=== PATIENT | female | born 1970 | race Caucasian/White ===

== ENCOUNTER 2016-11-11 11:08 | Emergency (ER) | payer SELFPAY ==
[~2016-11-11] VITALS: Ht 162.6 cm; Wt 70.0 kg
[2016-11-11] VITALS (7 sets, daily range): BP systolic 115–170; BP diastolic 73–100; PULSE 70–146; RESP 18–24; TEMP 97.8–99; O2SAT 95–100
--- NOTE | 2016-11-11 11:14 | PD ---
Physical Exam Date Seen by Provider: Nov 11, 2016 Time Seen by Provider: 11:11 Data Data Last Documented VS Vital Signs Date Time Temp Pulse Resp B/P Pulse Ox O2 Delivery O2 Flow Rate FiO2 11/11/16 11:10 98.4 146 24 170/100 95 Room Air [facility] Supervised Visit with KENNETH: No Narrative Course 46 YO F with complaint of "drinking too much," endorses SI. No active plan. Request psychiatric evaluation. Accompanied by her son. Vitals reviewed. Patient seen in triage, awaiting bed placement. Melinda Lind Nov 11, 2016 11:13
[2016-11-11] MEDS ORDERED: FLUMAZENIL 0.5 MG/5 ML VIAL IV PUSH PRN (12:00)
[2016-11-11] MEDS ORDERED: ONDANSETRON ODT 4 MG TAB PO PRN (12:00)
[2016-11-11] MEDS ORDERED: LORazepam 2 MG/ML VIAL IV PUSH PRN ×4 (12:00)
[2016-11-11 12:13] LABS: AUTOMATED NEUTROPHIL # 4.4 TH/MM3 (1.8-7.7); BASOPHIL % 0.4 % (0.0-2.0); EOSINOPHIL # 0.5 TH/MM3 (0-0.4); EOSINOPHIL % 6.4 % (0.0-4.0); HEMATOCRIT 44.3 % (35.0-46.0); HEMO FLAGS DIFF FINAL; LYMPHOCYTE # 2.1 TH/MM3 (1.0-4.8); MEAN CELL VOLUME 94.7 FL (80.0-100.0); MEAN CORPUSCULAR HEMOGLOBIN 31.8 PG (27.0-34.0); MEAN CORPUSCULAR HGB CONC 33.6 % (32.0-36.0); NEUT % 60.2 % (16.0-70.0); PLATELET COUNT 209 TH/MM3 (150-450); RED BLOOD COUNT 4.68 MIL/MM3 (4.00-5.30); RED CELL DISTRIBUTION WIDTH 13.4 % (11.6-17.2); WHITE BLOOD COUNT 7.4 TH/MM3 (4.0-11.0)
[2016-11-11 12:29] LABS: ALT (GPT) 153 U/L (10-53); ANION GAP 12 MEQ/L (5-15); AST (GOT) 178 U/L (15-37); BICARBONATE 25.6 MEQ/L (21.0-32.0); BLOOD UREA NITROGEN 7 MG/DL (7-18); CHLORIDE 108 MEQ/L (98-107); GLOMERULAR FILTRATION RATE 141 ML/MIN (>89); POTASSIUM 3.1 MEQ/L (3.5-5.1); SODIUM (NA) 146 MEQ/L (136-145)
[2016-11-11 12:33] LABS: ALKALINE PHOSPHATASE 138 U/L (45-117); TOTAL BILIRUBIN ADULT 0.2 MG/DL (0.2-1.0)
[2016-11-11 12:44] LABS: AMPHETAMINE, URINE NEG (NEG); BARBITURATES, URINE NEG (NEG); COCAINE, URINE NEG (NEG)
[2016-11-11 12:48] LABS: BACTERIA, URINE OCC /hpf; BLOOD, URINE NEG (NEG); COMMENT (UR) CULT NOT INDICATED; CULTURE IF INDICATED CULT NOT INDICATED; GLUCOSE,URINE NEG (NEG); KETONE, URINE NEG (NEG); MUCUS URINE FEW /lpf (OCC); NITRITE,URINE NEG (NEG); SQUAMOUS EPITHELIAL CELL URINE 8 /hpf (0-5); URINE COLOR YELLOW (YELLW/STRAW)
[2016-11-11] MEDS ORDERED: POTASSIUM CHLORIDE 20 MEQ CONTROLLED RELEASE TAB PO ONE (13:00)
--- NOTE | 2016-11-11 13:06 | PD ---
HPI Chief Complaint: Psychiatric Symptoms Time Seen by Provider: 13:01 Travel History International Travel<30 days: No Contact w/Intl Traveler<30days: No Traveled to known affect area: No History of Present Illness HPI 46-year-old female that presents to the ED for evaluation of voluntary psych evaluation. Patient comes here voluntarily for suicidal ideation. Patient has a history of substance abuse including alcohol and per patient she used cocaine about 2-3 days ago. Per patient she has no medical issues. She last drank today. Apparently per nurse report patient was kicked out of her son's house because of her substance abuse and also because she continued to be belligerent in front of children. She states that she feels suicidal because she feels hopeless. She has no other medical issues. She denies any chest pain. No shortness of breath. Denies any homicidal ideation. No history of psychiatric disease other than alcohol abuse. She has no allergies to medication. PFSH Past Medical History Arthritis: No Asthma: No Atrial Fibrillation: No Autoimmune Disease: No Blood Disorders: No Bipolar Disorder: No Anxiety: Yes Depression: Yes Heart Rhythm Problems: No Cancer: No Cardiomyopathy: No Cardiovascular Problems: No Cerebral Palsy: No High Cholesterol: No Chemotherapy: No Chest Pain: No Congestive Heart Failure: No Cirrhosis: Yes COPD: No Cerebrovascular Accident: No Coronary Artery Disease: No Cystic Fibrosis: No Dementia: No Developmental Delay: No Diabetes: No Patient Takes Glucophage: No Dialysis: No Diminished Hearing: No Diverticulitis: No Deep Vein Thrombosis: No Endocrine: No Fibromyalgia: No Gastrointestinal Disorders: No Genetic Disorder: No GERD: No Glaucoma: No Gout: No Genitourinary: No Headaches: Yes Hepatitis: No Hiatal Hernia: No Heparin Induced Thrombocytopen: No Herniated Disk: No Hypertension: No Immune Disorder: No Inguinal Hernia: No Implanted Vascular Access Dvce: No Insomnia: No Kidney Stones: No Medical other: No Musculoskeletal: No Neurologic: No Parkinson's Disease: No Psychiatric: Yes Reproductive: No Respiratory: No Integumentary: No Immunizations Current: No Migraines: No Myocardial Infarction: No Pancreatitis: No Pneumonia: No Radiation Therapy: No Renal Failure: No Schizophrenia: No Seizures: No Shingles: No Sickle Cell Disease: No Sleep Apnea: No Thyroid Disease: No Triglycerides - High: No Tetanus Vaccination: < 5 Years Influenza Vaccination: No ?: Not Past Surgical History Insulin Pump: No Pacemaker: No Family History Family Breast Cancer: No Family Myocardial Infarction: No Family Hypercholesterolemia: No Social History Alcohol Use: Yes Tobacco Use: No Substance Use: Yes Allergies-Medications (Allergen,Severity, Reaction): Coded Allergies: No Known Allergies (Unverified , 11/11/16) Review of Systems ROS Limitations: Intoxication Except as stated in HPI: all other systems reviewed are Neg Physical Exam Exam Limitations: Intoxication Narrative GENERAL: SKIN: Warm and dry. HEAD: Atraumatic. Normocephalic. EYES: Pupils equal and round. No scleral icterus. No injection or drainage. ENT: No nasal bleeding or discharge. Mucous membranes pink and moist. NECK: Trachea midline. No JVD. CARDIOVASCULAR: Regular rate and rhythm. RESPIRATORY: No accessory muscle use. Clear to auscultation. Breath sounds equal bilaterally. GASTROINTESTINAL: Abdomen soft, non-tender, nondistended. Hepatic and splenic margins not palpable. MUSCULOSKELETAL: Extremities without clubbing, cyanosis, or edema. No obvious deformities. Full range of motion of the upper and lower extremities bilaterally. No tremors noted. NEUROLOGICAL: Awake and alert. No obvious cranial nerve deficits. Motor grossly within normal limits. Five out of 5 muscle strength in the arms and legs. Normal speech. PSYCHIATRIC: intoxicated mood and affect; insight and judgment normal. Data Data Last Documented VS Vital Signs Date Time Temp Pulse Resp B/P Pulse Ox O2 Delivery O2 Flow Rate FiO2 11/11/16 12:33 97.8 98 18 131/90 100 Room Air Orders Complete Blood Count With Diff (11/11/16 11:30) Comprehensive Metabolic Panel (11/11/16 11:30) Urinalysis - C+S If Indicated (11/11/16 11:30) Ed Urine Pregnancytest Poc (11/11/16 11:30) Psych Screen (11/11/16 11:30) Drug Screen, Random Urine (11/11/16 11:30) Alcohol (Ethanol) (11/11/16 11:30) Diet Regular Basic (11/11/16 Lunch) Alcohol Withdrawal Asmt-Ciwa ONCE (11/11/16 11:55) Ondansetron Odt (Zofran Odt) (11/11/16 12:00) Flumazenil Inj (Romazicon Inj) (11/11/16 12:00) Lorazepam (Ativan) (11/11/16 12:00) Lorazepam Inj (Ativan Inj) (11/11/16 12:00) Lorazepam (Ativan) (11/11/16 12:00) Lorazepam Inj (Ativan Inj) (11/11/16 12:00) Lorazepam Inj (Ativan Inj) (11/11/16 12:00) Lorazepam Inj (Ativan Inj) (11/11/16 12:00) Chlordiazepoxide (Librium) (11/11/16 13:00) Potassium Chloride (Kcl) (11/11/16 13:00) Labs Laboratory Tests Test 11/11/16 11/11/16 11:58 12:17 White Blood Count 7.4 TH/MM3 Red Blood Count 4.68 MIL/MM3 Hemoglobin 14.9 GM/DL Hematocrit 44.3 % Mean Corpuscular Volume 94.7 FL Mean Corpuscular Hemoglobin 31.8 PG Mean Corpuscular Hemoglobin 33.6 % Concent Red Cell Distribution Width 13.4 % Platelet Count 209 TH/MM3 Mean Platelet Volume 9.4 FL Neutrophils (%) (Auto) 60.2 % Lymphocytes (%) (Auto) 28.0 % Monocytes (%) (Auto) 5.0 % Eosinophils (%) (Auto) 6.4 % Basophils (%) (Auto) 0.4 % Neutrophils # (Auto) 4.4 TH/MM3 Lymphocytes # (Auto) 2.1 TH/MM3 Monocytes # (Auto) 0.4 TH/MM3 Eosinophils # (Auto) 0.5 TH/MM3 Basophils # (Auto) 0.0 TH/MM3 CBC Comment DIFF FINAL Differential Comment Sodium Level 146 MEQ/L Potassium Level 3.1 MEQ/L Chloride Level 108 MEQ/L Carbon Dioxide Level 25.6 MEQ/L Anion Gap 12 MEQ/L Blood Urea Nitrogen 7 MG/DL Creatinine 0.47 MG/DL Estimat Glomerular Filtration 141 ML/MIN Rate Random Glucose 114 MG/DL Calcium Level 9.5 MG/DL Total Bilirubin 0.2 MG/DL Aspartate Amino Transf 178 U/L (AST/SGOT) Alanine Aminotransferase 153 U/L (ALT/SGPT) Alkaline Phosphatase 138 U/L Total Protein 7.4 GM/DL Albumin 3.6 GM/DL Ethyl Alcohol Level 371 MG/DL Urine Color YELLOW Urine Turbidity HAZY Urine pH 6.0 Urine Specific [place] 1.007 Urine Protein NEG mg/dL Urine Glucose (UA) NEG mg/dL Urine Ketones NEG mg/dL Urine Occult Blood NEG Urine Nitrite NEG Urine Bilirubin NEG Urine Urobilinogen LESS THAN 2.0 MG/DL Urine Leukocyte Esterase NEG Urine RBC 1 /hpf Urine WBC 3 /hpf Urine Squamous Epithelial 8 /hpf Cells Urine Bacteria OCC /hpf Urine Mucus FEW /lpf Microscopic Urinalysis Comment CULT NOT INDICATED Urine Opiates Screen NEG Urine Barbiturates Screen NEG Urine Amphetamines Screen NEG Urine Benzodiazepines Screen NEG Urine Cocaine Screen NEG Urine Cannabinoids Screen NEG MDM Medical Decision Making Medical Screen Exam Complete: Yes Emergency Medical Condition: Yes Medical Record Reviewed: Yes Interpretation(s) CBC & BMP Diagram 11/11/16 11:58 Alcohol-related 300s LFTs slightly elevated Differential Diagnosis Depression versus suicidal ideation versus anxiety versus adjustment disorder versus mood disorder versus bipolar disorder versus schizophrenia versus paranoid disorder versus psychosis versus substance abuse versus alcohol abuse versus alcohol induced psychosis versus homicidality addition versus cutting versus personality disorder Narrative Course 38-year-old female that presents to the ED for evaluation of psych. Patient was properly examined and was found to have signs and symptoms consistent psychiatric illness. No sign of acute medical distress. Patient does appear to be intoxicated likely under alcohol. At this time recommend oral hydration, by mouth potassium and Librium. Patient had CIWA protocols ordered. Okay to be seen by psych. Patient will be medically clear. Mental health screening was discussed with the patient. Diagnosis Primary Impression: Suicidal ideation Additional Impressions: Alcohol intoxication Qualified Code: F10.920 - Alcohol intoxication, uncomplicated Elevated LFTs Marcelo Munoz Nov 11, 2016 13:06
[2016-11-11] MEDS ORDERED: NICOTINE 14 MG/24 HR PATCH T-DERMAL ONE (14:30)
[2016-11-11] MEDS: LORazepam 1 MG TAB PO PRN (15:41)
[2016-11-11] MEDS: LORazepam 2 MG TAB PO PRN ×2 (18:30→22:04)
[2016-11-12] MEDS: LORazepam 1 MG TAB PO PRN ×2 (00:56→05:17)
[2016-11-12 01:52] VITALS: BP 103/59; PULSE 107; RESP 18
[2016-11-12 05:21] VITALS: BP 133/78; PULSE 110; RESP 18
[2016-11-12 06:06] VITALS: PULSE 88; RESP 18; O2SAT 97
--- NOTE | 2016-11-12 08:40 | PD.CONS ---
Provisional Diagnosis Admission Date [place] I. Alcohol induced mood disorder, alcohol and cannabis use disorder, history of depression and anxiety [place] II. Deferred [place] III. No significant medical history [place] IV. Sustained alcohol use [place] V. 55 History of Present Illness Service Psychiatry Consult Requested By Primary Care Physician No Primary Care Physician HPI The patient is a 46-year-old woman, domiciled with her boyfriend in [place], unemployed, supported by boyfriend, with psychiatric history of depression, anxiety, alcohol, cocaine and cannabis use disorder, 2 previous psychiatric hospitalizations, suicide attempts,no active outpatient care, significant medical history, who presents to the ED for evaluation of voluntary psych evaluation. Patient comes here voluntarily for suicidal ideation in the context of acute alcohol intoxication, initial BAL was 371. Patient has a history of substance abuse including alcohol and per patient she used cocaine about 2-3 days ago. Apparently per nurse report patient was kicked out of her son's house because of her substance abuse and also because she continued to be belligerent in front of children. Today a psychiatric evaluation patient presents clinically sober. No withdrawal symptoms are present or reported. Patient says that yesterday she was disorganized and drunk. She now says that she never reported SI. At the moment the patient reports good mood, denies hopelessness, denies helplessness, denies anhedonia, denies suicidal or homicidal ideation. She denies visual and auditory hallucinations. Patient is oriented 3. No attention deficit, no gross cognitive impairment present. Patient reports almost daily use of alcohol, she denies withdrawal symptoms in the past. She reports occasional use of cocaine and cannabis. Review of Systems Constitutional: DENIES: Diaphoretic episodes, Fatigue, Fever, Weight gain, Weight loss, Chills, Dizziness, Change in appetite, Night Sweats Endocrine: DENIES: Abnorml menstrual pattern, Heat/cold intolerance, Polydipsia , Polyuria, Polyphagia Eyes: DENIES: Blurred vision, Diplopia, Eye inflammation, Eye pain, Vision loss , Photosensitivity, Double Vision Respiratory: DENIES: Apneas, Cough, Snoring, Wheezing, Hemoptysis, Sputum production, Shortness of breath Cardiovascular: DENIES: Chest pain, Palpitations, Syncope, Dyspnea on Exertion , PND, Lower Extremity Edema, Orthopnea, Claudication Gastrointestinal: DENIES: Abdominal pain, Black stools, Bloody stools, Constipation, Diarrhea, Nausea, Vomiting, Difficulty Swallowing, Anorexia Musculoskeletal: DENIES: Joint pain, Muscle aches, Stiffness, Joint Swelling, Back pain, Neck pain Immunologic/allergic: DENIES: Eczema, Urticaria Neurologic: DENIES: Abnormal gait, Headache, Localized weakness, Paresthesias, Seizures, Speech Problems, Tremor, Poor Balance Psychiatric: DENIES: Anxiety, Confusion, Mood changes, Depression, Hallucinations, Agitation, Suicidal Ideation, Homicidal Ideation, Delusions Past Family Social History Coded Allergies: No Known Allergies (Unverified , 11/11/16) Current Medications Medications (Trade) Dose Ordered Sig/Sona Route Start Time Stop Time Status Last Admin (Zofran Odt) 4 mg Q8H PRN PO 11/11/16 12:00 11/11/16 15:41 (Romazicon Inj) 0.2 mg Q1M PRN IV PUSH 11/11/16 12:00 (Ativan) 1 mg Q4H PRN PO 11/11/16 12:00 11/12/16 05:17 (Ativan Inj) 1 mg Q4H PRN IV PUSH 11/11/16 12:00 (Ativan) 2 mg Q2H PRN PO 11/11/16 12:00 11/11/16 22:04 (Ativan Inj) 2 mg Q2H PRN IV PUSH 11/11/16 12:00 (Ativan Inj) 2 mg Q1H PRN IV PUSH 11/11/16 12:00 (Ativan Inj) 2 mg Q15M PRN IV PUSH 11/11/16 12:00 Family History Patient denies family history Social History Patient was born and raised in [place], she lives in [place] with her boyfriend, she is unemployed, supported by boyfriend, her highest level of education is some college. Patient's Strengths (min. 2) Verbal communication Physical Exam On physical exam patient does not present any withdrawal symptoms, no tremors, no EPS, no stiffness, no skin abnormalities, no gait disturbance Vital Signs Vital Signs Date Time Temp Pulse Resp B/P Pulse Ox O2 Delivery O2 Flow Rate FiO2 11/12/16 06:06 88 18 97 11/12/16 05:21 133/78 11/11/16 22:00 Room Air 11/11/16 18:00 98.5 Lab Results Laboratory Tests Test 11/11/16 11/11/16 11:58 12:17 White Blood Count 7.4 TH/MM3 Red Blood Count 4.68 MIL/MM3 Hemoglobin 14.9 GM/DL Hematocrit 44.3 % Mean Corpuscular Volume 94.7 FL Mean Corpuscular Hemoglobin 31.8 PG Mean Corpuscular Hemoglobin 33.6 % Concent Red Cell Distribution Width 13.4 % Platelet Count 209 TH/MM3 Mean Platelet Volume 9.4 FL Neutrophils (%) (Auto) 60.2 % Lymphocytes (%) (Auto) 28.0 % Monocytes (%) (Auto) 5.0 % Eosinophils (%) (Auto) 6.4 % Basophils (%) (Auto) 0.4 % Neutrophils # (Auto) 4.4 TH/MM3 Lymphocytes # (Auto) 2.1 TH/MM3 Monocytes # (Auto) 0.4 TH/MM3 Eosinophils # (Auto) 0.5 TH/MM3 Basophils # (Auto) 0.0 TH/MM3 CBC Comment DIFF FINAL Differential Comment Sodium Level 146 MEQ/L Potassium Level 3.1 MEQ/L Chloride Level 108 MEQ/L Carbon Dioxide Level 25.6 MEQ/L Anion Gap 12 MEQ/L Blood Urea Nitrogen 7 MG/DL Creatinine 0.47 MG/DL Estimat Glomerular Filtration 141 ML/MIN Rate Random Glucose 114 MG/DL Calcium Level 9.5 MG/DL Total Bilirubin 0.2 MG/DL Aspartate Amino Transf 178 U/L (AST/SGOT) Alanine Aminotransferase 153 U/L (ALT/SGPT) Alkaline Phosphatase 138 U/L Total Protein 7.4 GM/DL Albumin 3.6 GM/DL Ethyl Alcohol Level 371 MG/DL Urine Color YELLOW Urine Turbidity HAZY Urine pH 6.0 Urine Specific [place] 1.007 Urine Protein NEG mg/dL Urine Glucose (UA) NEG mg/dL Urine Ketones NEG mg/dL Urine Occult Blood NEG Urine Nitrite NEG Urine Bilirubin NEG Urine Urobilinogen LESS THAN 2.0 MG/DL Urine Leukocyte Esterase NEG Urine RBC 1 /hpf Urine WBC 3 /hpf Urine Squamous Epithelial 8 /hpf Cells Urine Bacteria OCC /hpf Urine Mucus FEW /lpf Microscopic Urinalysis Comment CULT NOT INDICATED Urine Opiates Screen NEG Urine Barbiturates Screen NEG Urine Amphetamines Screen NEG Urine Benzodiazepines Screen NEG Urine Cocaine Screen NEG Urine Cannabinoids Screen NEG Mental Status Examination Appearance woman, in [facility], age appearing, calm and cooperative Speech: Unremarkable Orientation: x3 Memory: Unremarkable Thought Process: Logical Thought Content: Unremarkable Language Fluids and is sometimes Fund of Knowledge Adequate for level of education Hallucination Type: None Attention and Concentration: Good Suicidal Ideation: No Previous Suicide Attempts: Yes Homicidal Ideation: No Previous Homicide Attempts: No Judgment: WNL Affect: Good Mood: Appropriate Motor Activity: Normal gait Assessment & Plan Problem List: (1) Alcohol abuse with alcohol-induced mood disorder Assessment & Plan: At the moment of this evaluation the patient does not present any evidence of significant objective or subjective symptomatology of depression, anxiety, olga or psychosis. Patient denies suicidal or homicidal ideation, she denies visual and auditory hallucinations. Patient is logical, coherent and relevant in conversation. Patient is oriented 3, no attention deficit, no gross cognitive impairment present. Patient is clinically sober, no withdrawal present. Suicidal statement yesterday made by patient was most probably the result of poor judgment related with acute alcohol intoxication, rather than a primary major psychiatric history decompensation. Patient does not meet criteria for psychiatric admission at this moment. Detox/ rehabilitation referral provided. Support, motivation psycho education provided. Alvarez act will be lifted. ICD Code: F10.14 Assessment & Plan Estimated LOS: Buddy Scott MD Nov 12, 2016 08:40
[2016-11-12 08:41] VITALS: BP 138/78; TEMP 98.1
== END 2016-11-12 09:34 | disposition home or self-care (01) ==
LOC: NEPJ 11:08
DX: F10.14 Alcohol abuse with alcohol-induced mood disorder (principal); F32.9 Major depressive disorder, single episode, unspecified; F41.9 Anxiety disorder, unspecified; Z79.899 Other long term (current) drug therapy
CPT/HCPCS: 80053; 80307; 81001; 84703; 85025; 99285

== ENCOUNTER 2017-02-28 00:33 | Inpatient (IN) | payer SELFPAY ==
[~2017-02-28] VITALS: Ht 160 cm; Wt 69.2 kg
[2017-02-28] VITALS (22 sets, daily range): BP systolic 75–118; BP diastolic 42–60; PULSE 96–197; RESP 31–44; TEMP 99.1–102.9; O2SAT 94–100
[2017-02-28] MEDS ORDERED: SODIUM CHLOR 0.9% 1000 ML INJ 400 ML IV ONE (00:44)
[2017-02-28] MEDS ORDERED: SODIUM CHLOR 0.9% 1000 ML INJ 1,000 ML IV ONE ×4 (00:44→02:25)
[2017-02-28] MEDS ORDERED: ACETAMINOPHEN 325 MG TAB PO ONE ×2 (00:45→12:45)
--- NOTE | 2017-02-28 00:55 | PD ---
HPI . Syncope Chief Complaint: Fever Time Seen by Provider: 00:44 Travel History International Travel<30 days: No Contact w/Intl Traveler<30days: No Traveled to known affect area: No History of Present Illness HPI This patient presents to us via [facility] following a syncopal or near syncopal event at home. The patient reports that she's been ill for a couple days with vomiting and diarrhea. She has been febrile. She reportedly had an alteration in her level of consciousness at home tonight prompting her boyfriend called the rescue squad. EMS states that her heart rate was 180 on their arrival. She was normotensive. She also had a fever of 103. They treated her in route with IV fluids and Zofran. Patient reports some cough and some shortness of breath. She denies any other upper respiratory symptoms. She denies any urinary tract symptoms. No modifiers. Her symptoms have been so severe tonight that it caused her to be syncopal. PFSH Past Medical History Arthritis: No Asthma: No Atrial Fibrillation: No Autoimmune Disease: No Blood Disorders: No Bipolar Disorder: No Anxiety: Yes Depression: Yes Heart Rhythm Problems: No Cancer: No Cardiomyopathy: No Cardiovascular Problems: No Cerebral Palsy: No High Cholesterol: No Chemotherapy: No Chest Pain: No Congestive Heart Failure: No Cirrhosis: Yes COPD: No Cerebrovascular Accident: No Coronary Artery Disease: No Cystic Fibrosis: No Dementia: No Developmental Delay: No Diabetes: No Dialysis: No Diminished Hearing: No Diverticulitis: No Deep Vein Thrombosis: No Endocrine: No Fibromyalgia: No Gastrointestinal Disorders: No Genetic Disorder: No GERD: No Glaucoma: No Gout: No Genitourinary: No Headaches: Yes Hepatitis: No Hiatal Hernia: No Heparin Induced Thrombocytopen: No Herniated Disk: No Hypertension: No Immune Disorder: No Inguinal Hernia: No Implanted Vascular Access Dvce: No Insomnia: No Kidney Stones: No Musculoskeletal: No Neurologic: No Parkinson's Disease: No Psychiatric: Yes Reproductive: No Respiratory: No Integumentary: No Immunizations Current: No Migraines: No Myocardial Infarction: No Pancreatitis: No Pneumonia: No Radiation Therapy: No Renal Failure: No Schizophrenia: No Seizures: No Shingles: No Sickle Cell Disease: No Sleep Apnea: No Thyroid Disease: No Triglycerides - High: No ?: Not Past Surgical History Insulin Pump: No Pacemaker: No Family History Family Hypercholesterolemia: No Social History Alcohol Use: Yes Tobacco Use: No Substance Use: Yes Allergies-Medications (Allergen,Severity, Reaction): Coded Allergies: No Known Allergies (Unverified , 02/28/17) Review of Systems Except as stated in HPI: all other systems reviewed are Neg General / Constitutional: Positive: Fever, Chills Eyes: No: Drainage, Redness HENT: No: Sore Throat, Rhinorrhea, Congestion Cardiovascular: No: Chest Pain or Discomfort Respiratory: Positive: Cough, Shortness of Breath Gastrointestinal: Positive: Nausea, Vomiting, Diarrhea Genitourinary: No: Urgency, Frequency, Dysuria Neurologic: Positive: Syncope Physical Exam Narrative GENERAL: Patient is currently lucid. SKIN: warm/dry. She has some erythema of the upper chest compatible with sun exposure. I don't see any other rash. HEAD: Normocephalic. Atraumatic. EYES: Pupils equal and round. No scleral icterus. No injection or drainage. ENT: No nasal bleeding or discharge. Mucous membranes pink and moist. NECK: Trachea midline. Full range of motion without pain.. CARDIOVASCULAR: Sinus tachycardia. No murmur. RESPIRATORY: No accessory muscle use. Clear to auscultation. Breath sounds equal bilaterally. GASTROINTESTINAL: Abdomen soft. Nontender. Bowel sounds present. Nondistended. MUSCULOSKELETAL: No obvious deformities. NEUROLOGICAL: Awake and alert. No obvious cranial nerve deficits. Motor grossly within normal limits. Normal speech. PSYCHIATRIC: Appropriate mood and affect; insight and judgment normal. Data Data Last Documented VS Vital Signs Date Time Temp Pulse Resp B/P (MAP) Pulse Ox O2 Delivery O2 Flow Rate FiO2 02/28/17 01:56 99.6 127 41 75/42 (53) 97 Room Air Orders Orders Complete Blood Count With Diff (02/28/17 00:44) Comprehensive Metabolic Panel (02/28/17 00:44) Lactic Acid Sepsis Protocol (02/28/17 00:44) Urinalysis - C+S If Indicated (02/28/17 00:44) Influenzae A/B Antigen (02/28/17 00:44) Blood Culture (02/28/17 00:44) Chest, Single Ap (02/28/17 00:44) Ecg Monitoring (02/28/17 00:44) Iv Access Insert/Monitor (02/28/17 00:44) Oximetry (02/28/17 00:44) Acetaminophen (Tylenol) (02/28/17 00:45) Sodium Chlor 0.9% 1000 Ml Inj (Ns 1000 M (02/28/17 00:44) Sodium Chlor 0.9% 1000 Ml Inj (Ns 1000 M (02/28/17 00:44) Sodium Chlor 0.9% 1000 Ml Inj (Ns 1000 M (02/28/17 00:44) Ceftriaxone Inj (Rocephin Inj) (02/28/17 01:45) Azithromycin Inj (Zithromax Inj) (02/28/17 01:45) Admit Order (Ed Use Only) (02/28/17 01:55) Labs Laboratory Tests Test 02/28/17 00:40 White Blood Count 1.8 TH/MM3 Red Blood Count 4.25 MIL/MM3 Hemoglobin 14.4 GM/DL Hematocrit 41.2 % Mean Corpuscular Volume 97.0 FL Mean Corpuscular Hemoglobin 33.9 PG Mean Corpuscular Hemoglobin Concent 35.0 % Red Cell Distribution Width 17.0 % Platelet Count 62 TH/MM3 Mean Platelet Volume 8.9 FL Neutrophils (%) (Auto) 86.4 % Lymphocytes (%) (Auto) 12.9 % Monocytes (%) (Auto) 0.6 % Eosinophils (%) (Auto) 0.1 % Basophils (%) (Auto) 0.0 % Neutrophils # (Auto) 1.5 TH/MM3 Lymphocytes # (Auto) 0.2 TH/MM3 Monocytes # (Auto) 0.0 TH/MM3 Eosinophils # (Auto) 0.0 TH/MM3 Basophils # (Auto) 0.0 TH/MM3 CBC Comment AUTO DIFF Differential Total Cells Counted 100 Neutrophils % (Manual) 30 % Band Neutrophils % 35 % Lymphocytes % 11 % Eosinophils % 1 % Neutrophils # (Manual) 1.6 TH/MM3 Metamyelocytes 21 % Myelocytes 2 % Nucleated Red Blood Cells 6 /100 WBC Differential Comment FINAL DIFF MANUAL Toxic Vacuolation PRESENT Dohle Bodies PRESENT Platelet Estimate LOW Platelet Morphology Comment NORMAL Red Cell Morphology Comment NORMAL Blood Urea Nitrogen 25 MG/DL Creatinine 2.03 MG/DL Random Glucose 203 MG/DL Total Protein 7.0 GM/DL Albumin 3.0 GM/DL Calcium Level 7.7 MG/DL Alkaline Phosphatase 146 U/L Aspartate Amino Transf (AST/SGOT) 191 U/L Alanine Aminotransferase (ALT/SGPT) 97 U/L Total Bilirubin 1.0 MG/DL Sodium Level 131 MEQ/L Potassium Level 2.8 MEQ/L Chloride Level 97 MEQ/L Carbon Dioxide Level 19.5 MEQ/L Anion Gap 15 MEQ/L Estimat Glomerular Filtration Rate 26 ML/MIN Lactic Acid Level 4.9 mmol/L MDM Medical Decision Making Medical Screen Exam Complete: Yes Emergency Medical Condition: Yes Interpretation(s) EKG shows sinus tachycardia at 127. No acute ischemic changes. Differential Diagnosis Differential diagnosis of fever includes but is not limited to viral illness, strep throat, otitis media, pneumonia, sepsis, UTI Narrative Course This patient presents to us via [facility] following a syncopal event at home. She was found to be febrile at 103 with a heart rate of 180. Septic workup is in progress. CBC & BMP Diagram 02/28/17 00:40 Total Protein 7.0, Albumin 3.0 L, Calcium Level 7.7 L, Alkaline Phosphatase 146 H, Aspartate Amino Transf (AST/SGOT) 191 H, Alanine Aminotransferase (ALT/SGPT) 97 H, Total Bilirubin 1.0 Lactic acid level is 4.9. Chest x-ray shows a right lower lobe infiltrate. 2 AM The patient's blood pressure has dropped to a systolic of about 75. She has already had 3 L of fluid. I discussed central line with the patient which she agreed to. Levophed has subsequently been ordered. Critical Care Narrative Aggregate critical care time was 45 minutes. Time to perform other separately billable procedures was not included in the critical care time. My time did not include minutes spent treating any other patients simultaneously or on activities that did not directly contribute to the patient's treatment. The services I provided to this patient were to treat and/or prevent clinically significant deterioration due to septic shock I provided critical care services requiring my management, as noted below: Chart data review, documentation time, medication orders and management, vital sign assessments/reviewing monitor data, ordering and reviewing lab tests, ordering and interpreting/reviewing x-rays and diagnostic studies, care of the patient and discussion of the patient with the admitting physicians Procedures Procedure Narrative CENTRAL VENOUS LINE: The site was prepped with ChloraPrep and sterilely draped. It was infiltrated with 1% lidocaine plain. The deep vein was cannulated using normal Seldinger technique. A single lumen central line was placed in the right subclavian vein site and secured with simple interrupted suture. The site was sterilely dressed. The patient tolerated the procedure well. Sepsis Criteria SIRS Criteria (2 or more): Temp > 100.9 or < 96.8, Heart rate over 90, RR > 20 or PaCO2 < 32, WBC > 36852, < 4000 or > 10% bands Sepsis Criteria (SIRS+source): Infect source susp/known Severe Sepsis (+one): Lactate >2, Acute Oliguria/Renal Failure Septic Shock Criteria: Lactic acid >=4 Criteria Outcome: Meets SIRS criteria, Meets sepsis criteria, Meets severe sepsis criteria, Meets septic shock criteria Diagnosis Primary Impression: Septic shock Additional Impressions: Pneumonia Qualified Codes: J18.1 - Lobar pneumonia, unspecified organism Hypokalemia Acute kidney injury Admitting Information Admitting Physician Requests: Admit Condition: Stable Araceli Diaz MD Feb 28, 2017 00:55
[2017-02-28 01:00] LABS: AUTOMATED NEUTROPHIL # 1.5 TH/MM3 (1.8-7.7); EOSINOPHIL % 0.1 % (0.0-4.0); HEMATOCRIT 41.2 % (35.0-46.0); HEMOGLOBIN 14.4 GM/DL (11.6-15.3); LYMPH % 12.9 % (9.0-44.0); LYMPHOCYTE # 0.2 TH/MM3 (1.0-4.8); MEAN CORPUSCULAR HEMOGLOBIN 33.9 PG (27.0-34.0); MEAN PLATELET VOLUME 8.9 FL (7.0-11.0); MONO % 0.6 % (0.0-8.0); NEUT % 86.4 % (16.0-70.0); PLATELET COUNT 62 TH/MM3 (150-450); RED BLOOD COUNT 4.25 MIL/MM3 (4.00-5.30); WHITE BLOOD COUNT 1.8 TH/MM3 (4.0-11.0)
--- NOTE | 2017-02-28 01:27 | RADRPT ---
EXAM DATE/TIME: 02/28/2017 01:03 [facility] COMPARISON: No previous studies available for comparison. INDICATIONS : Fever, dizziness, weakness starting tonight MEDICAL HISTORY : None. SURGICAL HISTORY : None. ENCOUNTER: Initial ACUITY: 1 day PAIN SCORE: 0/10 LOCATION: Bilateral chest FINDINGS: Mild infiltrates seen laterally in the right lung base. Left lung is clear. No pleural effusion or pn eumothorax. Normal heart size. CONCLUSION: Early/mild right base pneumonia. Jake Arredondo MD on February 28, 2017 at 1:25 Board Certified Radiologist. This report was verified electronically.
[2017-02-28 01:43] LABS: ALKALINE PHOSPHATASE 146 U/L (45-117); ALT (GPT) 97 U/L (10-53); AST (GOT) 191 U/L (15-37); BICARBONATE 19.5 MEQ/L (21.0-32.0); BLOOD UREA NITROGEN 25 MG/DL (7-18); CALCIUM 7.7 MG/DL (8.5-10.1); CHLORIDE 97 MEQ/L (98-107); CREATININE 2.03 MG/DL (0.50-1.00); GLOMERULAR FILTRATION RATE 26 ML/MIN (>89); GLUCOSE,RANDOM 203 MG/DL (74-106); SODIUM (NA) 131 MEQ/L (136-145)
[2017-02-28] MEDS ORDERED: cefTRIAXone INJ 2,000 MG in SODIUM CHLORIDE 0.9% INJ 100 ML IV ONE (01:45)
[2017-02-28] MEDS ORDERED: AZITHROMYCIN INJ 500 MG in SODIUM CHLOR 0.9% 250 ML INJ 250 ML IV ONE (01:45)
[2017-02-28 01:46] LABS: LACTIC ACID SEPSIS PROTOCOL 4.9 mmol/L (0.4-2.0)
[2017-02-28 01:56] LABS: BANDS 35 % (0-6); CORRECTED NUCLEATED RBC 6 /100 WBC (0-0); LYMPHOCYTES 11 % (9-44); METAMYELOCYTES 21 % (0-1); MYELOCYTES 2 % (0-0); NEUTROPHIL # MANUAL DIFF 1.6 TH/MM3 (1.8-7.7); NUCLEATED RED BLOOD CELL 6 (0-0); POLYS (SEG NEUTROPHILS) 30 % (16-70)
[2017-02-28 01:57] LABS: DOHLE BODIES PRESENT (NONE SEEN); TOXIC VACUOLATION PRESENT (NONE SEEN)
[2017-02-28] MEDS: SODIUM CHLOR 0.9% 1000 ML INJ 1,000 ML IV SCH ×4 (02:25→23:44)
[2017-02-28] MEDS ORDERED: SODIUM CHLOR 0.9% 1000 ML INJ 700 ML IV ONE (02:25)
[2017-02-28] MEDS ORDERED: SODIUM CHLORIDE 0.9% FLUSH 10 ML FLUSH IV FLUSH PRN (02:30)
[2017-02-28] MEDS ORDERED: NOREPINEPHRINE INJ 4 MG in SODIUM CHLOR 0.9% 250 ML INJ 246 ML IV PRN (02:30)
[2017-02-28] MEDS ORDERED: Vancomycin Consult Pharmacy 1 EA OTHER SCH (02:30)
[2017-02-28] MEDS ORDERED: MISCELLANEOUS NURSING INFORMATION XX SCH (02:30)
[2017-02-28] MEDS ORDERED: MORPHINE SULFATE 4 MG/ML INJ IV PUSH ONE (02:30)
[2017-02-28] MEDS ORDERED: NOREPINEPHRINE-DEXTROSE DRIP 250 ML IV PRN ×2 (02:30→16:45)
[2017-02-28] MEDS ORDERED: CHLORHEXIDINE GLUCONATE 2 % 1 PACK (2 CLOTHS) TOP PRN (02:30)
[2017-02-28] MEDS ORDERED: TERBUTALINE INJ 1 MG/ML AMP SQ PRN ×2 (02:30)
[2017-02-28] MEDS ORDERED: VANCOMYCIN INJ 1,000 MG in SODIUM CHLOR 0.9% 250 ML INJ 250 ML IV ONE (02:30)
[2017-02-28] MEDS ORDERED: ALBUMIN HUMAN 5% 25 GM/500 ML BOTTLE IV ONE (02:45)
--- NOTE | 2017-02-28 03:14 | RADRPT ---
EXAM DATE/TIME: 02/28/2017 03:01 [facility] COMPARISON: CHEST SINGLE AP, February 28, 2017, 1:03. INDICATIONS : Central line placement MEDICAL HISTORY : None. SURGICAL HISTORY : None. ENCOUNTER: Initial ACUITY: 1 day PAIN SCORE: 0/10 LOCATION: Bilateral chest FINDINGS: Focal infiltrate laterally the right lung base remains ill defined but is a little more conspicuous t olivia earlier. Left lung remains reasonably clear. No pleural effusion. No pneumothorax. Right subclavian central venous catheter has been placed with tip in the right atrium. CONCLUSION: New right subclavian central venous catheter with tip in the right atrium. No pneumothorax or other a cute cardiopulmonary disease. Right base consolidation again noted. Jake Arredondo MD on February 28, 2017 at 3:10 Board Certified Radiologist. This report was verified electronically.
[2017-02-28 03:26] LABS: LACTIC ACID SEPSIS PROTOCOL 2.9 mmol/L (0.4-2.0)
[2017-02-28 03:28] LABS: AMORPHOUS SEDIMENT, URINE RARE; BACTERIA, URINE OCC /hpf; BILIRUBIN, URINE NEG (NEG); BLOOD, URINE LARGE (NEG); GLUCOSE,URINE NEG (NEG); HYALINE CAST, URINE 3 /lpf (RARE); KETONE, URINE NEG (NEG); MUCUS URINE FEW /lpf (OCC); NITRITE,URINE NEG (NEG); URINE COLOR YELLOW (YELLW/STRAW); URINE LEUKOCYTE ESTERASE MOD (NEG)
[2017-02-28] MEDS: HYDROCORTISONE SOD SUCCINATE 100 MG VIAL IV PUSH SCH ×4 (03:43→21:00)
[2017-02-28] MEDS: CHLORHEXIDINE GLUCONATE 2 % 1 PACK (2 CLOTHS) TOP SCH (04:00)
[2017-02-28] MEDS: PIPERACIL-TAZO 4.5 GM PREMIX 100 ML IV SCH ×2 (05:08→08:30)
--- NOTE | 2017-02-28 05:42 | HHI.HP ---
HPI Service Critical Care Medicine Primary Care Physician No Primary Care Physician Admission Diagnosis septic shock, pneumonia, ADILSON, hypokalemia Diagnosis: Travel History International Travel<30 Days: No Contact w/Intl Traveler <30 Da: No Traveled to Known Affected Are: No History of Present Illness 44-year-old female with history of alcohol use disorder liver cirrhosis, presents following a syncopal or near syncopal event at home. The patient reports that she's been ill for a couple days with vomiting and diarrhea. She has been febrile. She reportedly had an alteration in her level of consciousness at home tonight prompting her boyfriend called the rescue squad. EMS states that her heart rate was 180 on their arrival. She was normotensive. She also had a fever of 103. They treated her in route with IV fluids and Zofran. Patient reports some cough and some shortness of breath. She denies any other upper respiratory symptoms. She denies any urinary tract symptoms. Despite IV fluid resuscitation patient became hypotensive in the center line was placed by ED attending for Levophed administration. Review of Systems Constitutional: COMPLAINS OF: Diaphoretic episodes, Fatigue, Fever, Chills, Dizziness, Night Sweats, DENIES: Weight gain, Weight loss, Change in appetite Endocrine: DENIES: Abnorml menstrual pattern, Heat/cold intolerance, Polydipsia , Polyuria, Polyphagia Eyes: DENIES: Blurred vision, Diplopia, Eye inflammation, Eye pain, Vision loss , Photosensitivity, Double Vision Ears, nose, mouth, throat: DENIES: Tinnitus, Hearing loss, Vertigo, Nasal discharge, Oral lesions, Throat pain, Hoarseness, Ear Pain, Running Nose, Epistaxis, Sinus Pain, Toothache, Odynophagia Respiratory: COMPLAINS OF: Cough, Sputum production, Shortness of breath, DENIES: Apneas, Snoring, Wheezing, Hemoptysis Cardiovascular: DENIES: Chest pain, Palpitations, Syncope, Dyspnea on Exertion , PND, Lower Extremity Edema, Orthopnea, Claudication Gastrointestinal: DENIES: Abdominal pain, Black stools, Bloody stools, Constipation, Diarrhea, Nausea, Vomiting, Difficulty Swallowing, Anorexia Genitourinary: DENIES: Abnormal vaginal bleeding, Dysmenorrhea, Dyspareunia, Sexual dysfunction, Urinary frequency, Urinary incontinence, Urgency, Hematuria , Dysuria, Nocturia, Vaginal discharge Musculoskeletal: DENIES: Joint pain, Muscle aches, Stiffness, Joint Swelling, Back pain, Neck pain Integumentary: DENIES: Abnormal pigmentation, Pruritus, Rash, Nail changes, Breast masses, Breast skin changes, Nipple discharge Immunologic/allergic: DENIES: Eczema, Urticaria Neurologic: DENIES: Abnormal gait, Headache, Localized weakness, Paresthesias, Seizures, Speech Problems, Tremor, Poor Balance Psychiatric: DENIES: Anxiety, Confusion, Mood changes, Depression, Hallucinations, Agitation, Suicidal Ideation, Homicidal Ideation, Delusions Past Family Social History Allergies: Coded Allergies: No Known Allergies (Unverified , 02/28/17) Past Medical History Depressions Anxiety Liver cirrhosis Alcoholism Past Surgical History None Reported Medications None Active Ordered Medications Current Medications Medications (Trade) Dose Ordered Sig/Sona Route PRN Reason Start Time Stop Time Status Last Admin Dose Admin Norepinephrine Bitartrate 4 mg/ Sodium Chloride 250 ml @ 7.5 mls/hr TITRATE PRN IV Blood pressure management 02/28/17 02:30 Terbutaline Sulfate (Brethine Inj) 1 mg UNSCH PRN SQ For Extravasation 02/28/17 02:30 Sodium Chloride 1,000 ml @ 125 mls/hr Q8H IV 02/28/17 02:25 02/28/17 02:25 Sodium Chloride (NS Flush) 2 ml UNSCH PRN IV FLUSH FLUSH AFTER USING IV ACCESS 02/28/17 02:30 Sodium Chloride (NS Flush) 2 ml BID IV FLUSH 02/28/17 09:00 Hydrocortisone Sodium Succinate (SoluCORTEF INJ) 50 mg Q6H IV PUSH 02/28/17 03:00 02/28/17 03:43 Famotidine (Pepcid) 20 mg Q12HR PO 02/28/17 09:00 Albuterol/ Ipratropium (Duoneb Neb) 1 ampule Q6HR NEB INH 02/28/17 04:00 Albuterol/ Ipratropium (Duoneb Neb) 1 ampule Q2HR NEB PRN NEB WHEEZING 02/28/17 03:00 Heparin Sodium (Porcine) (Heparin Inj) 5,000 units Q8HR SQ 02/28/17 06:00 Piperacillin Sod/ Tazobactam Sod 100 ml @ 200 mls/hr Q6H IV 02/28/17 03:00 02/28/17 05:08 Azithromycin 500 mg/Sodium Chloride 250 ml @ 250 mls/hr Q24H IV 03/01/17 02:00 Pharmacy Profile Note 0 ml @ 0 mls/hr UNSCH OTHER 02/28/17 02:30 Miscellaneous Information 1 [id number] XX 02/28/17 02:30 Chlorhexidine Gluconate (Chlorhexidine 2% Cloth) 3 pack Taper DAILY@04 TOP 02/28/17 04:00 02/24/18 03:59 Chlorhexidine Gluconate (Chlorhexidine 2% Cloth) 3 pack UNSCH PRN TOP HYGIENIC CARE 02/28/17 02:30 Norepinephrine Bitartrate 250 ml @ 7.5 mls/hr TITRATE PRN IV Blood pressure management 02/28/17 02:30 Terbutaline Sulfate (Brethine Inj) 1 mg UNSCH PRN SQ For Extravasation 02/28/17 02:30 Family History No family history significant for coronary artery disease or malignancy Social History Patient reports almost daily use of alcohol, she denies withdrawal symptoms in the past. She reports occasional use of cocaine and cannabis. Patient was born and raised in [place], she lives in [place] with her boyfriend, she is unemployed, supported by boyfriend, her highest level of education is some college. Physical Exam Vital Signs Vital Signs Date Time Temp Pulse Resp B/P (MAP) Pulse Ox O2 Delivery O2 Flow Rate FiO2 02/28/17 04:10 123 33 80/53 (62) 99 Nasal Cannula 2.00 02/28/17 03:00 128 32 76/49 (58) 100 Nasal Cannula 2.00 02/28/17 02:30 126 33 78/50 (59) 100 Nasal Cannula 2.00 02/28/17 01:56 99.6 127 41 75/42 (53) 97 Room Air 02/28/17 01:45 116 41 83/50 (61) 100 Room Air 02/28/17 01:30 116 40 98/60 (73) 100 Room Air 02/28/17 01:00 132 39 106/56 (73) 96 Room Air 02/28/17 00:47 38 99 Room Air 02/28/17 00:40 102.9 131 44 118/60 (79) 98 Physical Exam GENERAL: Well-nourished, well-developed patient. SKIN: Warm and dry. HEAD: Normocephalic. EYES: No scleral icterus. No injection or drainage. NECK: Supple, trachea midline. No JVD or lymphadenopathy. CARDIOVASCULAR: Regular rate and rhythm without murmurs, gallops, or rubs. RESPIRATORY: Breath sounds equal bilaterally. No accessory muscle use. GASTROINTESTINAL: Abdomen soft, non-tender, nondistended. MUSCULOSKELETAL: No cyanosis, or edema. BACK: Nontender without obvious deformity. NEURO EXAM: GCS: M 6 V 5 E 4 Mental Status: The patient is alert and oriented to person, place, and time with normal speech. Cranial Nerves: Visual acuity intact bilaterally. Visual rosario normal in all quadrants. Pupils are round, reactive to light. Extraocular movements are intact without ptosis. Hearing is normal bilaterally. Voice is normal. Tongue protrudes midline and moves symmetrically. Reflexes: Biceps, patellar, and Achilles are 2/4 bilaterally. No clonus. Laboratory Laboratory Tests Test 02/28/17 00:40 02/28/17 02:49 02/28/17 02:56 02/28/17 04:00 White Blood Count 1.8 Red Blood Count 4.25 Hemoglobin 14.4 Hematocrit 41.2 Mean Corpuscular Volume 97.0 Mean Corpuscular Hemoglobin 33.9 Mean Corpuscular Hemoglobin Concent 35.0 Red Cell Distribution Width 17.0 Platelet Count 62 Mean Platelet Volume 8.9 Neutrophils (%) (Auto) 86.4 Lymphocytes (%) (Auto) 12.9 Monocytes (%) (Auto) 0.6 Eosinophils (%) (Auto) 0.1 Basophils (%) (Auto) 0.0 Neutrophils # (Auto) 1.5 Lymphocytes # (Auto) 0.2 Monocytes # (Auto) 0.0 Eosinophils # (Auto) 0.0 Basophils # (Auto) 0.0 CBC Comment AUTO DIFF Differential Total Cells Counted 100 Neutrophils % (Manual) 30 Band Neutrophils % 35 Lymphocytes % 11 Eosinophils % 1 Neutrophils # (Manual) 1.6 Metamyelocytes 21 Myelocytes 2 Nucleated Red Blood Cells 6 Differential Comment FINAL DIFF MANUAL Toxic Vacuolation PRESENT Dohle Bodies PRESENT Platelet Estimate LOW Platelet Morphology Comment NORMAL Red Cell Morphology Comment NORMAL Blood Urea Nitrogen 25 Creatinine 2.03 Random Glucose 203 Total Protein 7.0 Albumin 3.0 Calcium Level 7.7 Alkaline Phosphatase 146 Aspartate Amino Transf (AST/SGOT) 191 Alanine Aminotransferase (ALT/SGPT) 97 Total Bilirubin 1.0 Sodium Level 131 Potassium Level 2.8 Chloride Level 97 Carbon Dioxide Level 19.5 Anion Gap 15 Estimat Glomerular Filtration Rate 26 Lactic Acid Level 4.9 2.9 Urine Color YELLOW Urine Turbidity HAZY Urine pH 6.0 Urine Specific [place] 1.012 Urine Protein 100 Urine Glucose (UA) NEG Urine Ketones NEG Urine Occult Blood LARGE Urine Nitrite NEG Urine Bilirubin NEG Urine Urobilinogen LESS THAN 2.0 Urine Leukocyte Esterase MOD Urine RBC 17 Urine WBC 35 Urine Amorphous Sediment RARE Urine Bacteria OCC Urine Hyaline Casts 3 Urine Granular Casts 7 Urine Mucus FEW Microscopic Urinalysis Comment CATH-CULTURE IND Test 02/28/17 04:41 Lactic Acid Level 1.6 Date/Time Source Procedure Growth Status 02/28/17 04:40 Blood Peripheral Aerobic Blood Culture Pending Received 02/28/17 04:40 Blood Peripheral Anaerobic Blood Culture Pending Received 02/28/17 01:06 Nasal Washing Influenza Types A,B Antigen (CARLA) - Final NEGATIVE FOR FLU A AND B ANTIGEN.... Complete 02/28/17 02:56 Urine Catheterized Urine Urine Culture Pending Received Result Diagram: 02/28/170 02/28/17 0040 Caprini VTE Risk Assessment Caprini VTE Risk Assessment: Mod/High Risk (score >= 2) Caprini Risk Assessment Model Point Value = 1 Point Value = 2 Point Value = 3 Point Value = 5 Age 41-60 Minor surgery BMI > 25 kg/m2 Swollen legs Varicose veins or History of unexplained or recurrent spontaneous Oral contraceptives or hormone replacement Sepsis (< 1 month) Serious lung disease, including pneumonia (< 1 month) Abnormal pulmonary function Acute myocardial infarction Congestive heart failure (< 1 month) History of inflammatory bowel disease Medical patient at bed rest Age 61-74 Arthroscopic surgery Major open surgery (> 45 min) Laparoscopic surgery (> 45 min) Malignancy Confined to bed (> 72 hours) Immobilizing plaster cast Central venous access Age >= 75 History of VTE Family history of VTE Factor V Leiden Prothrombin [id number] Lupus anticoagulant Anticardiolipin antibodies Elevated serum homocysteine Heparin-induced thrombocytopenia Other congenital or acquired thrombophilia Stroke (< 1 month) Elective arthroplasty Hip, pelvis, or leg fracture Acute spinal cord injury (< 1 month) Prophylaxis Regimen Total Risk Factor Score Risk Level Prophylaxis Regimen 0-1 Low Early ambulation 2 Moderate Order ONE of the following: *Sequential Compression Device (SCD) *Heparin 5000 units SQ BID 3-4 Higher Order ONE of the following medications: *Heparin 5000 units SQ TID *Enoxaparin/Lovenox 40 mg SQ daily (WT < 150 kg, CrCl > 30 mL/min) *Enoxaparin/Lovenox 30 mg SQ daily (WT < 150 kg, CrCl > 10-29 mL/min) *Enoxaparin/Lovenox 30 mg SQ BID (WT < 150 kg, CrCl > 30 mL/min) AND/OR *Sequential Compression Device (SCD) 5 or more Highest Order ONE of the following medications: *Heparin 5000 units SQ TID (Preferred with Epidurals) *Enoxaparin/Lovenox 40 mg SQ daily (WT < 150 kg, CrCl > 30 mL/min) *Enoxaparin/Lovenox 30 mg SQ daily (WT < 150 kg, CrCl > 10-29 mL/min) *Enoxaparin/Lovenox 30 mg SQ BID (WT < 150 kg, CrCl > 30 mL/min) AND *Sequential Compression Device (SCD) Assessment and Plan Assessment and Plan Severe sepsis - Bilateral pulmonary infiltrate - Spectrum antibiotics - Culture and sensitivity - Infectious disease consult Pneumonia - CXR with infiltrates - Broad-spectrum antibiotics - DuoNeb's when necessary and scheduled - Urine antigens to follow Alcoholism - Thiamine folate and multivitamins IV - Monitor for withdrawal Anxiety and depression - Ativan when necessary DVT GI prophylaxis - Teds SCDs - Subcutaneous heparin - Pepcid Critical Care: The total critical care time was 35 minutes. Time to perform other separately billable procedures was not included in the critical care time. Waqar Sneed MD Feb 28, 2017 05:42
[2017-02-28] MEDS ORDERED: MAGNESIUM OXIDE 400 MG TAB PO PRN (05:45)
[2017-02-28] MEDS ORDERED: POTASSIUM CHLOR 40 MEQ PREMIX 100 ML IV PRN (05:45)
[2017-02-28] MEDS ORDERED: MAGNESIUM SULFATE INJ 2 GM in SODIUM CHLORIDE 0.9% INJ 96 ML IV PRN (05:45)
[2017-02-28] MEDS ORDERED: POTASSIUM CHLOR 20 MEQ PREMIX 100 ML IV PRN ×2 (05:45)
[2017-02-28] MEDS ORDERED: MAGNESIUM SULFATE INJ 4 GM in SODIUM CHLORIDE 0.9% INJ 92 ML IV PRN (05:45)
[2017-02-28] MEDS ORDERED: SODIUM PHOSPHATE INJ 30 MMOL in SODIUM CHLOR 0.9% 250 ML INJ 240 ML IV PRN (05:45)
[2017-02-28] MEDS ORDERED: POTASSIUM PHOSPHATE MONOBASIC 500 MG TAB PO PRN (05:45)
[2017-02-28] MEDS ORDERED: POTASSIUM PHOSPHATE INJ 30 MMOL in SODIUM CHLOR 0.9% 250 ML INJ 250 ML IV PRN (05:45)
[2017-02-28] MEDS ORDERED: POTASSIUM CHLORIDE 25 MEQ EFFERVESCENT TAB PO PRN (05:45)
[2017-02-28] MEDS ORDERED: POTASSIUM PHOSPHATE MONOBASIC 500 MG TAB PO/TUBE PRN (05:45)
[2017-02-28] MEDS: POTASSIUM CHLOR 40 MEQ PREMIX 100 ML IV PRN ×2 (06:09→08:30)
[2017-02-28] MEDS: HEPARIN SODIUM - SQ 10,000 UNITS/ML VIAL SQ SCH ×3 (06:09→21:00)
[2017-02-28] MEDS ORDERED: MULTIVITAMIN INJ 10 ML, THIAMINE INJ 100 MG, FOLIC ACID INJ 1 MG in SODIUM CHLORID 0.9%... IV ONE (07:45)
[2017-02-28] MEDS: SODIUM CHLORIDE 0.9% FLUSH 10 ML FLUSH IV FLUSH SCH ×2 (08:30→21:00)
[2017-02-28] MEDS: FAMOTIDINE 20 MG TAB PO SCH ×2 (08:31→20:59)
[2017-02-28] MEDS: RESP: ALBUTEROL 2.5 MG/IPRATROPIUM 0.5 MG NEB (SCH) INH ×3 (09:37→19:56)
[2017-02-28] MEDS ORDERED: LORazepam 2 MG/ML VIAL ONE (10:47)
[2017-02-28] MEDS ORDERED: LORazepam 2 MG/ML VIAL IV ONE (12:00)
[2017-02-28] MEDS ORDERED: LORazepam 2 MG/ML VIAL IV PRN (12:00)
[2017-02-28] MEDS: RESP: ALBUTEROL 2.5 MG/IPRATROPIUM 0.5 MG NEB (PRN) NEB (12:36)
[2017-02-28] MEDS: chlordiazePOXIDE 25 MG CAP PO SCH ×2 (12:47→21:00)
[2017-02-28] MEDS ORDERED: MIDAZOLAM HCL 5 MG/ML VIAL (1 ML) IM ONE (13:30)
[2017-02-28] MEDS ORDERED: ROCURONIUM INJ 100 MG/10 ML VIAL IV ONE (13:30)
--- NOTE | 2017-02-28 13:39 | RADRPT ---
EXAM DATE/TIME: 02/28/2017 13:05 [facility] COMPARISON: CHEST SINGLE AP, February 28, 2017, 3:01. INDICATIONS : Short of breath and difficulty breathing. Hypoxemia. MEDICAL HISTORY : None. SURGICAL HISTORY : None. ENCOUNTER: Subsequent ACUITY: 2 days PAIN SCORE: 0/10 LOCATION: Bilateral chest FINDINGS: A single view of the chest demonstrates bilateral patchy infiltrates mainly left upper lobe and right lower lobe. Heart normal in size. Osseous structures are intact. Right subclavian central line stab le in position. CONCLUSION: 1. Worsening bilateral patchy infiltrates. Leo Mccormack MD on February 28, 2017 at 13:36 Board Certified Radiologist. This report was verified electronically.
--- NOTE | 2017-02-28 14:10 | HHI.CCPN ---
Subjective Remarks/Hospital Course 44-year-old female with history of alcohol use disorder liver cirrhosis, presents following a syncopal or near syncopal event at home. The patient reports that she's been ill for a couple days with vomiting and diarrhea. She has been febrile. She reportedly had an alteration in her level of consciousness at home tonight prompting her boyfriend called the rescue squad. EMS states that her heart rate was 180 on their arrival. She was normotensive. She also had a fever of 103. They treated her in route with IV fluids and Zofran. Patient reports some cough and some shortness of breath. She denies any other upper respiratory symptoms. She denies any urinary tract symptoms. Despite IV fluid resuscitation patient became hypotensive in the center line was placed by ED attending for Levophed administration. 02/28: Worsening respiratory distress requiring intubation and mechanical ventilation. Symptoms of ETOH withdrawal further complicate care. Fevers > 103 persist. Objective Vital Signs Date Time Temp Pulse Resp B/P (MAP) Pulse Ox O2 Delivery O2 Flow Rate FiO2 02/28/17 10:00 96 02/28/17 09:37 98 Nasal Cannula 1.00 02/28/17 08:31 82/57 02/28/17 04:10 33 02/28/17 04:00 99.1 Intake and Output 02/28/17 02/28/17 03/01/17 08:00 16:00 00:00 Intake Total 3443 ml 350 ml Balance 3443 ml 350 ml Result Diagram: 02/28/17 0040 02/28/17 0040 Other Results Microbiology Date/Time Source Procedure Growth Status 02/28/17 01:06 Nasal Washing Influenza Types A,B Antigen (CARLA) - Final NEGATIVE FOR FLU A AND B ANTIGEN.... Complete 02/28/17 02:56 Urine Catheterized Urine Legionella Antigen - Final PRESUMPTIVE NEGATIVE FOR LEGIONELLA P... Complete 02/28/17 02:56 Urine Catheterized Urine Streptococcus pneumoniae Antigen (M - Final PRESUMPTIVE NEGATIVE FOR STREPTOCOCCU... Complete Objective Remarks GENERAL: Ill-appearing patient. SKIN: Warm and dry. HEAD: Normocephalic. EYES: No scleral icterus. No injection or drainage. NECK: Supple, trachea midline. Widely patent airway. CARDIOVASCULAR: Tachycardia at 140. Regular rhythm without murmurs, gallops, or rubs. No JVD. RESPIRATORY: Breath sounds equal bilaterally. Diffuse wheezes and labored respiratory effort. GASTROINTESTINAL: Abdomen soft, non-tender, nondistended. No guarding. MUSCULOSKELETAL: No cyanosis, or edema. Well perfused. Extremities: Well perfused. NEURO EXAM: Moves 4 limbs to command. Tremulous. Severe respiratory distress. Conversant, confused. A/P Assessment and Plan Severe sepsis - Bilateral pulmonary infiltrate - Spectrum antibiotics - Culture and sensitivity - Infectious disease consult - Intubated 02/28, PRVC mode/ Pneumonia - CXR with infiltrates - Broad-spectrum antibiotics - DuoNeb's when necessary and scheduled - Urine antigens to follow -> negative Alcoholism - Thiamine folate and multivitamins IV - Monitor for withdrawal - Librium scheduled. Anxiety and depression - Ativan when necessary DVT GI prophylaxis - Teds SCDs - Subcutaneous heparin - Pepcid Overall impression: Critically ill with deteriorating clinical status, now requiring mechanical ventilation and ongoing resuscitation from septic shock. Worsening pneumonia and hypoxemia. Critical Care 68 mins aside from procedures. Franco Medina MD Feb 28, 2017 14:10
--- NOTE | 2017-02-28 14:13 | PD.PROCEDR ---
Procedure Note Procedure DX: Hypoxemic Respiratory Failure (J96.01) OP: Orotracheal Intubation (42356) Procedure: Bag mask ventilation for hypoxemic failure. Versed 5 mg and rocuronium 50 mg iv. Intubated orally with 7.5 tube. Position confirmed with CO2 detection, breath sounds, improved sats > 90%. Franco Medina MD Feb 28, 2017 14:13
--- NOTE | 2017-02-28 14:13 | PD.PROCEDR ---
Procedure Note Procedure DX: Hypoxemic Respiratory Failure (J96.01) OP: Orotracheal Intubation (36358) Procedure: Bag mask ventilation for hypoxemic failure. Versed 5 mg and rocuronium 50 mg iv. Intubated orally with 7.5 tube. Position confirmed with CO2 detection, breath sounds, improved sats > 90%. Franco Medina MD Feb 28, 2017 14:13
--- NOTE | 2017-02-28 14:13 | PD.PROCEDR ---
Procedure Note Procedure DX: Hypoxemic Respiratory Failure (J96.01) OP: Orotracheal Intubation ([id number]) Procedure: Bag mask ventilation for hypoxemic failure. Versed 5 mg and rocuronium 50 mg iv. Intubated orally with 7.5 tube. Position confirmed with CO2 detection, breath sounds, improved sats > 90%. Franco Medina MD Feb 28, 2017 14:13
--- NOTE | 2017-02-28 14:50 | EKG ---
Date Performed: 02/28/2017 Time Performed: 00:37:52 PTAGE: 46 years EKG: SINUS TACHYCARDIA NONSPECIFIC ST & T-WAVE ABNORMALITY ABNORMAL RHYTHM ECG PREVIOUS TRACING : 02/26/2017 18.28 Heavy baseline artifact. Recommend repeat EKG to exclude an y atrial dysrhythmia. DOCTOR: Cezar Castillo Interpretating Date/Time 02/28/2017 14:49:45
[2017-02-28] MEDS: PROPOFOL 1000 MG/100 ML INJ 100 ML IV PRN ×2 (14:54→19:31)
[2017-02-28] MEDS: fentaNYL DRIP 250 ML IV PRN (14:54)
--- NOTE | 2017-02-28 15:20 | PD.ID.CON ---
History of Present Illness Service ID Consult Requested By Dr Sneed Reason for Consult severe sepsis Primary Care Physician No Primary Care Physician Diagnoses: History of Present Illness 46 yo tobacco + female with ETOH abuse (2 glasses of vodka daily) presented with severela days of bausea,vomiting, diarrhea She also has cough, SOB and fever up to 103 She is quite dyspneic and poxic despite of 3 L of O2 BP is low Pt has very low WBC of 1.8, prominent L shift with 35% of bands and ypounger forms present Lactic acid of 4.9 on presentation - improved now Trombocytopenia Leg/pnuemococcal.flu antifgens are negative CXR showed Right base consolidation Reports amall amount of galindo spuum earlier Last drink - 4 days ago Pt also endorses disuria and her UA is abnormal, clx P Review of Systems Constitutional: COMPLAINS OF: Fever Respiratory: COMPLAINS OF: Cough, Sputum production, Shortness of breath Gastrointestinal: COMPLAINS OF: Diarrhea, Nausea, Vomiting Genitourinary: COMPLAINS OF: Dysuria Except as stated in HPI: all other systems reviewed are Neg Past Family Social History Allergies: Coded Allergies: No Known Allergies (Unverified , 02/28/17) Past Medical History Depressions Anxiety Liver cirrhosis Alcoholism Past Surgical History None Active Ordered Medications Medications where reviewed in EMR Antibiotics Include: azithro zosyn vancomycin Family History reviewed Non contributory Social History Patient reports almost daily use of alcohol, she denies withdrawal symptoms in the past. She reports occasional use of cocaine and cannabis. Physical Exam Vital Signs Vital Signs Date Time Temp Pulse Resp B/P (MAP) Pulse Ox O2 Delivery O2 Flow Rate FiO2 02/28/17 10:00 96 02/28/17 09:37 98 Nasal Cannula 1.00 02/28/17 08:31 105 82/57 02/28/17 08:00 106 02/28/17 07:00 96 Nasal Cannula 2.00 02/28/17 06:00 117 02/28/17 04:10 123 33 80/53 (62) 99 Nasal Cannula 2.00 02/28/17 04:00 129 02/28/17 04:00 99.1 129 31 89/53 (65) 97 02/28/17 03:00 128 32 76/49 (58) 100 Nasal Cannula 2.00 02/28/17 02:30 126 33 78/50 (59) 100 Nasal Cannula 2.00 02/28/17 01:56 99.6 127 41 75/42 (53) 97 Room Air 02/28/17 01:45 116 41 83/50 (61) 100 Room Air 02/28/17 01:30 116 40 98/60 (73) 100 Room Air 02/28/17 01:00 132 39 106/56 (73) 96 Room Air 02/28/17 00:47 38 99 Room Air 02/28/17 00:40 102.9 131 44 118/60 (79) 98 Physical Exam CONSTITUTIONAL/GENERAL: This is an adequately nourished patient, in resp distress. Dyspenic at rest and even worse when talking TUBES/LINES/DRAINS: SKIN: No jaundice, rashes, or lesions. Skin temperature appropriate. Not diaphoretic. HEAD: Atraumatic. Normocephalic. EYES: Pupils equal and round and reactive. Extraocular motions intact. No scleral icterus. No injection or drainage. Fundi not examined. ENT: Hearing grossly normal. Nose without bleeding or purulent drainage. Oral mucosae moist without visible erythema, exudates, masses, or lesions. NECK: Trachea midline. Supple, nontender. CARDIOVASCULAR: Regular tachycardia without murmurs, gallops, or rubs. No JVD. Peripheral pulses symmetric. RESPIRATORY/CHEST: Symmetric, unlabored respirations. Clear to auscultation. Breath sounds equal bilaterally. No wheezes, rales, or rhonchi. GASTROINTESTINAL: Abdomen soft, non-tender, nondistended. No hepato-splenomegaly , or palpable masses. No guarding. Bowel sounds present. GENITOURINARY: Without palpable bladder distension. MUSCULOSKELETAL: Extremities without clubbing, cyanosis, or edema. No joint tenderness or effusion noted. No calf tenderness. No mottling or clubbing. LYMPHATICS: No palpable cervical or supraclavicular adenopathy. NEUROLOGICAL: Awake and alert. Motor and sensory grossly within normal limits. Follows commands. Clear speech. Moves all extremities. PSYCHIATRIC: No obvious anxiety/depression. no apparent hallucinations or other psychotic thought process. Laboratory Laboratory Tests Test 02/28/17 00:40 02/28/17 02:49 02/28/17 02:56 02/28/17 04:00 White Blood Count 1.8 Red Blood Count 4.25 Hemoglobin 14.4 Hematocrit 41.2 Mean Corpuscular Volume 97.0 Mean Corpuscular Hemoglobin 33.9 Mean Corpuscular Hemoglobin Concent 35.0 Red Cell Distribution Width 17.0 Platelet Count 62 Mean Platelet Volume 8.9 Neutrophils (%) (Auto) 86.4 Lymphocytes (%) (Auto) 12.9 Monocytes (%) (Auto) 0.6 Eosinophils (%) (Auto) 0.1 Basophils (%) (Auto) 0.0 Neutrophils # (Auto) 1.5 Lymphocytes # (Auto) 0.2 Monocytes # (Auto) 0.0 Eosinophils # (Auto) 0.0 Basophils # (Auto) 0.0 CBC Comment AUTO DIFF Differential Total Cells Counted 100 Neutrophils % (Manual) 30 Band Neutrophils % 35 Lymphocytes % 11 Eosinophils % 1 Neutrophils # (Manual) 1.6 Metamyelocytes 21 Myelocytes 2 Nucleated Red Blood Cells 6 Differential Comment FINAL DIFF MANUAL Toxic Vacuolation PRESENT Dohle Bodies PRESENT Platelet Estimate LOW Platelet Morphology Comment NORMAL Red Cell Morphology Comment NORMAL Blood Urea Nitrogen 25 Creatinine 2.03 Random Glucose 203 Total Protein 7.0 Albumin 3.0 Calcium Level 7.7 Alkaline Phosphatase 146 Aspartate Amino Transf (AST/SGOT) 191 Alanine Aminotransferase (ALT/SGPT) 97 Total Bilirubin 1.0 Sodium Level 131 Potassium Level 2.8 Chloride Level 97 Carbon Dioxide Level 19.5 Anion Gap 15 Estimat Glomerular Filtration Rate 26 Lactic Acid Level 4.9 2.9 Phosphorus Level 0.9 Urine Color YELLOW Urine Turbidity HAZY Urine pH 6.0 Urine Specific [place] 1.012 Urine Protein 100 Urine Glucose (UA) NEG Urine Ketones NEG Urine Occult Blood LARGE Urine Nitrite NEG Urine Bilirubin NEG Urine Urobilinogen LESS THAN 2.0 Urine Leukocyte Esterase MOD Urine RBC 17 Urine WBC 35 Urine Amorphous Sediment RARE Urine Bacteria OCC Urine Hyaline Casts 3 Urine Granular Casts 7 Urine Mucus FEW Microscopic Urinalysis Comment CATH-CULTURE IND Nasal Screen MRSA (PCR) MRSA NOT DETECTED Test 02/28/17 04:41 Lactic Acid Level 1.6 Date/Time Source Procedure Growth Status 02/28/17 04:40 Blood Peripheral Aerobic Blood Culture Pending Received 02/28/17 04:40 Blood Peripheral Anaerobic Blood Culture Pending Received 02/28/17 01:06 Nasal Washing Influenza Types A,B Antigen (CARLA) - Final NEGATIVE FOR FLU A AND B ANTIGEN.... Complete 02/28/17 02:56 Urine Catheterized Urine Legionella Antigen - Final PRESUMPTIVE NEGATIVE FOR LEGIONELLA P... Complete 02/28/17 02:56 Urine Catheterized Urine Streptococcus pneumoniae Antigen (M - Final PRESUMPTIVE NEGATIVE FOR STREPTOCOCCU... Complete Result Diagram: 02/28/170 02/28/170 Imaging Last Impressions Chest X-Ray 02/28/174 Signed Impressions: Service Date/Time: , February 28, 2017 03:01 - CONCLUSION: New right subclavian central venous catheter with tip in the right atrium. No pneumothorax or other acute cardiopulmonary disease. Right base consolidation again noted. Jake Arredondo MD Assessment and Plan Assessment and Plan Sepsis (neutropenia, fever, lactic acidosis) PNA, RLL ETOHism Vomiting, diarrhea - cont broad spectru abx - stool studies - sputum clx - fu blood and urine clx Discussed Condition With Ruth Mcbride MD Feb 28, 2017 15:20
[2017-02-28] MEDS: MIDAZOLAM 100 MG/100 ML INJ 100 ML IV PRN (15:30)
[2017-02-28] MEDS: PIPERACIL-TAZO 3.375 GM PREMIX 50 ML IV SCH ×2 (15:34→21:00)
[2017-02-28] MEDS: VASOPRESSIN INJ 40 UNITS in DEXTROSE 5% IN WATER 100ML INJ 98 ML IV SCH ×2 (18:15)
[2017-02-28] MEDS: CHLORHEXIDINE 0.12% (ORAL KIT) 15 ML CUP MT SCH (21:00)
[2017-02-28] MEDS: METRONIDAZOLE 500 MG/100 ML ISONTONIC SOLN IV SCH (21:57)
[2017-03-01] VITALS (16 sets, daily range): BP systolic 100–114; BP diastolic 74–83; PULSE 76–113; RESP 26–28; TEMP 97–99; O2SAT 93–100
[2017-03-01] MEDS: VANCOMYCIN 500 MG VIAL (FOR ORAL USE ONLY) PO SCH ×5 (01:34→23:15)
[2017-03-01] MEDS ORDERED: AZITHROMYCIN INJ 500 MG in SODIUM CHLOR 0.9% 250 ML INJ 250 ML IV SCH (02:00)
[2017-03-01] MEDS: RESP: ALBUTEROL 2.5 MG/IPRATROPIUM 0.5 MG NEB (SCH) INH ×4 (03:38→19:56)
[2017-03-01] MEDS: HYDROCORTISONE SOD SUCCINATE 100 MG VIAL IV PUSH SCH ×4 (03:39→19:34)
[2017-03-01] MEDS: chlordiazePOXIDE 25 MG CAP PO SCH ×3 (03:39→19:33)
[2017-03-01] MEDS: PIPERACIL-TAZO 3.375 GM PREMIX 50 ML IV SCH ×4 (03:39→19:34)
[2017-03-01] MEDS: CHLORHEXIDINE GLUCONATE 2 % 1 PACK (2 CLOTHS) TOP SCH (04:00)
[2017-03-01] MEDS: SODIUM CHLOR 0.9% 1000 ML INJ 1,000 ML IV SCH ×3 (05:18→05:45)
[2017-03-01] MEDS: METRONIDAZOLE 500 MG/100 ML ISONTONIC SOLN IV SCH ×3 (05:18→21:04)
[2017-03-01] MEDS: HEPARIN SODIUM - SQ 10,000 UNITS/ML VIAL SQ SCH ×3 (05:18→21:03)
[2017-03-01] MEDS: MIDAZOLAM 100 MG/100 ML INJ 100 ML IV PRN ×2 (05:18→22:34)
[2017-03-01] MEDS: PROPOFOL 1000 MG/100 ML INJ 100 ML IV PRN ×3 (05:19→18:16)
[2017-03-01 05:50] LABS: AUTOMATED NEUTROPHIL # 16.7 TH/MM3 (1.8-7.7); BASOPHIL % 0.2 % (0.0-2.0); EOSINOPHIL # 0.1 TH/MM3 (0-0.4); EOSINOPHIL % 0.7 % (0.0-4.0); HEMATOCRIT 39.4 % (35.0-46.0); HEMOGLOBIN 13.2 GM/DL (11.6-15.3); LYMPH % 6.2 % (9.0-44.0); LYMPHOCYTE # 1.2 TH/MM3 (1.0-4.8); MEAN CELL VOLUME 100.6 FL (80.0-100.0); MEAN CORPUSCULAR HEMOGLOBIN 33.8 PG (27.0-34.0); MEAN CORPUSCULAR HGB CONC 33.6 % (32.0-36.0); MEAN PLATELET VOLUME 11.3 FL (7.0-11.0); MONO % 2.8 % (0.0-8.0); MONOCYTE # 0.5 TH/MM3 (0-0.9); NEUT % 90.1 % (16.0-70.0); PLATELET COUNT 30 TH/MM3 (150-450); RED BLOOD COUNT 3.92 MIL/MM3 (4.00-5.30); RED CELL DISTRIBUTION WIDTH 17.5 % (11.6-17.2); WHITE BLOOD COUNT 18.5 TH/MM3 (4.0-11.0)
--- NOTE | 2017-03-01 06:17 | RADRPT ---
EXAM DATE/TIME: 03/01/2017 05:12 [facility] COMPARISON: CHEST SINGLE AP, February 28, 2017, 13:05. INDICATIONS : Pneumonia. MEDICAL HISTORY : None. SURGICAL HISTORY : None. ENCOUNTER: Subsequent ACUITY: 3 days PAIN SCORE: Non-responsive. LOCATION: Bilateral chest FINDINGS: A single portable frontal view the chest shows worsening diffuse bilateral pulmonary infiltrates. Rig ht subclavian central line. Endotracheal tube tip 2 cm from the randy. Nasogastric tube tip courses off the anterior margin of the film. Heart normal in size. CONCLUSION: Worsening diffuse bilateral pulmonary infiltrates. Mohsen Huggins Jr., MD on March 01, 2017 at 6:15 Board Certified Radiologist. This report was verified electronically.
--- NOTE | 2017-03-01 07:12 | HHI.CCPN ---
Subjective Remarks/Hospital Course 44-year-old female with history of alcohol use disorder liver cirrhosis, presents following a syncopal or near syncopal event at home. The patient reports that she's been ill for a couple days with vomiting and diarrhea. She has been febrile. She reportedly had an alteration in her level of consciousness at home tonight prompting her boyfriend called the rescue squad. EMS states that her heart rate was 180 on their arrival. She was normotensive. She also had a fever of 103. They treated her in route with IV fluids and Zofran. Patient reports some cough and some shortness of breath. She denies any other upper respiratory symptoms. She denies any urinary tract symptoms. Despite IV fluid resuscitation patient became hypotensive in the center line was placed by ED attending for Levophed administration. 02/28: Worsening respiratory distress requiring intubation and mechanical ventilation. Symptoms of ETOH withdrawal further complicate care. Fevers > 103 persist. 03/01: Gas exchange remains impaired. Blood with GNR bacteremia. CXR worse, diffuse process now.Urine output marginal. Objective Vital Signs Date Time Temp Pulse Resp B/P (MAP) Pulse Ox O2 Delivery O2 Flow Rate FiO2 03/01/17 06:00 101 03/01/17 06:00 120/90 03/01/17 04:24 100 40 03/01/17 04:00 99.0 28 02/28/17 19:00 Mechanical Ventilator 02/28/17 09:37 1.00 Intake and Output 03/01/17 03/01/17 03/02/17 08:00 16:00 00:00 Intake Total 2725 ml Output Total 225 ml Balance 2500 ml Result Diagram: 03/01/17 0530 02/28/17 1530 Other Results Microbiology Date/Time Source Procedure Growth Status 02/28/17 01:06 Nasal Washing Influenza Types A,B Antigen (CARLA) - Final NEGATIVE FOR FLU A AND B ANTIGEN.... Complete 02/28/17 02:56 Urine Catheterized Urine Legionella Antigen - Final PRESUMPTIVE NEGATIVE FOR LEGIONELLA P... Complete 02/28/17 02:56 Urine Catheterized Urine Streptococcus pneumoniae Antigen (M - Final PRESUMPTIVE NEGATIVE FOR STREPTOCOCCU... Complete Objective Remarks GENERAL: Ill-appearing patient. SKIN: Warm and dry. HEAD: Normocephalic. EYES: No scleral icterus. No injection or drainage. NECK: Supple, trachea midline. Widely patent airway. CARDIOVASCULAR: Tachycardia at 110. Regular rhythm without murmurs, gallops, or rubs. No JVD. RESPIRATORY: Breath sounds equal bilaterally. Diffuse wheezes. Good air movement. GASTROINTESTINAL: Abdomen soft, non-tender, nondistended. No guarding. MUSCULOSKELETAL: No cyanosis, or edema. Well perfused. Extremities: Well perfused. NEURO EXAM: Sedated for vent synchrony and control of withdrawal. A/P Assessment and Plan Severe sepsis - Bilateral pulmonary infiltrate - Spectrum antibiotics - Culture and sensitivity - Infectious disease consult - Intubated 02/28, PRVC mode. Pneumonia - CXR with infiltrates - Broad-spectrum antibiotics - DuoNeb's when necessary and scheduled - Urine antigens to follow -> negative Alcoholism - Thiamine folate and multivitamins IV - Monitor for withdrawal - Librium scheduled. Anxiety and depression - Ativan when necessary DVT GI prophylaxis - Teds SCDs - Subcutaneous heparin - Pepcid Overall impression: Critically ill with continuing deteriorating clinical status requiring mechanical ventilation and ongoing resuscitation from septic shock. Worsening pneumonia and hypoxemia. Perfusion improved but urine marginal at best. Critical Care 40 mins aside from procedures. Franco Medina MD Mar 01, 2017 07:12
[2017-03-01] MEDS: FAMOTIDINE 20 MG TAB PO SCH (08:58)
[2017-03-01] MEDS: SODIUM CHLORIDE 0.9% FLUSH 10 ML FLUSH IV FLUSH SCH ×2 (08:58→19:26)
[2017-03-01] MEDS: CHLORHEXIDINE 0.12% (ORAL KIT) 15 ML CUP MT SCH ×2 (08:58→19:33)
[2017-03-01 09:11] LABS: BICARBONATE 7.1 MEQ/L (21.0-32.0); CREATININE 1.99 MG/DL (0.50-1.00); RANDOM VANCOMYCIN 6.2 COMMENT; TOTAL BILIRUBIN ADULT 1.3 MG/DL (0.2-1.0)
[2017-03-01 09:14] LABS: CALCIUM 5.3 MG/DL (8.5-10.1)
[2017-03-01 09:15] LABS: CALCIUM-PROTEIN CORRECTED 6.1 MG/DL (8.5-10.1)
[2017-03-01 09:32] LABS: BANDS 29 % (0-6); LYMPHOCYTES 5 % (9-44); MONOCYTES 1 % (0-8); NEUTROPHIL # MANUAL DIFF 17.4 TH/MM3 (1.8-7.7); POLYS (SEG NEUTROPHILS) 65 % (16-70); TOXIC GRANULATION 1+ (NORMAL); TOXIC VACUOLATION PRESENT (NONE SEEN)
[2017-03-01] MEDS: VASOPRESSIN INJ 40 UNITS in DEXTROSE 5% IN WATER 100ML INJ 98 ML IV SCH ×4 (10:20→17:19)
[2017-03-01] MEDS ORDERED: VANCOMYCIN 1,000 MG/NS 250 ML IV SCH ×2 (11:00)
[2017-03-01] MEDS: SODIUM BICARBONATE 8.4% INJ 150 MEQ in WATER STERILE FOR INJ 850 ML IV SCH ×2 (11:50→17:18)
[2017-03-01] MEDS ORDERED: CALCIUM GLUCONATE INJ 2 GM in SODIUM CHLORIDE 0.9% INJ 100 ML IV ONE (13:00)
[2017-03-01] MEDS ORDERED: SODIUM BICARBONATE 8.4% INJ 50 MEQ/50 ML SYR ONE (13:38)
--- NOTE | 2017-03-01 16:33 | HHI.PR ---
Addendum to Inpatient Note Additional Information Seen around 16oo full note to follow C.diff + GNB 08/28 On vent On pressors good UOP cont current abx Ruth Clayton MD Mar 01, 2017 16:33
[2017-03-01] MEDS ORDERED: SODIUM BICARBONATE 8.4% INJ 50 MEQ/50 ML SYR IV ONE (17:15)
[2017-03-01] MEDS: fentaNYL DRIP 250 ML IV PRN (18:17)
[2017-03-01] MEDS ORDERED: SODIUM BICARBONATE 8.4% INJ 50 MEQ/50 ML SYR IV PUSH ONE (19:00)
[2017-03-01] MEDS: FAMOTIDINE 20 MG/2 ML VIAL IV PUSH SCH (19:34)
--- NOTE | 2017-03-01 23:05 | HHI.IDPN ---
Subjective Subjective Remarks Delayed entry Seen around 16oo Pt remains critica and unstable remains on vent On pressros UOP is good + diarrhea C.diff POSITIVE Blood clx with GNB 4/4 Antibiotics VAnco PO vanco IV Flagyl Zosyn azithro Allergies: Coded Allergies: No Known Allergies (Unverified , 02/28/17) Objective . Vital Signs Date Time Temp Pulse Resp B/P (MAP) Pulse Ox O2 Delivery O2 Flow Rate FiO2 03/01/17 20:00 97.0 76 27 111/78 (89) 93 110/80 (90) 03/01/17 19:56 94 40 03/01/17 19:30 73 131/86 03/01/17 19:20 Mechanical Ventilator 2.00 40 03/01/17 18:00 78 03/01/17 17:19 80 102/78 03/01/17 16:26 97 40 03/01/17 16:00 97.4 81 26 100/74 (83) 95 03/01/17 16:00 81 03/01/17 14:00 79 03/01/17 12:00 100 03/01/17 12:00 98.2 100 28 105/76 (86) 97 03/01/17 10:20 97 104/77 03/01/17 10:00 104 03/01/17 08:21 99 40 03/01/17 08:00 98.5 105 28 114/83 (93) 100 03/01/17 08:00 105 03/01/17 07:00 98 Mechanical Ventilator 60 03/01/17 06:00 101 03/01/17 06:00 101 120/90 03/01/17 05:45 101 116/86 03/01/17 05:17 102 100/76 03/01/17 04:24 100 40 03/01/17 04:15 102 102/76 03/01/17 04:00 102 03/01/17 04:00 99.0 102 28 104/80 (88) 100 03/01/17 04:00 102 104/80 03/01/17 03:39 103 101/77 03/01/17 02:00 106 03/01/17 01:35 108 95/69 03/01/17 01:13 99 40 03/01/17 00:00 113 02/28/17 23:30 111 114/80 02/28/17 23:15 111 113/86 03/01/17 03/01/17 03/02/17 15:00 23:00 07:00 Intake Total 5109 ml Output Total 260 ml Balance 4849 ml IV Total 5109 ml Output Urine Total 250 ml Gastric Drainage Total 10 ml # Bowel Movements 3 . Laboratory Tests Test 02/28/17 00:40 03/01/17 05:30 White Blood Count 1.8 TH/MM3 18.5 TH/MM3 Red Blood Count 4.25 MIL/MM3 3.92 MIL/MM3 Hemoglobin 14.4 GM/DL 13.2 GM/DL Hematocrit 41.2 % 39.4 % Mean Corpuscular Volume 97.0 FL 100.6 FL Mean Corpuscular Hemoglobin 33.9 PG 33.8 PG Mean Corpuscular Hemoglobin Concent 35.0 % 33.6 % Red Cell Distribution Width 17.0 % 17.5 % Platelet Count 62 TH/MM3 30 TH/MM3 Mean Platelet Volume 8.9 FL 11.3 FL Neutrophils (%) (Auto) 86.4 % 90.1 % Lymphocytes (%) (Auto) 12.9 % 6.2 % Monocytes (%) (Auto) 0.6 % 2.8 % Eosinophils (%) (Auto) 0.1 % 0.7 % Basophils (%) (Auto) 0.0 % 0.2 % Neutrophils # (Auto) 1.5 TH/MM3 16.7 TH/MM3 Lymphocytes # (Auto) 0.2 TH/MM3 1.2 TH/MM3 Monocytes # (Auto) 0.0 TH/MM3 0.5 TH/MM3 Eosinophils # (Auto) 0.0 TH/MM3 0.1 TH/MM3 Basophils # (Auto) 0.0 TH/MM3 0.0 TH/MM3 CBC Comment AUTO DIFF AUTO DIFF Differential Total Cells Counted 100 100 Neutrophils % (Manual) 30 % 65 % Band Neutrophils % 35 % 29 % Lymphocytes % 11 % 5 % Eosinophils % 1 % Neutrophils # (Manual) 1.6 TH/MM3 17.4 TH/MM3 Metamyelocytes 21 % Myelocytes 2 % Nucleated Red Blood Cells 6 /100 WBC Differential Comment FINAL DIFF MANUAL FINAL DIFF MANUAL Toxic Vacuolation PRESENT PRESENT Dohle Bodies PRESENT Platelet Estimate LOW LOW Platelet Morphology Comment NORMAL NORMAL Red Cell Morphology Comment NORMAL Monocytes % 1 % Toxic Granulation 1+ Laboratory Tests Test 02/28/17 00:40 02/28/17 02:49 02/28/17 04:41 02/28/17 15:30 Blood Urea Nitrogen 25 MG/DL Creatinine 2.03 MG/DL Random Glucose 203 MG/DL Total Protein 7.0 GM/DL Albumin 3.0 GM/DL Calcium Level 7.7 MG/DL Alkaline Phosphatase 146 U/L Aspartate Amino Transf (AST/SGOT) 191 U/L Alanine Aminotransferase (ALT/SGPT) 97 U/L Total Bilirubin 1.0 MG/DL Sodium Level 131 MEQ/L Potassium Level 2.8 MEQ/L 3.5 MEQ/L Chloride Level 97 MEQ/L Carbon Dioxide Level 19.5 MEQ/L Anion Gap 15 MEQ/L Estimat Glomerular Filtration Rate 26 ML/MIN Lactic Acid Level 4.9 mmol/L 2.9 mmol/L 1.6 mmol/L Phosphorus Level 0.9 MG/DL Human Chorionic Gonadotropin, Quant 2 MIU/ML Test 03/01/17 07:30 Blood Urea Nitrogen 26 MG/DL Creatinine 1.99 MG/DL Random Glucose 208 MG/DL Total Protein 5.0 GM/DL Albumin 2.0 GM/DL Calcium Level 5.3 MG/DL Alkaline Phosphatase 53 U/L Aspartate Amino Transf (AST/SGOT) 165 U/L Alanine Aminotransferase (ALT/SGPT) 101 U/L Total Bilirubin 1.3 MG/DL Sodium Level 141 MEQ/L Potassium Level 4.1 MEQ/L Chloride Level 117 MEQ/L Carbon Dioxide Level 7.1 MEQ/L Anion Gap 17 MEQ/L Estimat Glomerular Filtration Rate 27 ML/MIN Protein Corrected Calcium 6.1 MG/DL Microbiology Date/Time Source Procedure Growth Status 02/28/17 04:40 Blood Peripheral Aerobic Blood Culture - Preliminary NO GROWTH IN 1 DAY Resulted 02/28/17 04:40 Blood Peripheral Anaerobic Blood Culture - Preliminary NO GROWTH IN 1 DAY Resulted 02/28/17 04:30 Blood Peripheral Aerobic Blood Culture - Preliminary NO GROWTH IN 1 DAY Resulted 02/28/17 04:30 Blood Peripheral Anaerobic Blood Culture - Preliminary NO GROWTH IN 1 DAY Resulted 02/28/17 00:49 Blood Peripheral Aerobic Blood Culture - Preliminary Gram Negative Mariano Resulted 02/28/17 00:49 Anaerobic Blood Culture - Preliminary Gram Negative Mariano Resulted 02/28/17 00:40 Blood Peripheral Aerobic Blood Culture - Preliminary Gram Negative Mariano Resulted 02/28/17 00:40 Anaerobic Blood Culture - Preliminary Gram Negative Mariano Resulted 02/28/17 13:30 Stool Stool - Final Complete 03/01/17 05:30 Sputum Endotracheal Gram Stain - Final Resulted 03/01/17 05:30 Sputum Endotracheal Sputum Culture Pending Resulted 02/28/17 01:06 Nasal Washing Influenza Types A,B Antigen (CARLA) - Final NEGATIVE FOR FLU A AND B ANTIGEN.... Complete 02/28/17 02:56 Urine Catheterized Urine Legionella Antigen - Final PRESUMPTIVE NEGATIVE FOR LEGIONELLA P... Complete 02/28/17 02:56 Urine Catheterized Urine Streptococcus pneumoniae Antigen (M - Final PRESUMPTIVE NEGATIVE FOR STREPTOCOCCU... Complete 02/28/17 02:56 Urine Catheterized Urine Urine Culture - Preliminary Gram Negative Mariano Resulted Imaging Last Impressions Chest X-Ray 03/01/17 0400 Signed Impressions: Service Date/Time: Saturday, March 01, 2017 05:12 - CONCLUSION: Worsening diffuse bilateral pulmonary infiltrates. Mohsen Huggins Jr., MD Physical Exam CONSTITUTIONAL/GENERAL: This is an adequately nourished patient, in resp distress. Dyspenic at rest and even worse when talking TUBES/LINES/DRAINS: SKIN: No jaundice, rashes, or lesions. Skin temperature appropriate. Not diaphoretic. EYES: Pupils equal and round and reactive. Minimal scleral icterus. ENT: Orally intubated CARDIOVASCULAR: Regular tachycardia without murmurs, gallops, or rubs. No JVD. Peripheral pulses symmetric. RESPIRATORY/CHEST: Symmetric, unlabored respirations. Clear to auscultation. Breath sounds equal bilaterally. No wheezes, rales, or rhonchi. GASTROINTESTINAL: Abdomen soft, non-tender, distended. No hepato-splenomegaly, or palpable masses. No guarding. Bowel sounds present. GENITOURINARY: Without palpable bladder distension. Guerrero in place with clear yellow urine MUSCULOSKELETAL: Extremities without clubbing, cyanosis, + 1 edema. No joint tenderness or effusion noted. No calf tenderness. No mottling or clubbing. NEUROLOGICAL: sedated unresponsive PSYCHIATRIC: unable to assess Assessment & Plan Remarks Sepsis (neutropenia, fever, lactic acidosis) with Gram negative high grade bacteremia source is likely vs GI C.diff colitis PNA, RLL vs ARDS ETOHism Critical, unstable - Vanco PO + flagyl IV for C.diff - fu sputum clx - fu blood and urine clx' - dc IV juanito stevenson Discussed Condition With RN Ruth Rivera MD Mar 01, 2017 23:05
[2017-03-02] VITALS (17 sets, daily range): BP systolic 94–113; BP diastolic 70–79; PULSE 74–98; RESP 25–42; TEMP 97–98.4; O2SAT 91–100
[2017-03-02] MEDS: SODIUM BICARBONATE 8.4% INJ 150 MEQ in WATER STERILE FOR INJ 850 ML IV SCH ×2 (00:51→06:45)
[2017-03-02] MEDS: PROPOFOL 1000 MG/100 ML INJ 100 ML IV PRN ×4 (02:04→20:38)
[2017-03-02] MEDS: HYDROCORTISONE SOD SUCCINATE 100 MG VIAL IV PUSH SCH ×4 (02:46→20:39)
[2017-03-02] MEDS: PIPERACIL-TAZO 3.375 GM PREMIX 50 ML IV SCH ×4 (02:46→20:40)
[2017-03-02] MEDS: CHLORHEXIDINE GLUCONATE 2 % 1 PACK (2 CLOTHS) TOP SCH (03:27)
[2017-03-02] MEDS: chlordiazePOXIDE 25 MG CAP PO SCH ×3 (03:27→20:39)
--- NOTE | 2017-03-02 03:35 | RADRPT ---
EXAM DATE/TIME: 03/02/2017 02:38 [facility] COMPARISON: CHEST SINGLE AP, March 01, 2017, 5:12. INDICATIONS : Evaluate for pnuemonia MEDICAL HISTORY : None. SURGICAL HISTORY : None. ENCOUNTER: Subsequent ACUITY: 4 - 6 days PAIN SCORE: Non-responsive. LOCATION: Bilateral chest FINDINGS: A single portable frontal view of the chest shows diffuse intralobular pulmonary infiltrates which posadas ve progressed significantly from the prior study. No effusions or pneumothoraces. The heart is within normal range of size. Tip of the endotracheal tube 1 cm from the randy. Tip of the nasogastric tube courses off the inferior margin of the film. CONCLUSION: Considerable worsening of diffuse bilateral pulmonary infiltrates. Mohsen Huggins Jr., MD on March 02, 2017 at 3:32 Board Certified Radiologist. This report was verified electronically.
[2017-03-02] MEDS: RESP: ALBUTEROL 2.5 MG/IPRATROPIUM 0.5 MG NEB (SCH) INH ×4 (03:48→20:53)
[2017-03-02] MEDS ORDERED: BUMETANIDE INJ 1 MG/4 ML VIAL IV PUSH ONE (04:45)
[2017-03-02 04:52] LABS: HEMATOCRIT 37.5 % (35.0-46.0); HEMOGLOBIN 12.9 GM/DL (11.6-15.3); MEAN CELL VOLUME 97.5 FL (80.0-100.0); MEAN CORPUSCULAR HEMOGLOBIN 33.5 PG (27.0-34.0); MEAN CORPUSCULAR HGB CONC 34.4 % (32.0-36.0); MEAN PLATELET VOLUME 10.5 FL (7.0-11.0); PLATELET COUNT 33 TH/MM3 (150-450); RED BLOOD COUNT 3.85 MIL/MM3 (4.00-5.30); RED CELL DISTRIBUTION WIDTH 17.3 % (11.6-17.2); WHITE BLOOD COUNT 11.1 TH/MM3 (4.0-11.0)
[2017-03-02] MEDS: HEPARIN SODIUM - SQ 10,000 UNITS/ML VIAL SQ SCH ×3 (05:09→20:39)
[2017-03-02] MEDS: VANCOMYCIN 500 MG VIAL (FOR ORAL USE ONLY) PO SCH ×3 (05:09→18:00)
[2017-03-02] MEDS: METRONIDAZOLE 500 MG/100 ML ISONTONIC SOLN IV SCH ×3 (05:09→20:40)
[2017-03-02 05:20] LABS: ALBUMIN 1.9 GM/DL (3.4-5.0); CALCIUM 5.6 MG/DL (8.5-10.1); CREATININE 1.98 MG/DL (0.50-1.00); TOTAL BILIRUBIN ADULT 1.5 MG/DL (0.2-1.0)
[2017-03-02 05:50] LABS: CALCIUM-PROTEIN CORRECTED 6.5 MG/DL (8.5-10.1)
[2017-03-02] MEDS: POTASSIUM CHLOR 40 MEQ PREMIX 100 ML IV PRN ×2 (06:12→09:28)
[2017-03-02 06:16] LABS: BANDS 9 % (0-6); LYMPHOCYTES 6 % (9-44); METAMYELOCYTES 1 % (0-1); MONOCYTES 3 % (0-8); NEUTROPHIL # MANUAL DIFF 10.1 TH/MM3 (1.8-7.7); POLYS (SEG NEUTROPHILS) 81 % (16-70)
[2017-03-02 06:17] LABS: DOHLE BODIES PRESENT (NONE SEEN); TOXIC GRANULATION 1+ (NORMAL)
--- NOTE | 2017-03-02 07:12 | HHI.CCPN ---
Subjective Remarks/Hospital Course 44-year-old female with history of alcohol use disorder liver cirrhosis, presents following a syncopal or near syncopal event at home. The patient reports that she's been ill for a couple days with vomiting and diarrhea. She has been febrile. She reportedly had an alteration in her level of consciousness at home tonight prompting her boyfriend called the rescue squad. EMS states that her heart rate was 180 on their arrival. She was normotensive. She also had a fever of 103. They treated her in route with IV fluids and Zofran. Patient reports some cough and some shortness of breath. She denies any other upper respiratory symptoms. She denies any urinary tract symptoms. Despite IV fluid resuscitation patient became hypotensive in the center line was placed by ED attending for Levophed administration. 02/28: Worsening respiratory distress requiring intubation and mechanical ventilation. Symptoms of ETOH withdrawal further complicate care. Fevers > 103 persist. 03/01: Gas exchange remains impaired. Blood with GNR bacteremia. CXR worse, diffuse process now.Urine output marginal. 03/02: Worsening radiograph, markedly impaired gas exchange. Objective Vital Signs Date Time Temp Pulse Resp B/P (MAP) Pulse Ox O2 Delivery O2 Flow Rate FiO2 03/02/17 04:57 95 80 03/02/17 04:00 97.6 82 29 108/79 (89) 113/77 (89) 03/01/17 19:20 Mechanical Ventilator 2.00 Intake and Output 03/02/17 03/02/17 03/03/17 08:00 16:00 00:00 Intake Total 3263 ml Output Total 300 ml Balance 2963 ml Result Diagram: 03/02/17 0400 03/02/17 0400 Other Results Microbiology Date/Time Source Procedure Growth Status 02/28/17 13:30 Stool Stool - Final Complete 02/28/17 01:06 Nasal Washing Influenza Types A,B Antigen (CARLA) - Final NEGATIVE FOR FLU A AND B ANTIGEN.... Complete 02/28/17 02:56 Urine Catheterized Urine Legionella Antigen - Final PRESUMPTIVE NEGATIVE FOR LEGIONELLA P... Complete 02/28/17 02:56 Urine Catheterized Urine Streptococcus pneumoniae Antigen (M - Final PRESUMPTIVE NEGATIVE FOR STREPTOCOCCU... Complete Laboratory Tests Test 03/01/17 18:12 Blood Gas Puncture Site ART LINE Blood Gas Patient Temperature 98.6 Blood Gas HCO3 11 mmol/L (22-26) Blood Gas Base Excess -14.3 mmol/L (-2-2) Blood Gas Oxygen Saturation 93 % (90-100) Arterial Blood pH 7.29 (7.380-7.420) Arterial Blood Partial Pressure CO2 24 mmHg (38-42) Arterial Blood Partial Pressure O2 81 mmHg (61-120) Arterial Blood Oxygen Content 17.0 Vol % (12.0-20.0) Arterial Blood Carboxyhemoglobin 0.9 % (0-4) Arterial Blood Methemoglobin 1.1 % (0-2) Blood Gas Hemoglobin 13.0 G/DL (12.0-16.0) Oxygen Delivery Device VENTILATOR Blood Gas Ventilator Setting PRVC/AC Blood Gas Inspired Oxygen 40 % Objective Remarks GENERAL: Ill-appearing patient. SKIN: Warm and dry. HEAD: Normocephalic. EYES: No scleral icterus. No injection or drainage. NECK: Supple, trachea midline. Orally intubated. CARDIOVASCULAR: Tachycardia. Regular rhythm without murmurs, gallops, or rubs. No JVD. RESPIRATORY: Breath sounds equal bilaterally. Diffuse wheezes and crackles. Good air movement. GASTROINTESTINAL: Abdomen soft, non-tender, nondistended. No guarding. BS few. MUSCULOSKELETAL: No cyanosis, or edema. Well perfused. Extremities: Well perfused. Generalized edema. NEURO EXAM: Sedated for vent synchrony and control of withdrawal. Moves 4 limbs. A/P Assessment and Plan Severe sepsis - Bilateral pulmonary infiltrate - Spectrum antibiotics - Culture and sensitivity - Infectious disease consult - Intubated 02/28, PRVC mode. Pneumonia - CXR with infiltrates - Broad-spectrum antibiotics - DuoNeb's when necessary and scheduled - Urine antigens to follow -> negative - Consider change to APRV mode. Alcoholism - Thiamine folate and multivitamins IV - Monitor for withdrawal - Librium scheduled. Anxiety and depression - Ativan when necessary DVT GI prophylaxis - Teds SCDs - Subcutaneous heparin - Pepcid Overall impression: Critically ill with ongoing deterioration of clinical status requiring mechanical ventilation and ongoing resuscitation from septic shock. Worsening pneumonia and hypoxemia. Perfusion improved but urine remains marginal at best. Critical Care 42 mins aside from procedures. Franco Medina MD Mar 02, 2017 07:12
[2017-03-02] MEDS: NOREPINEPHRINE 16 MG/D5W 250 ML IV PRN ×4 (07:42→09:29)
[2017-03-02] MEDS: CHLORHEXIDINE 0.12% (ORAL KIT) 15 ML CUP MT SCH ×3 (08:00→20:00)
[2017-03-02] MEDS: FAMOTIDINE 20 MG/2 ML VIAL IV PUSH SCH (08:12)
[2017-03-02] MEDS: SODIUM CHLORIDE 0.9% FLUSH 10 ML FLUSH IV FLUSH SCH ×2 (08:12→20:40)
--- NOTE | 2017-03-02 09:03 | HHI.IDPN ---
Subjective Subjective Remarks Doing poor requires high O2 settings, 80-90%, biphasic On bicarb gtt On pressors, Levphed of 4 UOP is marginal (300 cc/12 hrs) 2 BMs liquid Antibiotics VAnco PO Flagyl Zosyn Allergies: Coded Allergies: No Known Allergies (Unverified , 02/28/17) Objective . Vital Signs Date Time Temp Pulse Resp B/P (MAP) Pulse Ox O2 Delivery O2 Flow Rate FiO2 03/02/17 08:00 97 03/02/17 08:00 98.0 98 42 92 94/72 (79) 03/02/17 07:42 96 92/58 03/02/17 07:25 97 90 03/02/17 07:10 Mechanical Ventilator 80 03/02/17 04:57 95 80 03/02/17 04:00 97.6 82 29 108/79 (89) 96 113/77 (89) 03/02/17 00:30 94 55 03/02/17 00:00 97.0 88 25 108/76 (87) 100 110/78 (89) 03/01/17 20:00 97.0 76 27 111/78 (89) 93 110/80 (90) 03/01/17 19:56 94 40 03/01/17 19:30 73 131/86 03/01/17 19:20 Mechanical Ventilator 2.00 40 03/01/17 18:00 78 03/01/17 17:19 80 102/78 03/01/17 16:26 97 40 03/01/17 16:00 97.4 81 26 100/74 (83) 95 03/01/17 16:00 81 03/01/17 14:00 79 03/01/17 12:00 100 03/01/17 12:00 98.2 100 28 105/76 (86) 97 03/01/17 10:20 97 104/77 03/01/17 10:00 104 03/02/17 03/02/17 03/03/17 15:00 23:00 07:00 Intake Total 887 ml Balance 887 ml IV Total 887 ml . Laboratory Tests Test 03/01/17 05:30 03/02/17 04:00 White Blood Count 18.5 TH/MM3 11.1 TH/MM3 Red Blood Count 3.92 MIL/MM3 3.85 MIL/MM3 Hemoglobin 13.2 GM/DL 12.9 GM/DL Hematocrit 39.4 % 37.5 % Mean Corpuscular Volume 100.6 FL 97.5 FL Mean Corpuscular Hemoglobin 33.8 PG 33.5 PG Mean Corpuscular Hemoglobin Concent 33.6 % 34.4 % Red Cell Distribution Width 17.5 % 17.3 % Platelet Count 30 TH/MM3 33 TH/MM3 Mean Platelet Volume 11.3 FL 10.5 FL Neutrophils (%) (Auto) 90.1 % Lymphocytes (%) (Auto) 6.2 % Monocytes (%) (Auto) 2.8 % Eosinophils (%) (Auto) 0.7 % Basophils (%) (Auto) 0.2 % Neutrophils # (Auto) 16.7 TH/MM3 Lymphocytes # (Auto) 1.2 TH/MM3 Monocytes # (Auto) 0.5 TH/MM3 Eosinophils # (Auto) 0.1 TH/MM3 Basophils # (Auto) 0.0 TH/MM3 CBC Comment AUTO DIFF AUTO DIFF Differential Total Cells Counted 100 100 Neutrophils % (Manual) 65 % 81 % Band Neutrophils % 29 % 9 % Lymphocytes % 5 % 6 % Monocytes % 1 % 3 % Neutrophils # (Manual) 17.4 TH/MM3 10.1 TH/MM3 Differential Comment FINAL DIFF MANUAL FINAL DIFF MANUAL Toxic Granulation 1+ 1+ Toxic Vacuolation PRESENT Platelet Estimate LOW LOW Platelet Morphology Comment NORMAL NORMAL Metamyelocytes 1 % Dohle Bodies PRESENT Laboratory Tests Test 02/28/17 15:30 03/01/17 07:30 03/02/17 04:00 Potassium Level 3.5 MEQ/L 4.1 MEQ/L 2.8 MEQ/L Human Chorionic Gonadotropin, Quant 2 MIU/ML Blood Urea Nitrogen 26 MG/DL 31 MG/DL Creatinine 1.99 MG/DL 1.98 MG/DL Random Glucose 208 MG/DL 196 MG/DL Total Protein 5.0 GM/DL 5.0 GM/DL Albumin 2.0 GM/DL 1.9 GM/DL Calcium Level 5.3 MG/DL 5.6 MG/DL Alkaline Phosphatase 53 U/L 50 U/L Aspartate Amino Transf (AST/SGOT) 165 U/L 94 U/L Alanine Aminotransferase (ALT/SGPT) 101 U/L 85 U/L Total Bilirubin 1.3 MG/DL 1.5 MG/DL Sodium Level 141 MEQ/L 142 MEQ/L Chloride Level 117 MEQ/L 110 MEQ/L Carbon Dioxide Level 7.1 MEQ/L 19.0 MEQ/L Anion Gap 17 MEQ/L 13 MEQ/L Estimat Glomerular Filtration Rate 27 ML/MIN 27 ML/MIN Protein Corrected Calcium 6.1 MG/DL 6.5 MG/DL Microbiology Date/Time Source Procedure Growth Status 02/28/17 04:40 Blood Peripheral Aerobic Blood Culture - Preliminary NO GROWTH IN 1 DAY Resulted 02/28/17 04:40 Blood Peripheral Anaerobic Blood Culture - Preliminary NO GROWTH IN 1 DAY Resulted 02/28/17 04:30 Blood Peripheral Aerobic Blood Culture - Preliminary NO GROWTH IN 1 DAY Resulted 02/28/17 04:30 Blood Peripheral Anaerobic Blood Culture - Preliminary NO GROWTH IN 1 DAY Resulted 02/28/17 00:49 Blood Peripheral Aerobic Blood Culture - Preliminary Gram Negative Mariano Resulted 02/28/17 00:49 Anaerobic Blood Culture - Preliminary Gram Negative Mariano Resulted 02/28/17 00:40 Blood Peripheral Aerobic Blood Culture - Preliminary Gram Negative Mariano Resulted 02/28/17 00:40 Anaerobic Blood Culture - Preliminary Gram Negative Mariano Resulted 02/28/17 13:30 Stool Stool - Final Complete 03/01/17 05:30 Sputum Endotracheal Gram Stain - Final Resulted 03/01/17 05:30 Sputum Endotracheal Sputum Culture Pending Resulted 02/28/17 01:06 Nasal Washing Influenza Types A,B Antigen (CARLA) - Final NEGATIVE FOR FLU A AND B ANTIGEN.... Complete 02/28/17 02:56 Urine Catheterized Urine Legionella Antigen - Final PRESUMPTIVE NEGATIVE FOR LEGIONELLA P... Complete 02/28/17 02:56 Urine Catheterized Urine Streptococcus pneumoniae Antigen (M - Final PRESUMPTIVE NEGATIVE FOR STREPTOCOCCU... Complete 02/28/17 02:56 Urine Catheterized Urine Urine Culture - Preliminary Gram Negative Mariano Resulted Imaging Last Impressions Chest X-Ray 03/02/17 0400 Signed Impressions: Service Date/Time: Thursday, March 02, 2017 02:38 - CONCLUSION: Considerable worsening of diffuse bilateral pulmonary infiltrates. Mohsen Huggins Jr., MD Physical Exam CONSTITUTIONAL/GENERAL: This is sedated, intubated on vent TUBES/LINES/DRAINS: SKIN: No jaundice, rashes, or lesions. Skin temperature appropriate. Not diaphoretic. EYES: Pupils equal and round and reactive. Minimal scleral icterus. ENT: Orally intubated CARDIOVASCULAR: Regular tachycardia without murmurs, gallops, or rubs. No JVD. Peripheral pulses symmetric. RESPIRATORY/CHEST: Symmetric, unlabored respirations. Diffuse rhonchi to auscultation. GASTROINTESTINAL: Abdomen soft, n reaction to palpation distended. No hepato- splenomegaly, or palpable masses. No guarding. Bowel sounds present. GENITOURINARY: Without palpable bladder distension. Guerrero in place with clear yellow urine MUSCULOSKELETAL: Extremities without clubbing, cyanosis, worsening generalysed edema 2-3 +. No joint tenderness or effusion noted. No calf tenderness. No mottling or clubbing. NEUROLOGICAL: sedated unresponsive PSYCHIATRIC: unable to assess Assessment & Plan Remarks Sepsis (neutropenia, fever, lactic acidosis) with Gram negative bacillae high grade bacteremia - ID P - UA abn with GNB in the urine as well < 10K source is likely vs GI C.diff colitis ARDS, doubt PNA Acute VDRF, worsening oxygenation ETOHism Critical, unstable, worsening - cont Vanco PO + flagyl IV for C.diff - cont zosyn for GNB bactermia - CT abd/pel when stable fort transportation _KUB - chk lactic acid Discussed Condition With Ruth Mcbride MD Mar 02, 2017 09:03
[2017-03-02] MEDS: MIDAZOLAM 100 MG/100 ML INJ 100 ML IV PRN ×2 (09:29→21:26)
--- NOTE | 2017-03-02 11:31 | RADRPT ---
EXAM DATE/TIME: 03/02/2017 10:15 [facility] COMPARISON: CHEST SINGLE AP, March 02, 2017, 2:38. INDICATIONS : Fever. MEDICAL HISTORY : Septic shock. SURGICAL HISTORY : None. ENCOUNTER: Initial ACUITY: 1 day PAIN SCORE: Non-responsive. LOCATION: Bilateral abdomen. FINDINGS: The osseous structures are intact. The bowel gas pattern is unremarkable. There is a nasogastric tube within the stomach. No free air is identified. CONCLUSION: 1. NG tube within the stomach. No findings to indicate bowel obstruction identified. Abhay Gonzalez MD on March 02, 2017 at 11:29 Board Certified Radiologist. This report was verified electronically.
[2017-03-02] MEDS: NS + KCL 20 MEQ INJ 1,000 ML IV SCH (14:53)
[2017-03-02] MEDS ORDERED: CALCIUM GLUCONATE INJ 2 GM in SODIUM CHLORIDE 0.9% INJ 100 ML IV ONE (15:00)
[2017-03-02] MEDS: VASOPRESSIN INJ 40 UNITS in DEXTROSE 5% IN WATER 100ML INJ 98 ML IV SCH ×2 (16:23)
[2017-03-03] VITALS (17 sets, daily range): BP systolic 101–113; BP diastolic 54–86; PULSE 55–84; RESP 20–38; TEMP 97.6–98.7; O2SAT 94–99
[2017-03-03] MEDS: VANCOMYCIN 500 MG VIAL (FOR ORAL USE ONLY) PO SCH ×4 (00:30→17:48)
[2017-03-03] MEDS: NS + KCL 20 MEQ INJ 1,000 ML IV SCH ×2 (02:40→15:55)
[2017-03-03] MEDS: HYDROCORTISONE SOD SUCCINATE 100 MG VIAL IV PUSH SCH ×4 (03:00→19:38)
[2017-03-03] MEDS: PIPERACIL-TAZO 3.375 GM PREMIX 50 ML IV SCH ×4 (03:00→19:38)
[2017-03-03] MEDS: chlordiazePOXIDE 25 MG CAP PO SCH ×3 (04:00→19:37)
[2017-03-03] MEDS: CHLORHEXIDINE GLUCONATE 2 % 1 PACK (2 CLOTHS) TOP SCH (04:00)
[2017-03-03] MEDS: RESP: ALBUTEROL 2.5 MG/IPRATROPIUM 0.5 MG NEB (SCH) INH ×4 (04:10→21:59)
[2017-03-03 05:31] LABS: AUTOMATED NEUTROPHIL # 11.7 TH/MM3 (1.8-7.7); BASOPHIL # 0.1 TH/MM3 (0-0.2); BASOPHIL % 0.6 % (0.0-2.0); HEMATOCRIT 34.9 % (35.0-46.0); HEMOGLOBIN 12.1 GM/DL (11.6-15.3); LYMPH % 2.8 % (9.0-44.0); LYMPHOCYTE # 0.3 TH/MM3 (1.0-4.8); MEAN CELL VOLUME 98.4 FL (80.0-100.0); MEAN CORPUSCULAR HEMOGLOBIN 34.1 PG (27.0-34.0); MEAN CORPUSCULAR HGB CONC 34.7 % (32.0-36.0); MEAN PLATELET VOLUME 11.7 FL (7.0-11.0); MONO % 3.7 % (0.0-8.0); MONOCYTE # 0.5 TH/MM3 (0-0.9); NEUT % 92.9 % (16.0-70.0); PLATELET COUNT 30 TH/MM3 (150-450); RED BLOOD COUNT 3.54 MIL/MM3 (4.00-5.30); RED CELL DISTRIBUTION WIDTH 17.6 % (11.6-17.2); WHITE BLOOD COUNT 12.6 TH/MM3 (4.0-11.0)
[2017-03-03 05:52] LABS: BICARBONATE 22.9 MEQ/L (21.0-32.0); CALCIUM 6.1 MG/DL (8.5-10.1); CREATININE 2.22 MG/DL (0.50-1.00)
--- NOTE | 2017-03-03 05:58 | RADRPT ---
EXAM DATE/TIME: 03/03/2017 04:33 [facility] COMPARISON: CHEST SINGLE AP, March 02, 2017, 2:38. INDICATIONS : Acute respiratory distress syndrome. MEDICAL HISTORY : None. SURGICAL HISTORY : None. ENCOUNTER: Subsequent ACUITY: 3 days PAIN SCORE: Non-responsive. LOCATION: Bilateral chest FINDINGS: A single portable frontal view of the chest shows diffuse bilateral pulmonary infiltrates which are s hown some improvement from the prior study. No discrete effusions. Heart normal in size. Tip of endot helen tube 3 cm from the randy. Nasogastric tube courses off the inferior margin of the film. Righ t subclavian central line. CONCLUSION: Improving bilateral pulmonary infiltrates. Mohsen Huggins Jr., MD on March 03, 2017 at 5:56 Board Certified Radiologist. This report was verified electronically.
[2017-03-03] MEDS: HEPARIN SODIUM - SQ 10,000 UNITS/ML VIAL SQ SCH ×3 (06:00→21:01)
[2017-03-03] MEDS: METRONIDAZOLE 500 MG/100 ML ISONTONIC SOLN IV SCH ×2 (06:11→13:48)
[2017-03-03 06:13] LABS: TOTAL PROTEIN 5.5 GM/DL (6.4-8.2)
[2017-03-03 06:15] LABS: CALCIUM-PROTEIN CORRECTED 6.8 MG/DL (8.5-10.1)
[2017-03-03 07:28] LABS: BANDS 23 % (0-6); CORRECTED NUCLEATED RBC 2 /100 WBC (0-0); LYMPHOCYTES 3 % (9-44); METAMYELOCYTES 1 % (0-1); MONOCYTES 1 % (0-8); NEUTROPHIL # MANUAL DIFF 12.1 TH/MM3 (1.8-7.7); NUCLEATED RED BLOOD CELL 2 (0-0); POLYS (SEG NEUTROPHILS) 72 % (16-70)
[2017-03-03 07:30] LABS: TEARDROP RBCS 1+ (NORMAL); TOXIC GRANULATION 2+ (NORMAL)
[2017-03-03] MEDS: CHLORHEXIDINE 0.12% (ORAL KIT) 15 ML CUP MT SCH ×4 (08:00→19:39)
[2017-03-03] MEDS: FAMOTIDINE 20 MG/2 ML VIAL IV PUSH SCH ×2 (08:04→19:38)
[2017-03-03] MEDS: SODIUM CHLORIDE 0.9% FLUSH 10 ML FLUSH IV FLUSH SCH ×2 (08:04→19:38)
[2017-03-03] MEDS: PROPOFOL 1000 MG/100 ML INJ 100 ML IV PRN ×2 (08:04→15:55)
[2017-03-03] MEDS: MIDAZOLAM 100 MG/100 ML INJ 100 ML IV PRN ×2 (08:04→19:42)
--- NOTE | 2017-03-03 11:45 | HHI.CCPN ---
Subjective Remarks/Hospital Course 44-year-old female with history of alcohol use disorder liver cirrhosis, presents following a syncopal or near syncopal event at home. The patient reports that she's been ill for a couple days with vomiting and diarrhea. She has been febrile. She reportedly had an alteration in her level of consciousness at home tonight prompting her boyfriend called the rescue squad. EMS states that her heart rate was 180 on their arrival. She was normotensive. She also had a fever of 103. They treated her in route with IV fluids and Zofran. Patient reports some cough and some shortness of breath. She denies any other upper respiratory symptoms. She denies any urinary tract symptoms. Despite IV fluid resuscitation patient became hypotensive in the center line was placed by ED attending for Levophed administration. 02/28: Worsening respiratory distress requiring intubation and mechanical ventilation. Symptoms of ETOH withdrawal further complicate care. Fevers > 103 persist. 03/01: Gas exchange remains impaired. Blood with GNR bacteremia. CXR worse, diffuse process now.Urine output marginal. 03/02: Worsening radiograph, markedly impaired gas exchange. 03/03: Persistently elevated A-aO2 gradient, cultures negative so far. ADILSON not resolving and some element of respiratory failure is diffuse edema. Sure acts like sepsis, continue broad coverage. Objective Vital Signs Date Time Temp Pulse Resp B/P (MAP) Pulse Ox O2 Delivery O2 Flow Rate FiO2 03/03/17 10:00 83 03/03/17 08:28 95 80 03/03/17 08:00 98.4 34 101/73 (82) 03/03/17 07:00 Mechanical Ventilator 03/01/17 19:20 2.00 Intake and Output 03/03/17 03/03/17 03/04/17 08:00 16:00 00:00 Intake Total 120 ml Output Total 400 ml Balance -280 ml Result Diagram: 03/03/17 0500 03/03/17 0500 Other Results Microbiology Date/Time Source Procedure Growth Status 02/28/17 13:30 Stool Stool - Final Complete 03/01/17 05:30 Sputum Endotracheal Gram Stain - Final Complete 03/01/17 05:30 Sputum Endotracheal Sputum Culture - Final RARE GROWTH NORMAL RESPIRATORY CHIP Complete Laboratory Tests Test 03/02/17 15:38 03/03/17 04:46 Blood Gas Puncture Site ART LINE GRIFFIN Blood Gas Patient Temperature 98.6 98.6 Blood Gas HCO3 23 mmol/L (22-26) 21 mmol/L (22-26) Blood Gas Base Excess -1.5 mmol/L (-2-2) -4.7 mmol/L (-2-2) Blood Gas Oxygen Saturation 94 % (90-100) 96 % (90-100) Arterial Blood pH 7.36 (7.380-7.420) 7.31 (7.380-7.420) Arterial Blood Partial Pressure CO2 42 mmHg (38-42) 42 mmHg (38-42) Arterial Blood Partial Pressure O2 86 mmHg (61-120) 110 mmHg (61-120) Arterial Blood Oxygen Content 15.9 Vol % (12.0-20.0) 15.7 Vol % (12.0-20.0) Arterial Blood Carboxyhemoglobin 1.1 % (0-4) 1.1 % (0-4) Arterial Blood Methemoglobin 1.0 % (0-2) 1.1 % (0-2) Blood Gas Hemoglobin 11.9 G/DL (12.0-16.0) 11.5 G/DL (12.0-16.0) Oxygen Delivery Device VENTILATOR VENTILATOR Blood Gas Ventilator Setting SEE COMMENTS SEE COMMENT Blood Gas Inspired Oxygen 70 % 90 % Objective Remarks GENERAL: Ill-appearing patient. SKIN: Warm and dry. HEAD: Normocephalic. EYES: No scleral icterus. No injection or drainage. NECK: Supple, trachea midline. Orally intubated. CARDIOVASCULAR: Tachycardia. Regular rhythm without murmurs, gallops, or rubs. No JVD. RESPIRATORY: Breath sounds equal bilaterally. Diffuse crackles. Good air movement. GASTROINTESTINAL: Abdomen soft, non-tender, nondistended. No guarding. BS few. MUSCULOSKELETAL: No cyanosis, or edema. Well perfused. Extremities: Well perfused. Generalized edema. NEURO EXAM: Sedated for vent synchrony and control of withdrawal. Moves 4 limbs on large dose sedation. A/P Assessment and Plan Severe sepsis - Bilateral pulmonary infiltrate - Spectrum antibiotics - Culture and sensitivity - Infectious disease consult - Intubated 02/28, PRVC mode. Pneumonia - CXR with infiltrates - Broad-spectrum antibiotics - DuoNeb's when necessary and scheduled - Urine antigens to follow -> negative - Change to APRV mode 03/02. Alcoholism - Thiamine folate and multivitamins IV - Monitor for withdrawal - Librium scheduled. Anxiety and depression - Ativan when necessary DVT GI prophylaxis - Teds SCDs - Subcutaneous heparin - Pepcid Overall impression: Critically ill with ongoing deterioration of clinical status requiring mechanical ventilation and ongoing resuscitation from septic shock. Worsening pneumonia and hypoxemia. Perfusion improved but urine remains marginal at best. Critical Care 37 mins aside from procedures. Franco Medina MD Mar 03, 2017 11:45
--- NOTE | 2017-03-03 15:04 | HHI.IDPN ---
Subjective Subjective Remarks ID xcover for . 46 yo tobacco + female with ETOH abuse (2 glasses of vodka daily) presented with several days of nausea,vomiting, diarrhea She also has cough, SOB and fever up to 103 She is quite dyspneic and hypoxic despite of 3 L of O2 BP is low Pt has very low WBC of 1.8, prominent L shift with 35% of bands and younger forms present Lactic acid of 4.9 on presentation - improved now Thrombocytopenia Leg/pnuemococcal flu antigens are negative CXR showed Right base consolidation Reports small amount of galindo sputum earlier Last drink - 4 days ago Pt also endorses dysuria and her UA is abnormal, clx P Overnight events reviewed was on cooling blanket now temps normal. suspected DT prior to intubation. Secretions not much, white. requires high O2 settings, 80-90%, biphasic UOP is marginal (300 cc/12 hrs) Diarrhea earlier, cdiff positive. Antibiotics VAnco PO Flagyl Zosyn Lines Line sites with no e.o infection. Past Medical History reviewed Allergies: Coded Allergies: No Known Allergies (Unverified , 02/28/17) Objective . Vital Signs Date Time Temp Pulse Resp B/P (MAP) Pulse Ox O2 Delivery O2 Flow Rate FiO2 03/03/17 14:00 80 03/03/17 12:08 98 80 03/03/17 12:00 98.7 82 36 97 110/78 (89) 03/03/17 12:00 82 03/03/17 10:00 83 03/03/17 08:28 95 80 03/03/17 08:00 98.4 84 34 94 101/73 (82) 03/03/17 08:00 84 03/03/17 07:00 95 Mechanical Ventilator 80 03/03/17 06:00 80 03/03/17 04:11 97 90 03/03/17 04:00 78 03/03/17 04:00 97.6 78 27 101/70 (80) 97 101/58 (72) 03/03/17 02:00 79 03/03/17 00:00 75 03/03/17 00:00 97.7 55 20 108/54 (72) 95 101/58 (72) 03/02/17 22:00 84 03/02/17 20:53 100 80 03/02/17 20:00 74 03/02/17 20:00 97.5 74 26 106/78 (87) 99 94/70 (78) 03/02/17 19:00 99 Mechanical Ventilator 80 03/02/17 18:00 86 03/02/17 16:19 92 70 03/02/17 16:00 81 03/02/17 16:00 98.4 81 34 92 104/75 (85) . Laboratory Tests Test 03/02/17 04:00 03/03/17 05:00 White Blood Count 11.1 TH/MM3 12.6 TH/MM3 Red Blood Count 3.85 MIL/MM3 3.54 MIL/MM3 Hemoglobin 12.9 GM/DL 12.1 GM/DL Hematocrit 37.5 % 34.9 % Mean Corpuscular Volume 97.5 FL 98.4 FL Mean Corpuscular Hemoglobin 33.5 PG 34.1 PG Mean Corpuscular Hemoglobin Concent 34.4 % 34.7 % Red Cell Distribution Width 17.3 % 17.6 % Platelet Count 33 TH/MM3 30 TH/MM3 Mean Platelet Volume 10.5 FL 11.7 FL CBC Comment AUTO DIFF AUTO DIFF Differential Total Cells Counted 100 100 Neutrophils % (Manual) 81 % 72 % Band Neutrophils % 9 % 23 % Lymphocytes % 6 % 3 % Monocytes % 3 % 1 % Neutrophils # (Manual) 10.1 TH/MM3 12.1 TH/MM3 Metamyelocytes 1 % 1 % Differential Comment FINAL DIFF MANUAL FINAL DIFF MANUAL Toxic Granulation 1+ 2+ Dohle Bodies PRESENT Platelet Estimate LOW LOW Platelet Morphology Comment NORMAL ENLARGED Neutrophils (%) (Auto) 92.9 % Lymphocytes (%) (Auto) 2.8 % Monocytes (%) (Auto) 3.7 % Eosinophils (%) (Auto) 0.0 % Basophils (%) (Auto) 0.6 % Neutrophils # (Auto) 11.7 TH/MM3 Lymphocytes # (Auto) 0.3 TH/MM3 Monocytes # (Auto) 0.5 TH/MM3 Eosinophils # (Auto) 0.0 TH/MM3 Basophils # (Auto) 0.1 TH/MM3 Nucleated Red Blood Cells 2 /100 WBC Tear Drop Cells 1+ Laboratory Tests Test 03/02/17 04:00 03/02/17 10:40 03/02/17 16:05 03/03/17 05:00 Blood Urea Nitrogen 31 MG/DL 35 MG/DL Creatinine 1.98 MG/DL 2.22 MG/DL Random Glucose 196 MG/DL 147 MG/DL Total Protein 5.0 GM/DL 5.5 GM/DL Albumin 1.9 GM/DL Calcium Level 5.6 MG/DL 6.1 MG/DL Alkaline Phosphatase 50 U/L Aspartate Amino Transf (AST/SGOT) 94 U/L Alanine Aminotransferase (ALT/SGPT) 85 U/L Total Bilirubin 1.5 MG/DL Sodium Level 142 MEQ/L 144 MEQ/L Potassium Level 2.8 MEQ/L 3.3 MEQ/L 3.7 MEQ/L Chloride Level 110 MEQ/L 110 MEQ/L Carbon Dioxide Level 19.0 MEQ/L 22.9 MEQ/L Anion Gap 13 MEQ/L 11 MEQ/L Estimat Glomerular Filtration Rate 27 ML/MIN 24 ML/MIN Protein Corrected Calcium 6.5 MG/DL 6.8 MG/DL Lactic Acid Level 1.5 mmol/L Microbiology Date/Time Source Procedure Growth Status 03/01/17 05:30 Sputum Endotracheal Gram Stain - Final Complete 03/01/17 05:30 Sputum Endotracheal Sputum Culture - Final RARE GROWTH NORMAL RESPIRATORY CHIP Complete Imaging Last Impressions Chest X-Ray 03/02/17 0400 Signed Impressions: Service Date/Time: Thursday, March 02, 2017 02:38 - CONCLUSION: Considerable worsening of diffuse bilateral pulmonary infiltrates. Mohsen Huggins Jr., MD Physical Exam CONSTITUTIONAL/GENERAL: This is sedated, intubated on vent TUBES/LINES/DRAINS: SKIN: No jaundice, rashes, or lesions. Skin temperature appropriate. Not diaphoretic. EYES: Pupils equal and round and reactive. Minimal scleral icterus. ENT: Orally intubated CARDIOVASCULAR: Regular tachycardia without murmurs, gallops, or rubs. No JVD. Peripheral pulses symmetric. RESPIRATORY/CHEST: Symmetric, unlabored respirations. Diffuse rhonchi to auscultation. GASTROINTESTINAL: Abdomen soft, n reaction to palpation distended. No hepato- splenomegaly, or palpable masses. No guarding. Bowel sounds present. GENITOURINARY: Without palpable bladder distension. Guerrero in place with clear yellow urine MUSCULOSKELETAL: Extremities without clubbing, cyanosis, worsening generalized edema 2-3 +. No joint tenderness or effusion noted. No calf tenderness. No mottling or clubbing. NEUROLOGICAL: sedated unresponsive PSYCHIATRIC: unable to assess Assessment & Plan Remarks Sepsis (neutropenia, fever, lactic acidosis) Proteus bacteremia (GI from translocation across inflammed GI mucosa vs GI) Proteus UTI / Pyelo or other complicated UTI factors. Source is likely vs GI C.diff colitis ARDS, doubt PNA Aspiration Pneumonia possible given alcoholism/DT Acute VDRF, worsening oxygenation ETOHism Critical, unstable, worsening Recs - cont Vanco PO (Cdiff diarrhea ? colitis) - not much diarrhea ok to DC IV flagyl. - cont zosyn for GNB bactermia, aspiration PNA. - CT abd/pel when stable fort transportation - US KUB to look for kidney pathology ? Pyelo ? stones ? Hydronephrosis. Discussed Condition With Candis Sol MD Mar 03, 2017 15:04
[2017-03-03] MEDS: VASOPRESSIN INJ 40 UNITS in DEXTROSE 5% IN WATER 100ML INJ 98 ML IV SCH ×2 (15:06)
--- NOTE | 2017-03-03 16:51 | RADRPT ---
EXAM DATE/TIME: 03/03/2017 16:03 [facility] COMPARISON: ABDOMEN KUB ONLY, March 02, 2017, 10:15. INDICATIONS : Hydronephrosis. MEDICAL HISTORY : Cerebrovascular accident. Dyspnea. Dysuria. Cirrhosis. Substance abuse. ETOH abuse. C-diff. SURGICAL HISTORY : Hysterectomy. Inguinal hernia repair. ENCOUNTER: Initial ACUITY: 1 day PAIN SCORE: Nonresponsive. LOCATION: Bilateral flank MEASUREMENTS: RIGHT KIDNEY: 12.2 x 6.1 x 6.6 cm LEFT KIDNEY: 11.7 x 6.1 x 7.3 cm FINDINGS: RIGHT KIDNEY: Renal cortex is normal in thickness and echotexture. No hydronephrosis, stone, or mass. LEFT KIDNEY: Renal cortex is normal in thickness and echotexture. No hydronephrosis, stone, or mass. BLADDER: Guerrero catheter within the urinary bladder. CONCLUSION: Normal examination. 1. Gustavo Yusuf MD on March 03, 2017 at 16:49 Board Certified Radiologist. This report was verified electronically.
[2017-03-03] MEDS: fentaNYL DRIP 250 ML IV PRN (21:00)
[2017-03-04] VITALS (17 sets, daily range): BP systolic 102–120; BP diastolic 68–82; PULSE 60–78; RESP 24–37; TEMP 97.5–98.3; O2SAT 95–99
[2017-03-04] MEDS: VANCOMYCIN 500 MG VIAL (FOR ORAL USE ONLY) PO SCH ×4 (00:35→17:59)
[2017-03-04] MEDS: PROPOFOL 1000 MG/100 ML INJ 100 ML IV PRN ×4 (00:46→21:09)
[2017-03-04] MEDS: HYDROCORTISONE SOD SUCCINATE 100 MG VIAL IV PUSH SCH ×4 (02:27→21:08)
[2017-03-04] MEDS: PIPERACIL-TAZO 3.375 GM PREMIX 50 ML IV SCH ×4 (02:27→21:09)
[2017-03-04] MEDS: RESP: ALBUTEROL 2.5 MG/IPRATROPIUM 0.5 MG NEB (SCH) INH (03:08)
[2017-03-04] MEDS: CHLORHEXIDINE GLUCONATE 2 % 1 PACK (2 CLOTHS) TOP SCH (04:13)
[2017-03-04] MEDS: chlordiazePOXIDE 25 MG CAP PO SCH ×3 (04:13→21:09)
[2017-03-04] MEDS: HEPARIN SODIUM - SQ 10,000 UNITS/ML VIAL SQ SCH ×3 (05:11→21:10)
--- NOTE | 2017-03-04 06:06 | RADRPT ---
EXAM DATE/TIME: 03/04/2017 04:23 [facility] COMPARISON: CHEST SINGLE AP, March 03, 2017, 4:33. CHEST SINGLE AP, March 02, 2017, 2:38. INDICATIONS : Evaluate for pnuemonia MEDICAL HISTORY : CVA, Dyspnea, Dysuria, Cirrhosis SURGICAL HISTORY : Hysterectomy. Inguinal hernia repair. ENCOUNTER: Subsequent ACUITY: 2 days PAIN SCORE: Non-responsive. LOCATION: Bilateral chest FINDINGS: Endotracheal tube tip is just above the randy. Nasogastric tube descends in the stomach. Diffuse yenifer ateral parenchymal opacities persist unchanged. Cardiac contour is grossly stable. CONCLUSION: No significant change Jake Vanessa MD on March 04, 2017 at 6:04 Board Certified Radiologist. This report was verified electronically.
[2017-03-04 06:19] LABS: AUTOMATED NEUTROPHIL # 9.9 TH/MM3 (1.8-7.7); BASOPHIL % 0.4 % (0.0-2.0); EOSINOPHIL % 0.2 % (0.0-4.0); HEMATOCRIT 33.9 % (35.0-46.0); HEMOGLOBIN 11.6 GM/DL (11.6-15.3); LYMPH % 3.2 % (9.0-44.0); LYMPHOCYTE # 0.3 TH/MM3 (1.0-4.8); MEAN CELL VOLUME 99.5 FL (80.0-100.0); MEAN CORPUSCULAR HGB CONC 34.1 % (32.0-36.0); MEAN PLATELET VOLUME 10.8 FL (7.0-11.0); MONO % 3.4 % (0.0-8.0); MONOCYTE # 0.4 TH/MM3 (0-0.9); NEUT % 92.8 % (16.0-70.0); PLATELET COUNT 55 TH/MM3 (150-450); RED BLOOD COUNT 3.41 MIL/MM3 (4.00-5.30); WHITE BLOOD COUNT 10.7 TH/MM3 (4.0-11.0)
[2017-03-04] MEDS: MIDAZOLAM 100 MG/100 ML INJ 100 ML IV PRN ×2 (06:51→17:59)
[2017-03-04 07:25] LABS: BANDS 11 % (0-6); LYMPHOCYTES 3 % (9-44); METAMYELOCYTES 2 % (0-1); MONOCYTES 1 % (0-8); MYELOCYTES 1 % (0-0); NEUTROPHIL # MANUAL DIFF 10.3 TH/MM3 (1.8-7.7); POLYS (SEG NEUTROPHILS) 82 % (16-70)
[2017-03-04 07:48] LABS: ALBUMIN 1.9 GM/DL (3.4-5.0); CALCIUM 6.5 MG/DL (8.5-10.1); CREATININE 2.27 MG/DL (0.50-1.00); TOTAL BILIRUBIN ADULT 1.4 MG/DL (0.2-1.0); TOTAL PROTEIN 5.6 GM/DL (6.4-8.2)
[2017-03-04] MEDS: SODIUM CHLORIDE 0.9% FLUSH 10 ML FLUSH IV FLUSH SCH ×2 (07:48→21:10)
[2017-03-04] MEDS: CHLORHEXIDINE 0.12% (ORAL KIT) 15 ML CUP MT SCH ×4 (07:48→21:09)
[2017-03-04 07:50] LABS: CALCIUM-PROTEIN CORRECTED 7.2 MG/DL (8.5-10.1)
[2017-03-04] MEDS: FAMOTIDINE 20 MG/2 ML VIAL IV PUSH SCH ×2 (07:50→21:08)
--- NOTE | 2017-03-04 07:51 | HHI.CCPN ---
Subjective Remarks/Hospital Course 44-year-old female with history of alcohol use disorder liver cirrhosis, presents following a syncopal or near syncopal event at home. The patient reports that she's been ill for a couple days with vomiting and diarrhea. She has been febrile. She reportedly had an alteration in her level of consciousness at home tonight prompting her boyfriend called the rescue squad. EMS states that her heart rate was 180 on their arrival. She was normotensive. She also had a fever of 103. They treated her in route with IV fluids and Zofran. Patient reports some cough and some shortness of breath. She denies any other upper respiratory symptoms. She denies any urinary tract symptoms. Despite IV fluid resuscitation patient became hypotensive in the center line was placed by ED attending for Levophed administration. 02/28: Worsening respiratory distress requiring intubation and mechanical ventilation. Symptoms of ETOH withdrawal further complicate care. Fevers > 103 persist. 03/01: Gas exchange remains impaired. Blood with GNR bacteremia. CXR worse, diffuse process now.Urine output marginal. 03/02: Worsening radiograph, markedly impaired gas exchange. 03/03: Persistently elevated A-aO2 gradient, cultures negative so far. ADILSON not resolving and some element of respiratory failure is diffuse edema. Sure acts like sepsis, continue broad coverage. 03/04: ARDS. C. diff colitis. ADILSON. Continued deterioration. Objective Vital Signs Date Time Temp Pulse Resp B/P (MAP) Pulse Ox O2 Delivery O2 Flow Rate FiO2 03/04/17 06:00 73 03/04/17 04:00 98.2 33 102/73 (83) 98 03/04/17 04:00 75 03/03/17 19:00 Mechanical Ventilator 03/01/17 19:20 2.00 Intake and Output 03/04/17 03/04/17 03/05/17 08:00 16:00 00:00 Intake Total 150 ml Output Total 690 ml Balance -540 ml Result Diagram: 03/04/17 0445 03/03/17 0500 Other Results Laboratory Tests Test 03/03/17 17:02 03/04/17 02:39 03/04/17 05:36 Blood Gas Puncture Site LT RADIAL LT RADIAL LT RADIAL Blood Gas Patient Temperature 98.6 98.6 98.6 Blood Gas HCO3 20 mmol/L (22-26) 21 mmol/L (22-26) 20 mmol/L (22-26) Blood Gas Base Excess -5.2 mmol/L (-2-2) -5.1 mmol/L (-2-2) -5.6 mmol/L (-2-2) Blood Gas Oxygen Saturation 97 % (90-100) 97 % (90-100) 97 % (90-100) Arterial Blood pH 7.28 (7.380-7.420) 7.28 (7.380-7.420) 7.25 (7.380-7.420) Arterial Blood Partial Pressure CO2 44 mmHg (38-42) 45 mmHg (38-42) 48 mmHg (38-42) Arterial Blood Partial Pressure O2 163 mmHg (61-120) 177 mmHg (61-120) 134 mmHg (61-120) Arterial Blood Oxygen Content 16.3 Vol % (12.0-20.0) 15.5 Vol % (12.0-20.0) 15.8 Vol % (12.0-20.0) Arterial Blood Carboxyhemoglobin 1.0 % (0-4) 1.0 % (0-4) 0.9 % (0-4) Arterial Blood Methemoglobin 1.1 % (0-2) 1.0 % (0-2) 1.0 % (0-2) Blood Gas Hemoglobin 11.8 G/DL (12.0-16.0) 11.1 G/DL (12.0-16.0) 11.5 G/DL (12.0-16.0) Oxygen Delivery Device VENTILATOR VENTILATOR VENTILATOR Blood Gas Ventilator Setting BILEVEL/ BILEVEL/ Blood Gas Inspired Oxygen 80 % 80 % 75 % Objective Remarks GENERAL: Ill-appearing, edematous patient. SKIN: Warm and dry. HEAD: Normocephalic. EYES: No scleral icterus. No injection or drainage. NECK: Supple, trachea midline. Orally intubated. CARDIOVASCULAR: Tachycardia. Regular rhythm without murmurs, gallops, or rubs. No JVD. RESPIRATORY: Breath sounds equal bilaterally. Diffuse crackles persist. Good air movement. GASTROINTESTINAL: Abdomen soft, non-tender, nondistended. No guarding. BS few. MUSCULOSKELETAL: No cyanosis, or edema. Well perfused. Extremities: Well perfused. Generalized edema. NEURO EXAM: Sedated for vent synchrony and control of withdrawal. Moves 4 limbs on large dose sedation. A/P Assessment and Plan Severe sepsis - Bilateral pulmonary infiltrate - Spectrum antibiotics - Culture and sensitivity - Infectious disease consult - Intubated 02/28, PRVC mode. - APRV mode 03/02/17 Pneumonia - CXR with infiltrates - Broad-spectrum antibiotics - DuoNeb's when necessary and scheduled - Urine antigens to follow -> negative - Change to APRV mode 03/02. Alcoholism - Thiamine folate and multivitamins IV - Monitor for withdrawal - Librium scheduled. Anxiety and depression - Ativan when necessary DVT GI prophylaxis - Teds SCDs - Subcutaneous heparin - Pepcid Overall impression: Critically ill with ongoing deterioration of clinical status requiring mechanical ventilation and ongoing resuscitation from septic shock. Worsening pneumonia and hypoxemia. Perfusion improved but urine remains marginal at best and renal function is deteriorating. Critical Care 42 mins aside from procedures. Franco Medina MD Mar 04, 2017 07:51
[2017-03-04] MEDS ORDERED: PHARMACY ORDERED LAB ONE (10:45)
[2017-03-04] MEDS ORDERED: CALCIUM GLUCONATE INJ 2 GM in SODIUM CHLORIDE 0.9% INJ 100 ML IV ONE (11:30)
--- NOTE | 2017-03-04 11:41 | HHI.IDPN ---
Subjective Subjective Remarks Overnight events reviewed with RN Apparently pt was on cooling blanket over the weekend remains on vent Secretions not much, white Thick requires high O2 settings, 70%, biphasic UOP is marginal somewhat responded to bumex No BMs x 2 days 400 c of residuals just sdtatred on trickle feeds Antibiotics VAnco PO Flagyl Zosyn Lines Line sites with no e.o infection. Past Medical History reviewed Allergies: Coded Allergies: No Known Allergies (Unverified , 02/28/17) Objective . Vital Signs Date Time Temp Pulse Resp B/P (MAP) Pulse Ox O2 Delivery O2 Flow Rate FiO2 03/04/17 10:00 69 03/04/17 08:00 70 03/04/17 08:00 98.3 68 25 120/82 (95) 98 03/04/17 08:00 68 03/04/17 07:00 97 Mechanical Ventilator 70 03/04/17 06:00 73 03/04/17 04:00 73 03/04/17 04:00 98.2 73 33 102/73 (83) 98 03/04/17 04:00 75 03/04/17 03:12 98 75 03/04/17 02:00 75 03/04/17 00:19 99 80 03/04/17 00:00 78 03/04/17 00:00 98.3 78 37 104/68 (80) 98 03/03/17 22:01 97 80 03/03/17 22:00 84 03/03/17 20:00 98.6 81 38 109/77 (88) 99 Arterial Line 03/03/17 20:00 81 03/03/17 19:00 99 Mechanical Ventilator 80 03/03/17 18:00 78 03/03/17 16:24 97 80 03/03/17 16:00 98.4 77 32 98 113/86 (95) 03/03/17 16:00 77 03/03/17 15:10 85 120/85 03/03/17 14:00 80 03/03/17 12:08 98 80 03/03/17 12:00 98.7 82 36 97 110/78 (89) 03/03/17 12:00 82 03/04/17 03/04/17 03/05/17 14:59 22:59 06:59 Intake Total 149 ml Balance 149 ml IV Total 149 ml . Laboratory Tests Test 03/03/17 05:00 03/04/17 04:45 White Blood Count 12.6 TH/MM3 10.7 TH/MM3 Red Blood Count 3.54 MIL/MM3 3.41 MIL/MM3 Hemoglobin 12.1 GM/DL 11.6 GM/DL Hematocrit 34.9 % 33.9 % Mean Corpuscular Volume 98.4 FL 99.5 FL Mean Corpuscular Hemoglobin 34.1 PG 34.0 PG Mean Corpuscular Hemoglobin Concent 34.7 % 34.1 % Red Cell Distribution Width 17.6 % 18.0 % Platelet Count 30 TH/MM3 55 TH/MM3 Mean Platelet Volume 11.7 FL 10.8 FL Neutrophils (%) (Auto) 92.9 % 92.8 % Lymphocytes (%) (Auto) 2.8 % 3.2 % Monocytes (%) (Auto) 3.7 % 3.4 % Eosinophils (%) (Auto) 0.0 % 0.2 % Basophils (%) (Auto) 0.6 % 0.4 % Neutrophils # (Auto) 11.7 TH/MM3 9.9 TH/MM3 Lymphocytes # (Auto) 0.3 TH/MM3 0.3 TH/MM3 Monocytes # (Auto) 0.5 TH/MM3 0.4 TH/MM3 Eosinophils # (Auto) 0.0 TH/MM3 0.0 TH/MM3 Basophils # (Auto) 0.1 TH/MM3 0.0 TH/MM3 CBC Comment AUTO DIFF AUTO DIFF Differential Total Cells Counted 100 100 Neutrophils % (Manual) 72 % 82 % Band Neutrophils % 23 % 11 % Lymphocytes % 3 % 3 % Monocytes % 1 % 1 % Neutrophils # (Manual) 12.1 TH/MM3 10.3 TH/MM3 Metamyelocytes 1 % 2 % Nucleated Red Blood Cells 2 /100 WBC Differential Comment FINAL DIFF MANUAL FINAL DIFF MANUAL Toxic Granulation 2+ Platelet Estimate LOW LOW Platelet Morphology Comment ENLARGED NORMAL Tear Drop Cells 1+ Myelocytes 1 % Laboratory Tests Test 03/02/17 16:05 03/03/17 05:00 03/04/17 04:45 Potassium Level 3.3 MEQ/L 3.7 MEQ/L 3.9 MEQ/L Blood Urea Nitrogen 35 MG/DL 43 MG/DL Creatinine 2.22 MG/DL 2.27 MG/DL Random Glucose 147 MG/DL 134 MG/DL Total Protein 5.5 GM/DL 5.6 GM/DL Calcium Level 6.1 MG/DL 6.5 MG/DL Sodium Level 144 MEQ/L 145 MEQ/L Chloride Level 110 MEQ/L 112 MEQ/L Carbon Dioxide Level 22.9 MEQ/L 23.0 MEQ/L Anion Gap 11 MEQ/L 10 MEQ/L Estimat Glomerular Filtration Rate 24 ML/MIN 23 ML/MIN Protein Corrected Calcium 6.8 MG/DL 7.2 MG/DL Albumin 1.9 GM/DL Alkaline Phosphatase 64 U/L Aspartate Amino Transf (AST/SGOT) 52 U/L Alanine Aminotransferase (ALT/SGPT) 70 U/L Total Bilirubin 1.4 MG/DL Lipase 217 U/L Imaging Last Impressions Chest X-Ray 03/04/17 0400 Signed Impressions: Service Date/Time: Saturday, March 04, 2017 04:23 - CONCLUSION: No significant change Jake Vanessa MD Renal Ultrasound 03/03/17 0000 Signed Impressions: Service Date/Time: Friday, March 03, 2017 16:03 - CONCLUSION: Normal examination. 1. Gustavo Yusuf MD Abdomen X-Ray 03/02/17 0000 Signed Impressions: Service Date/Time: Thursday, March 02, 2017 10:15 - CONCLUSION: 1. NG tube within the stomach. No findings to indicate bowel obstruction identified. Abhay Gonzalez MD Physical Exam CONSTITUTIONAL/GENERAL: This is sedated, intubated on vent TUBES/LINES/DRAINS: SKIN: No jaundice, rashes, or lesions. Skin temperature appropriate. Not diaphoretic. EYES: Pupils equal and round and reactive. Minimal scleral icterus. ENT: Orally intubated CARDIOVASCULAR: Regular tachycardia without murmurs, gallops, or rubs. No JVD. Peripheral pulses symmetric. RESPIRATORY/CHEST: Symmetric, unlabored respirations. Scattered rhonchi to auscultation. GASTROINTESTINAL: Abdomen tight no reaction to palpation quite distended. No hepato-splenomegaly, or palpable masses. No guarding. Bowel sounds present. GENITOURINARY: Without palpable bladder distension. Guerrero in place with small amount of clear yellow urine MUSCULOSKELETAL: Extremities without clubbing, cyanosis, worsening generalized edema 3-4+. No joint tenderness or effusion noted. No calf tenderness. No mottling or clubbing. NEUROLOGICAL: sedated unresponsive PSYCHIATRIC: unable to assess Assessment & Plan Remarks Sepsis (neutropenia, fever, lactic acidosis) -Proteus bacteremia (GI from translocation across inflammed GI mucosa vs ) -Proteus UTI / Pyelo or other complicated UTI factors. -Source is likely vs GI C.diff colitis no BMs x 48 hrs ? ileus ARDS, doubt PNA Aspiration Pneumonia possible given alcoholism/DT Acute VDRF, worsening oxygenation ETOHism Critical, unstable, worsening Recs - cont Vanco PO (Cdiff diarrhea ? colitis) - cont zosyn for GNB bactermia, aspiration PNA. - CT abd/pel when stable fort transportation - US KUB to look for kidney pathology ? Pyelo ? stones ? Hydronephrosis. - KUB now Discussed Condition With Ruth Mcbride MD Mar 04, 2017 11:41
[2017-03-04] MEDS: NS + KCL 20 MEQ INJ 1,000 ML IV SCH (12:59)
--- NOTE | 2017-03-04 13:07 | RADRPT ---
EXAM DATE/TIME: 03/04/2017 12:19 [facility] COMPARISON: ABDOMEN KUB ONLY, March 02, 2017, 10:15. INDICATIONS : Abdominal distention. MEDICAL HISTORY : Septic shock. SURGICAL HISTORY : None. ENCOUNTER: Subsequent ACUITY: 2 days PAIN SCORE: Non-responsive. LOCATION: Abdomen. FINDINGS: There is an NGT in the stomach. No dilated loops of bowel are demonstrated. In general, there is pauc ity of bowel gas in the abdomen similar to previous exam. No significant free air or pneumatosis. Rem ainder of exam is unchanged. CONCLUSION: 1. Suction type NGT in the stomach. 2. Stable nonspecific paucity of bowel gas. Rarely, this can be seen with fluid filled bowel loops. Randy Patricio MD on March 04, 2017 at 13:04 Board Certified Radiologist. This report was verified electronically.
[2017-03-04] MEDS: RESP: ALBUTEROL 2.5 MG/IPRATROPIUM 0.5 MG NEB (PRN) NEB (17:21)
[2017-03-04] MEDS: VASOPRESSIN INJ 40 UNITS in DEXTROSE 5% IN WATER 100ML INJ 98 ML IV SCH ×2 (17:58)
[2017-03-05] VITALS (18 sets, daily range): BP systolic 114–132; BP diastolic 71–83; PULSE 58–92; RESP 11–26; TEMP 97.7–98.8; O2SAT 92–97
[2017-03-05] MEDS: VANCOMYCIN 500 MG VIAL (FOR ORAL USE ONLY) PO SCH ×3 (00:40→11:16)
[2017-03-05] MEDS: HYDROCORTISONE SOD SUCCINATE 100 MG VIAL IV PUSH SCH ×4 (03:19→21:15)
[2017-03-05] MEDS: chlordiazePOXIDE 25 MG CAP PO SCH ×3 (03:20→21:16)
[2017-03-05] MEDS: PIPERACIL-TAZO 3.375 GM PREMIX 50 ML IV SCH ×4 (03:20→21:14)
[2017-03-05] MEDS: CHLORHEXIDINE GLUCONATE 2 % 1 PACK (2 CLOTHS) TOP SCH (04:00)
[2017-03-05] MEDS: MIDAZOLAM 100 MG/100 ML INJ 100 ML IV PRN ×2 (04:09→15:43)
[2017-03-05 05:07] LABS: AUTOMATED NEUTROPHIL # 11.6 TH/MM3 (1.8-7.7); BASOPHIL # 0.1 TH/MM3 (0-0.2); BASOPHIL % 0.6 % (0.0-2.0); HEMATOCRIT 34.3 % (35.0-46.0); HEMOGLOBIN 11.5 GM/DL (11.6-15.3); LYMPH % 3.1 % (9.0-44.0); LYMPHOCYTE # 0.4 TH/MM3 (1.0-4.8); MEAN CELL VOLUME 99.5 FL (80.0-100.0); MEAN CORPUSCULAR HEMOGLOBIN 33.5 PG (27.0-34.0); MEAN CORPUSCULAR HGB CONC 33.6 % (32.0-36.0); MEAN PLATELET VOLUME 11.2 FL (7.0-11.0); MONO % 2.4 % (0.0-8.0); MONOCYTE # 0.3 TH/MM3 (0-0.9); NEUT % 93.9 % (16.0-70.0); PLATELET COUNT 75 TH/MM3 (150-450); RED BLOOD COUNT 3.45 MIL/MM3 (4.00-5.30); RED CELL DISTRIBUTION WIDTH 17.6 % (11.6-17.2); WHITE BLOOD COUNT 12.3 TH/MM3 (4.0-11.0)
[2017-03-05] MEDS: HEPARIN SODIUM - SQ 10,000 UNITS/ML VIAL SQ SCH ×3 (05:32→21:15)
[2017-03-05] MEDS: fentaNYL DRIP 250 ML IV PRN (05:33)
[2017-03-05 05:42] LABS: ALBUMIN 1.8 GM/DL (3.4-5.0); CALCIUM 7.4 MG/DL (8.5-10.1); CALCIUM-PROTEIN CORRECTED 8.2 MG/DL (8.5-10.1); CREATININE 1.45 MG/DL (0.50-1.00); TOTAL BILIRUBIN ADULT 1.1 MG/DL (0.2-1.0); TOTAL PROTEIN 5.6 GM/DL (6.4-8.2)
[2017-03-05] MEDS: NS + KCL 20 MEQ INJ 1,000 ML IV SCH (06:41)
[2017-03-05] MEDS: PROPOFOL 1000 MG/100 ML INJ 100 ML IV PRN ×2 (06:57→18:01)
[2017-03-05] MEDS: CHLORHEXIDINE 0.12% (ORAL KIT) 15 ML CUP MT SCH ×3 (08:00→21:16)
[2017-03-05 08:07] LABS: BANDS 13 % (0-6); LYMPHOCYTES 2 % (9-44); METAMYELOCYTES 1 % (0-1); MONOCYTES 3 % (0-8); MYELOCYTES 1 % (0-0); NEUTROPHIL # MANUAL DIFF 11.7 TH/MM3 (1.8-7.7); POLYS (SEG NEUTROPHILS) 80 % (16-70)
[2017-03-05 08:08] LABS: OVALOCYTES 1+ (NORMAL); TEARDROP RBCS 1+ (NORMAL)
[2017-03-05] MEDS: FAMOTIDINE 20 MG/2 ML VIAL IV PUSH SCH ×2 (08:52→21:15)
[2017-03-05] MEDS: SODIUM CHLORIDE 0.9% FLUSH 10 ML FLUSH IV FLUSH SCH ×2 (08:52→21:16)
--- NOTE | 2017-03-05 09:24 | HHI.CCPN ---
Subjective Remarks/Hospital Course 44-year-old female with history of alcohol use disorder liver cirrhosis, presents following a syncopal or near syncopal event at home. The patient reports that she's been ill for a couple days with vomiting and diarrhea. She has been febrile. She reportedly had an alteration in her level of consciousness at home tonight prompting her boyfriend called the rescue squad. EMS states that her heart rate was 180 on their arrival. She was normotensive. She also had a fever of 103. They treated her in route with IV fluids and Zofran. Patient reports some cough and some shortness of breath. She denies any other upper respiratory symptoms. She denies any urinary tract symptoms. Despite IV fluid resuscitation patient became hypotensive in the center line was placed by ED attending for Levophed administration. 02/28: Worsening respiratory distress requiring intubation and mechanical ventilation. Symptoms of ETOH withdrawal further complicate care. Fevers > 103 persist. 03/01: Gas exchange remains impaired. Blood with GNR bacteremia. CXR worse, diffuse process now.Urine output marginal. 03/02: Worsening radiograph, markedly impaired gas exchange. 03/03: Persistently elevated A-aO2 gradient, cultures negative so far. ADILSON not resolving and some element of respiratory failure is diffuse edema. Sure acts like sepsis, continue broad coverage. 03/04: ARDS. C. diff colitis. ADILSON. Continued deterioration. 03/05: ARDS. Sepsis. Heart failure. Back on APRV. Objective Vital Signs Date Time Temp Pulse Resp B/P (MAP) Pulse Ox O2 Delivery O2 Flow Rate FiO2 03/05/17 06:00 58 03/05/17 05:56 94 55 03/05/17 04:00 98.0 26 121/78 (92) 03/04/17 19:00 Mechanical Ventilator 03/01/17 19:20 2.00 Intake and Output 03/05/17 03/05/17 03/06/17 08:00 16:00 00:00 Intake Total 1533 ml Output Total 950 ml Balance 583 ml Result Diagram: 03/05/17 0445 03/05/17 0445 Other Results Laboratory Tests Test 03/04/17 15:25 03/04/17 18:13 03/05/17 03:03 Blood Gas Puncture Site LT RADIAL LT RADIAL LT RADIAL Blood Gas Patient Temperature 98.6 98.6 98.6 Blood Gas HCO3 22 mmol/L (22-26) 20 mmol/L (22-26) 22 mmol/L (22-26) Blood Gas Base Excess -4.7 mmol/L (-2-2) -5.1 mmol/L (-2-2) -3.4 mmol/L (-2-2) Blood Gas Oxygen Saturation 96 % (90-100) 97 % (90-100) 94 % (90-100) Arterial Blood pH 7.22 (7.380-7.420) 7.29 (7.380-7.420) 7.32 (7.380-7.420) Arterial Blood Partial Pressure CO2 56 mmHg (38-42) 44 mmHg (38-42) 44 mmHg (38-42) Arterial Blood Partial Pressure O2 139 mmHg (61-120) 159 mmHg (61-120) 86 mmHg (61-120) Arterial Blood Oxygen Content 17.4 Vol % (12.0-20.0) 16.1 Vol % (12.0-20.0) 19.7 Vol % (12.0-20.0) Arterial Blood Carboxyhemoglobin 1.0 % (0-4) 1.0 % (0-4) 1.2 % (0-4) Arterial Blood Methemoglobin 1.0 % (0-2) 1.0 % (0-2) 0.8 % (0-2) Blood Gas Hemoglobin 12.7 G/DL (12.0-16.0) 11.6 G/DL (12.0-16.0) 14.9 G/DL (12.0-16.0) Oxygen Delivery Device VENTILATOR VENTILATOR VENT Blood Gas Ventilator Setting SEE COMMENTS Blood Gas Inspired Oxygen 70 % 65 % 55 % Objective Remarks GENERAL: Ill-appearing, edematous patient. SKIN: Warm and dry. HEAD: Normocephalic. EYES: No scleral icterus. No injection or drainage. NECK: Supple, trachea midline. Orally intubated. CARDIOVASCULAR: Tachycardia. Regular rhythm without murmurs, gallops, or rubs. No JVD. RESPIRATORY: Breath sounds equal bilaterally. Diffuse crackles persist. Acceptable air entry. GASTROINTESTINAL: Abdomen soft, non-tender, nondistended. No guarding. BS few. MUSCULOSKELETAL: No cyanosis, or edema. Well perfused. Extremities: Well perfused. Generalized edema. NEURO EXAM: Sedated for vent synchrony and control of withdrawal. Moves 4 limbs on large dose sedation. A/P Assessment and Plan Severe sepsis - Bilateral pulmonary infiltrate - Spectrum antibiotics - Culture and sensitivity - Infectious disease consult - Intubated 02/28, PRVC mode. - APRV mode 03/02/17 Pneumonia - CXR with infiltrates - Broad-spectrum antibiotics - DuoNeb's when necessary and scheduled - Urine antigens to follow -> negative - Change to APRV mode 03/02. Alcoholism - Thiamine folate and multivitamins IV - Monitor for withdrawal - Librium scheduled. Anxiety and depression - Ativan when necessary DVT GI prophylaxis - Teds SCDs - Subcutaneous heparin - Pepcid C. diff colitis - Oral vanc. Overall impression: Critically ill with ongoing deterioration of clinical status requiring mechanical ventilation and ongoing resuscitation from septic shock. Worsening pneumonia and hypoxemia. Perfusion improved and urine remains marginally acceptable. Critical Care 38 mins Franco Medina MD Mar 05, 2017 09:24
[2017-03-05] MEDS ORDERED: FUROSEMIDE 20 MG/2 ML VIAL IV PUSH ONE (10:15)
--- NOTE | 2017-03-05 13:07 | HHI.IDPN ---
Subjective Subjective Remarks remains on biphasic vent'n, FiO2 55 % no BM off pressors Antibiotics VAnco PO Zosyn Lines Line sites with no e.o infection. Past Medical History reviewed Allergies: Coded Allergies: No Known Allergies (Unverified , 02/28/17) Objective . Vital Signs Date Time Temp Pulse Resp B/P (MAP) Pulse Ox O2 Delivery O2 Flow Rate FiO2 03/05/17 12:00 81 03/05/17 10:00 70 03/05/17 08:00 58 03/05/17 07:00 92 Mechanical Ventilator 55 03/05/17 06:00 58 03/05/17 05:56 94 55 03/05/17 04:00 55 03/05/17 04:00 98.0 61 26 121/78 (92) 95 03/05/17 04:00 61 03/05/17 02:00 62 03/05/17 01:28 94 55 03/05/17 00:00 59 03/05/17 00:00 97.7 59 24 120/77 (91) 94 03/05/17 00:00 55 03/04/17 22:00 60 03/04/17 21:46 98 65 03/04/17 20:00 60 03/04/17 20:00 65 03/04/17 20:00 97.5 60 24 114/77 (89) 95 03/04/17 19:00 98 Mechanical Ventilator 65 03/04/17 18:00 64 03/04/17 17:21 97 65 03/04/17 16:00 61 03/04/17 16:00 97.8 61 25 114/78 (90) 97 03/04/17 16:00 65 03/04/17 15:26 98 70 03/04/17 14:00 64 03/05/17 03/05/17 03/06/17 15:00 23:00 07:00 Intake Total 188 ml Balance 188 ml IV Total 188 ml . Laboratory Tests Test 03/04/17 04:45 03/05/17 04:45 White Blood Count 10.7 TH/MM3 12.3 TH/MM3 Red Blood Count 3.41 MIL/MM3 3.45 MIL/MM3 Hemoglobin 11.6 GM/DL 11.5 GM/DL Hematocrit 33.9 % 34.3 % Mean Corpuscular Volume 99.5 FL 99.5 FL Mean Corpuscular Hemoglobin 34.0 PG 33.5 PG Mean Corpuscular Hemoglobin Concent 34.1 % 33.6 % Red Cell Distribution Width 18.0 % 17.6 % Platelet Count 55 TH/MM3 75 TH/MM3 Mean Platelet Volume 10.8 FL 11.2 FL Neutrophils (%) (Auto) 92.8 % 93.9 % Lymphocytes (%) (Auto) 3.2 % 3.1 % Monocytes (%) (Auto) 3.4 % 2.4 % Eosinophils (%) (Auto) 0.2 % 0.0 % Basophils (%) (Auto) 0.4 % 0.6 % Neutrophils # (Auto) 9.9 TH/MM3 11.6 TH/MM3 Lymphocytes # (Auto) 0.3 TH/MM3 0.4 TH/MM3 Monocytes # (Auto) 0.4 TH/MM3 0.3 TH/MM3 Eosinophils # (Auto) 0.0 TH/MM3 0.0 TH/MM3 Basophils # (Auto) 0.0 TH/MM3 0.1 TH/MM3 CBC Comment AUTO DIFF AUTO DIFF Differential Total Cells Counted 100 100 Neutrophils % (Manual) 82 % 80 % Band Neutrophils % 11 % 13 % Lymphocytes % 3 % 2 % Monocytes % 1 % 3 % Neutrophils # (Manual) 10.3 TH/MM3 11.7 TH/MM3 Metamyelocytes 2 % 1 % Myelocytes 1 % 1 % Differential Comment FINAL DIFF MANUAL FINAL DIFF MANUAL Platelet Estimate LOW LOW Platelet Morphology Comment NORMAL NORMAL Tear Drop Cells 1+ Ovalocytes 1+ Laboratory Tests Test 03/04/17 04:45 03/05/17 04:45 Blood Urea Nitrogen 43 MG/DL 42 MG/DL Creatinine 2.27 MG/DL 1.45 MG/DL Random Glucose 134 MG/DL 162 MG/DL Total Protein 5.6 GM/DL 5.6 GM/DL Albumin 1.9 GM/DL 1.8 GM/DL Calcium Level 6.5 MG/DL 7.4 MG/DL Alkaline Phosphatase 64 U/L 65 U/L Aspartate Amino Transf (AST/SGOT) 52 U/L 29 U/L Alanine Aminotransferase (ALT/SGPT) 70 U/L 54 U/L Total Bilirubin 1.4 MG/DL 1.1 MG/DL Sodium Level 145 MEQ/L 150 MEQ/L Potassium Level 3.9 MEQ/L 3.6 MEQ/L Chloride Level 112 MEQ/L 116 MEQ/L Carbon Dioxide Level 23.0 MEQ/L 23.0 MEQ/L Anion Gap 10 MEQ/L 11 MEQ/L Estimat Glomerular Filtration Rate 23 ML/MIN 39 ML/MIN Protein Corrected Calcium 7.2 MG/DL 8.2 MG/DL Lipase 217 U/L B-Type Natriuretic Peptide 759 PG/ML Imaging Last Impressions Chest X-Ray 03/04/17 0400 Signed Impressions: Service Date/Time: Saturday, March 04, 2017 04:23 - CONCLUSION: No significant change Jake Vanessa MD Abdomen X-Ray 03/04/17 0000 Signed Impressions: Service Date/Time: Saturday, March 04, 2017 12:19 - CONCLUSION: 1. Suction type NGT in the stomach. 2. Stable nonspecific paucity of bowel gas. Rarely, this can be seen with fluid filled bowel loops. Randy Patricio MD Renal Ultrasound 03/03/17 0000 Signed Impressions: Service Date/Time: Friday, March 03, 2017 16:03 - CONCLUSION: Normal examination. 1. Gustavo Yusuf MD Physical Exam CONSTITUTIONAL/GENERAL: This is sedated, intubated on vent TUBES/LINES/DRAINS: SKIN: No jaundice, rashes, or lesions. Skin temperature appropriate. Not diaphoretic. EYES: Pupils equal and round and reactive. Minimal scleral icterus. ENT: Orally intubated CARDIOVASCULAR: Regular tachycardia without murmurs, gallops, or rubs. No JVD. Peripheral pulses symmetric. RESPIRATORY/CHEST: Symmetric, unlabored respirations. Scattered rhonchi to auscultation. GASTROINTESTINAL: Abdomen tight no reaction to palpation quite distended. No hepato-splenomegaly, or palpable masses. No guarding. Bowel sounds present. GENITOURINARY: Without palpable bladder distension. Guerrero in place with clear yellow urine MUSCULOSKELETAL: Extremities without clubbing, cyanosis, worsening generalized edema 4+. No joint tenderness or effusion noted. No calf tenderness. No mottling or clubbing. NEUROLOGICAL: sedated unresponsive PSYCHIATRIC: unable to assess Assessment & Plan Remarks Sepsis (neutropenia, fever, lactic acidosis) -Proteus bacteremia (GI from translocation across inflammed GI mucosa vs ) Proteus UTI / Pyelo with high grade bacterem C.diff colitis no BMs x 48 hrs ? ileus ARDS, doubt PNA Aspiration Pneumonia possible given alcoholism/DT Acute VDRF, worsening oxygenation ETOHism Critical, more stable Worsening fluid overload Recs - cont Vanco PO (Cdiff diarrhea ? colitis) - cont zosyn for GNB bactermia, aspiration PNA. - CT abd/pel - Discussed Condition With Ruth Mcbride MD Mar 05, 2017 13:07
[2017-03-05] MEDS: RESP: ALBUTEROL 2.5 MG/IPRATROPIUM 0.5 MG NEB (PRN) NEB ×2 (13:09→22:31)
[2017-03-05] MEDS ORDERED: DIATRIZOATE MEGLUM/DIATRIZOATE SOD 9 ML CUP PO ONE (13:43)
[2017-03-05] MEDS: MILRINONE INJ 20 MG in SODIUM CHLORIDE 0.9% INJ 80 ML IV SCH (15:19)
--- NOTE | 2017-03-05 19:17 | RADRPT ---
EXAM DATE/TIME: 03/05/2017 19:03 [facility] COMPARISON: No previous studies available for comparison. INDICATIONS : Lower abdomen pain, distention. ORAL CONTRAST: Prescribed oral contrast ingested. RADIATION DOSE: 21.99 CTDIvol (mGy) MEDICAL HISTORY : Cirrhosis. Liver Disease. SURGICAL HISTORY : None. ENCOUNTER: Initial ACUITY: 1 day PAIN SCALE: Non-responsive LOCATION: Bilateral lower quadrant TECHNIQUE: Volumetric scanning of the abdomen and pelvis was performed. Using automated exposure control and ad justment of the mA and/or kV according to patient size, radiation dose was kept as low as reasonably achievable to obtain optimal diagnostic quality images. DICOM format image data is available electro nically for review and comparison. The lack of IV contrast limits the diagnosis for certain organ pa thology. FINDINGS: LOWER LUNGS: Diffuse prominent scattered interstitial infiltrates in both lung bases with atelectasis in both lung bases. Small effusions in both lung bases. LIVER: Homogeneous density without lesion. There is no dilation of the biliary tree. No calcified gallston es. Trace of fluid around the liver. SPLEEN: Normal size without lesion. Trace of fluid around the spleen. PANCREAS: Within normal limits. KIDNEYS: Normal in size and shape. There is no mass or hydronephrosis. There are two 5 mm stones in the right kidney not causing obstruction. One is in the midpole. The other is in the lower pole. No calcified left kidney stones. ADRENAL GLANDS: Within normal limits. VASCULAR: There is no aortic aneurysm. BOWEL/MESENTERY: The stomach, small bowel, and colon demonstrate no acute abnormality. There is no free intraperitone al air or fluid. There is an NG tube in the stomach. There is nonspecific edema in the mesenteric fat . ABDOMINAL WALL: There is diffuse anasarca throughout the body wall. RETROPERITONEUM: There is no lymphadenopathy. BLADDER: Guerrero catheter, bladder decompressed REPRODUCTIVE: Within normal limits. INGUINAL: There is no lymphadenopathy or hernia. There is edema throughout the subcutaneous soft tissues. MUSCULOSKELETAL: Within normal limits for patient age. CONCLUSION: 1. Diffuse prominent anasarca seen through the body wall. 2. There is nonspecific edema throughout the mesenteric fat within the abdomen and pelvis. 3. There is a trace of fluid around the liver and spleen. 4. Prominent bilateral interstitial infiltrates in both lung bases along with small bilateral effusio ns. Art Rojas MD on March 05, 2017 at 19:12 Board Certified Radiologist. This report was verified electronically.
[2017-03-06] VITALS (18 sets, daily range): BP systolic 118–150; BP diastolic 68–91; PULSE 62–100; RESP 20–25; TEMP 97.5–99.7; O2SAT 95–100
[2017-03-06] MEDS: VANCOMYCIN 500 MG VIAL (FOR ORAL USE ONLY) PO SCH ×4 (00:03→18:15)
[2017-03-06] MEDS: PROPOFOL 1000 MG/100 ML INJ 100 ML IV PRN ×3 (00:03→21:30)
[2017-03-06] MEDS: MILRINONE INJ 20 MG in SODIUM CHLORIDE 0.9% INJ 80 ML IV SCH ×2 (01:05→17:05)
[2017-03-06] MEDS: fentaNYL DRIP 250 ML IV PRN (01:32)
[2017-03-06] MEDS: MIDAZOLAM 100 MG/100 ML INJ 100 ML IV PRN ×2 (01:33→17:05)
[2017-03-06] MEDS: PIPERACIL-TAZO 3.375 GM PREMIX 50 ML IV SCH ×4 (03:23→20:25)
[2017-03-06] MEDS: HYDROCORTISONE SOD SUCCINATE 100 MG VIAL IV PUSH SCH ×3 (03:23→20:26)
[2017-03-06] MEDS: RESP: ALBUTEROL 2.5 MG/IPRATROPIUM 0.5 MG NEB (PRN) NEB (03:50)
[2017-03-06] MEDS: CHLORHEXIDINE GLUCONATE 2 % 1 PACK (2 CLOTHS) TOP SCH (04:00)
[2017-03-06 04:38] LABS: AUTOMATED NEUTROPHIL # 13.3 TH/MM3 (1.8-7.7); BASOPHIL # 0.1 TH/MM3 (0-0.2); BASOPHIL % 0.6 % (0.0-2.0); EOSINOPHIL % 0.3 % (0.0-4.0); HEMATOCRIT 31.8 % (35.0-46.0); HEMOGLOBIN 10.7 GM/DL (11.6-15.3); LYMPH % 2.3 % (9.0-44.0); LYMPHOCYTE # 0.3 TH/MM3 (1.0-4.8); MEAN CELL VOLUME 98.2 FL (80.0-100.0); MEAN CORPUSCULAR HGB CONC 33.6 % (32.0-36.0); MEAN PLATELET VOLUME 10.8 FL (7.0-11.0); MONO % 3.5 % (0.0-8.0); MONOCYTE # 0.5 TH/MM3 (0-0.9); NEUT % 93.3 % (16.0-70.0); PLATELET COUNT 83 TH/MM3 (150-450); RED BLOOD COUNT 3.23 MIL/MM3 (4.00-5.30); RED CELL DISTRIBUTION WIDTH 17.5 % (11.6-17.2); WHITE BLOOD COUNT 14.3 TH/MM3 (4.0-11.0)
[2017-03-06] MEDS: chlordiazePOXIDE 25 MG CAP PO SCH ×2 (04:59→12:50)
[2017-03-06 05:04] LABS: ALBUMIN 1.8 GM/DL (3.4-5.0); AST (GOT) 30 U/L (15-37); BICARBONATE 26.9 MEQ/L (21.0-32.0); BLOOD UREA NITROGEN 42 MG/DL (7-18); CALCIUM 8.1 MG/DL (8.5-10.1); CHLORIDE 116 MEQ/L (98-107); CREATININE 1.05 MG/DL (0.50-1.00); GLOMERULAR FILTRATION RATE 56 ML/MIN (>89); GLUCOSE,RANDOM 158 MG/DL (74-106); SODIUM (NA) 152 MEQ/L (136-145)
[2017-03-06 05:05] LABS: ALT (GPT) 41 U/L (10-53)
[2017-03-06 05:07] LABS: ALKALINE PHOSPHATASE 69 U/L (45-117); TOTAL BILIRUBIN ADULT 0.9 MG/DL (0.2-1.0); TOTAL PROTEIN 5.2 GM/DL (6.4-8.2)
--- NOTE | 2017-03-06 05:07 | RADRPT ---
EXAM DATE/TIME: 03/06/2017 04:08 [facility] COMPARISON: CHEST SINGLE AP, March 04, 2017, 4:23. INDICATIONS : Shortness of breath. MEDICAL HISTORY : Cerebrovascular accident. Dyspnea. Dysuria. Cirrhosis. Substance abuse. ETOH abuse, C-diff SURGICAL HISTORY : Hysterectomy. Inguinal hernia repair. ENCOUNTER: Subsequent ACUITY: 1 week PAIN SCORE: Non-responsive. LOCATION: Bilateral chest FINDINGS: Endotracheal tube is present with tip 4 cm above the randy. Nasogastric tube descends in the stomach . There has been slight improvement in lung volumes. Persistent diffuse alveolar opacities. Cardiac c ontours are grossly stable. CONCLUSION: Interval intubation with slight improvement in lung volumes Jake Vanessa MD on March 06, 2017 at 5:05 Board Certified Radiologist. This report was verified electronically.
[2017-03-06] MEDS: HEPARIN SODIUM - SQ 10,000 UNITS/ML VIAL SQ SCH ×3 (06:29→23:07)
[2017-03-06 07:32] LABS: BANDS 13 % (0-6); LYMPHOCYTES 6 % (9-44); METAMYELOCYTES 5 % (0-1); MYELOCYTES 1 % (0-0); NEUTROPHIL # MANUAL DIFF 13.4 TH/MM3 (1.8-7.7); POLYS (SEG NEUTROPHILS) 75 % (16-70)
[2017-03-06] MEDS: SODIUM CHLORIDE 0.9% FLUSH 10 ML FLUSH IV FLUSH SCH ×2 (07:56→20:26)
[2017-03-06] MEDS: CHLORHEXIDINE 0.12% (ORAL KIT) 15 ML CUP MT SCH ×2 (08:00→20:26)
[2017-03-06] MEDS: FAMOTIDINE 20 MG/2 ML VIAL IV PUSH SCH ×2 (09:02→20:26)
--- NOTE | 2017-03-06 09:28 | HHI.CCPN ---
Subjective Remarks/Hospital Course 44-year-old female with history of alcohol use disorder liver cirrhosis, presents following a syncopal or near syncopal event at home. The patient reports that she's been ill for a couple days with vomiting and diarrhea. She has been febrile. She reportedly had an alteration in her level of consciousness at home tonight prompting her boyfriend called the rescue squad. EMS states that her heart rate was 180 on their arrival. She was normotensive. She also had a fever of 103. They treated her in route with IV fluids and Zofran. Patient reports some cough and some shortness of breath. She denies any other upper respiratory symptoms. She denies any urinary tract symptoms. Despite IV fluid resuscitation patient became hypotensive in the center line was placed by ED attending for Levophed administration. 02/28: Worsening respiratory distress requiring intubation and mechanical ventilation. Symptoms of ETOH withdrawal further complicate care. Fevers > 103 persist. 03/01: Gas exchange remains impaired. Blood with GNR bacteremia. CXR worse, diffuse process now.Urine output marginal. 03/02: Worsening radiograph, markedly impaired gas exchange. 03/03: Persistently elevated A-aO2 gradient, cultures negative so far. ADILSON not resolving and some element of respiratory failure is diffuse edema. Sure acts like sepsis, continue broad coverage. 03/04: ARDS. C. diff colitis. ADILSON. Continued deterioration. 03/05: ARDS. Sepsis. Heart failure. Back on APRV. 03/06: She has responded well to APRV and now back to PRVC with FiO2 50% CXR clearing slowly. Is this C. diff colitis with SIRS lungs or primary pneumonia? Did it all arise from Proteus UTI? Renal function improving and she is getting better slowly after milrinone started. Attempts to diurese before milrinone just worsened renal function. Objective Vital Signs Date Time Temp Pulse Resp B/P (MAP) Pulse Ox O2 Delivery O2 Flow Rate FiO2 03/06/17 09:00 97 45 03/06/17 06:00 65 03/06/17 04:00 97.5 23 118/70 (86) 03/05/17 19:00 Mechanical Ventilator Intake and Output 03/06/17 03/06/17 03/07/17 08:00 16:00 00:00 Intake Total 1086 ml Output Total 950 ml Balance 136 ml Result Diagram: 03/06/17 0425 03/06/17 0425 Other Results Laboratory Tests Test 03/05/17 10:00 03/05/17 16:20 Blood Gas Puncture Site LT RADIAL LT RADIAL Blood Gas Patient Temperature 98.6 98.6 Blood Gas HCO3 23 mmol/L (22-26) 25 mmol/L (22-26) Blood Gas Base Excess -2.0 mmol/L (-2-2) 0.5 mmol/L (-2-2) Blood Gas Oxygen Saturation 93 % (90-100) 96 % (90-100) Arterial Blood pH 7.31 (7.380-7.420) 7.36 (7.380-7.420) Arterial Blood Partial Pressure CO2 47 mmHg (38-42) 46 mmHg (38-42) Arterial Blood Partial Pressure O2 86 mmHg (61-120) 114 mmHg (61-120) Arterial Blood Oxygen Content 15.5 Vol % (12.0-20.0) 18.2 Vol % (12.0-20.0) Arterial Blood Carboxyhemoglobin 1.5 % (0-4) 1.3 % (0-4) Arterial Blood Methemoglobin 0.9 % (0-2) 0.9 % (0-2) Blood Gas Hemoglobin 11.8 G/DL (12.0-16.0) 13.4 G/DL (12.0-16.0) Oxygen Delivery Device VENTILATOR VENTILATOR Blood Gas Ventilator Setting PRVC/AC Blood Gas Inspired Oxygen 55 % 50 % Objective Remarks GENERAL: Ill-appearing, edematous patient. SKIN: Warm and dry. HEAD: Normocephalic. EYES: No scleral icterus. No injection or drainage. NECK: Supple, trachea midline. Orally intubated. CARDIOVASCULAR: Tachycardia. Regular rhythm without murmurs, gallops, or rubs. No JVD. RESPIRATORY: Breath sounds equal bilaterally. Coarse sound, few rhonchi. Acceptable air entry (initially poor entry and bronchospasm) GASTROINTESTINAL: Abdomen soft, non-tender, nondistended. No guarding. BS few. No diarrhea ever. MUSCULOSKELETAL: No cyanosis. Trace generalized edema. Well perfused. NEURO EXAM: Sedated for vent synchrony and control of withdrawal. Moves 4 limbs on large dose sedation. A/P Assessment and Plan Severe sepsis - Bilateral pulmonary infiltrate - Spectrum antibiotics - Culture and sensitivity - Infectious disease consult - Intubated 02/28, PRVC mode. - APRV mode 03/02/17 - PRVC, PEEP 18 03/04. - Milrinone started 03/04 to improve perfusion. Pneumonia - CXR with infiltrates - Broad-spectrum antibiotics - DuoNeb's when necessary and scheduled - Urine antigens to follow -> negative - No positive cultures or antigens. Alcoholism - Thiamine folate and multivitamins IV - Monitor for withdrawal - Librium scheduled. Anxiety and depression - Ativan when necessary DVT GI prophylaxis - Teds SCDs - Subcutaneous heparin - Pepcid C. diff colitis - Oral vanc. Overall impression: Critically ill with considerable deterioration of clinical status requiring mechanical ventilation and ongoing resuscitation from septic shock. Perfusion now improved and urine more acceptable. Clearly arrived with florid sepsis and now starting to improve. Arrived with Proteus UTI and Proteus blood cultures X 4. Only additional possible source is C. diff but never diarrhea. Critical Care 35 mins Franco Mednia MD Mar 06, 2017 09:28
[2017-03-06] MEDS: VASOPRESSIN INJ 40 UNITS in DEXTROSE 5% IN WATER 100ML INJ 98 ML IV SCH ×2 (18:00)
--- NOTE | 2017-03-06 19:59 | HHI.IDPN ---
Subjective Subjective Remarks remains on biphasic vent'n, FiO2 50 % no BM off pressors afebrile Antibiotics VAnco PO Zosyn Lines Line sites with no e.o infection. Past Medical History reviewed Allergies: Coded Allergies: No Known Allergies (Unverified , 02/28/17) Objective . Vital Signs Date Time Temp Pulse Resp B/P (MAP) Pulse Ox O2 Delivery O2 Flow Rate FiO2 03/06/17 19:00 100 Mechanical Ventilator 50 03/06/17 18:00 91 03/06/17 17:05 95 163/93 03/06/17 16:21 98 50 03/06/17 16:00 50 03/06/17 16:00 100 03/06/17 16:00 99.7 100 23 146/83 (104) 97 03/06/17 14:00 92 03/06/17 13:25 95 45 03/06/17 12:00 45 03/06/17 12:00 99.5 71 25 146/79 (101) 96 03/06/17 12:00 71 03/06/17 10:00 68 03/06/17 09:00 97 45 03/06/17 08:40 45 03/06/17 08:00 50 03/06/17 08:00 70 03/06/17 08:00 97.9 70 23 120/68 (85) 98 03/06/17 07:00 98 Mechanical Ventilator 55 03/06/17 06:00 65 03/06/17 04:00 50 03/06/17 04:00 63 03/06/17 04:00 97.5 63 23 118/70 (86) 99 03/06/17 03:50 100 50 03/06/17 02:00 84 03/06/17 01:35 99 50 03/06/17 01:05 71 131/77 03/06/17 00:00 97.5 67 20 125/77 (93) 98 03/06/17 00:00 50 03/06/17 00:00 67 03/05/17 22:31 97 50 03/05/17 22:00 61 03/05/17 20:00 69 03/05/17 20:00 98.3 64 21 114/71 (85) 97 03/05/17 20:00 50 03/06/17 03/06/17 03/07/17 15:00 23:00 07:00 Intake Total 80 ml 856.4 ml Output Total 1100 ml Balance 80 ml -243.6 ml IV Total 80 ml 524.4 ml Tube Feeding 272 ml Other 60 ml Output Urine Total 1100 ml . Laboratory Tests Test 03/05/17 04:45 03/06/17 04:25 White Blood Count 12.3 TH/MM3 14.3 TH/MM3 Red Blood Count 3.45 MIL/MM3 3.23 MIL/MM3 Hemoglobin 11.5 GM/DL 10.7 GM/DL Hematocrit 34.3 % 31.8 % Mean Corpuscular Volume 99.5 FL 98.2 FL Mean Corpuscular Hemoglobin 33.5 PG 33.0 PG Mean Corpuscular Hemoglobin Concent 33.6 % 33.6 % Red Cell Distribution Width 17.6 % 17.5 % Platelet Count 75 TH/MM3 83 TH/MM3 Mean Platelet Volume 11.2 FL 10.8 FL Neutrophils (%) (Auto) 93.9 % 93.3 % Lymphocytes (%) (Auto) 3.1 % 2.3 % Monocytes (%) (Auto) 2.4 % 3.5 % Eosinophils (%) (Auto) 0.0 % 0.3 % Basophils (%) (Auto) 0.6 % 0.6 % Neutrophils # (Auto) 11.6 TH/MM3 13.3 TH/MM3 Lymphocytes # (Auto) 0.4 TH/MM3 0.3 TH/MM3 Monocytes # (Auto) 0.3 TH/MM3 0.5 TH/MM3 Eosinophils # (Auto) 0.0 TH/MM3 0.0 TH/MM3 Basophils # (Auto) 0.1 TH/MM3 0.1 TH/MM3 CBC Comment AUTO DIFF AUTO DIFF Differential Total Cells Counted 100 100 Neutrophils % (Manual) 80 % 75 % Band Neutrophils % 13 % 13 % Lymphocytes % 2 % 6 % Monocytes % 3 % Neutrophils # (Manual) 11.7 TH/MM3 13.4 TH/MM3 Metamyelocytes 1 % 5 % Myelocytes 1 % 1 % Differential Comment FINAL DIFF MANUAL FINAL DIFF MANUAL Platelet Estimate LOW LOW Platelet Morphology Comment NORMAL NORMAL Tear Drop Cells 1+ Ovalocytes 1+ Red Cell Morphology Comment NORMAL Laboratory Tests Test 03/05/17 04:45 03/06/17 04:25 Blood Urea Nitrogen 42 MG/DL 42 MG/DL Creatinine 1.45 MG/DL 1.05 MG/DL Random Glucose 162 MG/DL 158 MG/DL Total Protein 5.6 GM/DL 5.2 GM/DL Albumin 1.8 GM/DL 1.8 GM/DL Calcium Level 7.4 MG/DL 8.1 MG/DL Alkaline Phosphatase 65 U/L 69 U/L Aspartate Amino Transf (AST/SGOT) 29 U/L 30 U/L Alanine Aminotransferase (ALT/SGPT) 54 U/L 41 U/L Total Bilirubin 1.1 MG/DL 0.9 MG/DL Sodium Level 150 MEQ/L 152 MEQ/L Potassium Level 3.6 MEQ/L 3.1 MEQ/L Chloride Level 116 MEQ/L 116 MEQ/L Carbon Dioxide Level 23.0 MEQ/L 26.9 MEQ/L Anion Gap 11 MEQ/L 9 MEQ/L Estimat Glomerular Filtration Rate 39 ML/MIN 56 ML/MIN Protein Corrected Calcium 8.2 MG/DL B-Type Natriuretic Peptide 759 PG/ML Imaging Last Impressions Chest X-Ray 03/06/17 0400 Signed Impressions: Service Date/Time: Monday, March 06, 2017 04:08 - CONCLUSION: Interval intubation with slight improvement in lung volumes Jake Vanessa MD Abdomen/Pelvis CT 03/05/17 0000 Signed Impressions: Service Date/Time: Sunday, March 05, 2017 19:03 - CONCLUSION: 1. Diffuse prominent anasarca seen through the body wall. 2. There is nonspecific edema throughout the mesenteric fat within the abdomen and pelvis. 3. There is a trace of fluid around the liver and spleen. 4. Prominent bilateral interstitial infiltrates in both lung bases along with small bilateral effusions. Art Rojas MD Abdomen X-Ray 03/04/17 0000 Signed Impressions: Service Date/Time: Saturday, March 04, 2017 12:19 - CONCLUSION: 1. Suction type NGT in the stomach. 2. Stable nonspecific paucity of bowel gas. Rarely, this can be seen with fluid filled bowel loops. Randy Patricio MD Renal Ultrasound 03/03/17 0000 Signed Impressions: Service Date/Time: Friday, March 03, 2017 16:03 - CONCLUSION: Normal examination. 1. Gustavo Yusuf MD Physical Exam CONSTITUTIONAL/GENERAL: This is sedated, intubated on vent TUBES/LINES/DRAINS: SKIN: No jaundice, rashes, or lesions. Skin temperature appropriate. Not diaphoretic. EYES: Pupils equal and round and reactive. Minimal scleral icterus. ENT: Orally intubated CARDIOVASCULAR: Regular tachycardia without murmurs, gallops, or rubs. No JVD. Peripheral pulses symmetric. RESPIRATORY/CHEST: Symmetric, unlabored respirations. Scattered rhonchi to auscultation. GASTROINTESTINAL: Abdomen tight no reaction to palpation quite distended. No hepato-splenomegaly, or palpable masses. No guarding. Bowel sounds present. Small amount of liquid stool in fecal collectionsystem GENITOURINARY: Without palpable bladder distension. Guerrero in place with clear yellow urine MUSCULOSKELETAL: Extremities without clubbing, cyanosis, worsening generalized edema 4+. No joint tenderness or effusion noted. No calf tenderness. No mottling or clubbing. NEUROLOGICAL: heavily sedated unresponsive PSYCHIATRIC: unable to assess Assessment & Plan Remarks Sepsis (neutropenia, fever, lactic acidosis) -Proteus bacteremia (GI from translocation across inflammed GI mucosa vs ) Proteus UTI / Pyelo with high grade bacterem C.diff colitis no BMs x 48 hrs ? ileus - CT with anasarca ARDS, doubt PNA Aspiration Pneumonia possible given alcoholism/DT Acute VDRF, worsening oxygenation ETOHism Critical, more stable fluid overload Recs - cont Vanco PO (Cdiff diarrhea ? colitis) - cont zosyn for GNB bactermia, aspiration PNA. Discussed Condition With Ruth Mcbride MD Mar 06, 2017 19:58
[2017-03-07] VITALS (19 sets, daily range): BP systolic 135–165; BP diastolic 71–97; PULSE 52–95; RESP 20–26; TEMP 97.7–99.2; O2SAT 96–100
[2017-03-07] MEDS: chlordiazePOXIDE 25 MG CAP PO SCH ×3 (00:18→23:18)
[2017-03-07] MEDS: VANCOMYCIN 500 MG VIAL (FOR ORAL USE ONLY) PO SCH ×5 (00:18→23:18)
[2017-03-07] MEDS: PROPOFOL 1000 MG/100 ML INJ 100 ML IV PRN ×5 (02:32→23:18)
[2017-03-07] MEDS: PIPERACIL-TAZO 3.375 GM PREMIX 50 ML IV SCH ×4 (02:32→22:13)
[2017-03-07] MEDS: CHLORHEXIDINE GLUCONATE 2 % 1 PACK (2 CLOTHS) TOP SCH (04:00)
[2017-03-07] MEDS: MILRINONE INJ 20 MG in SODIUM CHLORIDE 0.9% INJ 80 ML IV SCH ×2 (04:05→15:58)
[2017-03-07 04:14] LABS: AUTOMATED NEUTROPHIL # 12.4 TH/MM3 (1.8-7.7); BASOPHIL % 0.2 % (0.0-2.0); EOSINOPHIL # 0.1 TH/MM3 (0-0.4); EOSINOPHIL % 1.1 % (0.0-4.0); LYMPH % 3.9 % (9.0-44.0); LYMPHOCYTE # 0.5 TH/MM3 (1.0-4.8); MEAN CELL VOLUME 98.4 FL (80.0-100.0); MEAN CORPUSCULAR HEMOGLOBIN 33.9 PG (27.0-34.0); MEAN CORPUSCULAR HGB CONC 34.4 % (32.0-36.0); MEAN PLATELET VOLUME 11.4 FL (7.0-11.0); MONOCYTE # 0.4 TH/MM3 (0-0.9); NEUT % 91.8 % (16.0-70.0); PLATELET COUNT 93 TH/MM3 (150-450); RED BLOOD COUNT 3.25 MIL/MM3 (4.00-5.30); RED CELL DISTRIBUTION WIDTH 16.9 % (11.6-17.2); WHITE BLOOD COUNT 13.5 TH/MM3 (4.0-11.0)
[2017-03-07 04:34] LABS: BICARBONATE 28.9 MEQ/L (21.0-32.0); CALCIUM 8.2 MG/DL (8.5-10.1); CREATININE 0.91 MG/DL (0.50-1.00)
[2017-03-07] MEDS: HEPARIN SODIUM - SQ 10,000 UNITS/ML VIAL SQ SCH ×3 (05:43→22:26)
[2017-03-07 05:45] LABS: BANDS 12 % (0-6); LYMPHOCYTES 1 % (9-44); METAMYELOCYTES 5 % (0-1); MONOCYTES 1 % (0-8); MYELOCYTES 2 % (0-0); NEUTROPHIL # MANUAL DIFF 13.1 TH/MM3 (1.8-7.7); POLYS (SEG NEUTROPHILS) 78 % (16-70)
[2017-03-07 05:46] LABS: STOMATOCYTES 1+ (NORMAL)
[2017-03-07] MEDS: SODIUM CHLORIDE 0.9% FLUSH 10 ML FLUSH IV FLUSH SCH ×2 (08:33→21:00)
[2017-03-07] MEDS: FAMOTIDINE 20 MG/2 ML VIAL IV PUSH SCH ×2 (08:33→22:25)
[2017-03-07] MEDS: CHLORHEXIDINE 0.12% (ORAL KIT) 15 ML CUP MT SCH ×2 (08:33→22:13)
[2017-03-07] MEDS: HYDROCORTISONE SOD SUCCINATE 100 MG VIAL IV PUSH SCH ×2 (08:34→22:25)
[2017-03-07] MEDS: MIDAZOLAM 100 MG/100 ML INJ 100 ML IV PRN (16:01)
--- NOTE | 2017-03-07 17:27 | HHI.CCPN ---
Subjective Remarks/Hospital Course 44-year-old female with history of alcohol use disorder liver cirrhosis, presents following a syncopal or near syncopal event at home. The patient reports that she's been ill for a couple days with vomiting and diarrhea. She has been febrile. She reportedly had an alteration in her level of consciousness at home tonight prompting her boyfriend called the rescue squad. EMS states that her heart rate was 180 on their arrival. She was normotensive. She also had a fever of 103. They treated her in route with IV fluids and Zofran. Patient reports some cough and some shortness of breath. She denies any other upper respiratory symptoms. She denies any urinary tract symptoms. Despite IV fluid resuscitation patient became hypotensive in the center line was placed by ED attending for Levophed administration. 02/28: Worsening respiratory distress requiring intubation and mechanical ventilation. Symptoms of ETOH withdrawal further complicate care. Fevers > 103 persist. 03/01: Gas exchange remains impaired. Blood with GNR bacteremia. CXR worse, diffuse process now.Urine output marginal. 03/02: Worsening radiograph, markedly impaired gas exchange. 03/03: Persistently elevated A-aO2 gradient, cultures negative so far. ADILSON not resolving and some element of respiratory failure is diffuse edema. Sure acts like sepsis, continue broad coverage. 03/04: ARDS. C. diff colitis. ADILSON. Continued deterioration. 03/05: ARDS. Sepsis. Heart failure. Back on APRV. 03/06: She has responded well to APRV and now back to PRVC with FiO2 50% CXR clearing slowly. Is this C. diff colitis with SIRS lungs or primary pneumonia? Did it all arise from Proteus UTI? Renal function improving and she is getting better slowly after milrinone started. Attempts to diurese before milrinone just worsened renal function. 03/07: Remains sedated, orally intubated on mechanical ventilation. Objective Vital Signs Date Time Temp Pulse Resp B/P (MAP) Pulse Ox O2 Delivery O2 Flow Rate FiO2 03/07/17 16:00 95 03/07/17 16:00 99.0 22 136/71 (92) 97 03/07/17 16:00 45 03/07/17 07:35 Ventilator 03/07/17 07:00 2.00 Intake and Output 03/07/17 03/07/17 03/07/17 07:59 15:59 23:59 Intake Total 544 ml 190 ml Output Total 1275 ml Balance -731 ml 190 ml Result Diagram: 03/07/17 0350 03/07/17 0350 Imaging Last Impressions Chest X-Ray 03/06/17 0400 Signed Impressions: Service Date/Time: Monday, March 06, 2017 04:08 - CONCLUSION: Interval intubation with slight improvement in lung volumes Jake Vanessa MD Abdomen/Pelvis CT 03/05/17 0000 Signed Impressions: Service Date/Time: Sunday, March 05, 2017 19:03 - CONCLUSION: 1. Diffuse prominent anasarca seen through the body wall. 2. There is nonspecific edema throughout the mesenteric fat within the abdomen and pelvis. 3. There is a trace of fluid around the liver and spleen. 4. Prominent bilateral interstitial infiltrates in both lung bases along with small bilateral effusions. Art Rojas MD Abdomen X-Ray 03/04/17 0000 Signed Impressions: Service Date/Time: Saturday, March 04, 2017 12:19 - CONCLUSION: 1. Suction type NGT in the stomach. 2. Stable nonspecific paucity of bowel gas. Rarely, this can be seen with fluid filled bowel loops. Randy Patricio MD Renal Ultrasound 03/03/17 0000 Signed Impressions: Service Date/Time: Friday, March 03, 2017 16:03 - CONCLUSION: Normal examination. 1. Gustavo Yusuf MD Objective Remarks GENERAL: Ill-appearing, edematous patient. SKIN: Warm and dry. HEAD: Normocephalic. EYES: No scleral icterus. No injection or drainage. NECK: Supple, trachea midline. Orally intubated. CARDIOVASCULAR: Tachycardia. Regular rhythm without murmurs, gallops, or rubs. No JVD. RESPIRATORY: Breath sounds equal bilaterally. Coarse sound, few rhonchi. Acceptable air entry (initially poor entry and bronchospasm) GASTROINTESTINAL: Abdomen soft, non-tender, nondistended. No guarding. BS few. No diarrhea ever. MUSCULOSKELETAL: No cyanosis. Trace generalized edema. Well perfused. NEURO EXAM: Sedated for vent synchrony and control of withdrawal. Moves 4 limbs on large dose sedation. A/P Assessment and Plan Severe sepsis - Bilateral pulmonary infiltrate - broad Spectrum antibiotics - Culture and sensitivity - Infectious disease consult - Intubated 02/28, PRVC mode. - APRV mode 03/02/17 - PRVC, PEEP 18 03/04. - Milrinone started 03/04 to improve perfusion. Pneumonia - CXR with infiltrates - Broad-spectrum antibiotics - DuoNeb's when necessary and scheduled - Urine antigens to follow -> negative - No positive cultures or antigens. Alcoholism - Thiamine folate and multivitamins IV - Monitor for withdrawal - Librium scheduled. Anxiety and depression - Ativan when necessary DVT GI prophylaxis - Teds SCDs - Subcutaneous heparin - Pepcid C. diff colitis - Oral vanc. Overall impression: Critically ill with considerable deterioration of clinical status requiring mechanical ventilation and ongoing resuscitation from septic shock. Perfusion now improved and urine more acceptable. Clearly arrived with florid sepsis and now starting to improve. Arrived with Proteus UTI and Proteus blood cultures X 4. Only additional possible source is C. diff but never diarrhea. Critical Care 35 mins Nash Boyer MD Mar 07, 2017 17:27
[2017-03-07] MEDS: VASOPRESSIN INJ 40 UNITS in DEXTROSE 5% IN WATER 100ML INJ 98 ML IV SCH ×2 (18:00)
[2017-03-07] MEDS: RESP: ALBUTEROL 2.5 MG/IPRATROPIUM 0.5 MG NEB (PRN) NEB (19:55)
[2017-03-07] MEDS: fentaNYL DRIP 250 ML IV PRN (22:14)
[2017-03-08] VITALS (21 sets, daily range): BP systolic 128–170; BP diastolic 68–96; PULSE 49–110; RESP 10–24; TEMP 97.7–99.3; O2SAT 95–99
[2017-03-08] MEDS: PIPERACIL-TAZO 3.375 GM PREMIX 50 ML IV SCH ×3 (02:52→14:56)
[2017-03-08] MEDS: CHLORHEXIDINE GLUCONATE 2 % 1 PACK (2 CLOTHS) TOP SCH (02:53)
[2017-03-08] MEDS: HEPARIN SODIUM - SQ 10,000 UNITS/ML VIAL SQ SCH ×3 (05:33→23:08)
[2017-03-08] MEDS: VANCOMYCIN 500 MG VIAL (FOR ORAL USE ONLY) PO SCH ×4 (05:33→23:09)
[2017-03-08 06:07] LABS: AUTOMATED NEUTROPHIL # 9.9 TH/MM3 (1.8-7.7); BASOPHIL % 0.3 % (0.0-2.0); EOSINOPHIL # 0.2 TH/MM3 (0-0.4); EOSINOPHIL % 1.7 % (0.0-4.0); HEMATOCRIT 30.8 % (35.0-46.0); HEMOGLOBIN 10.4 GM/DL (11.6-15.3); LYMPHOCYTE # 0.8 TH/MM3 (1.0-4.8); MEAN CELL VOLUME 98.6 FL (80.0-100.0); MEAN CORPUSCULAR HEMOGLOBIN 33.3 PG (27.0-34.0); MEAN CORPUSCULAR HGB CONC 33.7 % (32.0-36.0); MEAN PLATELET VOLUME 10.4 FL (7.0-11.0); MONO % 3.7 % (0.0-8.0); MONOCYTE # 0.4 TH/MM3 (0-0.9); NEUT % 87.3 % (16.0-70.0); PLATELET COUNT 97 TH/MM3 (150-450); RED BLOOD COUNT 3.12 MIL/MM3 (4.00-5.30); RED CELL DISTRIBUTION WIDTH 16.8 % (11.6-17.2); WHITE BLOOD COUNT 11.3 TH/MM3 (4.0-11.0)
[2017-03-08] MEDS: PROPOFOL 1000 MG/100 ML INJ 100 ML IV PRN ×2 (06:34→17:32)
[2017-03-08] MEDS: MILRINONE INJ 20 MG in SODIUM CHLORIDE 0.9% INJ 80 ML IV SCH (07:36)
[2017-03-08] MEDS: CHLORHEXIDINE 0.12% (ORAL KIT) 15 ML CUP MT SCH ×2 (07:36→20:30)
[2017-03-08 08:10] LABS: BICARBONATE 29.6 MEQ/L (21.0-32.0); CALCIUM 8.3 MG/DL (8.5-10.1); CREATININE 0.75 MG/DL (0.50-1.00)
[2017-03-08 08:26] LABS: BANDS 16 % (0-6); LYMPHOCYTES 2 % (9-44); MONOCYTES 1 % (0-8); MYELOCYTES 2 % (0-0); NEUTROPHIL # MANUAL DIFF 10.7 TH/MM3 (1.8-7.7); POLYS (SEG NEUTROPHILS) 77 % (16-70)
[2017-03-08] MEDS: SODIUM CHLORIDE 0.9% FLUSH 10 ML FLUSH IV FLUSH SCH ×2 (09:00→20:30)
[2017-03-08] MEDS: FAMOTIDINE 20 MG/2 ML VIAL IV PUSH SCH ×2 (09:02→20:27)
[2017-03-08] MEDS: HYDROCORTISONE SOD SUCCINATE 100 MG VIAL IV PUSH SCH ×2 (09:03→20:27)
[2017-03-08] MEDS ORDERED: POTASSIUM CHLORIDE INJ 20 MEQ in DEXTROSE 5% IN WATE 1000ML INJ 1,000 ML IV SCH ×2 (10:30)
--- NOTE | 2017-03-08 10:30 | HHI.CCPN ---
Subjective Remarks/Hospital Course 44-year-old female with history of alcohol use disorder liver cirrhosis, presents following a syncopal or near syncopal event at home. The patient reports that she's been ill for a couple days with vomiting and diarrhea. She has been febrile. She reportedly had an alteration in her level of consciousness at home tonight prompting her boyfriend called the rescue squad. EMS states that her heart rate was 180 on their arrival. She was normotensive. She also had a fever of 103. They treated her in route with IV fluids and Zofran. Patient reports some cough and some shortness of breath. She denies any other upper respiratory symptoms. She denies any urinary tract symptoms. Despite IV fluid resuscitation patient became hypotensive in the center line was placed by ED attending for Levophed administration. 02/28: Worsening respiratory distress requiring intubation and mechanical ventilation. Symptoms of ETOH withdrawal further complicate care. Fevers > 103 persist. 03/01: Gas exchange remains impaired. Blood with GNR bacteremia. CXR worse, diffuse process now.Urine output marginal. 03/02: Worsening radiograph, markedly impaired gas exchange. 03/03: Persistently elevated A-aO2 gradient, cultures negative so far. ADILSON not resolving and some element of respiratory failure is diffuse edema. Sure acts like sepsis, continue broad coverage. 03/04: ARDS. C. diff colitis. ADILSON. Continued deterioration. 03/05: ARDS. Sepsis. Heart failure. Back on APRV. 03/06: She has responded well to APRV and now back to PRVC with FiO2 50% CXR clearing slowly. Is this C. diff colitis with SIRS lungs or primary pneumonia? Did it all arise from Proteus UTI? Renal function improving and she is getting better slowly after milrinone started. Attempts to diurese before milrinone just worsened renal function. 03/07: Remains sedated, orally intubated on mechanical ventilation. 03/08: Serum concentration excessive, will back off diuresis and replace lytes. Gradual improvement in gas exchange. Objective Vital Signs Date Time Temp Pulse Resp B/P (MAP) Pulse Ox O2 Delivery O2 Flow Rate FiO2 03/08/17 10:00 87 03/08/17 08:16 98 45 03/08/17 08:00 98.4 12 152/88 (109) 03/08/17 07:00 Mechanical Ventilator 03/07/17 20:00 2.00 Intake and Output 03/08/17 03/08/17 03/09/17 08:00 16:00 00:00 Intake Total 526 ml Output Total 1000 ml Balance -474 ml Result Diagram: 03/08/17 0554 03/08/17 0554 Imaging Last Impressions Chest X-Ray 03/06/17 0400 Signed Impressions: Service Date/Time: Monday, March 06, 2017 04:08 - CONCLUSION: Interval intubation with slight improvement in lung volumes Jake Vanessa MD Abdomen/Pelvis CT 03/05/17 0000 Signed Impressions: Service Date/Time: Sunday, March 05, 2017 19:03 - CONCLUSION: 1. Diffuse prominent anasarca seen through the body wall. 2. There is nonspecific edema throughout the mesenteric fat within the abdomen and pelvis. 3. There is a trace of fluid around the liver and spleen. 4. Prominent bilateral interstitial infiltrates in both lung bases along with small bilateral effusions. Art Rojas MD Abdomen X-Ray 03/04/17 0000 Signed Impressions: Service Date/Time: Saturday, March 04, 2017 12:19 - CONCLUSION: 1. Suction type NGT in the stomach. 2. Stable nonspecific paucity of bowel gas. Rarely, this can be seen with fluid filled bowel loops. Randy Patricio MD Renal Ultrasound 03/03/17 0000 Signed Impressions: Service Date/Time: Friday, March 03, 2017 16:03 - CONCLUSION: Normal examination. 1. Gustavo Yusuf MD Objective Remarks GENERAL: Ill-appearing, edematous patient. SKIN: Warm and dry. HEAD: Normocephalic. EYES: No scleral icterus. No injection or drainage. NECK: Supple, trachea midline. Orally intubated. CARDIOVASCULAR: Tachycardia. Regular rhythm without murmurs, gallops, or rubs. No JVD. RESPIRATORY: Breath sounds equal bilaterally. Coarse sound, few rhonchi. Acceptable air entry (initially poor entry and bronchospasm) GASTROINTESTINAL: Abdomen soft, non-tender, nondistended. No guarding. BS few. No diarrhea. MUSCULOSKELETAL: No cyanosis. Trace generalized edema. Well perfused. NEURO EXAM: Sedated for vent synchrony and control of withdrawal. Moves 4 limbs on large dose sedation. A/P Assessment and Plan Severe sepsis - Bilateral pulmonary infiltrate - broad Spectrum antibiotics - Culture and sensitivity - Infectious disease consult - Intubated 02/28, PRVC mode. - APRV mode 03/02/17 - PRVC, PEEP 18 03/04. - Milrinone started 03/04 to improve perfusion. Pneumonia - CXR with infiltrates - Broad-spectrum antibiotics - DuoNeb's when necessary and scheduled - Urine antigens to follow -> negative - No positive cultures or antigens. Alcoholism - Thiamine folate and multivitamins IV - Monitor for withdrawal - Librium scheduled. Anxiety and depression - Ativan when necessary DVT GI prophylaxis - Teds SCDs - Subcutaneous heparin - Pepcid C. diff colitis - Oral vanc. Overall impression: Critically ill with considerable deterioration of clinical status requiring mechanical ventilation and ongoing resuscitation from septic shock. Perfusion now improved and urine more acceptable. Clearly arrived with florid sepsis and now starting to improve. Arrived with Proteus UTI and Proteus blood cultures X 4. Only additional possible source is C. diff but never diarrhea. Renal function improved, but tenuous. Critical Care 37 mins Franco Medina MD Mar 08, 2017 10:30
[2017-03-08] MEDS: chlordiazePOXIDE 25 MG CAP PO SCH ×2 (11:55→23:08)
[2017-03-08] MEDS: MIDAZOLAM 100 MG/100 ML INJ 100 ML IV PRN (11:57)
[2017-03-08] MEDS: D5W + KCL 20 MEQ INJ 1,000 ML IV SCH (12:16)
[2017-03-08] MEDS ORDERED: FUROSEMIDE 40 MG/4 ML VIAL IV PUSH ONE (14:00)
[2017-03-08] MEDS: POTASSIUM CHLORIDE 20 MEQ PWD PACKET NG SCH ×2 (14:55→20:30)
[2017-03-08 16:07] LABS: BICARBONATE 29.2 MEQ/L (21.0-32.0); CALCIUM 8.2 MG/DL (8.5-10.1); CREATININE 0.74 MG/DL (0.50-1.00)
[2017-03-08 16:08] LABS: PHOSPHORUS 3.6 MG/DL (2.5-4.9)
[2017-03-08] MEDS ORDERED: POTASSIUM CHLORIDE 20 MEQ PWD PACKET PO STA (17:06)
--- NOTE | 2017-03-08 17:06 | HHI.IDPN ---
Subjective Subjective Remarks remains on vent + liquid diarrhea off pressors afebrile fluid overload Antibiotics VAnco PO Zosyn Lines Line sites with no e.o infection. Past Medical History reviewed Allergies: Coded Allergies: No Known Allergies (Unverified , 02/28/17) Objective . Vital Signs Date Time Temp Pulse Resp B/P (MAP) Pulse Ox O2 Delivery O2 Flow Rate FiO2 03/08/17 16:16 97 45 03/08/17 16:00 74 03/08/17 16:00 45 03/08/17 16:00 97.7 69 15 169/96 (120) 98 03/08/17 14:42 97 45 03/08/17 14:01 50 169/81 03/08/17 14:00 49 03/08/17 12:00 74 03/08/17 12:00 45 03/08/17 12:00 99.3 74 10 170/96 (120) 98 03/08/17 10:30 98 45 03/08/17 10:00 45 03/08/17 10:00 87 03/08/17 08:16 98 45 03/08/17 08:00 94 03/08/17 08:00 98.4 84 12 152/88 (109) 95 03/08/17 08:00 45 03/08/17 07:36 101 162/90 03/08/17 07:00 97 Mechanical Ventilator 45 03/08/17 06:00 70 03/08/17 04:00 45 03/08/17 04:00 98.8 80 16 152/89 (110) 96 03/08/17 04:00 81 03/08/17 03:58 96 45 03/08/17 02:00 110 03/08/17 00:38 96 Ventilator 03/08/17 00:30 96 45 03/08/17 00:00 45 03/08/17 00:00 99.3 105 24 128/68 (88) 95 03/08/17 00:00 89 03/07/17 22:00 68 03/07/17 20:00 87 03/07/17 20:00 98 Mechanical Ventilator 2.00 50 03/07/17 20:00 99.2 85 20 135/76 (95) 97 03/07/17 20:00 45 03/07/17 19:57 96 45 03/07/17 18:00 86 03/08/17 03/08/17 03/09/17 15:00 23:00 07:00 Intake Total 210 ml Balance 210 ml IV Total 210 ml . Laboratory Tests Test 03/07/17 03:50 03/08/17 05:54 White Blood Count 13.5 TH/MM3 11.3 TH/MM3 Red Blood Count 3.25 MIL/MM3 3.12 MIL/MM3 Hemoglobin 11.0 GM/DL 10.4 GM/DL Hematocrit 32.0 % 30.8 % Mean Corpuscular Volume 98.4 FL 98.6 FL Mean Corpuscular Hemoglobin 33.9 PG 33.3 PG Mean Corpuscular Hemoglobin Concent 34.4 % 33.7 % Red Cell Distribution Width 16.9 % 16.8 % Platelet Count 93 TH/MM3 97 TH/MM3 Mean Platelet Volume 11.4 FL 10.4 FL Neutrophils (%) (Auto) 91.8 % 87.3 % Lymphocytes (%) (Auto) 3.9 % 7.0 % Monocytes (%) (Auto) 3.0 % 3.7 % Eosinophils (%) (Auto) 1.1 % 1.7 % Basophils (%) (Auto) 0.2 % 0.3 % Neutrophils # (Auto) 12.4 TH/MM3 9.9 TH/MM3 Lymphocytes # (Auto) 0.5 TH/MM3 0.8 TH/MM3 Monocytes # (Auto) 0.4 TH/MM3 0.4 TH/MM3 Eosinophils # (Auto) 0.1 TH/MM3 0.2 TH/MM3 Basophils # (Auto) 0.0 TH/MM3 0.0 TH/MM3 CBC Comment AUTO DIFF AUTO DIFF Differential Total Cells Counted 100 100 Neutrophils % (Manual) 78 % 77 % Band Neutrophils % 12 % 16 % Lymphocytes % 1 % 2 % Monocytes % 1 % 1 % Eosinophils % 1 % 2 % Neutrophils # (Manual) 13.1 TH/MM3 10.7 TH/MM3 Metamyelocytes 5 % Myelocytes 2 % 2 % Differential Comment FINAL DIFF MANUAL FINAL DIFF MANUAL Platelet Estimate LOW LOW Platelet Morphology Comment NORMAL NORMAL Stomatocytes 1+ Laboratory Tests Test 03/07/17 03:50 03/08/17 05:54 03/08/17 15:00 Blood Urea Nitrogen 37 MG/DL 30 MG/DL 28 MG/DL Creatinine 0.91 MG/DL 0.75 MG/DL 0.74 MG/DL Random Glucose 159 MG/DL 121 MG/DL 162 MG/DL Calcium Level 8.2 MG/DL 8.3 MG/DL 8.2 MG/DL Sodium Level 155 MEQ/L 157 MEQ/L 156 MEQ/L Potassium Level 2.8 MEQ/L 2.8 MEQ/L 2.7 MEQ/L Chloride Level 119 MEQ/L 121 MEQ/L 119 MEQ/L Carbon Dioxide Level 28.9 MEQ/L 29.6 MEQ/L 29.2 MEQ/L Anion Gap 7 MEQ/L 6 MEQ/L 8 MEQ/L Estimat Glomerular Filtration Rate 66 ML/MIN 82 ML/MIN 84 ML/MIN Phosphorus Level 3.6 MG/DL Magnesium Level 2.0 MG/DL Imaging Last Impressions Chest X-Ray 03/06/17 0400 Signed Impressions: Service Date/Time: Monday, March 06, 2017 04:08 - CONCLUSION: Interval intubation with slight improvement in lung volumes Jake Vanessa MD Abdomen/Pelvis CT 03/05/17 0000 Signed Impressions: Service Date/Time: Sunday, March 05, 2017 19:03 - CONCLUSION: 1. Diffuse prominent anasarca seen through the body wall. 2. There is nonspecific edema throughout the mesenteric fat within the abdomen and pelvis. 3. There is a trace of fluid around the liver and spleen. 4. Prominent bilateral interstitial infiltrates in both lung bases along with small bilateral effusions. Art Rojas MD Abdomen X-Ray 03/04/17 0000 Signed Impressions: Service Date/Time: Saturday, March 04, 2017 12:19 - CONCLUSION: 1. Suction type NGT in the stomach. 2. Stable nonspecific paucity of bowel gas. Rarely, this can be seen with fluid filled bowel loops. Randy Patricio MD Renal Ultrasound 03/03/17 0000 Signed Impressions: Service Date/Time: Friday, March 03, 2017 16:03 - CONCLUSION: Normal examination. 1. Gustavo Yusuf MD Physical Exam CONSTITUTIONAL/GENERAL: This is sedated, intubated on vent TUBES/LINES/DRAINS: SKIN: No jaundice, rashes, or lesions. Massive anasarca EYES: Pupils equal and round and reactive. Minimal scleral icterus. ENT: Orally intubated CARDIOVASCULAR: Regular tachycardia without murmurs, gallops, or rubs. No JVD. Peripheral pulses symmetric. RESPIRATORY/CHEST: Symmetric, unlabored respirations. Scattered rhonchi to auscultation. GASTROINTESTINAL: Abdomen tight no reaction to palpation quite distended. No hepato-splenomegaly, or palpable masses. No guarding. Bowel sounds present. Small amount of liquid stool in fecal collectionsystem GENITOURINARY: Without palpable bladder distension. Guerrero in place with clear yellow urine MUSCULOSKELETAL: Extremities without clubbing, cyanosis, worsening generalized edema 4+. No joint tenderness or effusion noted. No calf tenderness. No mottling or clubbing. NEUROLOGICAL: heavily sedated unresponsive PSYCHIATRIC: unable to assess Assessment & Plan Remarks Sepsis (neutropenia, fever, lactic acidosis) -Proteus bacteremia (GI from translocation across inflammed GI mucosa vs ) Proteus UTI / Pyelo with high grade bacterem C.diff colitis no BMs x 48 hrs ? ileus - CT with anasarca ARDS, doubt PNA Aspiration Pneumonia possible given alcoholism/DT Acute VDRF, improved oxygenation ETOHism Critical, more stable Massively fluid overload Recs - cont Vanco PO (Cdiff diarrhea ? colitis) - dc zosyn for Proteus UTI with bactermia, aspiration PNA. - starrt rocvephine - Discussed Condition With Ruth Mauricio MD Mar 08, 2017 17:06
[2017-03-08] MEDS: VASOPRESSIN INJ 40 UNITS in DEXTROSE 5% IN WATER 100ML INJ 98 ML IV SCH ×2 (17:11)
[2017-03-08] MEDS: cefTRIAXone INJ 2,000 MG in SODIUM CHLORIDE 0.9% INJ 100 ML IV SCH (17:17)
[2017-03-08] MEDS: FUROSEMIDE INJ 100 MG in SODIUM CHLORIDE 0.9% INJ 90 ML IV SCH (17:33)
[2017-03-09] VITALS (20 sets, daily range): BP systolic 138–174; BP diastolic 57–83; PULSE 50–68; RESP 16–21; TEMP 98–100; O2SAT 95–100
[2017-03-09] MEDS: D5W + KCL 20 MEQ INJ 1,000 ML IV SCH ×2 (02:00→15:54)
[2017-03-09] MEDS: PROPOFOL 1000 MG/100 ML INJ 100 ML IV PRN ×2 (02:01→06:19)
[2017-03-09] MEDS: CHLORHEXIDINE GLUCONATE 2 % 1 PACK (2 CLOTHS) TOP SCH (03:09)
[2017-03-09] MEDS: HEPARIN SODIUM - SQ 10,000 UNITS/ML VIAL SQ SCH ×3 (05:04→21:59)
[2017-03-09] MEDS: VANCOMYCIN 500 MG VIAL (FOR ORAL USE ONLY) PO SCH ×4 (05:04→23:47)
[2017-03-09] MEDS: fentaNYL DRIP 250 ML IV PRN (06:19)
[2017-03-09 06:36] LABS: AUTOMATED NEUTROPHIL # 9.9 TH/MM3 (1.8-7.7); BASOPHIL % 0.2 % (0.0-2.0); EOSINOPHIL # 0.1 TH/MM3 (0-0.4); EOSINOPHIL % 0.7 % (0.0-4.0); HEMATOCRIT 31.2 % (35.0-46.0); HEMOGLOBIN 10.7 GM/DL (11.6-15.3); LYMPH % 7.3 % (9.0-44.0); LYMPHOCYTE # 0.8 TH/MM3 (1.0-4.8); MEAN CELL VOLUME 98.6 FL (80.0-100.0); MEAN CORPUSCULAR HEMOGLOBIN 33.8 PG (27.0-34.0); MEAN CORPUSCULAR HGB CONC 34.3 % (32.0-36.0); MEAN PLATELET VOLUME 11.2 FL (7.0-11.0); MONO % 3.4 % (0.0-8.0); MONOCYTE # 0.4 TH/MM3 (0-0.9); NEUT % 88.4 % (16.0-70.0); PLATELET COUNT 88 TH/MM3 (150-450); RED BLOOD COUNT 3.16 MIL/MM3 (4.00-5.30); RED CELL DISTRIBUTION WIDTH 17.3 % (11.6-17.2); WHITE BLOOD COUNT 11.2 TH/MM3 (4.0-11.0)
--- NOTE | 2017-03-09 06:46 | RADRPT ---
EXAM DATE/TIME: 03/09/2017 04:33 [facility] COMPARISON: CHEST SINGLE AP, March 06, 2017, 4:08. INDICATIONS : Respiratory failure, Hypoxemia MEDICAL HISTORY : Cirrhosis. CVA, C-Diff SURGICAL HISTORY : Inguinal hernia repair. Hysterectomy. ENCOUNTER: Subsequent ACUITY: 1 week PAIN SCORE: Non-responsive. LOCATION: Bilateral chest FINDINGS: The ET tube tip is 2 cm from the randy. The NG tube is tracking into the stomach. The heart size is normal. There is mild hazy density seen at the bases bilaterally. CONCLUSION: 1. Mild density at the bases likely representing some residual atelectasis or consolidation. Overall, the aeration of the lungs has significantly improved. 2. ET tube and NG tube are well placed. Jake Calderon MD on March 09, 2017 at 6:44 Board Certified Radiologist. This report was verified electronically.
[2017-03-09 07:36] LABS: BICARBONATE 29.9 MEQ/L (21.0-32.0); CALCIUM 8.6 MG/DL (8.5-10.1); CREATININE 0.78 MG/DL (0.50-1.00)
[2017-03-09 08:14] LABS: BANDS 14 % (0-6); LYMPHOCYTES 5 % (9-44); METAMYELOCYTES 4 % (0-1); NEUTROPHIL # MANUAL DIFF 10.5 TH/MM3 (1.8-7.7); POLYS (SEG NEUTROPHILS) 76 % (16-70); TOXIC GRANULATION 1+ (NORMAL)
[2017-03-09] MEDS: SODIUM CHLORIDE 0.9% FLUSH 10 ML FLUSH IV FLUSH SCH ×2 (09:19→21:00)
[2017-03-09] MEDS: HYDROCORTISONE SOD SUCCINATE 100 MG VIAL IV PUSH SCH ×2 (09:19→21:58)
[2017-03-09] MEDS: FAMOTIDINE 20 MG/2 ML VIAL IV PUSH SCH ×2 (09:19→21:58)
[2017-03-09] MEDS: CHLORHEXIDINE 0.12% (ORAL KIT) 15 ML CUP MT SCH ×2 (09:19→22:00)
[2017-03-09] MEDS: POTASSIUM CHLORIDE 20 MEQ PWD PACKET NG SCH ×2 (09:20→22:00)
--- NOTE | 2017-03-09 09:34 | HHI.CCPN ---
Subjective Remarks/Hospital Course 44-year-old female with history of alcohol use disorder liver cirrhosis, presents following a syncopal or near syncopal event at home. The patient reports that she's been ill for a couple days with vomiting and diarrhea. She has been febrile. She reportedly had an alteration in her level of consciousness at home tonight prompting her boyfriend called the rescue squad. EMS states that her heart rate was 180 on their arrival. She was normotensive. She also had a fever of 103. They treated her in route with IV fluids and Zofran. Patient reports some cough and some shortness of breath. She denies any other upper respiratory symptoms. She denies any urinary tract symptoms. Despite IV fluid resuscitation patient became hypotensive in the center line was placed by ED attending for Levophed administration. 02/28: Worsening respiratory distress requiring intubation and mechanical ventilation. Symptoms of ETOH withdrawal further complicate care. Fevers > 103 persist. 03/01: Gas exchange remains impaired. Blood with GNR bacteremia. CXR worse, diffuse process now.Urine output marginal. 03/02: Worsening radiograph, markedly impaired gas exchange. 03/03: Persistently elevated A-aO2 gradient, cultures negative so far. ADILSON not resolving and some element of respiratory failure is diffuse edema. Sure acts like sepsis, continue broad coverage. 03/04: ARDS. C. diff colitis. ADILSON. Continued deterioration. 03/05: ARDS. Sepsis. Heart failure. Back on APRV. 03/06: She has responded well to APRV and now back to PRVC with FiO2 50% CXR clearing slowly. Is this C. diff colitis with SIRS lungs or primary pneumonia? Did it all arise from Proteus UTI? Renal function improving and she is getting better slowly after milrinone started. Attempts to diurese before milrinone just worsened renal function. 03/07: Remains sedated, orally intubated on mechanical ventilation. 03/08: Serum concentration excessive, will back off diuresis and replace lytes. Gradual improvement in gas exchange. 03/09: Nice response to lasix gtt, cxr clearing. Continue SBTs. Objective Vital Signs Date Time Temp Pulse Resp B/P (MAP) Pulse Ox O2 Delivery O2 Flow Rate FiO2 03/09/17 08:46 40 03/09/17 08:46 99 03/09/17 07:00 Mechanical Ventilator 03/09/17 06:00 50 03/09/17 04:00 98.6 20 140/72 (94) 03/07/17 20:00 2.00 Intake and Output 03/09/17 03/09/17 03/10/17 08:00 16:00 00:00 Intake Total 1794 ml Output Total 4050 ml Balance -2256 ml Result Diagram: 03/09/17 0600 03/09/17 0600 Imaging Last Impressions Chest X-Ray 03/06/17 0400 Signed Impressions: Service Date/Time: Monday, March 06, 2017 04:08 - CONCLUSION: Interval intubation with slight improvement in lung volumes Jake Vanessa MD Abdomen/Pelvis CT 03/05/17 0000 Signed Impressions: Service Date/Time: Sunday, March 05, 2017 19:03 - CONCLUSION: 1. Diffuse prominent anasarca seen through the body wall. 2. There is nonspecific edema throughout the mesenteric fat within the abdomen and pelvis. 3. There is a trace of fluid around the liver and spleen. 4. Prominent bilateral interstitial infiltrates in both lung bases along with small bilateral effusions. Art Rojas MD Abdomen X-Ray 03/04/17 0000 Signed Impressions: Service Date/Time: Saturday, March 04, 2017 12:19 - CONCLUSION: 1. Suction type NGT in the stomach. 2. Stable nonspecific paucity of bowel gas. Rarely, this can be seen with fluid filled bowel loops. Randy Patricio MD Renal Ultrasound 03/03/17 0000 Signed Impressions: Service Date/Time: Friday, March 03, 2017 16:03 - CONCLUSION: Normal examination. 1. Gustavo Yusuf MD Objective Remarks GENERAL: Ill-appearing, edematous patient. SKIN: Warm and dry. HEAD: Normocephalic. EYES: No scleral icterus. No injection or drainage. NECK: Supple, trachea midline. Orally intubated. CARDIOVASCULAR: Tachycardia. Regular rhythm without murmurs, gallops, or rubs. No JVD. RESPIRATORY: Breath sounds equal bilaterally. No wheezes or crackles. Improved air movement. GASTROINTESTINAL: Abdomen soft, non-tender, nondistended. No guarding. BS few. No diarrhea. MUSCULOSKELETAL: No cyanosis. Trace generalized edema. Well perfused. NEURO EXAM: Lightly sedated for vent synchrony and control of withdrawal. Moves 4 limbs on large dose sedation. Opens eyes, tracks. A/P Assessment and Plan Severe sepsis - Bilateral pulmonary infiltrate - broad Spectrum antibiotics - Culture and sensitivity - Infectious disease consult - Intubated 02/28, PRVC mode. - APRV mode 03/02/17 - PRVC, PEEP 18 03/04. - Milrinone started 03/04 to improve perfusion. @ 0.20 now Pneumonia - CXR with infiltrates - Broad-spectrum antibiotics - DuoNeb's when necessary and scheduled - Urine antigens to follow -> negative - No positive cultures or antigens. - CXR clearing. Alcoholism - Thiamine folate and multivitamins IV - Monitor for withdrawal - Librium scheduled. Anxiety and depression - Ativan when necessary DVT GI prophylaxis - Teds SCDs - Subcutaneous heparin - Pepcid C. diff colitis - Oral vanc. Overall impression: Perfusion now improved and urine more acceptable. Clearly arrived with florid sepsis and now starting to improve. Arrived with Proteus UTI and Proteus blood cultures X 4. Only additional possible source is C. diff but never diarrhea. Renal function improved. Franco Medina MD Mar 09, 2017 09:34
[2017-03-09] MEDS ORDERED: MAGNESIUM SULFATE 1 GM PREMIX 100 ML IV ONE (09:45)
[2017-03-09] MEDS: chlordiazePOXIDE 25 MG CAP PO SCH ×2 (10:28→23:47)
[2017-03-09] MEDS: ALBUMIN 25% INJ 100 ML IV SCH ×2 (10:28→21:58)
[2017-03-09] MEDS ORDERED: MAGNESIUM SULFATE INJ 2 GM in SODIUM CHLORIDE 0.9% INJ 96 ML IV PRN (14:00)
[2017-03-09] MEDS ORDERED: SODIUM PHOSPHATE INJ 30 MMOL in SODIUM CHLOR 0.9% 250 ML INJ 240 ML IV PRN (14:00)
[2017-03-09] MEDS ORDERED: POTASSIUM PHOSPHATE INJ 30 MMOL in SODIUM CHLOR 0.9% 250 ML INJ 250 ML IV PRN (14:00)
[2017-03-09] MEDS ORDERED: POTASSIUM CHLOR 20 MEQ PREMIX 100 ML IV PRN ×2 (14:00)
[2017-03-09] MEDS ORDERED: POTASSIUM PHOSPHATE MONOBASIC 500 MG TAB PO PRN (14:00)
[2017-03-09] MEDS ORDERED: MAGNESIUM SULFATE INJ 4 GM in SODIUM CHLORIDE 0.9% INJ 92 ML IV PRN (14:00)
[2017-03-09] MEDS ORDERED: POTASSIUM CHLORIDE 25 MEQ EFFERVESCENT TAB PO PRN (14:00)
[2017-03-09] MEDS ORDERED: MAGNESIUM OXIDE 400 MG TAB PO PRN (14:00)
[2017-03-09] MEDS ORDERED: POTASSIUM PHOSPHATE MONOBASIC 500 MG TAB PO/TUBE PRN (14:00)
[2017-03-09] MEDS: POTASSIUM CHLOR 40 MEQ PREMIX 100 ML IV PRN ×2 (16:44→18:52)
[2017-03-09 17:11] LABS: ALBUMIN 1.9 GM/DL (3.4-5.0); BICARBONATE 31.1 MEQ/L (21.0-32.0); CALCIUM 8.6 MG/DL (8.5-10.1); CREATININE 0.88 MG/DL (0.50-1.00)
[2017-03-09] MEDS: VASOPRESSIN INJ 40 UNITS in DEXTROSE 5% IN WATER 100ML INJ 98 ML IV SCH ×2 (18:00)
[2017-03-09] MEDS: cefTRIAXone INJ 2,000 MG in SODIUM CHLORIDE 0.9% INJ 100 ML IV SCH (18:28)
[2017-03-10] VITALS (18 sets, daily range): BP systolic 137–168; BP diastolic 69–85; PULSE 60–115; RESP 8–25; TEMP 98.4–102.4; O2SAT 94–100
[2017-03-10] MEDS: CHLORHEXIDINE GLUCONATE 2 % 1 PACK (2 CLOTHS) TOP SCH (04:00)
[2017-03-10] MEDS: VANCOMYCIN 500 MG VIAL (FOR ORAL USE ONLY) PO SCH ×3 (05:13→18:07)
[2017-03-10] MEDS: HEPARIN SODIUM - SQ 10,000 UNITS/ML VIAL SQ SCH ×3 (05:13→21:57)
[2017-03-10] MEDS: D5W + KCL 20 MEQ INJ 1,000 ML IV SCH ×2 (06:34→21:58)
[2017-03-10 06:38] LABS: CALCIUM 8.7 MG/DL (8.5-10.1); CREATININE 0.88 MG/DL (0.50-1.00)
[2017-03-10] MEDS: POTASSIUM CHLOR 40 MEQ PREMIX 100 ML IV PRN (08:30)
[2017-03-10] MEDS: SODIUM CHLORIDE 0.9% FLUSH 10 ML FLUSH IV FLUSH SCH ×2 (09:05→20:31)
[2017-03-10] MEDS: CHLORHEXIDINE 0.12% (ORAL KIT) 15 ML CUP MT SCH ×2 (09:05→20:31)
[2017-03-10] MEDS: FAMOTIDINE 20 MG/2 ML VIAL IV PUSH SCH ×2 (09:07→20:30)
[2017-03-10] MEDS: HYDROCORTISONE SOD SUCCINATE 100 MG VIAL IV PUSH SCH ×2 (09:08→20:30)
[2017-03-10] MEDS: POTASSIUM CHLORIDE 20 MEQ PWD PACKET NG SCH ×2 (09:08→20:31)
[2017-03-10] MEDS: ALBUMIN 25% INJ 100 ML IV SCH ×2 (09:50→21:58)
--- NOTE | 2017-03-10 10:15 | HHI.CCPN ---
Subjective Remarks/Hospital Course 44-year-old female with history of alcohol use disorder liver cirrhosis, presents following a syncopal or near syncopal event at home. The patient reports that she's been ill for a couple days with vomiting and diarrhea. She has been febrile. She reportedly had an alteration in her level of consciousness at home tonight prompting her boyfriend called the rescue squad. EMS states that her heart rate was 180 on their arrival. She was normotensive. She also had a fever of 103. They treated her in route with IV fluids and Zofran. Patient reports some cough and some shortness of breath. She denies any other upper respiratory symptoms. She denies any urinary tract symptoms. Despite IV fluid resuscitation patient became hypotensive in the center line was placed by ED attending for Levophed administration. 02/28: Worsening respiratory distress requiring intubation and mechanical ventilation. Symptoms of ETOH withdrawal further complicate care. Fevers > 103 persist. 03/01: Gas exchange remains impaired. Blood with GNR bacteremia. CXR worse, diffuse process now.Urine output marginal. 03/02: Worsening radiograph, markedly impaired gas exchange. 03/03: Persistently elevated A-aO2 gradient, cultures negative so far. ADILSON not resolving and some element of respiratory failure is diffuse edema. Sure acts like sepsis, continue broad coverage. 03/04: ARDS. C. diff colitis. ADILSON. Continued deterioration. 03/05: ARDS. Sepsis. Heart failure. Back on APRV. 03/06: She has responded well to APRV and now back to PRVC with FiO2 50% CXR clearing slowly. Is this C. diff colitis with SIRS lungs or primary pneumonia? Did it all arise from Proteus UTI? Renal function improving and she is getting better slowly after milrinone started. Attempts to diurese before milrinone just worsened renal function. 03/07: Remains sedated, orally intubated on mechanical ventilation. 03/08: Serum concentration excessive, will back off diuresis and replace lytes. Gradual improvement in gas exchange. 03/09: Nice response to lasix gtt, cxr clearing. Continue SBT 03/10: Continued diuresis with clearing CXR and improved gas exchange. Objective Vital Signs Date Time Temp Pulse Resp B/P (MAP) Pulse Ox O2 Delivery O2 Flow Rate FiO2 03/10/17 09:12 100 40 03/10/17 06:00 63 03/10/17 04:00 101.5 25 168/82 (110) 03/09/17 20:00 Mechanical Ventilator 03/07/17 20:00 2.00 Intake and Output 03/10/17 03/10/17 03/11/17 08:00 16:00 00:00 Intake Total 1301 ml Output Total 3900 ml Balance -2599 ml Result Diagram: 03/09/17 0600 03/10/17 0550 Imaging Last Impressions Chest X-Ray 03/06/17 0400 Signed Impressions: Service Date/Time: Monday, March 06, 2017 04:08 - CONCLUSION: Interval intubation with slight improvement in lung volumes Jake Vanessa MD Abdomen/Pelvis CT 03/05/17 0000 Signed Impressions: Service Date/Time: Sunday, March 05, 2017 19:03 - CONCLUSION: 1. Diffuse prominent anasarca seen through the body wall. 2. There is nonspecific edema throughout the mesenteric fat within the abdomen and pelvis. 3. There is a trace of fluid around the liver and spleen. 4. Prominent bilateral interstitial infiltrates in both lung bases along with small bilateral effusions. Art Rojas MD Abdomen X-Ray 03/04/17 0000 Signed Impressions: Service Date/Time: Saturday, March 04, 2017 12:19 - CONCLUSION: 1. Suction type NGT in the stomach. 2. Stable nonspecific paucity of bowel gas. Rarely, this can be seen with fluid filled bowel loops. Randy Patricio MD Renal Ultrasound 03/03/17 0000 Signed Impressions: Service Date/Time: Friday, March 03, 2017 16:03 - CONCLUSION: Normal examination. 1. Gustavo Yusuf MD Objective Remarks GENERAL: Ill-appearing, edematous patient. SKIN: Warm and dry. HEAD: Normocephalic. EYES: No scleral icterus. No injection or drainage. NECK: Supple, trachea midline. Orally intubated. CARDIOVASCULAR: Tachycardia. Regular rhythm without murmurs, gallops, or rubs. No JVD. RESPIRATORY: Breath sounds equal bilaterally. No wheezes or crackles. Improved air movement. Normal excursions. GASTROINTESTINAL: Abdomen soft, non-tender, nondistended. No guarding. BS few. No diarrhea. MUSCULOSKELETAL: No cyanosis. Trace generalized edema. Well perfused. NEURO EXAM: Lightly sedated for vent synchrony and control of withdrawal. Moves 4 limbs on large dose sedation. Opens eyes, tracks. A/P Assessment and Plan Severe sepsis - Bilateral pulmonary infiltrate - broad Spectrum antibiotics - Culture and sensitivity - Infectious disease consult - Intubated 02/28, PRVC mode. - APRV mode 03/02/17 - PRVC, PEEP 18 03/04. - Milrinone started 03/04 to improve perfusion. @ 0.20 now Pneumonia - CXR with infiltrates - Broad-spectrum antibiotics - DuoNeb's when necessary and scheduled - Urine antigens to follow -> negative - No positive cultures or antigens. - CXR clearing. Alcoholism - Thiamine folate and multivitamins IV - Monitor for withdrawal - Librium scheduled. Anxiety and depression - Ativan when necessary DVT GI prophylaxis - Teds SCDs - Subcutaneous heparin - Pepcid C. diff colitis - Oral vanc. Overall impression: Perfusion now improved and urine more acceptable. Clearly arrived with florid sepsis and now starting to improve. Arrived with Proteus UTI and Proteus blood cultures X 4. Only additional possible source is C. diff but never diarrhea. Renal function improving. Aim for extubation soon. Franco Medina MD Mar 10, 2017 10:15
[2017-03-10] MEDS: chlordiazePOXIDE 25 MG CAP PO SCH (11:34)
[2017-03-10] MEDS: FUROSEMIDE INJ 100 MG in SODIUM CHLORIDE 0.9% INJ 90 ML IV SCH ×2 (12:06→20:34)
--- NOTE | 2017-03-10 14:55 | HHI.IDPN ---
Subjective Subjective Remarks remains on vent, no ETT secrertions febrile up to 101.5 + liquid diarrhea, 2 liquid BMs today off pressors fluid overload, on Bumex gtt Antibiotics VAnco PO Zosyn Lines Line sites with no e.o infection. Past Medical History reviewed Allergies: Coded Allergies: No Known Allergies (Unverified , 02/28/17) Objective . Vital Signs Date Time Temp Pulse Resp B/P (MAP) Pulse Ox O2 Delivery O2 Flow Rate FiO2 03/10/17 14:46 100 40 03/10/17 12:00 99.3 62 13 160/85 (110) 100 03/10/17 12:00 62 03/10/17 12:00 40 03/10/17 10:54 100 40 03/10/17 10:35 40 03/10/17 10:00 84 03/10/17 09:15 40 03/10/17 09:12 100 40 03/10/17 09:12 40 03/10/17 08:00 62 03/10/17 08:00 40 03/10/17 08:00 100.4 62 20 161/79 (106) 100 03/10/17 07:00 99 Mechanical Ventilator 40 03/10/17 06:00 63 03/10/17 04:03 98 40 03/10/17 04:00 45 03/10/17 04:00 101.5 115 25 168/82 (110) 100 03/10/17 04:00 63 03/10/17 02:00 63 03/10/17 00:00 63 03/10/17 00:00 45 03/10/17 00:00 98.4 60 12 144/69 (94) 94 03/09/17 23:47 99 40 03/09/17 22:00 63 03/09/17 21:15 100 40 03/09/17 20:00 63 03/09/17 20:00 45 03/09/17 20:00 99 Mechanical Ventilator 50 03/09/17 20:00 98.2 61 21 138/63 (88) 95 03/09/17 18:29 100 40 03/09/17 18:25 63 03/09/17 16:00 68 03/09/17 16:00 100.0 65 20 149/82 (104) 98 03/09/17 16:00 45 03/10/17 03/10/1703/11/17 15:00 23:00 07:00 Intake Total 420 ml Output Total 2425 ml Balance -2005 ml IV Total 300 ml Other 120 ml Output Urine Total 2425 ml # Bowel Movements 1 . Laboratory Tests Test 03/09/17 06:00 White Blood Count 11.2 TH/MM3 Red Blood Count 3.16 MIL/MM3 Hemoglobin 10.7 GM/DL Hematocrit 31.2 % Mean Corpuscular Volume 98.6 FL Mean Corpuscular Hemoglobin 33.8 PG Mean Corpuscular Hemoglobin Concent 34.3 % Red Cell Distribution Width 17.3 % Platelet Count 88 TH/MM3 Mean Platelet Volume 11.2 FL Neutrophils (%) (Auto) 88.4 % Lymphocytes (%) (Auto) 7.3 % Monocytes (%) (Auto) 3.4 % Eosinophils (%) (Auto) 0.7 % Basophils (%) (Auto) 0.2 % Neutrophils # (Auto) 9.9 TH/MM3 Lymphocytes # (Auto) 0.8 TH/MM3 Monocytes # (Auto) 0.4 TH/MM3 Eosinophils # (Auto) 0.1 TH/MM3 Basophils # (Auto) 0.0 TH/MM3 CBC Comment AUTO DIFF Differential Total Cells Counted 100 Neutrophils % (Manual) 76 % Band Neutrophils % 14 % Lymphocytes % 5 % Eosinophils % 1 % Neutrophils # (Manual) 10.5 TH/MM3 Metamyelocytes 4 % Differential Comment FINAL DIFF MANUAL Toxic Granulation 1+ Platelet Estimate LOW Platelet Morphology Comment ENLARGED Laboratory Tests Test 03/08/17 15:00 03/09/17 06:00 03/09/17 16:10 03/10/17 05:50 Blood Urea Nitrogen 28 MG/DL 23 MG/DL 20 MG/DL 18 MG/DL Creatinine 0.74 MG/DL 0.78 MG/DL 0.88 MG/DL 0.88 MG/DL Random Glucose 162 MG/DL 134 MG/DL 149 MG/DL 125 MG/DL Calcium Level 8.2 MG/DL 8.6 MG/DL 8.6 MG/DL 8.7 MG/DL Phosphorus Level 3.6 MG/DL Magnesium Level 2.0 MG/DL Sodium Level 156 MEQ/L 153 MEQ/L 151 MEQ/L 149 MEQ/L Potassium Level 2.7 MEQ/L 2.8 MEQ/L 2.8 MEQ/L 3.4 MEQ/L Chloride Level 119 MEQ/L 115 MEQ/L 111 MEQ/L 108 MEQ/L Carbon Dioxide Level 29.2 MEQ/L 29.9 MEQ/L 31.1 MEQ/L 33.0 MEQ/L Anion Gap 8 MEQ/L 8 MEQ/L 9 MEQ/L 8 MEQ/L Estimat Glomerular Filtration Rate 84 ML/MIN 79 ML/MIN 69 ML/MIN 69 ML/MIN Albumin 1.9 GM/DL Imaging Last Impressions Chest X-Ray 03/09/17 0400 Signed Impressions: Service Date/Time: Thursday, March 09, 2017 04:33 - CONCLUSION: 1. Mild density at the bases likely representing some residual atelectasis or consolidation. Overall, the aeration of the lungs has significantly improved. 2. ET tube and NG tube are well placed. Jake Calderon MD Abdomen/Pelvis CT 03/05/17 0000 Signed Impressions: Service Date/Time: Sunday, March 05, 2017 19:03 - CONCLUSION: 1. Diffuse prominent anasarca seen through the body wall. 2. There is nonspecific edema throughout the mesenteric fat within the abdomen and pelvis. 3. There is a trace of fluid around the liver and spleen. 4. Prominent bilateral interstitial infiltrates in both lung bases along with small bilateral effusions. Art Rojas MD Abdomen X-Ray 03/04/17 0000 Signed Impressions: Service Date/Time: Saturday, March 04, 2017 12:19 - CONCLUSION: 1. Suction type NGT in the stomach. 2. Stable nonspecific paucity of bowel gas. Rarely, this can be seen with fluid filled bowel loops. Randy Patricio MD Renal Ultrasound 03/03/17 0000 Signed Impressions: Service Date/Time: Friday, March 03, 2017 16:03 - CONCLUSION: Normal examination. 1. Gustavo Yusuf MD Physical Exam CONSTITUTIONAL/GENERAL: This is sedated, intubated on vent TUBES/LINES/DRAINS: R SCV cath - site OK SKIN: No jaundice, rashes, or lesions. Massive anasarca EYES: Pupils equal and round and reactive. Minimal scleral icterus. ENT: Orally intubated CARDIOVASCULAR: Regular tachycardia without murmurs, gallops, or rubs. No JVD. Peripheral pulses symmetric. RESPIRATORY/CHEST: Symmetric, unlabored respirations. Scattered rhonchi to auscultation. GASTROINTESTINAL: Abdomen tight no reaction to palpation quite distended. No hepato-splenomegaly, or palpable masses. No guarding. Bowel sounds present. GENITOURINARY: Without palpable bladder distension. Guerrero in place with clear yellow urine MUSCULOSKELETAL: Extremities without clubbing, cyanosis, improved generalized edema 3+. No mottling or clubbing. NEUROLOGICAL: sedated PSYCHIATRIC: unable to assess Assessment & Plan Remarks Sepsis (neutropenia, fever, lactic acidosis) -Proteus bacteremia (GI from translocation across inflammed GI mucosa vs ) Proteus UTI / Pyelo with high grade bacterem C.diff colitis no BMs x 48 hrs ? ileus - CT with anasarca ARDS, doubt PNA Aspiration Pneumonia possible given alcoholism/DT Acute VDRF, improved oxygenation ETOHism Critical, more stable Massively fluid overload - improving New fever - ? source, w/u for CLABSI, CAUTI needed - other source: persistent colitis or non infectious Recs - cont Vanco PO (Cdiff diarrhea ? colitis) - dc rocephine -start cefepime, vanco - STAT blood clx, UA, C+S - repeat C.diff Discussed Condition With Ruth Mcbride MD Mar 10, 2017 14:55
[2017-03-10] MEDS ORDERED: Vancomycin Consult Pharmacy 1 EA OTHER SCH (15:00)
[2017-03-10] MEDS: ACETAMINOPHEN 325 MG TAB PO PRN (15:00)
[2017-03-10] MEDS: CEFEPIME INJ 2,000 MG in SODIUM CHLORIDE 0.9% INJ 100 ML IV SCH (16:24)
[2017-03-10 16:25] LABS: BACTERIA, URINE OCC /hpf; BILIRUBIN, URINE NEG (NEG); BLOOD, URINE TRACE (NEG); GLUCOSE,URINE NEG (NEG); KETONE, URINE NEG (NEG); NITRITE,URINE NEG (NEG); RENAL EPITHELIAL CELLS <1 /hpf; SQUAMOUS EPITHELIAL CELL URINE <1 /hpf (0-5); URINE COLOR LIGHT-YELLOW (YELLW/STRAW); URINE LEUKOCYTE ESTERASE MOD (NEG)
[2017-03-10] MEDS: VANCOMYCIN 1,000 MG/NS 250 ML IV SCH ×2 (16:27)
[2017-03-10 17:20] LABS: BICARBONATE 31.6 MEQ/L (21.0-32.0); CALCIUM 8.6 MG/DL (8.5-10.1); CREATININE 0.93 MG/DL (0.50-1.00)
[2017-03-10] MEDS: VASOPRESSIN INJ 40 UNITS in DEXTROSE 5% IN WATER 100ML INJ 98 ML IV SCH ×2 (18:07)
[2017-03-11] VITALS (18 sets, daily range): BP systolic 106–154; BP diastolic 60–85; PULSE 72–110; RESP 12–22; TEMP 99.5–100; O2SAT 96–100
[2017-03-11] MEDS: VANCOMYCIN 500 MG VIAL (FOR ORAL USE ONLY) PO SCH ×4 (00:03→17:19)
[2017-03-11] MEDS: chlordiazePOXIDE 25 MG CAP PO SCH ×2 (00:03→12:47)
[2017-03-11] MEDS: CHLORHEXIDINE GLUCONATE 2 % 1 PACK (2 CLOTHS) TOP SCH ×2 (00:05→21:05)
[2017-03-11] MEDS: D5W + KCL 20 MEQ INJ 1,000 ML IV SCH (00:27)
[2017-03-11] MEDS: POTASSIUM CHLOR 40 MEQ PREMIX 100 ML IV PRN ×3 (01:06→17:30)
[2017-03-11] MEDS: HEPARIN SODIUM - SQ 10,000 UNITS/ML VIAL SQ SCH ×3 (05:40→21:02)
[2017-03-11] MEDS: FUROSEMIDE INJ 100 MG in SODIUM CHLORIDE 0.9% INJ 90 ML IV SCH (06:21)
[2017-03-11 07:07] LABS: BICARBONATE 35.7 MEQ/L (21.0-32.0); CALCIUM 9.2 MG/DL (8.5-10.1); CREATININE 1.1 MG/DL (0.50-1.00)
--- NOTE | 2017-03-11 07:53 | HHI.CCPN ---
Subjective Remarks/Hospital Course 44-year-old female with history of alcohol use disorder liver cirrhosis, presents following a syncopal or near syncopal event at home. The patient reports that she's been ill for a couple days with vomiting and diarrhea. She has been febrile. She reportedly had an alteration in her level of consciousness at home tonight prompting her boyfriend called the rescue squad. EMS states that her heart rate was 180 on their arrival. She was normotensive. She also had a fever of 103. They treated her in route with IV fluids and Zofran. Patient reports some cough and some shortness of breath. She denies any other upper respiratory symptoms. She denies any urinary tract symptoms. Despite IV fluid resuscitation patient became hypotensive in the center line was placed by ED attending for Levophed administration. 02/28: Worsening respiratory distress requiring intubation and mechanical ventilation. Symptoms of ETOH withdrawal further complicate care. Fevers > 103 persist. 03/01: Gas exchange remains impaired. Blood with GNR bacteremia. CXR worse, diffuse process now.Urine output marginal. 03/02: Worsening radiograph, markedly impaired gas exchange. 03/03: Persistently elevated A-aO2 gradient, cultures negative so far. ADILSON not resolving and some element of respiratory failure is diffuse edema. Sure acts like sepsis, continue broad coverage. 03/04: ARDS. C. diff colitis. ADILSON. Continued deterioration. 03/05: ARDS. Sepsis. Heart failure. Back on APRV. 03/06: She has responded well to APRV and now back to PRVC with FiO2 50% CXR clearing slowly. Is this C. diff colitis with SIRS lungs or primary pneumonia? Did it all arise from Proteus UTI? Renal function improving and she is getting better slowly after milrinone started. Attempts to diurese before milrinone just worsened renal function. 03/07: Remains sedated, orally intubated on mechanical ventilation. 03/08: Serum concentration excessive, will back off diuresis and replace lytes. Gradual improvement in gas exchange. 03/09: Nice response to lasix gtt, cxr clearing. Continue SBT 03/10: Continued diuresis with clearing CXR and improved gas exchange. 03/11: Fever to 102 yesterday. Shift and bandemia persists. Improved gas exchange. Objective Vital Signs Date Time Temp Pulse Resp B/P (MAP) Pulse Ox O2 Delivery O2 Flow Rate FiO2 03/11/17 06:00 100 03/11/17 04:00 40 03/11/17 04:00 99.5 22 146/85 (105) 100 03/10/17 19:00 Mechanical Ventilator 03/07/17 20:00 2.00 Intake and Output 03/11/17 03/11/17 03/12/17 08:00 16:00 00:00 Intake Total 541 ml Output Total 3900 ml Balance -3359 ml Result Diagram: 03/09/17 0600 03/11/17 0630 Imaging Last Impressions Chest X-Ray 03/06/17 0400 Signed Impressions: Service Date/Time: Monday, March 06, 2017 04:08 - CONCLUSION: Interval intubation with slight improvement in lung volumes Jake Vanessa MD Abdomen/Pelvis CT 03/05/17 0000 Signed Impressions: Service Date/Time: Sunday, March 05, 2017 19:03 - CONCLUSION: 1. Diffuse prominent anasarca seen through the body wall. 2. There is nonspecific edema throughout the mesenteric fat within the abdomen and pelvis. 3. There is a trace of fluid around the liver and spleen. 4. Prominent bilateral interstitial infiltrates in both lung bases along with small bilateral effusions. Art Rojas MD Abdomen X-Ray 03/04/17 0000 Signed Impressions: Service Date/Time: Saturday, March 04, 2017 12:19 - CONCLUSION: 1. Suction type NGT in the stomach. 2. Stable nonspecific paucity of bowel gas. Rarely, this can be seen with fluid filled bowel loops. Randy Patricio MD Renal Ultrasound 03/03/17 0000 Signed Impressions: Service Date/Time: Friday, March 03, 2017 16:03 - CONCLUSION: Normal examination. 1. Gustavo Yusuf MD Objective Remarks GENERAL: Ill-appearing, mildly edematous patient. SKIN: Warm and dry. HEAD: Normocephalic. EYES: No scleral icterus. No injection or drainage. NECK: Supple, trachea midline. Orally intubated. CARDIOVASCULAR: Tachycardia. Regular rhythm without murmurs, gallops, or rubs. No JVD. RESPIRATORY: Breath sounds equal bilaterally. No wheezes or crackles. Improved air movement. Normal excursions. GASTROINTESTINAL: Abdomen soft, non-tender, nondistended. No guarding. BS few. No diarrhea. MUSCULOSKELETAL: No cyanosis. Trace generalized edema. Well perfused. NEURO EXAM: Lightly sedated for vent synchrony and control of withdrawal. Moves 4 limbs on large dose sedation. Opens eyes, tracks. A/P Assessment and Plan Severe sepsis - Bilateral pulmonary infiltrate - broad Spectrum antibiotics - Culture and sensitivity - Infectious disease consult - Intubated 02/28, PRVC mode. - APRV mode 03/02/17 - PRVC, PEEP 18 03/04. - Milrinone started 03/04 to improve perfusion. @ 0.20 now Pneumonia - CXR with infiltrates - Broad-spectrum antibiotics - DuoNeb's when necessary and scheduled - Urine antigens to follow -> negative - No positive cultures or antigens. - CXR clearing. Alcoholism - Thiamine folate and multivitamins IV - Monitor for withdrawal - Librium scheduled, reduced to BID 03/03 Anxiety and depression - Ativan when necessary DVT GI prophylaxis - Teds SCDs - Subcutaneous heparin - Pepcid C. diff colitis - Oral vanc. Overall impression: Perfusion now improved and urine more acceptable. Arrived with Proteus UTI and Proteus blood cultures X 4. Only additional possible source is C. diff but never diarrhea. Renal function improving. Aim for extubation soon. Response to diuretics 20 liters now. Franco Medina MD Mar 11, 2017 07:53
[2017-03-11] MEDS: CHLORHEXIDINE 0.12% (ORAL KIT) 15 ML CUP MT SCH ×2 (08:00→20:00)
[2017-03-11] MEDS: CEFEPIME INJ 2,000 MG in SODIUM CHLORIDE 0.9% INJ 100 ML IV SCH ×4 (09:32→15:01)
[2017-03-11] MEDS: SODIUM CHLORIDE 0.9% FLUSH 10 ML FLUSH IV FLUSH SCH ×2 (09:36→21:03)
[2017-03-11] MEDS: POTASSIUM CHLORIDE 20 MEQ PWD PACKET NG SCH ×2 (09:37→21:03)
[2017-03-11] MEDS: FAMOTIDINE 20 MG/2 ML VIAL IV PUSH SCH ×2 (09:37→21:02)
--- NOTE | 2017-03-11 15:30 | HHI.IDPN ---
Subjective Subjective Remarks doing OK fever improved to l;ow grade less fluid overload waening on vent. extubation is planned Antibiotics VAnco PO Zosyn Lines Line sites with no e.o infection. Past Medical History reviewed Allergies: Coded Allergies: No Known Allergies (Unverified , 02/28/17) Objective . Vital Signs Date Time Temp Pulse Resp B/P (MAP) Pulse Ox O2 Delivery O2 Flow Rate FiO2 03/11/17 15:02 98 40 03/11/17 14:00 102 03/11/17 13:50 40 03/11/17 13:50 40 03/11/17 12:00 100 03/11/17 12:00 40 03/11/17 12:00 99.7 100 17 125/78 (94) 100 03/11/17 11:35 100 40 03/11/17 10:00 110 03/11/17 08:40 98 40 03/11/17 08:00 40 03/11/17 08:00 105 03/11/17 08:00 99.9 105 13 122/73 (89) 96 03/11/17 07:00 99 Mechanical Ventilator 40 03/11/17 06:00 100 03/11/17 04:00 40 03/11/17 04:00 77 03/11/17 04:00 99.5 86 22 146/85 (105) 100 03/11/17 03:40 98 40 03/11/17 02:00 95 03/11/17 00:20 98 40 03/11/17 00:00 99.8 85 18 154/81 (105) 98 03/11/17 00:00 40 03/11/17 00:00 88 03/10/17 22:00 93 03/10/17 21:35 99 40 03/10/17 20:00 40 03/10/17 20:00 89 03/10/17 20:00 99.7 89 18 137/71 (93) 100 03/10/17 19:00 100 Mechanical Ventilator 40 03/10/17 18:00 76 03/10/17 16:25 100 40 03/10/17 16:00 40 03/10/17 16:00 102.4 74 8 159/77 (104) 100 03/10/17 16:00 74 03/11/17 03/11/17 03/12/17 14:59 22:59 06:59 Intake Total 180 ml Output Total 1175 ml Balance -995 ml IV Total 60 ml Other 120 ml Output Urine Total 1175 ml # Bowel Movements 2 . Laboratory Tests Test 03/09/17 16:10 03/10/17 05:50 03/10/17 16:00 03/11/17 00:15 Blood Urea Nitrogen 20 MG/DL 18 MG/DL 17 MG/DL Creatinine 0.88 MG/DL 0.88 MG/DL 0.93 MG/DL Random Glucose 149 MG/DL 125 MG/DL 123 MG/DL Albumin 1.9 GM/DL Calcium Level 8.6 MG/DL 8.7 MG/DL 8.6 MG/DL Sodium Level 151 MEQ/L 149 MEQ/L 144 MEQ/L Potassium Level 2.8 MEQ/L 3.4 MEQ/L 3.9 MEQ/L 2.9 MEQ/L Chloride Level 111 MEQ/L 108 MEQ/L 106 MEQ/L Carbon Dioxide Level 31.1 MEQ/L 33.0 MEQ/L 31.6 MEQ/L Anion Gap 9 MEQ/L 8 MEQ/L 6 MEQ/L Estimat Glomerular Filtration Rate 69 ML/MIN 69 ML/MIN 64 ML/MIN Test 03/11/17 06:30 03/11/17 15:00 Blood Urea Nitrogen 19 MG/DL Creatinine 1.10 MG/DL Random Glucose 104 MG/DL Calcium Level 9.2 MG/DL Sodium Level 142 MEQ/L Potassium Level 3.0 MEQ/L Chloride Level 99 MEQ/L Carbon Dioxide Level 35.7 MEQ/L Anion Gap 7 MEQ/L Estimat Glomerular Filtration Rate 53 ML/MIN Microbiology Date/Time Source Procedure Growth Status 03/10/17 16:00 Blood Peripheral Aerobic Blood Culture - Preliminary NO GROWTH IN 1 DAY Resulted 03/10/17 16:00 Blood Peripheral Anaerobic Blood Culture - Preliminary NO GROWTH IN 1 DAY Resulted 03/10/17 15:55 Blood Peripheral Aerobic Blood Culture - Preliminary NO GROWTH IN 1 DAY Resulted 03/10/17 15:55 Blood Peripheral Anaerobic Blood Culture - Preliminary NO GROWTH IN 1 DAY Resulted 03/10/17 16:00 Urine Clean Catch Urine Culture - Preliminary IMMATURE GROWTH - REINCUBATE Resulted Imaging Last Impressions Chest X-Ray 03/09/17 0400 Signed Impressions: Service Date/Time: Thursday, March 09, 2017 04:33 - CONCLUSION: 1. Mild density at the bases likely representing some residual atelectasis or consolidation. Overall, the aeration of the lungs has significantly improved. 2. ET tube and NG tube are well placed. Jake Calderon MD Abdomen/Pelvis CT 03/05/17 Signed Impressions: Service Date/Time: Sunday, March 05, 2017 19:03 - CONCLUSION: 1. Diffuse prominent anasarca seen through the body wall. 2. There is nonspecific edema throughout the mesenteric fat within the abdomen and pelvis. 3. There is a trace of fluid around the liver and spleen. 4. Prominent bilateral interstitial infiltrates in both lung bases along with small bilateral effusions. Art Rojas MD Abdomen X-Ray 03/04/17 Signed Impressions: Service Date/Time: Saturday, March 04, 2017 12:19 - CONCLUSION: 1. Suction type NGT in the stomach. 2. Stable nonspecific paucity of bowel gas. Rarely, this can be seen with fluid filled bowel loops. Randy Patricio MD Renal Ultrasound 03/03/17 Signed Impressions: Service Date/Time: Friday, March 03, 2017 16:03 - CONCLUSION: Normal examination. 1. Gustavo Yusuf MD Physical Exam CONSTITUTIONAL/GENERAL: This is sedated, intubated on vent TUBES/LINES/DRAINS: R SCV cath - site OK SKIN: No jaundice, rashes, or lesions. Massive anasarca EYES: Pupils equal and round and reactive. Minimal scleral icterus. ENT: Orally intubated CARDIOVASCULAR: Regular tachycardia without murmurs, gallops, or rubs. No JVD. Peripheral pulses symmetric. RESPIRATORY/CHEST: Symmetric, unlabored respirations. Scattered rhonchi to auscultation. GASTROINTESTINAL: Abdomen tight no reaction to palpation quite distended. No hepato-splenomegaly, or palpable masses. No guarding. Bowel sounds present. GENITOURINARY: Without palpable bladder distension. Guerrero in place with clear yellow urine MUSCULOSKELETAL: Extremities without clubbing, cyanosis, improved generalized edema 3+. No mottling or clubbing. NEUROLOGICAL: more awake PSYCHIATRIC: unable to assess Assessment & Plan Remarks Sepsis (neutropenia, fever, lactic acidosis) -Proteus bacteremia (GI from translocation across inflammed GI mucosa vs ) Proteus UTI / Pyelo with high grade bacterem C.diff colitis no BMs x 48 hrs ? ileus - CT with anasarca ARDS, doubt PNA Aspiration Pneumonia possible given alcoholism/DT Acute VDRF, improved oxygenation, tolerating weaning ETOHism Critical, more stable - improving Massively fluid overload - improving New fever - ? source, w/u for CLABSI, CAUTI needed - other source: persistent colitis or non infectious - uirine clx is positive - fever improved with abx expansion Recs - cont Vanco PO (Cdiff diarrhea ? colitis) - cont cefepime, vanco Discussed Condition With RN dw Dr joss Clayton,Ruth Chicas MD Mar 11, 2017 15:30
[2017-03-11 15:43] LABS: BICARBONATE 36.3 MEQ/L (21.0-32.0); CALCIUM 9.2 MG/DL (8.5-10.1); CREATININE 1.13 MG/DL (0.50-1.00)
[2017-03-11] MEDS: VANCOMYCIN 1,000 MG/NS 250 ML IV SCH ×2 (17:14)
[2017-03-11] MEDS: VASOPRESSIN INJ 40 UNITS in DEXTROSE 5% IN WATER 100ML INJ 98 ML IV SCH ×2 (17:20)
[2017-03-12] VITALS (17 sets, daily range): BP systolic 96–128; BP diastolic 55–80; PULSE 84–130; RESP 12–22; TEMP 98.7–99.7; O2SAT 96–100
[2017-03-12] MEDS: PROPOFOL 1000 MG/100 ML INJ 100 ML IV PRN ×2 (02:19→09:50)
[2017-03-12 04:37] LABS: AUTOMATED NEUTROPHIL # 9.1 TH/MM3 (1.8-7.7); BASOPHIL # 0.1 TH/MM3 (0-0.2); BASOPHIL % 0.9 % (0.0-2.0); EOSINOPHIL # 0.1 TH/MM3 (0-0.4); EOSINOPHIL % 1.1 % (0.0-4.0); HEMOGLOBIN 9.8 GM/DL (11.6-15.3); LYMPH % 9.4 % (9.0-44.0); MEAN CELL VOLUME 98.3 FL (80.0-100.0); MEAN CORPUSCULAR HEMOGLOBIN 33.3 PG (27.0-34.0); MEAN CORPUSCULAR HGB CONC 33.9 % (32.0-36.0); MEAN PLATELET VOLUME 10.7 FL (7.0-11.0); MONO % 5.8 % (0.0-8.0); MONOCYTE # 0.6 TH/MM3 (0-0.9); NEUT % 82.8 % (16.0-70.0); PLATELET COUNT 139 TH/MM3 (150-450); RED BLOOD COUNT 2.95 MIL/MM3 (4.00-5.30); RED CELL DISTRIBUTION WIDTH 16.2 % (11.6-17.2)
[2017-03-12 04:51] LABS: BICARBONATE 32.6 MEQ/L (21.0-32.0); CALCIUM 9.2 MG/DL (8.5-10.1); CREATININE 1.17 MG/DL (0.50-1.00)
[2017-03-12] MEDS: HEPARIN SODIUM - SQ 10,000 UNITS/ML VIAL SQ SCH ×3 (05:53→21:26)
[2017-03-12] MEDS: VANCOMYCIN 500 MG VIAL (FOR ORAL USE ONLY) PO SCH ×4 (05:53→18:00)
[2017-03-12] MEDS: CHLORHEXIDINE 0.12% (ORAL KIT) 15 ML CUP MT SCH ×2 (07:49→20:00)
[2017-03-12] MEDS: CEFEPIME INJ 2,000 MG in SODIUM CHLORIDE 0.9% INJ 100 ML IV SCH ×4 (07:51→15:55)
[2017-03-12] MEDS: SODIUM CHLORIDE 0.9% FLUSH 10 ML FLUSH IV FLUSH SCH ×2 (08:00→21:26)
[2017-03-12] MEDS: POTASSIUM CHLORIDE 20 MEQ PWD PACKET NG SCH ×2 (08:00→21:00)
[2017-03-12] MEDS: FAMOTIDINE 20 MG/2 ML VIAL IV PUSH SCH ×2 (08:00→21:26)
[2017-03-12] MEDS: POTASSIUM CHLOR 40 MEQ PREMIX 100 ML IV PRN ×2 (08:27→10:40)
--- NOTE | 2017-03-12 08:34 | HHI.CCPN ---
Subjective Remarks/Hospital Course 44-year-old female with history of alcohol use disorder liver cirrhosis, presents following a syncopal or near syncopal event at home. The patient reports that she's been ill for a couple days with vomiting and diarrhea. She has been febrile. She reportedly had an alteration in her level of consciousness at home tonight prompting her boyfriend called the rescue squad. EMS states that her heart rate was 180 on their arrival. She was normotensive. She also had a fever of 103. They treated her in route with IV fluids and Zofran. Patient reports some cough and some shortness of breath. She denies any other upper respiratory symptoms. She denies any urinary tract symptoms. Despite IV fluid resuscitation patient became hypotensive in the center line was placed by ED attending for Levophed administration. 02/28: Worsening respiratory distress requiring intubation and mechanical ventilation. Symptoms of ETOH withdrawal further complicate care. Fevers > 103 persist. 03/01: Gas exchange remains impaired. Blood with GNR bacteremia. CXR worse, diffuse process now.Urine output marginal. 03/02: Worsening radiograph, markedly impaired gas exchange. 03/03: Persistently elevated A-aO2 gradient, cultures negative so far. ADILSON not resolving and some element of respiratory failure is diffuse edema. Sure acts like sepsis, continue broad coverage. 03/04: ARDS. C. diff colitis. ADILSON. Continued deterioration. 03/05: ARDS. Sepsis. Heart failure. Back on APRV. 03/06: She has responded well to APRV and now back to PRVC with FiO2 50% CXR clearing slowly. Is this C. diff colitis with SIRS lungs or primary pneumonia? Did it all arise from Proteus UTI? Renal function improving and she is getting better slowly after milrinone started. Attempts to diurese before milrinone just worsened renal function. 03/07: Remains sedated, orally intubated on mechanical ventilation. 03/08: Serum concentration excessive, will back off diuresis and replace lytes. Gradual improvement in gas exchange. 03/09: Nice response to lasix gtt, cxr clearing. Continue SBT 03/10: Continued diuresis with clearing CXR and improved gas exchange. 03/11: Fever to 102 yesterday. Shift and bandemia persists. Improved gas exchange. 03/12: Gas exchange acceptable. Tolerating SBTs. Will extubate if more alert. Objective Vital Signs Date Time Temp Pulse Resp B/P (MAP) Pulse Ox O2 Delivery O2 Flow Rate FiO2 03/12/17 07:00 99 Mechanical Ventilator 40 03/12/17 06:00 90 03/12/17 04:00 99.2 13 105/55 (72) Intake and Output 03/12/17 03/12/17 03/13/17 08:00 16:00 00:00 Intake Total 440 ml Output Total 4200 ml Balance -3760 ml Result Diagram: 03/12/1742603/12/17426 Imaging Last Impressions Chest X-Ray 03/06/17 0400 Signed Impressions: Service Date/Time: Monday, March 06, 2017 04:08 - CONCLUSION: Interval intubation with slight improvement in lung volumes Jake Vanessa MD Abdomen/Pelvis CT 03/05/17 0000 Signed Impressions: Service Date/Time: Sunday, March 05, 2017 19:03 - CONCLUSION: 1. Diffuse prominent anasarca seen through the body wall. 2. There is nonspecific edema throughout the mesenteric fat within the abdomen and pelvis. 3. There is a trace of fluid around the liver and spleen. 4. Prominent bilateral interstitial infiltrates in both lung bases along with small bilateral effusions. Art Rojas MD Abdomen X-Ray 03/04/17 0000 Signed Impressions: Service Date/Time: Saturday, March 04, 2017 12:19 - CONCLUSION: 1. Suction type NGT in the stomach. 2. Stable nonspecific paucity of bowel gas. Rarely, this can be seen with fluid filled bowel loops. Randy Patricio MD Renal Ultrasound 03/03/17 0000 Signed Impressions: Service Date/Time: Friday, March 03, 2017 16:03 - CONCLUSION: Normal examination. 1. Gustavo Yusuf MD Objective Remarks GENERAL: Ill-appearing, less edematous patient. SKIN: Warm and dry. HEAD: Normocephalic. EYES: No conjunctival icterus. No injection or drainage. NECK: Supple, trachea midline. Orally intubated. CARDIOVASCULAR: Tachycardia. Regular rhythm without murmurs, gallops, or rubs. No JVD. RESPIRATORY: Breath sounds equal bilaterally. No wheezes or crackles. Improved air movement. Normal excursions. GASTROINTESTINAL: Abdomen soft, non-tender, nondistended. No guarding. BS few. No diarrhea. MUSCULOSKELETAL: No cyanosis. Trace generalized edema. Well perfused. NEURO EXAM: Lightly sedated for vent synchrony and control of withdrawal. Moves 4 limbs. Opens eyes, tracks. A/P Assessment and Plan Severe sepsis - Bilateral pulmonary infiltrate - broad Spectrum antibiotics - Culture and sensitivity - Infectious disease consult - Intubated 02/28, PRVC mode. - APRV mode 03/02/17 - PRVC, PEEP 18 03/04. - Milrinone started 03/04 to improve perfusion. @ 0.20 now Pneumonia - CXR with infiltrates - Broad-spectrum antibiotics - DuoNeb's when necessary and scheduled - Urine antigens to follow -> negative - No positive cultures or antigens. - CXR clearing. Alcoholism - Thiamine folate and multivitamins IV - Monitor for withdrawal - Librium scheduled, reduced to BID 03/03 Anxiety and depression - Ativan when necessary DVT GI prophylaxis - Teds SCDs - Subcutaneous heparin - Pepcid C. diff colitis - Oral vanc. Overall impression: Perfusion now improved and urine more acceptable. Arrived with Proteus UTI and Proteus blood cultures X 4. Only additional possible source is C. diff but never diarrhea. Renal function improving. Aim for extubation soon. Response to diuretics 24 liters now. Franco Medina MD Mar 12, 2017 08:33
[2017-03-12] MEDS: chlordiazePOXIDE 25 MG CAP PO SCH ×2 (12:08)
--- NOTE | 2017-03-12 13:38 | PD.TRANSFR ---
Transfer Summary Admission Date Feb 28, 2017 at 01:59 Transfer Date: Mar 13, 2017 Admitting Diagnosis Proteus UTI, bacteremia, septic shock, hypoxemic respiratory failure, ADILSON, hypokalemia Diagnoses: Significant Findings Proteus blood cults X 4, Proteus urine culture 02/28 Transfer Summary/Subjective Septic shock and hypoxemic respiratory failure requiring intubation and mechanical ventilation. Extubated 03/12. ID following. Objective Vital Signs Date Time Temp Pulse Resp B/P (MAP) Pulse Ox O2 Delivery O2 Flow Rate FiO2 03/12/17 12:47 99 Nasal Cannula 4.00 03/12/17 12:00 30 03/12/17 12:00 100 03/12/17 12:00 99.6 16 126/72 (90) Intake and Output 03/12/17 03/12/17 03/13/17 08:00 16:00 00:00 Intake Total 440 ml 200 ml Output Total 4200 ml Balance -3760 ml 200 ml Result Diagram: 03/12/17 0427 03/12/17 0427 Imaging Last Impressions Chest X-Ray 03/06/17 0400 Signed Impressions: Service Date/Time: Monday, March 06, 2017 04:08 - CONCLUSION: Interval intubation with slight improvement in lung volumes Jake Vanessa MD Abdomen/Pelvis CT 03/05/17 0000 Signed Impressions: Service Date/Time: Sunday, March 05, 2017 19:03 - CONCLUSION: 1. Diffuse prominent anasarca seen through the body wall. 2. There is nonspecific edema throughout the mesenteric fat within the abdomen and pelvis. 3. There is a trace of fluid around the liver and spleen. 4. Prominent bilateral interstitial infiltrates in both lung bases along with small bilateral effusions. Art Rojas MD Abdomen X-Ray 03/04/17 0000 Signed Impressions: Service Date/Time: Saturday, March 04, 2017 12:19 - CONCLUSION: 1. Suction type NGT in the stomach. 2. Stable nonspecific paucity of bowel gas. Rarely, this can be seen with fluid filled bowel loops. Randy Patricio MD Renal Ultrasound 03/03/17 0000 Signed Impressions: Service Date/Time: Friday, March 03, 2017 16:03 - CONCLUSION: Normal examination. 1. Gustavo Yusuf MD Objective Remarks GENERAL: Ill-appearing, less edematous patient. SKIN: Warm and dry. HEAD: Normocephalic. EYES: No conjunctival icterus. No injection or drainage. NECK: Supple, trachea midline. Orally intubated. CARDIOVASCULAR: Tachycardia. Regular rhythm without murmurs, gallops, or rubs. No JVD. RESPIRATORY: Breath sounds equal bilaterally. No wheezes or crackles. Improved air movement. Normal excursions. GASTROINTESTINAL: Abdomen soft, non-tender, nondistended. No guarding. BS few. No diarrhea. MUSCULOSKELETAL: No cyanosis. Trace generalized edema. Well perfused. NEURO EXAM: Lightly sedated for vent synchrony and control of withdrawal. Moves 4 limbs. Opens eyes, tracks. A/P Assessment and Plan Severe sepsis - Bilateral pulmonary infiltrate - broad Spectrum antibiotics - Culture and sensitivity - Infectious disease consult - Intubated 02/28, PRVC mode. - APRV mode 03/02/17 - PRVC, PEEP 18 03/04. - Milrinone started 03/04 to improve perfusion. @ 0.20 now Pneumonia - CXR with infiltrates - Broad-spectrum antibiotics - DuoNeb's when necessary and scheduled - Urine antigens to follow -> negative - No positive cultures or antigens. - CXR clearing. Alcoholism - Thiamine folate and multivitamins IV - Monitor for withdrawal - Librium scheduled, reduced to BID 03/03 Anxiety and depression - Ativan when necessary DVT GI prophylaxis - Teds SCDs - Subcutaneous heparin - Pepcid C. diff colitis - Oral vanc. Overall impression: Perfusion now improved and urine more acceptable. Arrived with Proteus UTI and Proteus blood cultures X 4. Only additional possible source is C. diff but never diarrhea. Renal function improving. Aim for extubation soon. Response to diuretics 24 liters now. Franco Medina MD Mar 12, 2017 13:37
[2017-03-12] MEDS: FUROSEMIDE INJ 100 MG in SODIUM CHLORIDE 0.9% INJ 90 ML IV SCH (16:03)
[2017-03-12] MEDS: VANCOMYCIN 1,000 MG/NS 250 ML IV SCH ×2 (16:08)
[2017-03-12] MEDS: VASOPRESSIN INJ 40 UNITS in DEXTROSE 5% IN WATER 100ML INJ 98 ML IV SCH ×2 (18:00)
[2017-03-13] VITALS (11 sets, daily range): BP systolic 95–148; BP diastolic 55–80; PULSE 76–122; RESP 17–36; TEMP 97.7–99.3; O2SAT 95–100
[2017-03-13] MEDS: CEFEPIME INJ 2,000 MG in SODIUM CHLORIDE 0.9% INJ 100 ML IV SCH ×2 (00:08→08:00)
[2017-03-13] MEDS: chlordiazePOXIDE 25 MG CAP PO SCH ×2 (00:08→12:00)
[2017-03-13 00:23] LABS: BICARBONATE 31.8 MEQ/L (21.0-32.0); CALCIUM 9.1 MG/DL (8.5-10.1); CREATININE 1.26 MG/DL (0.50-1.00)
[2017-03-13] MEDS: CHLORHEXIDINE GLUCONATE 2 % 1 PACK (2 CLOTHS) TOP SCH (03:17)
[2017-03-13] MEDS: VANCOMYCIN 500 MG VIAL (FOR ORAL USE ONLY) PO SCH ×4 (05:04→19:28)
[2017-03-13] MEDS: HEPARIN SODIUM - SQ 10,000 UNITS/ML VIAL SQ SCH ×3 (05:05→20:46)
[2017-03-13 07:08] LABS: CREATININE 1.23 MG/DL (0.50-1.00)
[2017-03-13] MEDS: POTASSIUM CHLOR 40 MEQ PREMIX 100 ML IV PRN ×2 (07:15→07:16)
[2017-03-13] MEDS: CHLORHEXIDINE 0.12% (ORAL KIT) 15 ML CUP MT SCH ×2 (08:00→20:00)
[2017-03-13] MEDS: POTASSIUM CHLORIDE 20 MEQ PWD PACKET NG SCH (09:00)
[2017-03-13] MEDS: FAMOTIDINE 20 MG/2 ML VIAL IV PUSH SCH ×2 (09:39→20:46)
[2017-03-13] MEDS: SODIUM CHLORIDE 0.9% FLUSH 10 ML FLUSH IV FLUSH SCH ×2 (09:39→20:48)
--- NOTE | 2017-03-13 13:44 | HHI.IDPN ---
Subjective Subjective Remarks pt is doing really well Extubated On NC O2 afebrile minimal amount of liquid stool denies abd pain Antibiotics VAnco PO cefepime vanco iv Lines Line sites with no e.o infection. Past Medical History reviewed Allergies: Coded Allergies: No Known Allergies (Unverified , 02/28/17) Objective . Vital Signs Date Time Temp Pulse Resp B/P (MAP) Pulse Ox O2 Delivery O2 Flow Rate FiO2 03/13/17 10:00 80 03/13/17 08:00 99.1 76 28 120/68 (85) 100 03/13/17 08:00 76 03/13/17 07:48 99 Nasal Cannula 4.00 03/13/17 07:00 99 Nasal Cannula 4.00 40 03/13/17 06:00 84 03/13/17 04:00 99.3 80 30 95/55 (68) 99 03/13/17 04:00 80 03/13/17 02:00 82 03/13/17 00:00 98.9 122 26 148/80 (102) 95 03/13/17 00:00 122 03/12/17 22:00 114 03/12/17 20:00 99.3 104 22 128/80 (96) 98 03/12/17 20:00 104 03/12/17 19:00 95 Nasal Cannula 4.00 03/12/17 18:00 98 03/12/17 16:00 94 03/12/17 16:00 99.2 94 16 116/66 (83) 96 03/12/17 14:00 93 . Laboratory Tests Test 03/12/17 04:27 White Blood Count 11.0 TH/MM3 Red Blood Count 2.95 MIL/MM3 Hemoglobin 9.8 GM/DL Hematocrit 29.0 % Mean Corpuscular Volume 98.3 FL Mean Corpuscular Hemoglobin 33.3 PG Mean Corpuscular Hemoglobin Concent 33.9 % Red Cell Distribution Width 16.2 % Platelet Count 139 TH/MM3 Mean Platelet Volume 10.7 FL Neutrophils (%) (Auto) 82.8 % Lymphocytes (%) (Auto) 9.4 % Monocytes (%) (Auto) 5.8 % Eosinophils (%) (Auto) 1.1 % Basophils (%) (Auto) 0.9 % Neutrophils # (Auto) 9.1 TH/MM3 Lymphocytes # (Auto) 1.0 TH/MM3 Monocytes # (Auto) 0.6 TH/MM3 Eosinophils # (Auto) 0.1 TH/MM3 Basophils # (Auto) 0.1 TH/MM3 CBC Comment DIFF FINAL Differential Comment Laboratory Tests Test 03/11/17 15:00 03/11/17 22:00 03/12/17 04:27 03/12/17 16:30 Blood Urea Nitrogen 21 MG/DL 23 MG/DL 25 MG/DL Creatinine 1.13 MG/DL 1.17 MG/DL 1.26 MG/DL Random Glucose 104 MG/DL 98 MG/DL 91 MG/DL Calcium Level 9.2 MG/DL 9.2 MG/DL 9.1 MG/DL Sodium Level 142 MEQ/L 144 MEQ/L 144 MEQ/L Potassium Level 3.3 MEQ/L 3.3 MEQ/L 3.2 MEQ/L 3.9 MEQ/L Chloride Level 99 MEQ/L 102 MEQ/L 106 MEQ/L Carbon Dioxide Level 36.3 MEQ/L 32.6 MEQ/L 31.8 MEQ/L Anion Gap 7 MEQ/L 9 MEQ/L 6 MEQ/L Estimat Glomerular Filtration Rate 51 ML/MIN 49 ML/MIN 45 ML/MIN Test 03/13/17 05:30 Potassium Level 3.1 MEQ/L Creatinine 1.23 MG/DL Estimat Glomerular Filtration Rate 47 ML/MIN Microbiology Date/Time Source Procedure Growth Status 03/10/17 16:00 Blood Peripheral Aerobic Blood Culture - Preliminary NO GROWTH IN 3 DAYS Resulted 03/10/17 16:00 Blood Peripheral Anaerobic Blood Culture - Preliminary NO GROWTH IN 3 DAYS Resulted 03/10/17 15:55 Blood Peripheral Aerobic Blood Culture - Preliminary NO GROWTH IN 3 DAYS Resulted 03/10/17 15:55 Blood Peripheral Anaerobic Blood Culture - Preliminary NO GROWTH IN 3 DAYS Resulted 03/10/17 16:00 Urine Clean Catch Urine Culture - Preliminary Yeast-Id To Follow Resulted Imaging Last Impressions Chest X-Ray 03/09/17 0400 Signed Impressions: Service Date/Time: Thursday, March 09, 2017 04:33 - CONCLUSION: 1. Mild density at the bases likely representing some residual atelectasis or consolidation. Overall, the aeration of the lungs has significantly improved. 2. ET tube and NG tube are well placed. Jake Calderon MD Abdomen/Pelvis CT 03/05/17 0000 Signed Impressions: Service Date/Time: Sunday, March 05, 2017 19:03 - CONCLUSION: 1. Diffuse prominent anasarca seen through the body wall. 2. There is nonspecific edema throughout the mesenteric fat within the abdomen and pelvis. 3. There is a trace of fluid around the liver and spleen. 4. Prominent bilateral interstitial infiltrates in both lung bases along with small bilateral effusions. Art Rojas MD Abdomen X-Ray 03/04/17 0000 Signed Impressions: Service Date/Time: Saturday, March 04, 2017 12:19 - CONCLUSION: 1. Suction type NGT in the stomach. 2. Stable nonspecific paucity of bowel gas. Rarely, this can be seen with fluid filled bowel loops. Randy Patricio MD Renal Ultrasound 03/03/17 0000 Signed Impressions: Service Date/Time: Friday, March 03, 2017 16:03 - CONCLUSION: Normal examination. 1. Gustavo Yusuf MD Physical Exam CONSTITUTIONAL/GENERAL: NAD TUBES/LINES/DRAINS: R SCV cath - site OK SKIN: No jaundice, rashes, or lesions. Resolved anasarca EYES: Pupils equal and round and reactive. Minimal scleral icterus. ENT: moist mucosae CARDIOVASCULAR: Regular tachycardia without murmurs, gallops, or rubs. No JVD. Peripheral pulses symmetric. RESPIRATORY/CHEST: Symmetric, unlabored respirations. Clear to auscultation. GASTROINTESTINAL: Abdomen tight not tender and not distended. No hepato- splenomegaly, or palpable masses. No guarding. Bowel sounds present. GENITOURINARY: Without palpable bladder distension. Aquino in place with clear yellow urine MUSCULOSKELETAL: Extremities without clubbing, cyanosis, trace edema . No mottling or clubbing. NEUROLOGICAL: fully awake and alert, + generalysed weakness PSYCHIATRIC: calm, appropriate Assessment & Plan Remarks Sepsis (neutropenia, fever, lactic acidosis) -Proteus bacteremia (GI from translocation across inflammed GI mucosa vs ) - clinical resolution of sepsis Proteus UTI / Pyelo with high grade bacteremia C.diff colitis - improved ARDS, resolved Acute VDRF, resolved ETOHism, resolved withdrawl Stableclinically Massively fluid overload - almost resolved New fever - ? source, w/u for CLABSI, CAUTI needed -- all repeat clx negative - fever resolved - WBC wnl Funguria in the settings of aquino and systemic broad spectrum abx: doubtr clin significance Recs - cont Vanco PO (Cdiff diarrhea ? colitis) x 14 days - monitor for C.diff relapse monitor clincally - dc cefepime, vanco IV - dc aquino when feasib le Discussed Condition With RN Ruth Maki Dr, MD Mar 13, 2017 13:44
--- NOTE | 2017-03-13 13:45 | HHI.PR ---
Subjective Remarks Primary complaint today is weakness. She is not reporting significant amounts of diarrhea today. She complains of nasal congestion. Objective Vital Signs Date Time Temp Pulse Resp B/P (MAP) Pulse Ox O2 Delivery O2 Flow Rate FiO2 03/13/17 10:00 80 03/13/17 08:00 99.1 76 28 120/68 (85) 100 03/13/17 08:00 76 03/13/17 07:48 99 Nasal Cannula 4.00 03/13/17 07:00 99 Nasal Cannula 4.00 40 03/13/17 06:00 84 03/13/17 04:00 99.3 80 30 95/55 (68) 99 03/13/17 04:00 80 03/13/17 02:00 82 03/13/17 00:00 98.9 122 26 148/80 (102) 95 03/13/17 00:00 122 03/12/17 22:00 114 03/12/17 20:00 99.3 104 22 128/80 (96) 98 03/12/17 20:00 104 03/12/17 19:00 95 Nasal Cannula 4.00 03/12/17 18:00 98 03/12/17 16:00 94 03/12/17 16:00 99.2 94 16 116/66 (83) 96 03/12/17 14:00 93 I/O 03/12/17 03/12/17 03/12/17 03/13/17 03/13/17 03/13/17 07:00 15:00 23:00 07:00 15:00 23:00 Intake Total 440 ml 400 ml 1227 ml 161 ml Output Total 4200 ml 2850 ml 2400 ml Balance -3760 ml 400 ml -1623 ml -2239 ml Intake Oral 0 ml IV Total 400 ml 450 ml 161 ml Tube Feeding 240 ml 657 ml Other 200 ml 120 ml Output Urine Total 4200 ml 2850 ml 2400 ml # Bowel Movements 0 Result Diagram: 03/12/17 0427 03/13/17 0530 Objective Remarks GENERAL: NAD, A&Ox3 HEAD: Normocephalic. NECK: Supple, trachea midline. No lymphadenopathy. EYES: No scleral icterus. No injection or drainage. CARDIOVASCULAR: Regular rate and rhythm without murmurs, gallops, or rubs. RESPIRATORY: Breath sounds equal bilaterally. No accessory muscle use. GASTROINTESTINAL: Abdomen soft, non-tender, nondistended. MUSCULOSKELETAL: No cyanosis. Peripheral edema in arms and legs SKIN: Warm and dry. NEURO: No focal neurological deficitis. Global weakness, unable to use arms effectively. A/P Problem List: (1) Acute kidney injury ICD Code: N17.9 - Acute kidney failure, unspecified Status: Acute (2) Pneumonia ICD Code: J18.9 - Pneumonia, unspecified organism Status: Acute (3) Hypokalemia ICD Code: E87.6 - Hypokalemia Status: Acute (4) Septic shock ICD Code: A41.9 - Sepsis, unspecified organism; R65.21 - Severe sepsis with septic shock Status: Acute (5) Alcohol abuse with alcohol-induced mood disorder ICD Code: F10.14 - Alcohol abuse with alcohol-induced mood disorder Status: Acute (6) Alcohol abuse ICD Code: F10.10 - Alcohol abuse, uncomplicated Status: Acute (7) Elevated LFTs ICD Code: R79.89 - Other specified abnormal findings of blood chemistry Status: Acute (8) Alcohol intoxication ICD Code: F10.929 - Alcohol use, unspecified with intoxication, unspecified Status: Acute Assessment and Plan Assessment and Plan 46-year-old female admitted secondary to severe sepsis related to pneumonia with respiratory failure. Currently under treatment for C. difficile. Global weakness status post prolonged intubation. Severe sepsis Resolved Pneumonia Continue cefepime C. difficile colitis Continue by mouth vancomycin Follow clinically Peripheral edema Likely related to sepsis and necessity for hydration in that setting Alcoholism Continue thiamine Continue folic acid Continue multivitamin Follow clinically for withdrawal symptoms Wean Librium as tolerated Anxiety and depression As needed Ativan continued DVT prophylaxis Subcutaneous heparin SCDs Discharge Planning Assessment and Plan 46-year-old female admitted secondary to respiratory failure, severe sepsis, and pneumonia. Now under treatment for C. difficile and status post extubation. Severe sepsis Resolved Peripheral edema Start twice a day Lasix Pneumonia Continue cefepime Follow clinically C. difficile colitis Continue by mouth vancomycin Follow clinically Alcoholism Continue thiamine Continue folic acid Continue multivitamin Monitor for withdrawal symptoms Wean Librium as tolerated Anxiety and depression Continue Ativan as needed Global weakness Status post prolonged intubation state PT and OT Rhinorrhea Antihistamine started DVT prophylaxis Heparin SCDs Problem Qualifiers (1) Pneumonia: Qualified Codes: J18.1 - Lobar pneumonia, unspecified organism Abhay Melo MD Mar 13, 2017 13:45
[2017-03-13] MEDS ORDERED: PHARMACY ORDERED LAB ONE (15:45)
[2017-03-13 16:12] LABS: VANCOMYCIN TROUGH 12.8 MCG/ML (5.0-10.0)
[2017-03-13] MEDS ORDERED: MIDODRINE 5 MG TAB PO PRN (19:00)
[2017-03-13] MEDS: FUROSEMIDE 20 MG/2 ML VIAL IV PUSH SCH (19:26)
[2017-03-13] MEDS: LORATADINE 10 MG TAB PO SCH (20:44)
[2017-03-14] VITALS: BP 100/59; PULSE 80; RESP 17; TEMP 99; O2SAT 99
[2017-03-14] MEDS: VANCOMYCIN 500 MG VIAL (FOR ORAL USE ONLY) PO SCH ×4 (00:35→17:55)
[2017-03-14 04:00] VITALS: BP 99/60; PULSE 81; RESP 16; TEMP 99.1; O2SAT 99
[2017-03-14] MEDS: CHLORHEXIDINE GLUCONATE 2 % 1 PACK (2 CLOTHS) TOP SCH (04:00)
[2017-03-14] MEDS: HEPARIN SODIUM - SQ 10,000 UNITS/ML VIAL SQ SCH ×3 (05:16→22:06)
[2017-03-14 07:07] LABS: HEMATOCRIT 29.5 % (35.0-46.0); MEAN CELL VOLUME 98.4 FL (80.0-100.0); MEAN CORPUSCULAR HEMOGLOBIN 33.3 PG (27.0-34.0); MEAN CORPUSCULAR HGB CONC 33.8 % (32.0-36.0); MEAN PLATELET VOLUME 10.9 FL (7.0-11.0); PLATELET COUNT 209 TH/MM3 (150-450); RED BLOOD COUNT 2.99 MIL/MM3 (4.00-5.30); RED CELL DISTRIBUTION WIDTH 15.4 % (11.6-17.2); WHITE BLOOD COUNT 9.5 TH/MM3 (4.0-11.0)
[2017-03-14] MEDS: CHLORHEXIDINE 0.12% (ORAL KIT) 15 ML CUP MT SCH ×2 (07:13→20:00)
[2017-03-14 07:52] LABS: BICARBONATE 32.7 MEQ/L (21.0-32.0); CALCIUM 9.4 MG/DL (8.5-10.1); CREATININE 1.09 MG/DL (0.50-1.00)
[2017-03-14 08:00] VITALS: BP 100/58; PULSE 74; RESP 17; TEMP 98.8; O2SAT 99
[2017-03-14] MEDS: SODIUM CHLORIDE 0.9% FLUSH 10 ML FLUSH IV FLUSH SCH ×2 (08:46→22:07)
[2017-03-14] MEDS: FUROSEMIDE 20 MG/2 ML VIAL IV PUSH SCH ×2 (08:46→17:55)
[2017-03-14] MEDS: FAMOTIDINE 20 MG/2 ML VIAL IV PUSH SCH ×2 (08:46→22:07)
--- NOTE | 2017-03-14 10:33 | HHI.PR ---
Subjective Remarks In bed, appears in nad. No fever or chills. Denies nausea or vomiting eating well. Productive cough whitish sputum. No Chest pain , sob improved. Objective Vitals Vital Signs Date Time Temp Pulse Resp B/P (MAP) Pulse Ox O2 Delivery O2 Flow Rate FiO2 03/14/17 08:57 Nasal Cannula 3.00 03/14/17 08:00 98.8 74 17 100/58 (72) 99 03/14/17 04:00 99.1 81 16 99/60 (73) 99 03/14/17 00:00 99.0 80 17 100/59 (73) 99 03/13/17 20:00 97.7 90 17 102/60 (74) 100 03/13/17 17:04 96 Nasal Cannula 4.00 03/13/17 16:00 78 03/13/17 16:00 98.7 79 25 110/63 (79) 100 03/13/17 14:00 100 03/13/17 12:00 82 03/13/17 12:00 98.8 100 36 117/72 (87) 100 I/O 03/13/17 03/13/17 03/13/17 03/14/17 03/14/17 03/14/17 07:00 15:00 23:00 07:00 15:00 23:00 Intake Total 161 ml 300 ml 995 ml 600 ml Output Total 2400 ml 2320 ml 1700 ml Balance -2239 ml 300 ml -1325 ml -1100 ml Intake Oral 540 ml 600 ml IV Total 161 ml 300 ml 455 ml Output Urine Total 2400 ml 2300 ml 1700 ml Stool Total 20 ml # Bowel Movements 0 Result Diagram: 03/14/17 0530 03/14/17 0530 Imaging Last Impressions Chest X-Ray 03/09/17 0400 Signed Impressions: Service Date/Time: Thursday, March 09, 2017 04:33 - CONCLUSION: 1. Mild density at the bases likely representing some residual atelectasis or consolidation. Overall, the aeration of the lungs has significantly improved. 2. ET tube and NG tube are well placed. Jake Calderon MD Abdomen/Pelvis CT 03/05/17 0000 Signed Impressions: Service Date/Time: Sunday, March 05, 2017 19:03 - CONCLUSION: 1. Diffuse prominent anasarca seen through the body wall. 2. There is nonspecific edema throughout the mesenteric fat within the abdomen and pelvis. 3. There is a trace of fluid around the liver and spleen. 4. Prominent bilateral interstitial infiltrates in both lung bases along with small bilateral effusions. Art Rojas MD Abdomen X-Ray 03/04/17 0000 Signed Impressions: Service Date/Time: Saturday, March 04, 2017 12:19 - CONCLUSION: 1. Suction type NGT in the stomach. 2. Stable nonspecific paucity of bowel gas. Rarely, this can be seen with fluid filled bowel loops. Randy Patricio MD Renal Ultrasound 03/03/17 0000 Signed Impressions: Service Date/Time: Friday, March 03, 2017 16:03 - CONCLUSION: Normal examination. 1. Gustavo Yusuf MD Objective Remarks GENERAL: Pleasant patient in NAD, A&Ox3 CARDIOVASCULAR: Regular rate and rhythm without murmurs, gallops, or rubs. RESPIRATORY: Breath sounds equal bilaterally. No accessory muscle use. GASTROINTESTINAL: Abdomen soft, non-tender, nondistended. MUSCULOSKELETAL: No cyanosis. Peripheral edema in arms and legs SKIN: Warm and dry. NEURO: No focal neurological deficitis. Global weakness, unable to use arms effectively. A/P Assessment and Plan 46-year-old female admitted secondary to severe sepsis related to pneumonia with respiratory failure. Currently under treatment for C. difficile. Global weakness status post prolonged intubation. Severe sepsis Resolved Pneumonia Continue cefepime C. difficile colitis Continue by mouth vancomycin Follow clinically Peripheral edema Likely related to sepsis and necessity for hydration in that setting Alcoholism Continue thiamine Continue folic acid Continue multivitamin Follow clinically for withdrawal symptoms Wean Librium as tolerated Anxiety and depression As needed Ativan continued DVT prophylaxis Subcutaneous heparin SCDs Discharge Planning Improving. DC when cleared by Id specialist. ambulating DC home Adrianna Morales MD Mar 14, 2017 10:32
[2017-03-14 12:00] VITALS: BP 101/65; PULSE 82; RESP 17; TEMP 98.9; O2SAT 99
[2017-03-14 16:00] VITALS: BP 105/64; PULSE 78; RESP 17; TEMP 98; O2SAT 98
[2017-03-14 21:07] VITALS: BP 101/60; PULSE 99; RESP 20; TEMP 97.6; O2SAT 95
[2017-03-14] MEDS: LORATADINE 10 MG TAB PO SCH (22:06)
[2017-03-15] VITALS (7 sets, daily range): BP systolic 87–117; BP diastolic 51–69; PULSE 80–96; RESP 16–20; TEMP 97.4–99.4; O2SAT 96–99
[2017-03-15] MEDS: VANCOMYCIN 500 MG VIAL (FOR ORAL USE ONLY) PO SCH ×4 (00:25→19:06)
[2017-03-15] MEDS: CHLORHEXIDINE GLUCONATE 2 % 1 PACK (2 CLOTHS) TOP SCH (04:00)
[2017-03-15] MEDS: HEPARIN SODIUM - SQ 10,000 UNITS/ML VIAL SQ SCH ×3 (05:39→21:01)
[2017-03-15 06:49] LABS: CREATININE 0.99 MG/DL (0.50-1.00)
[2017-03-15] MEDS: CHLORHEXIDINE 0.12% (ORAL KIT) 15 ML CUP MT SCH ×2 (08:00→20:00)
[2017-03-15] MEDS: FUROSEMIDE 20 MG/2 ML VIAL IV PUSH SCH (08:40)
[2017-03-15] MEDS: FAMOTIDINE 20 MG/2 ML VIAL IV PUSH SCH (08:41)
[2017-03-15] MEDS: SODIUM CHLORIDE 0.9% FLUSH 10 ML FLUSH IV FLUSH SCH ×2 (08:44→21:01)
[2017-03-15] MEDS ORDERED: MIDO5TAB PO (10:36)
[2017-03-15] MEDS ORDERED: FURO1TAB62 PO (10:36)
[2017-03-15] MEDS ORDERED: CLAR10TA7 PO (10:36)
[2017-03-15] MEDS ORDERED: VANC500I3 PO (10:36)
[2017-03-15] MEDS ORDERED: CHLO5CAP4 PO (10:36)
--- NOTE | 2017-03-15 10:36 | HHI.DS ---
Discharge Summary Admission Date Feb 28, 2017 at 01:59 Admitting Diagnosis Proteus UTI, bacteremia, septic shock, hypoxemic respiratory failure, ADILSON, hypokalemia Brief History - From Admission 44-year-old female with history of alcohol use disorder liver cirrhosis, presents following a syncopal or near syncopal event at home. The patient reports that she's been ill for a couple days with vomiting and diarrhea. She has been febrile. She reportedly had an alteration in her level of consciousness at home tonight prompting her boyfriend called the rescue squad. EMS states that her heart rate was 180 on their arrival. She was normotensive. She also had a fever of 103. They treated her in route with IV fluids and Zofran. Patient reports some cough and some shortness of breath. She denies any other upper respiratory symptoms. She denies any urinary tract symptoms. Despite IV fluid resuscitation patient became hypotensive in the center line was placed by ED attending for Levophed administration. CBC/BMP: 03/14/17 0530 03/15/17 0600 Significant Findings Laboratory Tests Test 03/12/17 16:30 03/13/17 05:30 03/13/17 15:30 03/14/17 05:30 Blood Urea Nitrogen 25 MG/DL (7-18) 22 MG/DL (7-18) Creatinine 1.26 MG/DL (0.50-1.00) 1.23 MG/DL (0.50-1.00) 1.09 MG/DL (0.50-1.00) Estimat Glomerular Filtration Rate 45 ML/MIN (>89) 47 ML/MIN (>89) 54 ML/MIN (>89) Potassium Level 3.1 MEQ/L (3.5-5.1) 3.1 MEQ/L (3.5-5.1) Vancomycin Level Trough 12.8 MCG/ML (5.0-10.0) Red Blood Count 2.99 MIL/MM3 (4.00-5.30) Hemoglobin 10.0 GM/DL (11.6-15.3) Hematocrit 29.5 % (35.0-46.0) Chloride Level 96 MEQ/L (98-107) Carbon Dioxide Level 32.7 MEQ/L (21.0-32.0) Test 03/14/17 07:35 03/15/17 06:00 Estimat Glomerular Filtration Rate 60 ML/MIN (>89) PE at Discharge GENERAL: Pleasant patient in NAD, A&Ox3 CARDIOVASCULAR: Regular rate and rhythm without murmurs, gallops, or rubs. RESPIRATORY: Breath sounds equal bilaterally. No accessory muscle use. GASTROINTESTINAL: Abdomen soft, non-tender, nondistended. MUSCULOSKELETAL: No cyanosis. Peripheral edema in arms and legs SKIN: Warm and dry. NEURO: No focal neurological deficitis. Global weakness, unable to use arms effectively. Transfer Summary Septic shock and hypoxemic respiratory failure requiring intubation and mechanical ventilation. Extubated 03/12. ID following. Pt Condition on Discharge: Stable Discharge Disposition: Discharge to SNF Discharge Instructions DIET: Follow Instructions for: Heart Healthy Diet Speech Therapy-Diet Recommends: Pureed Activities you can perform: Regular-No Restrictions Adrianna Morales MD Mar 15, 2017 10:36
[2017-03-15] MEDS ORDERED: NALOXONE HCL 0.4 MG/ML AMP IV PUSH PRN (14:30)
--- NOTE | 2017-03-15 14:33 | HHI.PR ---
Subjective Remarks In bed, says she has back pain and is asking for pain meds. No fever or chills. No n/v/d/c. She is not able to ambulate. Will ask PT to walk bid with the patient for improvement. Objective Vitals Vital Signs Date Time Temp Pulse Resp B/P (MAP) Pulse Ox O2 Delivery O2 Flow Rate FiO2 03/15/17 12:00 97.6 85 17 104/65 (78) 98 03/15/17 09:53 112/61 (78) 03/15/17 08:00 98.6 85 17 87/51 (63) 96 03/15/17 04:06 97.4 80 20 108/68 (81) 98 03/15/17 00:18 99.2 80 20 111/69 (83) 99 03/14/17 22:01 98 Nasal Cannula 3.00 03/14/17 21:07 97.6 99 20 101/60 (74) 95 03/14/17 16:00 98.0 78 17 105/64 (78) 98 I/O 03/14/17 03/14/17 03/14/17 03/15/17 03/15/17 03/15/17 07:00 15:00 23:00 07:00 15:00 23:00 Intake Total 600 ml 1200 ml 600 ml Output Total 1700 ml 1050 ml 1000 ml Balance -1100 ml 150 ml -400 ml Intake Oral 600 ml 1200 ml 600 ml Output Urine Total 1700 ml 1050 ml 1000 ml # Bowel Movements 0 Result Diagram: 03/14/17 0530 03/15/17 0600 Imaging Last Impressions Chest X-Ray 03/09/17 0400 Signed Impressions: Service Date/Time: Thursday, March 09, 2017 04:33 - CONCLUSION: 1. Mild density at the bases likely representing some residual atelectasis or consolidation. Overall, the aeration of the lungs has significantly improved. 2. ET tube and NG tube are well placed. Jake Calderon MD Abdomen/Pelvis CT 03/05/17 0000 Signed Impressions: Service Date/Time: Sunday, March 05, 2017 19:03 - CONCLUSION: 1. Diffuse prominent anasarca seen through the body wall. 2. There is nonspecific edema throughout the mesenteric fat within the abdomen and pelvis. 3. There is a trace of fluid around the liver and spleen. 4. Prominent bilateral interstitial infiltrates in both lung bases along with small bilateral effusions. Art Rojas MD Abdomen X-Ray 03/04/17 0000 Signed Impressions: Service Date/Time: Saturday, March 04, 2017 12:19 - CONCLUSION: 1. Suction type NGT in the stomach. 2. Stable nonspecific paucity of bowel gas. Rarely, this can be seen with fluid filled bowel loops. Randy Patricio MD Renal Ultrasound 03/03/17 0000 Signed Impressions: Service Date/Time: Friday, March 03, 2017 16:03 - CONCLUSION: Normal examination. 1. Gustavo Yusuf MD Objective Remarks GENERAL: Pleasant patient in NAD, A&Ox3 CARDIOVASCULAR: Regular rate and rhythm without murmurs, gallops, or rubs. RESPIRATORY: Breath sounds equal bilaterally. No accessory muscle use. GASTROINTESTINAL: Abdomen soft, non-tender, nondistended. MUSCULOSKELETAL: No cyanosis. Peripheral edema in arms and legs SKIN: Warm and dry. NEURO: No focal neurological deficitis. Global weakness, unable to use arms effectively. A/P Assessment and Plan 46-year-old female admitted secondary to severe sepsis related to pneumonia with respiratory failure. Currently under treatment for C. difficile. Global weakness status post prolonged intubation. Severe sepsis Resolved Pneumonia Continue cefepime C. difficile colitis Continue by mouth vancomycin, finishing course of abx 03/15/17 Follow clinically Peripheral edema Likely related to sepsis and necessity for hydration in that setting Alcoholism Continue thiamine Continue folic acid Continue multivitamin Follow clinically for withdrawal symptoms Wean Librium as tolerated Anxiety and depression As needed Ativan continued DVT prophylaxis Subcutaneous heparin SCDs Discharge Planning Improving. DC when cleared by Id specialist. ambulating DC home PT bid until improves Adrianna Morales MD Mar 15, 2017 14:33
[2017-03-15] MEDS ORDERED: POTASSIUM CHLORIDE 20 MEQ CONTROLLED RELEASE TAB PO ONE (14:45)
--- NOTE | 2017-03-15 17:43 | PD.WCN.NOT ---
Wound Consult Description: Consult for Wound Management of buttocks per Dr Morales Communicated with: Dr Andrew Mcguire,RN Recommendation: Apply antifungal cream to bilateral buttocks and upper thighs BID and PRN Additional Information: Patient seen on for evaluation of buttocks. Patient was able to assist in turning to her right side and then her left side for visualization of bilateral buttocks and upper thighs. There is a rash noted to bilateral buttocks and upper thighs with satellite lesions noted indicating a fungal etiology. All areas of erythema are blanchable. There were no open areas noted at this time. Jessi Dickerson [facility] Mar 15, 2017 17:43
--- NOTE | 2017-03-15 17:43 | PD.WCN.NOT ---
Wound Consult Description: Consult for Wound Management of buttocks per Dr Morales Communicated with: Dr Andrew Mcguire,RN Recommendation: Apply antifungal cream to bilateral buttocks and upper thighs BID and PRN Additional Information: Patient seen on for evaluation of buttocks. Patient was able to assist in turning to her right side and then her left side for visualization of bilateral buttocks and upper thighs. There is a rash noted to bilateral buttocks and upper thighs with satellite lesions noted indicating a fungal etiology. All areas of erythema are blanchable. There were no open areas noted at this time. Jessi Dickerson [facility] Mar 15, 2017 17:43
--- NOTE | 2017-03-15 17:43 | PD.WCN.NOT ---
Wound Consult Description: Consult for Wound Management of buttocks per Dr Morales Communicated with: Dr Andrew Mcguire,RN Recommendation: Apply antifungal cream to bilateral buttocks and upper thighs BID and PRN Additional Information: Patient seen on for evaluation of buttocks. Patient was able to assist in turning to her right side and then her left side for visualization of bilateral buttocks and upper thighs. There is a rash noted to bilateral buttocks and upper thighs with satellite lesions noted indicating a fungal etiology. All areas of erythema are blanchable. There were no open areas noted at this time. Jessi Dickerson [facility] Mar 15, 2017 17:43
[2017-03-15] MEDS: FUROSEMIDE 20 MG TAB PO SCH (19:09)
[2017-03-15] MEDS: FAMOTIDINE 20 MG TAB PO SCH (21:00)
[2017-03-15] MEDS: LORATADINE 10 MG TAB PO SCH (21:00)
[2017-03-16] VITALS: BP 92/52; PULSE 85; RESP 16; TEMP 98.1; O2SAT 96
[2017-03-16] MEDS ORDERED: ALTEPLASE RECOMBINANT 2 MG VIAL INTRACATH ONE (02:30)
[2017-03-16] MEDS: CHLORHEXIDINE GLUCONATE 2 % 1 PACK (2 CLOTHS) TOP SCH (04:00)
[2017-03-16] MEDS: IBUPROFEN 400 MG TAB PO PRN (05:49)
[2017-03-16] MEDS: HEPARIN SODIUM - SQ 10,000 UNITS/ML VIAL SQ SCH ×3 (05:50→22:02)
[2017-03-16 08:00] VITALS: BP 97/60; PULSE 74; RESP 16; TEMP 97.9; O2SAT 95
[2017-03-16] MEDS: CHLORHEXIDINE 0.12% (ORAL KIT) 15 ML CUP MT SCH ×2 (08:00→20:00)
[2017-03-16] MEDS: POTASSIUM CHLORIDE 20 MEQ CONTROLLED RELEASE TAB PO SCH (09:43)
[2017-03-16] MEDS: FUROSEMIDE 20 MG TAB PO SCH (09:43)
[2017-03-16] MEDS: FAMOTIDINE 20 MG TAB PO SCH ×2 (09:43→20:12)
[2017-03-16] MEDS: SODIUM CHLORIDE 0.9% FLUSH 10 ML FLUSH IV FLUSH SCH ×2 (09:44→20:12)
[2017-03-16] MEDS ORDERED: ULTR50TA5 PO (09:56)
--- NOTE | 2017-03-16 10:02 | HHI.PR ---
Subjective Remarks Patient in the chair, says she has back pain and ibuprofen doesn't work much .No n/v/d/c. Says has tried ultram in the pas and is a week narcotic would like to have so she will do more PT. Crying says she is depressed,. will consult psych Objective Vitals Vital Signs Date Time Temp Pulse Resp B/P (MAP) Pulse Ox O2 Delivery O2 Flow Rate FiO2 03/16/17 08:00 97.9 74 16 97/60 (72) 95 03/16/17 00:00 98.1 85 16 92/52 (65) 96 03/15/17 20:00 Room Air 03/15/17 20:00 99.4 96 16 117/66 (83) 96 03/15/17 16:00 97.9 87 17 108/66 (80) 98 03/15/17 12:00 97.6 85 17 104/65 (78) 98 I/O 03/15/17 03/15/17 03/15/17 03/16/17 03/16/17 03/16/17 07:00 15:00 23:00 07:00 15:00 23:00 Intake Total 600 ml 600 ml Output Total 1000 ml 900 ml Balance -400 ml -300 ml Intake Oral 600 ml 600 ml Output Urine Total 1000 ml 900 ml # Voids 3 2 # Bowel Movements 3 1 Result Diagram: 03/14/17 0530 03/15/17 0600 Imaging Last Impressions Chest X-Ray 03/09/17 0400 Signed Impressions: Service Date/Time: Thursday, March 09, 2017 04:33 - CONCLUSION: 1. Mild density at the bases likely representing some residual atelectasis or consolidation. Overall, the aeration of the lungs has significantly improved. 2. ET tube and NG tube are well placed. Jake Calderon MD Abdomen/Pelvis CT 03/05/17 0000 Signed Impressions: Service Date/Time: Sunday, March 05, 2017 19:03 - CONCLUSION: 1. Diffuse prominent anasarca seen through the body wall. 2. There is nonspecific edema throughout the mesenteric fat within the abdomen and pelvis. 3. There is a trace of fluid around the liver and spleen. 4. Prominent bilateral interstitial infiltrates in both lung bases along with small bilateral effusions. Art Rojas MD Abdomen X-Ray 03/04/17 0000 Signed Impressions: Service Date/Time: Saturday, March 04, 2017 12:19 - CONCLUSION: 1. Suction type NGT in the stomach. 2. Stable nonspecific paucity of bowel gas. Rarely, this can be seen with fluid filled bowel loops. Randy Patricio MD Renal Ultrasound 03/03/17 0000 Signed Impressions: Service Date/Time: Friday, March 03, 2017 16:03 - CONCLUSION: Normal examination. 1. Gustavo Yusuf MD Objective Remarks GENERAL: Pleasant patient in NAD, A&Ox3. crying appears depressed CARDIOVASCULAR: Regular rate and rhythm without murmurs, gallops, or rubs. RESPIRATORY: Breath sounds equal bilaterally. No accessory muscle use. GASTROINTESTINAL: Abdomen soft, non-tender, nondistended. MUSCULOSKELETAL: No cyanosis. Peripheral edema in arms and legs SKIN: Warm and dry. NEURO: No focal neurological deficitis. Global weakness, unable to use arms effectively. A/P Assessment and Plan 46-year-old female admitted secondary to severe sepsis related to pneumonia with respiratory failure. Currently under treatment for C. difficile. Global weakness status post prolonged intubation. Severe sepsis Resolved Pneumonia Continue cefepime C. difficile colitis Continue by mouth vancomycin, finished course of abx 03/15/17 Follow clinically Peripheral edema Likely related to sepsis and necessity for hydration in that setting Alcoholism Continue thiamine Continue folic acid Continue multivitamin Follow clinically for withdrawal symptoms Wean Librium as tolerated Anxiety and depression. As needed Ativan continued. Consult psych for evaluation as patient is not better, she is crying at this time DVT prophylaxis Subcutaneous heparin SCDs Discharge Planning Improving. DC when cleared by Id specialist. PT bid until improves as patient needed assistance with ambulation PT recommended SNF however difficult DC. Patient with back pain will give ultram, also Flexeril at night. Patient to have BID PT until improves and safe for DC Adrianna Morales MD Mar 16, 2017 10:02
[2017-03-16 12:00] VITALS: BP 108/69; PULSE 78; RESP 16; TEMP 98; O2SAT 93
[2017-03-16] MEDS: traMADol HCL 50 MG TAB PO PRN ×2 (12:19→20:11)
[2017-03-16 16:00] VITALS: BP 124/79; PULSE 101; RESP 17; TEMP 97.2; O2SAT 98
--- NOTE | 2017-03-16 17:01 | PD.PSY.CON ---
Provisional Diagnosis Admission Date Feb 28, 2017 at 01:59 [place] I. 1. Adjustment disorder with anxiety 2. Alcohol abuse [place] II. Deferred History of Present Illness Service Psychiatry Consult Requested By Dr. Morales Reason for Consult "Depression, crying for meds at DC" Primary Care Physician No Primary Care Physician HPI Ms. Ospina is a 46-year-old female with a reported history of anxiety previously well managed with Zoloft and alcohol use issues who presented initially with syncope and fever, found to have sepsis and pneumonia. Fairly extended hospital course complicated by C. difficile colitis, possibly with some degree of delirium. Reviewing the electronic medical record, I note that the patient was seen in consultation by Dr. Scott in October of this year at which time he diagnosed an alcohol-induced mood disorder. Patient seen and examined. Chart reviewed. Case discussed with nursing staff. No significant behavioral issues noted. Nurse notes that the patient is concerned about her discharge plan. On my examination today, the patient reports "my main worry is trying to hang in there for a few more days so I can do this on my own, but they're talking about releasing me today." She admits to anxiety regarding disposition. This is chiefly generalized, and the patient does not describe any panic symptoms. She does describe some associated sleep disturbance. Mood is described as "rather good" and I can elicit no significant depressive or hypomanic/manic symptoms at this time. She denies any suicidal or homicidal ideation, intent or plan. Sleep and appetite are reportedly fair. The patient admits that earlier in the hospital stay she was quite confused and may have even hallucinated at times, but currently she denies audiovisual hallucinations. No delusional material. The remainder of the psychiatric ROS is negative. Past psychiatric history: The patient reports a history of anxiety. This was apparently previously managed by Zoloft at a dose of 100 mg daily by her general practitioner and she felt this was quite helpful. She is not currently under the care of a psychiatrist. She denies a history of psychiatric admissions or suicide attempts. Family history: The patient reports that she was adopted at and knows nothing of her biological family history. Chemical dependency history: The patient reports that she drinks 1 pint of liquor every other day. She does endorse a history of a withdrawal seizure in the past but no reported history of DTs. Her longest sober time is 8 months. She did try AA. Denies any other significant substance use although she does report that she "mess[es] around" with other substances from time to time. Social history: The patient lives with her boyfriend Norman. She has a pet dog. She has a son. 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 Denies any access to guns or firearms. Denies any history. Denies any legal history. She describes herself as more spiritual now than in the past. Mental status testing: Registration 3 out of 3 and recall 3 out of 3 at 3 minutes. Oriented to person, place and date. Able to spell world forward and backward. Able to name 2 items and repeat a phrase. Able to name the current president and the preceding president. Review of Systems Except as stated in HPI: all other systems reviewed are Neg Past Family Social History Coded Allergies: No Known Allergies (Unverified , 02/28/17) Past Medical History See electronic medical record Active Scripts Tramadol (Ultram) 50 Mg Tab, 50 MG PO Q8H Y for PAIN, #14 TAB 0 Refills Prov:Adrianna Morales MD 03/16/17 Loratadine (Claritin) 10 Mg Tablet, 10 MG PO HS for antihistaminic, #30 MG Prov:Adrianna Morales MD 03/15/17 Furosemide (Lasix) 20 Mg Tab, 20 MG PO DAILY for edema , #30 TAB 0 Refills Prov:Adrianna Morales MD 03/15/17 Chlordiazepoxide HCl (Chlordiazepoxide HCl) 5 Mg Capsule, 5 MG PO Q8H for withdrawals , #15 MG Prov:Adrianna Morales MD 03/15/17 Midodrine (Midodrine) 5 Mg Tab, 10 MG PO Q6H Y for Systolic BP less than 90 mmHg , #30 TAB Prov:Adrianna Morales MD 03/15/17 Current Medications Medications (Trade) Dose Ordered Sig/Sona Route Start Time Stop Time Status Last Admin (NS Flush) 2 ml UNSCH PRN IV FLUSH 02/28/17 02:30 (NS Flush) 2 ml BID IV FLUSH 02/28/17 09:00 03/16/17 09:44 (Duoneb Neb) 1 ampule Q2HR NEB PRN NEB 02/28/17 03:00 03/07/17 19:55 (Heparin Inj) 5,000 units Q8HR SQ 02/28/17 06:00 03/16/17 12:57 Miscellaneous Information 1 Q361D XX 02/28/17 02:30 (Chlorhexidine 2% Cloth) Taper DAILY@04 TOP 02/28/17 04:00 02/24/18 03:59 03/04/17 04:13 (Chlorhexidine 2% Cloth) 3 pack UNSCH PRN TOP 02/28/17 02:30 (Peridex 0.12% Liq) 15 ml BID@08,20 MT 02/28/17 20:00 03/12/17 07:49 (Tylenol) 650 mg Q4H PRN PO 03/10/17 15:00 03/10/17 15:00 (Librium) 5 mg Q8H PO 03/13/17 20:00 03/16/17 12:06 (Claritin) 10 mg HS PO 03/13/17 21:00 03/15/17 21:00 (Proamatine) 10 mg Q6H PRN PO 03/13/17 19:00 (Narcan Inj) 0.4 mg UNSCH PRN IV PUSH 03/15/17 14:30 (Motrin) 400 mg Q8H PRN PO 03/15/17 14:45 03/16/17 05:49 (Pepcid) 20 mg BID PO 03/15/17 21:00 03/16/17 09:43 (KCl) 20 meq DAILY PO 03/16/17 09:00 03/16/17 09:43 (Ultram) 50 mg Q12H PRN PO 03/16/17 10:00 03/16/17 12:19 (Lasix) 20 mg DAILY PO 03/17/17 09:00 (KCl) 20 meq DAILY PO 03/17/17 09:00 (Colace) 100 mg BID PO 03/16/17 21:00 Family Psych History See above Social History See above Patient's Strengths (min. 2) Good response to Zoloft in the past. Verbally fluent. Physical Exam Physical examination completed by primary team. On my examination today, the patient appears to be in no acute physical distress. No hand tremor, no diaphoresis, no mydriasis, no other signs of GABAergic withdrawal noted. Labs and vitals reviewed: Vital Signs Vital Signs Date Time Temp Pulse Resp B/P (MAP) Pulse Ox O2 Delivery O2 Flow Rate FiO2 03/16/17 16:00 97.2 101 17 124/79 (94) 98 03/16/17 07:00 Room Air 03/15/17 09:00 2.00 03/13/17 07:00 40 Lab Results Date/Time Source Procedure Growth Status 03/10/17 16:00 Blood Peripheral Aerobic Blood Culture - Final NO GROWTH IN 5 DAYS Complete 03/10/17 16:00 Blood Peripheral Anaerobic Blood Culture - Final NO GROWTH IN 5 DAYS Complete 02/28/17 13:30 Stool Stool - Final Complete 03/01/17 05:30 Sputum Endotracheal Gram Stain - Final Complete 03/01/17 05:30 Sputum Endotracheal Sputum Culture - Final RARE GROWTH NORMAL RESPIRATORY CHIP Complete 03/10/17 16:00 Urine Clean Catch Urine Culture - Final Mary Tropicalis Complete Mental Status Examination Appearance: Disheveled (mild) Consciousness: Alert Orientation: x4 Motor Activity: Other (motor exam as above) Speech: Unremarkable Language: Adequate Fund of Knowledge: Adequate Attention and Concentration: Adequate Memory: Unremarkable Mood: Anxious Affect: Other (consistent with stated mood) Thought Process & Associations: Logical, Goal directed, Linear Thought Content: Appropriate Hallucination Type: None Delusion Type: None Suicidal Ideation: No Suicidal Plan: No Suicidal Intention: No Homicidal Ideation: No Homicidal Plan: No Homicidal Intention: No Insight: Adequate Judgment: Adequate Assessment & Plan Problem List: (1) Adjustment disorder with anxiety ICD Codes: F43.22 - Adjustment disorder with anxiety (2) Alcohol abuse ICD Codes: F10.10 - Alcohol abuse, uncomplicated Status: Acute Assessment & Plan 46-year-old female with psychiatric history as detailed above who is presently admitted to the medical floor for management of sepsis/pneumonia, complicated by C. difficile. Psychiatry is consulted for depression. On my examination today, the patient describes chiefly anxious symptoms, particularly focused on her discharge plan. She denies any suicidal or homicidal ideation. There is no evidence of current delirium, although she may have experienced some delirious symptoms during the course of her hospitalization. She reports a good response in the past to Zoloft and would like to restart this agent now. I have discussed the risks and benefits of this medication with the patient. Recommend initiating Zoloft 50 mg daily for the management of anxiety, and this can be continued on discharge so long as it is well tolerated. I recommend referring the patient for outpatient psychiatric services through [facility] who can continue to prescribe and adjust this medication. I have also recommended that the patient consider a chemical dependency assessment, which can also be performed at [facility]. I have counseled the patient regarding warning signs for need to return to the psychiatric emergency room is part of the general safety plan. The patient does not meet criteria, nor did she require inpatient psychiatric stabilization at this time. Case discussed with RN. Thank you very much for this consultation. Please call or page with questions. Psychiatry CL service will plan to follow-up as needed. Discharge Planning Psychiatrically clear for discharge Request HC Surrog/Guard Advoc?: No Denis Macedo MD Mar 16, 2017 17:01
[2017-03-16 20:00] VITALS: BP 127/73; PULSE 95; RESP 18; TEMP 101.1; O2SAT 93
[2017-03-16] MEDS: LORATADINE 10 MG TAB PO SCH (20:10)
[2017-03-16] MEDS: ACETAMINOPHEN 325 MG TAB PO PRN (20:11)
[2017-03-16] MEDS: DOCUSATE SODIUM 100 MG CAP PO SCH (20:12)
[2017-03-17] VITALS: BP 122/70; PULSE 86; RESP 18; TEMP 98.7; O2SAT 94
[2017-03-17] MEDS: CHLORHEXIDINE GLUCONATE 2 % 1 PACK (2 CLOTHS) TOP SCH (04:00)
[2017-03-17] MEDS: IBUPROFEN 400 MG TAB PO PRN ×2 (06:11→20:52)
[2017-03-17] MEDS: HEPARIN SODIUM - SQ 10,000 UNITS/ML VIAL SQ SCH ×3 (06:11→23:13)
[2017-03-17 08:00] VITALS: BP 95/54; PULSE 110; RESP 16; TEMP 100.3; O2SAT 94
[2017-03-17] MEDS: CHLORHEXIDINE 0.12% (ORAL KIT) 15 ML CUP MT SCH ×2 (08:00→20:00)
[2017-03-17] MEDS: FAMOTIDINE 20 MG TAB PO SCH ×2 (08:51→20:49)
[2017-03-17] MEDS: POTASSIUM CHLORIDE 20 MEQ CONTROLLED RELEASE TAB PO SCH ×2 (08:52)
[2017-03-17] MEDS: FUROSEMIDE 20 MG TAB PO SCH (08:52)
[2017-03-17] MEDS: DOCUSATE SODIUM 100 MG CAP PO SCH ×2 (08:53→20:49)
[2017-03-17] MEDS: SODIUM CHLORIDE 0.9% FLUSH 10 ML FLUSH IV FLUSH SCH ×2 (08:53→20:49)
[2017-03-17 09:26] LABS: AUTOMATED NEUTROPHIL # 5.5 TH/MM3 (1.8-7.7); BASOPHIL # 0.1 TH/MM3 (0-0.2); EOSINOPHIL # 0.2 TH/MM3 (0-0.4); EOSINOPHIL % 2.1 % (0.0-4.0); HEMOGLOBIN 11.3 GM/DL (11.6-15.3); LYMPH % 19.3 % (9.0-44.0); LYMPHOCYTE # 1.5 TH/MM3 (1.0-4.8); MEAN CELL VOLUME 97.2 FL (80.0-100.0); MEAN CORPUSCULAR HEMOGLOBIN 33.3 PG (27.0-34.0); MEAN CORPUSCULAR HGB CONC 34.2 % (32.0-36.0); MEAN PLATELET VOLUME 9.8 FL (7.0-11.0); MONO % 6.3 % (0.0-8.0); MONOCYTE # 0.5 TH/MM3 (0-0.9); NEUT % 71.3 % (16.0-70.0); PLATELET COUNT 290 TH/MM3 (150-450); RED CELL DISTRIBUTION WIDTH 14.8 % (11.6-17.2); WHITE BLOOD COUNT 7.7 TH/MM3 (4.0-11.0)
[2017-03-17 09:53] LABS: BICARBONATE 29.1 MEQ/L (21.0-32.0); CALCIUM 9.6 MG/DL (8.5-10.1); CREATININE 0.95 MG/DL (0.50-1.00); MAGNESIUM 2.1 MG/DL (1.5-2.5)
--- NOTE | 2017-03-17 11:13 | HHI.PR ---
Subjective Remarks n the chair, feels much betetr today. pain is controlled by meds. No n/v/d/c. Feels she is improving with PT and will go home soon Objective Vitals Vital Signs Date Time Temp Pulse Resp B/P (MAP) Pulse Ox O2 Delivery O2 Flow Rate FiO2 03/17/17 08:00 100.3 110 16 95/54 (68) 94 03/17/17 07:00 Room Air 03/17/17 00:00 98.7 86 18 122/70 (87) 94 03/16/17 21:00 Room Air 03/16/17 20:00 101.1 95 18 127/73 (91) 93 03/16/17 16:00 97.2 101 17 124/79 (94) 98 03/16/17 12:00 98.0 78 16 108/69 (82) 93 I/O 03/16/17 03/16/17 03/16/17 03/17/17 03/17/17 03/17/17 07:00 15:00 23:00 07:00 15:00 23:00 Intake Total 600 ml 240 ml Output Total 3 ml Balance 597 ml 240 ml Intake Oral 600 ml 240 ml Output Urine Total 3 ml # Voids 2 2 # Bowel Movements 1 0 Result Diagram: 03/17/1791103/17/17 0812 Objective Remarks GENERAL: Pleasant patient in NAD, A&Ox3. crying appears depressed CARDIOVASCULAR: Regular rate and rhythm without murmurs, gallops, or rubs. RESPIRATORY: Breath sounds equal bilaterally. No accessory muscle use. GASTROINTESTINAL: Abdomen soft, non-tender, nondistended. MUSCULOSKELETAL: No cyanosis. Peripheral edema in arms and legs SKIN: Warm and dry. NEURO: No focal neurological deficitis. Global weakness, unable to use arms effectively. A/P Assessment and Plan 46-year-old female admitted secondary to severe sepsis related to pneumonia with respiratory failure. Currently under treatment for C. difficile. Global weakness status post prolonged intubation. Severe sepsis Resolved Pneumonia Continue cefepime C. difficile colitis Continue by mouth vancomycin, finished course of abx 03/15/17 Follow clinically Peripheral edema Likely related to sepsis and necessity for hydration in that setting Alcoholism Continue thiamine Continue folic acid Continue multivitamin Follow clinically for withdrawal symptoms Wean Librium as tolerated Anxiety and depression. As needed Ativan continued. Consult psych for evaluation as patient is not better, she is crying at this time DVT prophylaxis Subcutaneous heparin SCDs Discharge Planning Improving. DC when cleared by Id specialist. PT bid until improves as patient needed assistance with ambulation PT recommended SNF however difficult DC. Patient with back pain will give ultram, also Flexeril at night. Patient to have BID PT until improves and safe for DC Adrianna Morales MD Mar 17, 2017 11:13
[2017-03-17 12:00] VITALS: BP 102/68; PULSE 99; RESP 16; TEMP 98.8; O2SAT 94
[2017-03-17] MEDS: traMADol HCL 50 MG TAB PO PRN (13:39)
[2017-03-17 16:00] VITALS: BP 122/80; PULSE 110; RESP 18; TEMP 96.7; O2SAT 98
[2017-03-17 20:00] VITALS: BP 125/66; PULSE 118; RESP 18; TEMP 99.4; O2SAT 99
[2017-03-17] MEDS: LORATADINE 10 MG TAB PO SCH (20:49)
[2017-03-17 23:57] VITALS: BP 116/67; PULSE 102; RESP 17; TEMP 97; O2SAT 97
[2017-03-18] MEDS: traMADol HCL 50 MG TAB PO PRN ×2 (01:24→13:03)
[2017-03-18] MEDS: CHLORHEXIDINE GLUCONATE 2 % 1 PACK (2 CLOTHS) TOP SCH (04:00)
[2017-03-18] MEDS: HEPARIN SODIUM - SQ 10,000 UNITS/ML VIAL SQ SCH ×3 (07:27→21:15)
[2017-03-18] MEDS: POTASSIUM CHLORIDE 20 MEQ CONTROLLED RELEASE TAB PO SCH ×2 (07:33→09:22)
[2017-03-18 07:58] VITALS: BP 125/83; PULSE 104; RESP 20; TEMP 97.2; O2SAT 99
[2017-03-18] MEDS: CHLORHEXIDINE 0.12% (ORAL KIT) 15 ML CUP MT SCH ×2 (08:00→20:00)
[2017-03-18] MEDS: DOCUSATE SODIUM 100 MG CAP PO SCH ×2 (09:00→21:15)
[2017-03-18] MEDS: FAMOTIDINE 20 MG TAB PO SCH ×2 (09:19→21:15)
[2017-03-18] MEDS: FUROSEMIDE 20 MG TAB PO SCH (09:20)
[2017-03-18] MEDS: IBUPROFEN 400 MG TAB PO PRN ×2 (09:40→21:15)
[2017-03-18] MEDS: SODIUM CHLORIDE 0.9% FLUSH 10 ML FLUSH IV FLUSH SCH ×3 (09:45→21:16)
[2017-03-18 12:00] VITALS: BP 107/58; PULSE 99; RESP 18; TEMP 100.1; O2SAT 95
--- NOTE | 2017-03-18 12:45 | HHI.PR ---
Subjective Remarks Follow-up visit C. difficile colitis, severe sepsis, pneumonia, EtOH. Patient seen and examined today. Patient is sitting in the bed. States her back pain has improved with use of Ultram. Reports that she is participating with therapy , states she is a little bit unsteady but able to use the walker going to the commode and bathroom. Reports shortness of breath occasionally with ambulation but has been improved. Reports continues to have loose stools. As per nurse, consistency is that of an applesauce compared to loose watery. Denies chest pain, palpitations, headaches, dizziness. Denies fevers, chills, n/v/d. Denies hematuria, dysuria. Patient then reports her boyfriend said he could not take her and she has nowhere to go. Objective Vitals Vital Signs Date Time Temp Pulse Resp B/P (MAP) Pulse Ox O2 Delivery O2 Flow Rate FiO2 03/18/17 07:58 97.2 104 20 125/83 (97) 99 03/17/17 23:57 97.0 102 17 116/67 (83) 97 03/17/17 21:00 Room Air 03/17/17 20:00 99.4 118 18 125/66 (85) 99 03/17/17 16:00 96.7 110 18 122/80 (94) 98 I/O 03/17/17 03/17/17 03/17/17 03/18/17 03/18/17 03/18/17 07:00 15:00 23:00 07:00 15:00 23:00 Intake Total 240 ml 1000 ml 240 ml Balance 240 ml 1000 ml 240 ml Intake Oral 240 ml 1000 ml 240 ml # Voids 2 5 3 # Bowel Movements 3 Result Diagram: 03/17/17 0912 03/17/17 0812 Imaging Last Impressions Chest X-Ray 03/09/17 0400 Signed Impressions: Service Date/Time: Thursday, March 09, 2017 04:33 - CONCLUSION: 1. Mild density at the bases likely representing some residual atelectasis or consolidation. Overall, the aeration of the lungs has significantly improved. 2. ET tube and NG tube are well placed. Jake Calderon MD Abdomen/Pelvis CT 03/05/17 0000 Signed Impressions: Service Date/Time: Sunday, March 05, 2017 19:03 - CONCLUSION: 1. Diffuse prominent anasarca seen through the body wall. 2. There is nonspecific edema throughout the mesenteric fat within the abdomen and pelvis. 3. There is a trace of fluid around the liver and spleen. 4. Prominent bilateral interstitial infiltrates in both lung bases along with small bilateral effusions. Art Rojas MD Abdomen X-Ray 03/04/17 Signed Impressions: Service Date/Time: Saturday, March 04, 2017 12:19 - CONCLUSION: 1. Suction type NGT in the stomach. 2. Stable nonspecific paucity of bowel gas. Rarely, this can be seen with fluid filled bowel loops. Randy Patricio MD Renal Ultrasound 03/03/17 Signed Impressions: Service Date/Time: Friday, March 03, 2017 16:03 - CONCLUSION: Normal examination. 1. Gustavo Yusuf MD Objective Remarks GENERAL: This is a well-nourished, well-developed patient, in no apparent distress. SKIN: Warm and dry. HEENT: Normocephalic. Pupils equal round and reactive. Nose without bleeding. Airway patent. NECK: Trachea midline. No JVD. Supple. CARDIOVASCULAR: Regular rate and rhythm without murmurs, gallops, or rubs. RESPIRATORY: Clear to auscultation. Breath sounds equal bilaterally. No wheezes , rales, or rhonchi. GASTROINTESTINAL: Abdomen soft, non-tender, nondistended. Bowel Sounds normoactive x4. MUSCULOSKELETAL: Extremities without clubbing, cyanosis, or edema. NEUROLOGICAL: Awake and alert. Oriented to time, place, person. No focal neuro deficit. Moves all extremities. Normal speech. A/P Problem List: (1) Adjustment disorder with anxiety ICD Code: F43.22 - Adjustment disorder with anxiety (2) Alcohol abuse with alcohol-induced mood disorder ICD Code: F10.14 - Alcohol abuse with alcohol-induced mood disorder Status: Acute (3) Elevated LFTs ICD Code: R79.89 - Other specified abnormal findings of blood chemistry Status: Acute (4) Pneumonia ICD Code: J18.9 - Pneumonia, unspecified organism Status: Acute (5) Alcohol intoxication ICD Code: F10.929 - Alcohol use, unspecified with intoxication, unspecified Status: Acute Assessment and Plan 46-year-old female admitted secondary to severe sepsis related to pneumonia with respiratory failure. Currently under treatment for C. difficile. Global weakness status post prolonged intubation. Severe sepsis, Pneumonia - Resolved - Completed cefepime C. difficile colitis - Completed vancomycin, 03/15/17 - Reports diarrhea, as per nurse stools are apple sauce consistency x2 today - Lactinex Peripheral edema - Likely related to sepsis and necessity for hydration in that setting - Lasix daily Alcoholism - Continue thiamine - Continue folic acid - Continue multivitamin - Follow clinically for withdrawal symptoms - Wean Librium as tolerated Anxiety and depression. - As needed Ativan continued. Librium - Consult psych for evaluation as patient is not better, she is crying at this time - Boyfriend does not want her back in his place Generalized weakness - PT/ OT continue - PT 7 days/ week DVT prophylaxis Subcutaneous heparin SCDs Discharge Planning Work with PT for strengthening. DME may be provided. No payor source for placement. Spoke with CM. Provide intermediate coalition information. Boyfriend may not take him back to his home. Problem Qualifiers (1) Pneumonia: Qualified Codes: J18.1 - Lobar pneumonia, unspecified organism Floresita Momin Mar 18, 2017 12:45
[2017-03-18] MEDS: LACTOBACILLUS ACIDOPHILUS TAB PO SCH ×2 (15:01→21:15)
[2017-03-18 16:00] VITALS: BP 113/72; PULSE 89; RESP 16; TEMP 98.6; O2SAT 98
[2017-03-18 20:30] VITALS: BP 110/62; PULSE 92; RESP 17; TEMP 99.5; O2SAT 99
[2017-03-18] MEDS: LORATADINE 10 MG TAB PO SCH (21:15)
[2017-03-19 00:38] VITALS: BP 131/73; PULSE 115; RESP 18; TEMP 99.6; O2SAT 97
[2017-03-19] MEDS: CHLORHEXIDINE GLUCONATE 2 % 1 PACK (2 CLOTHS) TOP SCH ×2 (04:00→21:06)
[2017-03-19] MEDS: traMADol HCL 50 MG TAB PO PRN (04:12)
[2017-03-19] MEDS: HEPARIN SODIUM - SQ 10,000 UNITS/ML VIAL SQ SCH ×3 (05:53→21:05)
[2017-03-19 08:00] VITALS: BP 120/59; PULSE 93; RESP 18; TEMP 99.3; O2SAT 100
[2017-03-19] MEDS: CHLORHEXIDINE 0.12% (ORAL KIT) 15 ML CUP MT SCH ×2 (08:00→20:00)
[2017-03-19] MEDS: LACTOBACILLUS ACIDOPHILUS TAB PO SCH ×2 (08:30→21:04)
[2017-03-19] MEDS: POTASSIUM CHLORIDE 20 MEQ CONTROLLED RELEASE TAB PO SCH ×2 (08:30→08:32)
[2017-03-19] MEDS: FAMOTIDINE 20 MG TAB PO SCH ×2 (08:30→21:03)
[2017-03-19] MEDS: FUROSEMIDE 20 MG TAB PO SCH (08:31)
[2017-03-19] MEDS: SODIUM CHLORIDE 0.9% FLUSH 10 ML FLUSH IV FLUSH SCH ×2 (08:38→21:04)
[2017-03-19] MEDS: DOCUSATE SODIUM 100 MG CAP PO SCH ×2 (08:38→21:00)
[2017-03-19] MEDS: IBUPROFEN 400 MG TAB PO PRN ×2 (08:42→21:03)
[2017-03-19 10:48] LABS: CREATININE 0.77 MG/DL (0.50-1.00)
[2017-03-19] MEDS ORDERED: SERTRALINE HCL 50 MG TAB PO ONE (11:00)
--- NOTE | 2017-03-19 11:03 | HHI.PR ---
Subjective Remarks Continued improvement with PT. Patient should be stable for discharge in 1-2 days. She reports a recurrence of her depression and has used Zoloft in the past and wishes to start this again. No other complaints. Objective Vital Signs Date Time Temp Pulse Resp B/P (MAP) Pulse Ox O2 Delivery O2 Flow Rate FiO2 03/19/17 08:00 99.3 93 18 120/59 (79) 100 03/19/17 00:38 99.6 115 18 131/73 (92) 97 03/18/17 20:30 99.5 92 17 110/62 (78) 99 03/18/17 16:00 98.6 89 16 113/72 (86) 98 03/18/17 12:00 100.1 99 18 107/58 (74) 95 I/O 03/18/17 03/18/17 03/18/17 03/19/17 03/19/17 03/19/17 07:00 15:00 23:00 07:00 15:00 23:00 Intake Total 240 ml 620 ml 760 ml Balance 240 ml 620 ml 760 ml Intake Oral 240 ml 620 ml 760 ml # Voids 3 4 4 # Bowel Movements 3 Result Diagram: 03/17/1791103/19/17 0906 Objective Remarks GENERAL: NAD, A&Ox3 HEAD: Normocephalic. NECK: Supple, trachea midline. No lymphadenopathy. EYES: No scleral icterus. No injection or drainage. CARDIOVASCULAR: Regular rate and rhythm without murmurs, gallops, or rubs. RESPIRATORY: Breath sounds equal bilaterally. No accessory muscle use. GASTROINTESTINAL: Abdomen soft, non-tender, nondistended. MUSCULOSKELETAL: No cyanosis. Peripheral edema in arms and legs SKIN: Warm and dry. NEURO: No focal neurological deficitis. Global weakness, unable to use arms effectively. A/P Problem List: (1) Acute kidney injury ICD Code: N17.9 - Acute kidney failure, unspecified Status: Acute (2) Pneumonia ICD Code: J18.9 - Pneumonia, unspecified organism Status: Acute (3) Hypokalemia ICD Code: E87.6 - Hypokalemia Status: Acute (4) Septic shock ICD Code: A41.9 - Sepsis, unspecified organism; R65.21 - Severe sepsis with septic shock Status: Acute (5) Alcohol abuse with alcohol-induced mood disorder ICD Code: F10.14 - Alcohol abuse with alcohol-induced mood disorder Status: Acute (6) Alcohol abuse ICD Code: F10.10 - Alcohol abuse, uncomplicated Status: Acute (7) Elevated LFTs ICD Code: R79.89 - Other specified abnormal findings of blood chemistry Status: Acute (8) Alcohol intoxication ICD Code: F10.929 - Alcohol use, unspecified with intoxication, unspecified Status: Acute Assessment and Plan Assessment and Plan 46-year-old female admitted secondary to respiratory failure, severe sepsis, and pneumonia. Status post extubation. Resolving C. difficile. Continue physical therapy due to global weakness. Plan to discharge in 1-2 days. Zoloft started for treatment of depression. Severe sepsis Resolved Peripheral edema Continue Lasix as needed Pneumonia Continue cefepime Follow clinically C. difficile colitis Continue by mouth vancomycin Follow clinically Alcoholism Continue thiamine Continue folic acid Continue multivitamin Monitor for withdrawal symptoms Anxiety and depression Continue Ativan as needed Global weakness Status post prolonged intubation state PT and OT Rhinorrhea Antihistamine started DVT prophylaxis Heparin SCDs Problem Qualifiers (1) Pneumonia: Qualified Codes: J18.1 - Lobar pneumonia, unspecified organism Abhay Melo MD Mar 19, 2017 11:03
[2017-03-19] MEDS ORDERED: FUROSEMIDE 20 MG TAB PO PRN (11:15)
[2017-03-19 12:00] VITALS: BP 118/67; PULSE 101; RESP 17; TEMP 97.9; O2SAT 99
[2017-03-19 16:00] VITALS: BP 117/63; PULSE 91; RESP 17; TEMP 97.4; O2SAT 93
[2017-03-19 20:14] VITALS: BP 128/94; PULSE 107; RESP 18; TEMP 97.3; O2SAT 98
[2017-03-19] MEDS: LORATADINE 10 MG TAB PO SCH (21:03)
[2017-03-19] MEDS: ACETAMINOPHEN 325 MG TAB PO PRN (23:45)
[2017-03-20 00:07] VITALS: BP 112/60; PULSE 104; RESP 18; TEMP 101.4; O2SAT 97
[2017-03-20] MEDS: traMADol HCL 50 MG TAB PO PRN ×2 (06:05→17:57)
[2017-03-20] MEDS: HEPARIN SODIUM - SQ 10,000 UNITS/ML VIAL SQ SCH ×3 (06:06→23:03)
[2017-03-20] MEDS: IBUPROFEN 400 MG TAB PO PRN ×2 (07:16→23:04)
[2017-03-20 08:00] VITALS: BP 119/63; PULSE 99; RESP 18; TEMP 97.2; O2SAT 97
[2017-03-20] MEDS: CHLORHEXIDINE 0.12% (ORAL KIT) 15 ML CUP MT SCH ×2 (08:00→20:00)
[2017-03-20] MEDS: DOCUSATE SODIUM 100 MG CAP PO SCH ×2 (08:18→21:00)
[2017-03-20] MEDS: POTASSIUM CHLORIDE 20 MEQ CONTROLLED RELEASE TAB PO SCH ×2 (08:18→08:23)
[2017-03-20] MEDS: SODIUM CHLORIDE 0.9% FLUSH 10 ML FLUSH IV FLUSH SCH ×2 (08:18→21:00)
[2017-03-20] MEDS: FAMOTIDINE 20 MG TAB PO SCH ×2 (08:22→23:03)
[2017-03-20] MEDS: SERTRALINE HCL 50 MG TAB PO SCH (08:23)
[2017-03-20] MEDS: LACTOBACILLUS ACIDOPHILUS TAB PO SCH ×3 (08:23→16:45)
[2017-03-20 09:53] LABS: BILIRUBIN, URINE NEG (NEG); BLOOD, URINE NEG (NEG); GLUCOSE,URINE NEG (NEG); KETONE, URINE NEG (NEG); NITRITE,URINE NEG (NEG); SQUAMOUS EPITHELIAL CELL URINE 1 /hpf (0-5); URINE COLOR LIGHT-YELLOW (YELLW/STRAW); URINE LEUKOCYTE ESTERASE MOD (NEG)
[2017-03-20] MEDS ORDERED: SULFAMETHOXAZOLE-TRIMETHOPRIM DS 800-160 MG TAB PO ONE (11:30)
[2017-03-20 12:00] VITALS: BP 129/76; PULSE 102; RESP 17; TEMP 98.3; O2SAT 98
[2017-03-20] MEDS: metroNIDAZOLE 500 MG TAB PO SCH ×2 (14:25→23:03)
[2017-03-20 16:00] VITALS: BP 135/79; PULSE 100; RESP 18; TEMP 98.1; O2SAT 99
--- NOTE | 2017-03-20 16:42 | HHI.PR ---
Subjective Remarks Fever overnight. UA was obtained and shows UTI. Patient has completed treatment for pneumonia and C. difficile colitis. Objective Vital Signs Date Time Temp Pulse Resp B/P (MAP) Pulse Ox O2 Delivery O2 Flow Rate FiO2 03/20/17 12:00 98.3 102 17 129/76 (93) 98 03/20/17 08:00 97.2 99 18 119/63 (81) 97 03/20/17 00:07 101.4 104 18 112/60 (77) 97 03/19/17 20:14 97.3 107 18 128/94 (105) 98 I/O 03/19/17 03/19/17 03/19/17 03/20/17 03/20/17 03/20/17 07:00 15:00 23:00 07:00 15:00 23:00 Intake Total 760 ml 720 ml 760 ml Balance 760 ml 720 ml 760 ml Intake Oral 760 ml 720 ml 760 ml # Voids 4 6 4 # Bowel Movements 6 Result Diagram: 03/17/1791103/19/17 09 Objective Remarks GENERAL: NAD, A&Ox3 HEAD: Normocephalic. NECK: Supple, trachea midline. No lymphadenopathy. EYES: No scleral icterus. No injection or drainage. CARDIOVASCULAR: Regular rate and rhythm without murmurs, gallops, or rubs. RESPIRATORY: Breath sounds equal bilaterally. No accessory muscle use. GASTROINTESTINAL: Abdomen soft, non-tender, nondistended. MUSCULOSKELETAL: No cyanosis. Peripheral edema in arms and legs SKIN: Warm and dry. NEURO: No focal neurological deficitis. Global weakness, unable to use arms effectively. A/P Problem List: (1) Acute kidney injury ICD Code: N17.9 - Acute kidney failure, unspecified Status: Acute (2) Pneumonia ICD Code: J18.9 - Pneumonia, unspecified organism Status: Acute (3) Hypokalemia ICD Code: E87.6 - Hypokalemia Status: Acute (4) Septic shock ICD Code: A41.9 - Sepsis, unspecified organism; R65.21 - Severe sepsis with septic shock Status: Acute (5) Alcohol abuse with alcohol-induced mood disorder ICD Code: F10.14 - Alcohol abuse with alcohol-induced mood disorder Status: Acute (6) Alcohol abuse ICD Code: F10.10 - Alcohol abuse, uncomplicated Status: Acute (7) Elevated LFTs ICD Code: R79.89 - Other specified abnormal findings of blood chemistry Status: Acute (8) Alcohol intoxication ICD Code: F10.929 - Alcohol use, unspecified with intoxication, unspecified Status: Acute Assessment and Plan Assessment and Plan 46-year-old female admitted secondary to respiratory failure, severe sepsis, and pneumonia. Fever overnight with tachycardia. UTI is found. Start Bactrim and Flagyl as she is recently recovered from C. difficile colitis. Sepsis Fever Monitor for resolution UTI Bactrim Peripheral edema Continue Lasix as needed Pneumonia Continue cefepime Follow clinically C. difficile colitis Continue by mouth vancomycin Follow clinically Alcoholism Continue thiamine Continue folic acid Continue multivitamin Monitor for withdrawal symptoms Anxiety and depression Continue Ativan as needed Global weakness Status post prolonged intubation state PT and OT Rhinorrhea Antihistamine started DVT prophylaxis Heparin SCDs Problem Qualifiers (1) Pneumonia: Qualified Codes: J18.1 - Lobar pneumonia, unspecified organism Abhay Melo MD Mar 20, 2017 16:42
[2017-03-20 18:33] VITALS: TEMP 99
[2017-03-20 20:54] VITALS: BP 116/69; PULSE 87; RESP 18; TEMP 99.6; O2SAT 98
[2017-03-20] MEDS: LORATADINE 10 MG TAB PO SCH (23:02)
[2017-03-20] MEDS: CHLORHEXIDINE GLUCONATE 2 % 1 PACK (2 CLOTHS) TOP SCH (23:04)
[2017-03-21] MEDS: ACETAMINOPHEN 325 MG TAB PO PRN (00:17)
[2017-03-21] MEDS: SULFAMETHOXAZOLE-TRIMETHOPRIM DS 800-160 MG TAB PO SCH ×2 (00:17→11:54)
[2017-03-21 00:43] VITALS: BP 117/66; PULSE 126; RESP 18; TEMP 102.1; O2SAT 93
[2017-03-21] MEDS: metroNIDAZOLE 500 MG TAB PO SCH ×3 (04:04→22:18)
[2017-03-21] MEDS: HEPARIN SODIUM - SQ 10,000 UNITS/ML VIAL SQ SCH ×3 (04:05→22:18)
[2017-03-21] MEDS: traMADol HCL 50 MG TAB PO PRN ×2 (06:00→17:55)
[2017-03-21 06:24] LABS: CREATININE 1.25 MG/DL (0.50-1.00)
[2017-03-21] MEDS: CHLORHEXIDINE 0.12% (ORAL KIT) 15 ML CUP MT SCH ×2 (07:08→20:00)
[2017-03-21] MEDS: POTASSIUM CHLORIDE 20 MEQ CONTROLLED RELEASE TAB PO SCH ×2 (07:40→07:46)
[2017-03-21] MEDS: DOCUSATE SODIUM 100 MG CAP PO SCH ×2 (07:41→22:18)
[2017-03-21] MEDS: SODIUM CHLORIDE 0.9% FLUSH 10 ML FLUSH IV FLUSH SCH ×2 (07:41→21:00)
[2017-03-21] MEDS: LACTOBACILLUS ACIDOPHILUS TAB PO SCH ×3 (07:44→15:50)
[2017-03-21] MEDS: FAMOTIDINE 20 MG TAB PO SCH ×2 (07:46→22:18)
[2017-03-21] MEDS: SERTRALINE HCL 50 MG TAB PO SCH (07:46)
[2017-03-21 08:00] VITALS: BP 108/60; PULSE 77; RESP 18; TEMP 97.9; O2SAT 96
[2017-03-21] MEDS: IBUPROFEN 400 MG TAB PO PRN (11:58)
[2017-03-21 12:00] VITALS: BP 112/63; PULSE 88; RESP 16; TEMP 98.5; O2SAT 98
[2017-03-21 12:27] LABS: HEMATOCRIT 30.4 % (35.0-46.0); HEMOGLOBIN 10.4 GM/DL (11.6-15.3); MEAN CELL VOLUME 96.2 FL (80.0-100.0); MEAN CORPUSCULAR HEMOGLOBIN 32.8 PG (27.0-34.0); MEAN CORPUSCULAR HGB CONC 34.1 % (32.0-36.0); MEAN PLATELET VOLUME 9.8 FL (7.0-11.0); PLATELET COUNT 266 TH/MM3 (150-450); RED BLOOD COUNT 3.15 MIL/MM3 (4.00-5.30); RED CELL DISTRIBUTION WIDTH 14.6 % (11.6-17.2); WHITE BLOOD COUNT 11.9 TH/MM3 (4.0-11.0)
[2017-03-21 12:54] LABS: BICARBONATE 26.1 MEQ/L (21.0-32.0); CALCIUM 9.7 MG/DL (8.5-10.1); CREATININE 1.14 MG/DL (0.50-1.00)
--- NOTE | 2017-03-21 15:16 | HHI.PR ---
Subjective Remarks Fever has occurred again overnight. Patient felt fever but has no complaints of cough or diarrhea. No dysuria. Objective Vital Signs Date Time Temp Pulse Resp B/P (MAP) Pulse Ox O2 Delivery O2 Flow Rate FiO2 03/21/17 12:00 98.5 88 16 112/63 (79) 98 03/21/17 08:00 97.9 77 18 108/60 (76) 96 03/21/17 00:43 102.1 126 18 117/66 (83) 93 03/20/17 20:54 99.6 87 18 116/69 (85) 98 03/20/17 18:33 99.0 03/20/17 16:00 98.1 100 18 135/79 (97) 99 I/O 03/20/17 03/20/17 03/20/17 03/21/17 03/21/17 03/21/17 07:00 15:00 23:00 07:00 15:00 23:00 Intake Total 760 ml 1400 ml Balance 760 ml 1400 ml Intake Oral 760 ml 1400 ml # Voids 4 5 # Bowel Movements 3 Result Diagram: 03/21/17 1135 03/21/17 1125 Objective Remarks GENERAL: NAD, A&Ox3 HEAD: Normocephalic. NECK: Supple, trachea midline. No lymphadenopathy. EYES: No scleral icterus. No injection or drainage. CARDIOVASCULAR: Regular rate and rhythm without murmurs, gallops, or rubs. RESPIRATORY: Breath sounds equal bilaterally. No accessory muscle use. GASTROINTESTINAL: Abdomen soft, non-tender, nondistended. MUSCULOSKELETAL: No cyanosis. Peripheral edema in arms and legs SKIN: Warm and dry. NEURO: No focal neurological deficitis. Global weakness, unable to use arms effectively. A/P Problem List: (1) Acute kidney injury ICD Code: N17.9 - Acute kidney failure, unspecified Status: Acute (2) Pneumonia ICD Code: J18.9 - Pneumonia, unspecified organism Status: Acute (3) Hypokalemia ICD Code: E87.6 - Hypokalemia Status: Acute (4) Septic shock ICD Code: A41.9 - Sepsis, unspecified organism; R65.21 - Severe sepsis with septic shock Status: Acute (5) Alcohol abuse with alcohol-induced mood disorder ICD Code: F10.14 - Alcohol abuse with alcohol-induced mood disorder Status: Acute (6) Alcohol abuse ICD Code: F10.10 - Alcohol abuse, uncomplicated Status: Acute (7) Elevated LFTs ICD Code: R79.89 - Other specified abnormal findings of blood chemistry Status: Acute (8) Alcohol intoxication ICD Code: F10.929 - Alcohol use, unspecified with intoxication, unspecified Status: Acute Assessment and Plan Assessment and Plan 46-year-old female admitted secondary to respiratory failure, severe sepsis, and pneumonia. Fever overnight with tachycardia, now for the past 2 nights. Infectious disease consulted. Sepsis Fever Occurred again Consult infectious disease Monitor for resolution UTI Bactrim Peripheral edema Continue Lasix as needed Pneumonia Continue cefepime Follow clinically C. difficile colitis Continue by mouth vancomycin Follow clinically Alcoholism Continue thiamine Continue folic acid Continue multivitamin Monitor for withdrawal symptoms Anxiety and depression Continue Ativan as needed Global weakness Status post prolonged intubation state PT and OT Rhinorrhea Antihistamine started DVT prophylaxis Heparin SCDs Problem Qualifiers (1) Pneumonia: Qualified Codes: J18.1 - Lobar pneumonia, unspecified organism Abhay Melo MD Mar 21, 2017 15:16
[2017-03-21 16:00] VITALS: BP 109/61; PULSE 91; RESP 16; TEMP 97.4; O2SAT 96
[2017-03-21 21:03] VITALS: BP 129/77; PULSE 105; RESP 18; TEMP 97.2; O2SAT 100
--- NOTE | 2017-03-21 21:53 | HHI.IDPN ---
Subjective Subjective Remarks deleayed entry; pt seen today around [address] Melo 2/2 er Pt having high grade fever up to 102.1 every night x few days O/w feeling well, diarrhea improved only 2 BMs/say, semi-formed no cough no nause, vomiting good appetite pt has no central lines denies disuria + some low back discomfort which improves with movements Pt was started on bactrim and flagyl by Dr Melo 2/2 suspected UTI Antibiotics Bactrim flagyl Lines Line sites with no e.o infection. Past Medical History reviewed Allergies: Coded Allergies: No Known Allergies (Unverified , 02/28/17) Objective . Vital Signs Date Time Temp Pulse Resp B/P (MAP) Pulse Ox O2 Delivery O2 Flow Rate FiO2 03/21/17 21:03 97.2 105 18 129/77 (94) 100 03/21/17 16:00 97.4 91 16 109/61 (77) 96 03/21/17 12:00 98.5 88 16 112/63 (79) 98 03/21/17 08:00 97.9 77 18 108/60 (76) 96 03/21/17 00:43 102.1 126 18 117/66 (83) 93 03/21/17 03/21/17 03/22/17 15:00 23:00 07:00 Intake Total 600 ml Balance 600 ml Intake Oral 600 ml # Voids 4 # Bowel Movements 2 . Laboratory Tests Test 03/21/17 11:35 White Blood Count 11.9 TH/MM3 Red Blood Count 3.15 MIL/MM3 Hemoglobin 10.4 GM/DL Hematocrit 30.4 % Mean Corpuscular Volume 96.2 FL Mean Corpuscular Hemoglobin 32.8 PG Mean Corpuscular Hemoglobin Concent 34.1 % Red Cell Distribution Width 14.6 % Platelet Count 266 TH/MM3 Mean Platelet Volume 9.8 FL Laboratory Tests Test 03/21/17 05:13 03/21/17 11:25 Creatinine 1.25 MG/DL 1.14 MG/DL Estimat Glomerular Filtration Rate 46 ML/MIN 51 ML/MIN Blood Urea Nitrogen 11 MG/DL Random Glucose 94 MG/DL Calcium Level 9.7 MG/DL Sodium Level 135 MEQ/L Potassium Level 4.0 MEQ/L Chloride Level 102 MEQ/L Carbon Dioxide Level 26.1 MEQ/L Anion Gap 7 MEQ/L Microbiology Date/Time Source Procedure Growth Status 03/21/17 18:45 Blood Peripheral Aerobic Blood Culture Pending Received 03/21/17 18:45 Blood Peripheral Anaerobic Blood Culture Pending Received Imaging Last Impressions Chest X-Ray 03/09/17 0400 Signed Impressions: Service Date/Time: Thursday, March 09, 2017 04:33 - CONCLUSION: 1. Mild density at the bases likely representing some residual atelectasis or consolidation. Overall, the aeration of the lungs has significantly improved. 2. ET tube and NG tube are well placed. Jake Calderon MD Abdomen/Pelvis CT 03/05/17 0000 Signed Impressions: Service Date/Time: Sunday, March 05, 2017 19:03 - CONCLUSION: 1. Diffuse prominent anasarca seen through the body wall. 2. There is nonspecific edema throughout the mesenteric fat within the abdomen and pelvis. 3. There is a trace of fluid around the liver and spleen. 4. Prominent bilateral interstitial infiltrates in both lung bases along with small bilateral effusions. Art Rojas MD Abdomen X-Ray 03/04/17 0000 Signed Impressions: Service Date/Time: Saturday, March 04, 2017 12:19 - CONCLUSION: 1. Suction type NGT in the stomach. 2. Stable nonspecific paucity of bowel gas. Rarely, this can be seen with fluid filled bowel loops. Randy Patricio MD Renal Ultrasound 03/03/17 0000 Signed Impressions: Service Date/Time: Friday, March 03, 2017 16:03 - CONCLUSION: Normal examination. 1. Gustavo Yusuf MD Physical Exam CONSTITUTIONAL/GENERAL: NAD TUBES/LINES/DRAINS: SKIN: No jaundice, rashes, or lesions. Resolved anasarca EYES: Pupils equal and round and reactive. No scleral icterus. ENT: moist mucosae CARDIOVASCULAR: Regular tachycardia without , gallops, or rubs. 2/6 systolica ejection murmur No JVD. Peripheral pulses symmetric. RESPIRATORY/CHEST: Symmetric, unlabored respirations. Clear to auscultation. GASTROINTESTINAL: Abdomen tight not tender and not distended. No hepato- splenomegaly, or palpable masses. No guarding. Bowel sounds present. GENITOURINARY: Without palpable bladder distension. MUSCULOSKELETAL: Extremities without clubbing, cyanosis, trace edema . No mottling or clubbing. NEUROLOGICAL: fully awake and alert, non focal PSYCHIATRIC: calm, appropriate Assessment & Plan Remarks Sepsis (neutropenia, fever, lactic acidosis) -Proteus bacteremia (GI from translocation across inflammed GI mucosa vs ) - clinical resolution of sepsis Proteus UTI / Pyelo with high grade bacteremia C.diff colitis- resolving Acute VDRF, resolved ETOHism, resolved withdrawl New fever - ? source, - UA not sugg of UTI, also pt has no disuria Recs: Blood clx x 2 CXR cefepime, add IV vancomycin chk 2 D echo (new murmur, feve4r) chk stool for C.diff cont flagyl dc bactrim Discussed Condition With Ruth Colvin MD Mar 21, 2017 21:53
[2017-03-21] MEDS ORDERED: Vancomycin Consult Pharmacy 1 EA OTHER SCH (22:00)
[2017-03-21] MEDS: LORATADINE 10 MG TAB PO SCH (22:18)
[2017-03-21] MEDS: CHLORHEXIDINE GLUCONATE 2 % 1 PACK (2 CLOTHS) TOP SCH (23:10)
[2017-03-21] MEDS: CEFEPIME INJ 2,000 MG in SODIUM CHLORIDE 0.9% INJ 100 ML IV SCH (23:56)
[2017-03-22] MEDS ORDERED: VANCOMYCIN 1,000 MG/NS 250 ML IV SCH ×2
[2017-03-22] MEDS: ACETAMINOPHEN 325 MG TAB PO PRN (03:44)
[2017-03-22 04:25] VITALS: TEMP 101.9
[2017-03-22] MEDS: HEPARIN SODIUM - SQ 10,000 UNITS/ML VIAL SQ SCH ×3 (05:15→20:44)
[2017-03-22] MEDS: traMADol HCL 50 MG TAB PO PRN ×2 (05:15→16:58)
[2017-03-22] MEDS: metroNIDAZOLE 500 MG TAB PO SCH ×3 (05:15→20:44)
[2017-03-22] MEDS: CEFEPIME INJ 2,000 MG in SODIUM CHLORIDE 0.9% INJ 100 ML IV SCH ×2 (05:16→16:55)
[2017-03-22 06:23] LABS: AST (GOT) 26 U/L (15-37); AUTOMATED NEUTROPHIL # 5.9 TH/MM3 (1.8-7.7); BASOPHIL # 0.1 TH/MM3 (0-0.2); BASOPHIL % 0.7 % (0.0-2.0); BICARBONATE 24.1 MEQ/L (21.0-32.0); BLOOD UREA NITROGEN 9 MG/DL (7-18); CALCIUM 9.2 MG/DL (8.5-10.1); CHLORIDE 100 MEQ/L (98-107); EOSINOPHIL # 0.8 TH/MM3 (0-0.4); EOSINOPHIL % 8.8 % (0.0-4.0); GLOMERULAR FILTRATION RATE 48 ML/MIN (>89); GLUCOSE,RANDOM 103 MG/DL (74-106); HEMATOCRIT 27.5 % (35.0-46.0); HEMOGLOBIN 9.8 GM/DL (11.6-15.3); LYMPHOCYTE # 1.8 TH/MM3 (1.0-4.8); MEAN CELL VOLUME 96.6 FL (80.0-100.0); MEAN CORPUSCULAR HEMOGLOBIN 34.3 PG (27.0-34.0); MEAN CORPUSCULAR HGB CONC 35.5 % (32.0-36.0); MEAN PLATELET VOLUME 9.6 FL (7.0-11.0); MONO % 8.6 % (0.0-8.0); MONOCYTE # 0.8 TH/MM3 (0-0.9); NEUT % 62.9 % (16.0-70.0); PLATELET COUNT 226 TH/MM3 (150-450); RED BLOOD COUNT 2.85 MIL/MM3 (4.00-5.30); RED CELL DISTRIBUTION WIDTH 14.6 % (11.6-17.2); SODIUM (NA) 133 MEQ/L (136-145); WHITE BLOOD COUNT 9.4 TH/MM3 (4.0-11.0)
[2017-03-22 06:24] LABS: ALT (GPT) 26 U/L (10-53)
[2017-03-22 06:27] LABS: ALKALINE PHOSPHATASE 83 U/L (45-117); TOTAL BILIRUBIN ADULT 0.4 MG/DL (0.2-1.0); TOTAL PROTEIN 7.1 GM/DL (6.4-8.2)
--- NOTE | 2017-03-22 07:45 | RADRPT ---
EXAM DATE/TIME: 03/22/2017 07:35 [facility] COMPARISON: CHEST SINGLE AP, March 09, 2017, 4:33. INDICATIONS : Shortness of breath. MEDICAL HISTORY : Cirrhosis. CVA, C-Diff SURGICAL HISTORY : Inguinal hernia repair. Hysterectomy. ENCOUNTER: Subsequent ACUITY: 1 week PAIN SCORE: 0/10 LOCATION: Bilateral chest FINDINGS: A single view of the chest demonstrates the lungs to be symmetrically aerated without evidence of mas s, infiltrate or effusion. The cardiomediastinal contours are unremarkable. Osseous structures are intact. CONCLUSION: No acute disease. Russell Almanza MD on March 22, 2017 at 7:44 Board Certified Radiologist. This report was verified electronically.
[2017-03-22 07:50] VITALS: BP 108/57; PULSE 89; RESP 18; TEMP 98.9; O2SAT 96
[2017-03-22] MEDS: CHLORHEXIDINE 0.12% (ORAL KIT) 15 ML CUP MT SCH ×2 (08:00→20:00)
[2017-03-22] MEDS: DOCUSATE SODIUM 100 MG CAP PO SCH ×2 (08:02→20:43)
[2017-03-22] MEDS: SODIUM CHLORIDE 0.9% FLUSH 10 ML FLUSH IV FLUSH SCH ×2 (08:05→21:00)
[2017-03-22] MEDS: POTASSIUM CHLORIDE 20 MEQ CONTROLLED RELEASE TAB PO SCH ×2 (08:06→09:00)
[2017-03-22] MEDS: LACTOBACILLUS ACIDOPHILUS TAB PO SCH ×3 (08:06→16:58)
[2017-03-22] MEDS: FAMOTIDINE 20 MG TAB PO SCH ×2 (08:06→20:44)
[2017-03-22] MEDS: SERTRALINE HCL 50 MG TAB PO SCH (08:06)
[2017-03-22] MEDS: IBUPROFEN 400 MG TAB PO PRN ×2 (08:15→20:48)
[2017-03-22 12:00] VITALS: BP 120/70; PULSE 86; RESP 14; TEMP 97.8; O2SAT 97
--- NOTE | 2017-03-22 12:40 | ECHRPT ---
Indication: vegetations CONCLUSIONS The left ventricular systolic function is hyperdynamic with an estimated ejection fraction in the ra nge of 65- 70%. Normal left ventricular size. Edpjd-ud-rpem mitral valve regurgitation. No aortic valve regurgitation. There is mild tricuspid valve regurgitation. The estimated pulmonary arterial pressure is 47.9 mmHg. Trivial pulmonary valve regurgitation. BP: / HR: Rhythm: MEASUREMENTS (Male / Female) Normal Values Technical Quality:Good 2D ECHO LV Diastolic Diameter PLAX 4.8 cm 4.2 - 5.9 / 3.9 - 5.3 cm LV Systolic Diameter PLAX 3.1 cm IVS Diastolic Thickness 1.3 cm 0.6 - 1.0 / 0.6 - 0.9 cm LVPW Diastolic Thickness 0.9 cm 0.6 - 1.0 / 0.6 - 0.9 cm LV Relative Wall Thickness 0.5 RV Internal Dim ED PLAX 2.5 cm M-MODE Aortic Root Diameter MM 3.1 cm LA Systolic Diameter MM 4.0 cm LA Ao Ratio MM 1.3 AV Cusp Separation MM 2.0 cm DOPPLER Mitral E Point Velocity 85.4 cm/s Mitral A Point Velocity 73.5 cm/s Mitral E to A Ratio 1.2 LV E' Lateral Velocity 10.5 cm/s Mitral E to LV E' Lateral Ratio 8.1 LV E' Septal Velocity 10.5 cm/s Mitral E to LV E' Septal Ratio 8.1 TR Peak Velocity 308.0 cm/s TR Peak Gradient 37.9 mmHg Right Atrial Pressure 10.0 mmHg Pulmonary Artery Systolic Pressu 47.9 mmHg Right Ventricular Systolic Press 47.9 mmHg FINDINGS LEFT VENTRICLE The left ventricular systolic function is hyperdynamic with an estimated ejection fraction in the ra nge of 65- 70%. Normal left ventricular size. RIGHT VENTRICLE Normal right ventricular size and systolic function. LEFT ATRIUM The left atrial size is normal. RIGHT ATRIUM The right atrial size is normal. ATRIAL SEPTUM Normal atrial septal thickness without atrial level shunting by limited color doppler interrogation. AORTA The aortic root and proximal ascending aorta are normal in size on limited imaging. MITRAL VALVE Structurally normal mitral valve. Vyhnp-en-hudt mitral valve regurgitation. AORTIC VALVE Trileaflet aortic valve. No aortic valve regurgitation. TRICUSPID VALVE Structurally normal tricuspid valve. There is mild tricuspid valve regurgitation. The estimated pulmonary arterial pressure is 47.9 mmHg. PULMONARY VALVE Trivial pulmonary valve regurgitation. VESSELS The inferior vena cava is normal in size. PERICARDIUM No pericardial effusion. OTHER FINDINGS No vegetations seen. Keith Kraft MD (Electronically Signed) Final Date:22 March 2017 12:39
--- NOTE | 2017-03-22 13:37 | HHI.PR ---
Subjective Remarks Fever has occurred again overnight. Echocardiogram shows no vegetations. Patient is now on cefepime, vancomycin, and Flagyl. Her primary complaint today is anxiety. Objective Vital Signs Date Time Temp Pulse Resp B/P (MAP) Pulse Ox O2 Delivery O2 Flow Rate FiO2 03/22/17 12:00 97.8 86 14 120/70 (87) 97 03/22/17 09:15 18 03/22/17 07:50 98.9 89 18 108/57 (74) 96 03/22/17 04:25 101.9 03/21/17 21:03 97.2 105 18 129/77 (94) 100 03/21/17 16:00 97.4 91 16 109/61 (77) 96 I/O 03/21/17 03/21/17 03/21/17 03/22/17 03/22/17 03/22/17 07:00 15:00 23:00 07:00 15:00 23:00 Intake Total 600 ml 350 ml Balance 600 ml 350 ml Intake Oral 600 ml IV Total 350 ml # Voids 4 # Bowel Movements 2 Result Diagram: 03/22/17 0538 03/22/17537 Objective Remarks GENERAL: NAD, A&Ox3 HEAD: Normocephalic. NECK: Supple, trachea midline. No lymphadenopathy. EYES: No scleral icterus. No injection or drainage. CARDIOVASCULAR: Regular rate and rhythm without murmurs, gallops, or rubs. RESPIRATORY: Breath sounds equal bilaterally. No accessory muscle use. GASTROINTESTINAL: Abdomen soft, non-tender, nondistended. MUSCULOSKELETAL: No cyanosis. Peripheral edema in arms and legs SKIN: Warm and dry. NEURO: No focal neurological deficitis. Global weakness, unable to use arms effectively. A/P Problem List: (1) Acute kidney injury ICD Code: N17.9 - Acute kidney failure, unspecified Status: Acute (2) Pneumonia ICD Code: J18.9 - Pneumonia, unspecified organism Status: Acute (3) Hypokalemia ICD Code: E87.6 - Hypokalemia Status: Acute (4) Septic shock ICD Code: A41.9 - Sepsis, unspecified organism; R65.21 - Severe sepsis with septic shock Status: Acute (5) Alcohol abuse with alcohol-induced mood disorder ICD Code: F10.14 - Alcohol abuse with alcohol-induced mood disorder Status: Acute (6) Alcohol abuse ICD Code: F10.10 - Alcohol abuse, uncomplicated Status: Acute (7) Elevated LFTs ICD Code: R79.89 - Other specified abnormal findings of blood chemistry Status: Acute (8) Alcohol intoxication ICD Code: F10.929 - Alcohol use, unspecified with intoxication, unspecified Status: Acute Assessment and Plan Assessment and Plan 46-year-old female admitted secondary to respiratory failure, severe sepsis, and pneumonia. Fever overnight with tachycardia, now for the past 3 nights. Infectious disease following. Echocardiogram negative. Started for anxiety. Sepsis Fever Occurred again Consult infectious disease Monitor for resolution UTI Bactrim Peripheral edema Continue Lasix as needed Pneumonia Continue cefepime Follow clinically C. difficile colitis Continue by mouth vancomycin Follow clinically Alcoholism Continue thiamine Continue folic acid Continue multivitamin Monitor for withdrawal symptoms Anxiety and depression Continue Ativan as needed BuSpar Started Global weakness Status post prolonged intubation state PT and OT Rhinorrhea Antihistamine started DVT prophylaxis Heparin SCDs Problem Qualifiers (1) Pneumonia: Qualified Codes: J18.1 - Lobar pneumonia, unspecified organism Abhay Melo MD Mar 22, 2017 13:36
[2017-03-22] MEDS: busPIRone HCL 5 MG TAB PO SCH ×2 (14:06→22:03)
[2017-03-22 16:00] VITALS: BP 108/56; PULSE 87; RESP 16; TEMP 97.8; O2SAT 98
--- NOTE | 2017-03-22 17:29 | HHI.IDPN ---
Subjective Subjective Remarks Again fever almost 102 early am x 1 No other smx stool formed Antibiotics cefepime vancomycin flagyl Lines Line sites with no e.o infection. Past Medical History reviewed Allergies: Coded Allergies: No Known Allergies (Unverified , 02/28/17) Objective . Vital Signs Date Time Temp Pulse Resp B/P (MAP) Pulse Ox O2 Delivery O2 Flow Rate FiO2 03/22/17 16:00 97.8 87 16 108/56 (73) 98 03/22/17 12:00 97.8 86 14 120/70 (87) 97 03/22/17 09:15 18 03/22/17 07:50 98.9 89 18 108/57 (74) 96 03/22/17 04:25 101.9 03/21/17 21:03 97.2 105 18 129/77 (94) 100 . Laboratory Tests Test 03/21/17 11:35 03/22/17 05:38 White Blood Count 11.9 TH/MM3 9.4 TH/MM3 Red Blood Count 3.15 MIL/MM3 2.85 MIL/MM3 Hemoglobin 10.4 GM/DL 9.8 GM/DL Hematocrit 30.4 % 27.5 % Mean Corpuscular Volume 96.2 FL 96.6 FL Mean Corpuscular Hemoglobin 32.8 PG 34.3 PG Mean Corpuscular Hemoglobin Concent 34.1 % 35.5 % Red Cell Distribution Width 14.6 % 14.6 % Platelet Count 266 TH/MM3 226 TH/MM3 Mean Platelet Volume 9.8 FL 9.6 FL Neutrophils (%) (Auto) 62.9 % Lymphocytes (%) (Auto) 19.0 % Monocytes (%) (Auto) 8.6 % Eosinophils (%) (Auto) 8.8 % Basophils (%) (Auto) 0.7 % Neutrophils # (Auto) 5.9 TH/MM3 Lymphocytes # (Auto) 1.8 TH/MM3 Monocytes # (Auto) 0.8 TH/MM3 Eosinophils # (Auto) 0.8 TH/MM3 Basophils # (Auto) 0.1 TH/MM3 CBC Comment DIFF FINAL Differential Comment Laboratory Tests Test 03/21/17 05:13 03/21/17 11:25 03/22/17 05:38 Creatinine 1.25 MG/DL 1.14 MG/DL 1.20 MG/DL Estimat Glomerular Filtration Rate 46 ML/MIN 51 ML/MIN 48 ML/MIN Blood Urea Nitrogen 11 MG/DL 9 MG/DL Random Glucose 94 MG/DL 103 MG/DL Calcium Level 9.7 MG/DL 9.2 MG/DL Sodium Level 135 MEQ/L 133 MEQ/L Potassium Level 4.0 MEQ/L 4.2 MEQ/L Chloride Level 102 MEQ/L 100 MEQ/L Carbon Dioxide Level 26.1 MEQ/L 24.1 MEQ/L Anion Gap 7 MEQ/L 9 MEQ/L Total Protein 7.1 GM/DL Albumin 3.0 GM/DL Alkaline Phosphatase 83 U/L Aspartate Amino Transf (AST/SGOT) 26 U/L Alanine Aminotransferase (ALT/SGPT) 26 U/L Total Bilirubin 0.4 MG/DL Microbiology Date/Time Source Procedure Growth Status 03/22/17 00:16 Blood Peripheral Aerobic Blood Culture Pending Received 03/22/17 00:16 Blood Peripheral Anaerobic Blood Culture Pending Received 03/21/17 18:45 Blood Peripheral Aerobic Blood Culture - Preliminary NO GROWTH IN 1 DAY Resulted 03/21/17 18:45 Blood Peripheral Anaerobic Blood Culture - Preliminary NO GROWTH IN 1 DAY Resulted Imaging Last Impressions Chest X-Ray 03/09/17 0400 Signed Impressions: Service Date/Time: Thursday, March 09, 2017 04:33 - CONCLUSION: 1. Mild density at the bases likely representing some residual atelectasis or consolidation. Overall, the aeration of the lungs has significantly improved. 2. ET tube and NG tube are well placed. Jake Calderon MD Abdomen/Pelvis CT 03/05/17 0000 Signed Impressions: Service Date/Time: Sunday, March 05, 2017 19:03 - CONCLUSION: 1. Diffuse prominent anasarca seen through the body wall. 2. There is nonspecific edema throughout the mesenteric fat within the abdomen and pelvis. 3. There is a trace of fluid around the liver and spleen. 4. Prominent bilateral interstitial infiltrates in both lung bases along with small bilateral effusions. Art Rojas MD Abdomen X-Ray 03/04/17 0000 Signed Impressions: Service Date/Time: Saturday, March 04, 2017 12:19 - CONCLUSION: 1. Suction type NGT in the stomach. 2. Stable nonspecific paucity of bowel gas. Rarely, this can be seen with fluid filled bowel loops. Randy Patricio MD Renal Ultrasound 03/03/17 0000 Signed Impressions: Service Date/Time: Friday, March 03, 2017 16:03 - CONCLUSION: Normal examination. 1. Gustavo Yusuf MD Physical Exam CONSTITUTIONAL/GENERAL: NAD TUBES/LINES/DRAINS: SKIN: No jaundice, rashes, or lesions. Resolved anasarca EYES: Pupils equal and round and reactive. No scleral icterus. ENT: moist mucosae CARDIOVASCULAR: Regular tachycardia without , gallops, or rubs. 2/6 systolica ejection murmur No JVD. Peripheral pulses symmetric. RESPIRATORY/CHEST: Symmetric, unlabored respirations. Clear to auscultation. GASTROINTESTINAL: Abdomen tight not tender and not distended. No hepato- splenomegaly, or palpable masses. No guarding. Bowel sounds present. GENITOURINARY: Without palpable bladder distension. MUSCULOSKELETAL: Extremities without clubbing, cyanosis, trace edema . No mottling or clubbing. BACK: no tenderness to palpation NEUROLOGICAL: fully awake and alert, non focal PSYCHIATRIC: calm, appropriate Assessment & Plan Remarks Sepsis (neutropenia, fever, lactic acidosis) -Proteus bacteremia (GI from translocation across inflammed GI mucosa vs ) - clinical resolution of sepsis Proteus UTI / Pyelo with high grade bacteremia C.diff colitis- resolving ? formed stools Acute VDRF, resolved ETOHism, resolved withdrawl FUO - ? source, - UA not sugg of UTI, also pt has no disuria Recs: fu blood clx cont cefepime, vancomycin flagyl for now fu 2 D echo (new murmur, feve4r) consider non infectious causes chk procalcitonine Ruth Clayton MD Mar 22, 2017 17:29
[2017-03-22 20:00] VITALS: BP 135/69; PULSE 90; RESP 20; TEMP 98.8; O2SAT 99
[2017-03-22] MEDS: LORATADINE 10 MG TAB PO SCH (20:43)
[2017-03-22] MEDS: VANCOMYCIN INJ 1,250 MG in SODIUM CHLOR 0.9% 250 ML INJ 250 ML IV SCH (22:04)
[2017-03-23] VITALS (7 sets, daily range): BP systolic 104–140; BP diastolic 55–83; PULSE 78–104; RESP 14–20; TEMP 96.9–99.5; O2SAT 96–100
[2017-03-23] MEDS: CHLORHEXIDINE GLUCONATE 2 % 1 PACK (2 CLOTHS) TOP SCH ×2 (04:00→22:22)
[2017-03-23] MEDS: metroNIDAZOLE 500 MG TAB PO SCH ×3 (04:48→20:05)
[2017-03-23] MEDS: busPIRone HCL 5 MG TAB PO SCH ×2 (04:48→12:16)
[2017-03-23] MEDS: HEPARIN SODIUM - SQ 10,000 UNITS/ML VIAL SQ SCH ×3 (04:53→22:19)
[2017-03-23] MEDS: CEFEPIME INJ 2,000 MG in SODIUM CHLORIDE 0.9% INJ 100 ML IV SCH ×2 (04:54→16:25)
[2017-03-23 06:54] LABS: AUTOMATED NEUTROPHIL # 4.3 TH/MM3 (1.8-7.7); BASOPHIL % 0.6 % (0.0-2.0); EOSINOPHIL # 0.9 TH/MM3 (0-0.4); EOSINOPHIL % 11.5 % (0.0-4.0); HEMATOCRIT 27.9 % (35.0-46.0); HEMOGLOBIN 9.4 GM/DL (11.6-15.3); LYMPH % 21.5 % (9.0-44.0); LYMPHOCYTE # 1.6 TH/MM3 (1.0-4.8); MEAN CELL VOLUME 96.8 FL (80.0-100.0); MEAN CORPUSCULAR HEMOGLOBIN 32.8 PG (27.0-34.0); MEAN CORPUSCULAR HGB CONC 33.9 % (32.0-36.0); MEAN PLATELET VOLUME 9.3 FL (7.0-11.0); MONO % 8.3 % (0.0-8.0); MONOCYTE # 0.6 TH/MM3 (0-0.9); NEUT % 58.1 % (16.0-70.0); PLATELET COUNT 249 TH/MM3 (150-450); RED BLOOD COUNT 2.88 MIL/MM3 (4.00-5.30); RED CELL DISTRIBUTION WIDTH 14.4 % (11.6-17.2); WHITE BLOOD COUNT 7.5 TH/MM3 (4.0-11.0)
[2017-03-23 07:02] LABS: ALBUMIN 2.7 GM/DL (3.4-5.0); AST (GOT) 20 U/L (15-37); BLOOD UREA NITROGEN 12 MG/DL (7-18); CALCIUM 9.2 MG/DL (8.5-10.1); CHLORIDE 106 MEQ/L (98-107); CREATININE 0.97 MG/DL (0.50-1.00); GLOMERULAR FILTRATION RATE 61 ML/MIN (>89); GLUCOSE,RANDOM 104 MG/DL (74-106); SODIUM (NA) 139 MEQ/L (136-145)
[2017-03-23 07:06] LABS: ALKALINE PHOSPHATASE 81 U/L (45-117); ALT (GPT) 24 U/L (10-53); TOTAL BILIRUBIN ADULT 0.3 MG/DL (0.2-1.0); TOTAL PROTEIN 6.9 GM/DL (6.4-8.2)
[2017-03-23] MEDS: CHLORHEXIDINE 0.12% (ORAL KIT) 15 ML CUP MT SCH ×2 (08:00→20:00)
[2017-03-23] MEDS: POTASSIUM CHLORIDE 20 MEQ CONTROLLED RELEASE TAB PO SCH ×2 (08:13)
[2017-03-23] MEDS: FAMOTIDINE 20 MG TAB PO SCH ×2 (08:14→20:05)
[2017-03-23] MEDS: LACTOBACILLUS ACIDOPHILUS TAB PO SCH ×3 (08:14→16:25)
[2017-03-23] MEDS: SERTRALINE HCL 50 MG TAB PO SCH (08:14)
[2017-03-23] MEDS: DOCUSATE SODIUM 100 MG CAP PO SCH ×2 (08:14→20:06)
[2017-03-23] MEDS: SODIUM CHLORIDE 0.9% FLUSH 10 ML FLUSH IV FLUSH SCH ×2 (08:15→20:06)
[2017-03-23] MEDS: traMADol HCL 50 MG TAB PO PRN ×2 (08:16→20:08)
[2017-03-23] MEDS: IBUPROFEN 400 MG TAB PO PRN (16:26)
--- NOTE | 2017-03-23 17:18 | HHI.PR ---
Subjective Remarks No fevers overnight. Blood cultures are negative at 24 hours. Patient has complaint of nausea and anxiety. Objective Vital Signs Date Time Temp Pulse Resp B/P (MAP) Pulse Ox O2 Delivery O2 Flow Rate FiO2 03/23/17 16:00 99.0 93 16 127/73 (91) 100 03/23/17 12:00 98.3 95 16 128/83 (98) 98 03/23/17 08:00 99.5 104 14 116/61 (79) 96 03/23/17 04:00 97.5 82 18 104/55 (71) 96 03/23/17 00:00 98.5 93 20 112/58 (76) 97 03/22/17 22:05 18 03/22/17 20:00 98.8 90 20 135/69 (91) 99 03/22/17 17:58 18 I/O 03/22/17 03/22/17 03/22/17 03/23/17 03/23/17 03/23/17 07:00 15:00 23:00 07:00 15:00 23:00 Intake Total 350 ml 720 ml 720 ml Balance 350 ml 720 ml 720 ml Intake Oral 720 ml 720 ml IV Total 350 ml # Voids 6 1 # Bowel Movements 0 1 Result Diagram: 03/23/17 0535 03/23/1735 Objective Remarks GENERAL: NAD, A&Ox3 HEAD: Normocephalic. NECK: Supple, trachea midline. No lymphadenopathy. EYES: No scleral icterus. No injection or drainage. CARDIOVASCULAR: Regular rate and rhythm without murmurs, gallops, or rubs. RESPIRATORY: Breath sounds equal bilaterally. No accessory muscle use. GASTROINTESTINAL: Abdomen soft, non-tender, nondistended. MUSCULOSKELETAL: No cyanosis. Peripheral edema in arms and legs SKIN: Warm and dry. NEURO: No focal neurological deficitis. Global weakness, unable to use arms effectively. A/P Problem List: (1) Acute kidney injury ICD Code: N17.9 - Acute kidney failure, unspecified Status: Acute (2) Pneumonia ICD Code: J18.9 - Pneumonia, unspecified organism Status: Acute (3) Hypokalemia ICD Code: E87.6 - Hypokalemia Status: Acute (4) Septic shock ICD Code: A41.9 - Sepsis, unspecified organism; R65.21 - Severe sepsis with septic shock Status: Acute (5) Alcohol abuse with alcohol-induced mood disorder ICD Code: F10.14 - Alcohol abuse with alcohol-induced mood disorder Status: Acute (6) Alcohol abuse ICD Code: F10.10 - Alcohol abuse, uncomplicated Status: Acute (7) Elevated LFTs ICD Code: R79.89 - Other specified abnormal findings of blood chemistry Status: Acute (8) Alcohol intoxication ICD Code: F10.929 - Alcohol use, unspecified with intoxication, unspecified Status: Acute Assessment and Plan Assessment and Plan 46-year-old female admitted secondary to respiratory failure, severe sepsis, and pneumonia. No fever overnight. BuSpar is not working to control anxiety. Xanax started. Zofran for nausea. Sepsis Fever Occurred again Consult infectious disease Monitor for resolution UTI Bactrim Peripheral edema Continue Lasix as needed Pneumonia Continue cefepime Follow clinically C. difficile colitis Continue by mouth vancomycin Follow clinically Alcoholism Continue thiamine Continue folic acid Continue multivitamin Monitor for withdrawal symptoms Anxiety and depression Continue Ativan as needed BuSpar Started Global weakness Status post prolonged intubation state PT and OT Rhinorrhea Antihistamine started DVT prophylaxis Heparin SCDs Problem Qualifiers (1) Pneumonia: Qualified Codes: J18.1 - Lobar pneumonia, unspecified organism Abhay Melo MD Mar 23, 2017 17:18
[2017-03-23] MEDS: LORATADINE 10 MG TAB PO SCH (20:05)
[2017-03-23] MEDS: VANCOMYCIN INJ 1,250 MG in SODIUM CHLOR 0.9% 250 ML INJ 250 ML IV SCH (22:18)
[2017-03-24] MEDS: HEPARIN SODIUM - SQ 10,000 UNITS/ML VIAL SQ SCH ×3 (05:47→22:33)
[2017-03-24] MEDS: metroNIDAZOLE 500 MG TAB PO SCH ×3 (05:47→22:32)
[2017-03-24] MEDS: IBUPROFEN 400 MG TAB PO PRN ×2 (05:50→17:00)
[2017-03-24] MEDS: CEFEPIME INJ 2,000 MG in SODIUM CHLORIDE 0.9% INJ 100 ML IV SCH ×2 (05:50→16:57)
[2017-03-24 08:00] VITALS: BP 123/69; PULSE 89; RESP 15; TEMP 100.9; O2SAT 94
[2017-03-24] MEDS: CHLORHEXIDINE 0.12% (ORAL KIT) 15 ML CUP MT SCH ×2 (08:00→19:48)
[2017-03-24] MEDS: SERTRALINE HCL 50 MG TAB PO SCH (08:09)
[2017-03-24] MEDS: traMADol HCL 50 MG TAB PO PRN ×2 (08:09→19:49)
[2017-03-24] MEDS: LACTOBACILLUS ACIDOPHILUS TAB PO SCH ×3 (08:09→16:57)
[2017-03-24] MEDS: POTASSIUM CHLORIDE 20 MEQ CONTROLLED RELEASE TAB PO SCH ×2 (08:09→08:10)
[2017-03-24] MEDS: DOCUSATE SODIUM 100 MG CAP PO SCH ×2 (08:09→19:50)
[2017-03-24] MEDS: FAMOTIDINE 20 MG TAB PO SCH ×2 (08:09→19:49)
[2017-03-24] MEDS: SODIUM CHLORIDE 0.9% FLUSH 10 ML FLUSH IV FLUSH SCH ×2 (08:10→19:48)
--- NOTE | 2017-03-24 09:13 | HHI.PR ---
Subjective Remarks Fevers occurred again this morning. This is in the presence of no discontinued antibiotics. CBC has not shown elevated Neut% or elevated WBCs. Patient has no complaints today other than anxiety. Objective Vital Signs Date Time Temp Pulse Resp B/P (MAP) Pulse Ox O2 Delivery O2 Flow Rate FiO2 03/24/17 08:00 100.9 89 15 123/69 (87) 94 03/23/17 23:27 96.9 78 17 126/74 (91) 97 03/23/17 20:02 99.0 82 18 140/70 (93) 98 03/23/17 16:00 99.0 93 16 127/73 (91) 100 03/23/17 12:00 98.3 95 16 128/83 (98) 98 I/O 03/23/17 03/23/17 03/23/17 03/24/17 03/24/17 03/24/17 07:00 15:00 23:00 07:00 15:00 23:00 Intake Total 720 ml 100 ml 942.5 ml 100 ml Balance 720 ml 100 ml 942.5 ml 100 ml Intake Oral 720 ml 680 ml IV Total 100 ml 262.5 ml 100 ml # Voids 1 4 # Bowel Movements 1 Result Diagram: 03/23/1735 03/23/1735 Objective Remarks GENERAL: NAD, A&Ox3 HEAD: Normocephalic. NECK: Supple, trachea midline. No lymphadenopathy. EYES: No scleral icterus. No injection or drainage. CARDIOVASCULAR: Regular rate and rhythm without murmurs, gallops, or rubs. RESPIRATORY: Breath sounds equal bilaterally. No accessory muscle use. GASTROINTESTINAL: Abdomen soft, non-tender, nondistended. MUSCULOSKELETAL: No cyanosis. Peripheral edema in arms and legs SKIN: Warm and dry. NEURO: No focal neurological deficitis. Global weakness, unable to use arms effectively. A/P Problem List: (1) Acute kidney injury ICD Code: N17.9 - Acute kidney failure, unspecified Status: Acute (2) Pneumonia ICD Code: J18.9 - Pneumonia, unspecified organism Status: Acute (3) Hypokalemia ICD Code: E87.6 - Hypokalemia Status: Acute (4) Septic shock ICD Code: A41.9 - Sepsis, unspecified organism; R65.21 - Severe sepsis with septic shock Status: Acute (5) Alcohol abuse with alcohol-induced mood disorder ICD Code: F10.14 - Alcohol abuse with alcohol-induced mood disorder Status: Acute (6) Alcohol abuse ICD Code: F10.10 - Alcohol abuse, uncomplicated Status: Acute (7) Elevated LFTs ICD Code: R79.89 - Other specified abnormal findings of blood chemistry Status: Acute (8) Alcohol intoxication ICD Code: F10.929 - Alcohol use, unspecified with intoxication, unspecified Status: Acute Assessment and Plan Assessment and Plan 46-year-old female admitted secondary to respiratory failure, severe sepsis, and pneumonia. No fever overnight. BuSpar is not working to control anxiety. Xanax started. Zofran for nausea. Sepsis Fever of Unknown Origin Occurred again ID following Screen thyroid and cortisol levels DHARMESH pending Monitor for resolution UTI Bactrim Peripheral edema Continue Lasix as needed Pneumonia Continue cefepime Follow clinically C. difficile colitis Continue by mouth vancomycin Follow clinically Alcoholism Continue thiamine Continue folic acid Continue multivitamin Monitor for withdrawal symptoms Anxiety and depression Continue Ativan as needed BuSpar Started Global weakness Status post prolonged intubation state PT and OT Rhinorrhea Antihistamine started DVT prophylaxis Heparin SCDs Problem Qualifiers (1) Pneumonia: Qualified Codes: J18.1 - Lobar pneumonia, unspecified organism Abhay Melo MD Mar 24, 2017 09:13
[2017-03-24] MEDS: ALPRAZolam 0.25 MG TAB PO PRN ×3 (09:28→22:32)
[2017-03-24 12:00] VITALS: BP 90/50; PULSE 87; RESP 16; TEMP 98.1; O2SAT 99
[2017-03-24 13:16] LABS: CREATININE 0.86 MG/DL (0.50-1.00)
[2017-03-24 13:27] LABS: FREE T3 2.5 PG/ML (2.18-3.98)
[2017-03-24 16:00] VITALS: BP 121/65; PULSE 89; RESP 17; TEMP 98; O2SAT 99
[2017-03-24] MEDS: ONDANSETRON HCL 4 MG/2 ML VIAL IV PUSH PRN (19:48)
[2017-03-24] MEDS: LORATADINE 10 MG TAB PO SCH (19:49)
[2017-03-24 20:28] VITALS: BP 109/71; PULSE 85; RESP 18; TEMP 98.7; O2SAT 95
[2017-03-24] MEDS: VANCOMYCIN INJ 1,250 MG in SODIUM CHLOR 0.9% 250 ML INJ 250 ML IV SCH (22:32)
[2017-03-24] MEDS: CHLORHEXIDINE GLUCONATE 2 % 1 PACK (2 CLOTHS) TOP SCH (22:33)
[2017-03-24] MEDS ORDERED: PHARMACY ORDERED LAB ONE (22:45)
[2017-03-24 23:45] VITALS: BP 108/67; PULSE 70; RESP 17; TEMP 97.5; O2SAT 97
[2017-03-25] MEDS: metroNIDAZOLE 500 MG TAB PO SCH ×2 (05:55→12:02)
[2017-03-25] MEDS: CEFEPIME INJ 2,000 MG in SODIUM CHLORIDE 0.9% INJ 100 ML IV SCH (05:55)
[2017-03-25] MEDS: HEPARIN SODIUM - SQ 10,000 UNITS/ML VIAL SQ SCH ×3 (05:55→20:58)
[2017-03-25] MEDS: ALPRAZolam 0.25 MG TAB PO PRN ×4 (06:00→23:53)
[2017-03-25 06:54] LABS: AUTOMATED NEUTROPHIL # 5.4 TH/MM3 (1.8-7.7); BASOPHIL # 0.1 TH/MM3 (0-0.2); BASOPHIL % 0.6 % (0.0-2.0); EOSINOPHIL # 0.7 TH/MM3 (0-0.4); EOSINOPHIL % 7.7 % (0.0-4.0); HEMATOCRIT 29.2 % (35.0-46.0); HEMOGLOBIN 9.9 GM/DL (11.6-15.3); LYMPH % 25.9 % (9.0-44.0); LYMPHOCYTE # 2.4 TH/MM3 (1.0-4.8); MEAN CELL VOLUME 95.7 FL (80.0-100.0); MEAN CORPUSCULAR HEMOGLOBIN 32.6 PG (27.0-34.0); MEAN PLATELET VOLUME 8.3 FL (7.0-11.0); MONOCYTE # 0.7 TH/MM3 (0-0.9); NEUT % 57.8 % (16.0-70.0); PLATELET COUNT 333 TH/MM3 (150-450); RED BLOOD COUNT 3.05 MIL/MM3 (4.00-5.30); RED CELL DISTRIBUTION WIDTH 14.3 % (11.6-17.2); WHITE BLOOD COUNT 9.3 TH/MM3 (4.0-11.0)
[2017-03-25 07:17] LABS: ALBUMIN 2.9 GM/DL (3.4-5.0); AST (GOT) 22 U/L (15-37); BICARBONATE 25.9 MEQ/L (21.0-32.0); BLOOD UREA NITROGEN 10 MG/DL (7-18); CALCIUM 9.7 MG/DL (8.5-10.1); CHLORIDE 105 MEQ/L (98-107); CREATININE 0.93 MG/DL (0.50-1.00); GLOMERULAR FILTRATION RATE 64 ML/MIN (>89); GLUCOSE,RANDOM 96 MG/DL (74-106); SODIUM (NA) 137 MEQ/L (136-145)
[2017-03-25 07:19] LABS: ALT (GPT) 22 U/L (10-53)
[2017-03-25 07:21] LABS: ALKALINE PHOSPHATASE 86 U/L (45-117); TOTAL BILIRUBIN ADULT 0.3 MG/DL (0.2-1.0); TOTAL PROTEIN 7.2 GM/DL (6.4-8.2)
[2017-03-25] MEDS: CHLORHEXIDINE 0.12% (ORAL KIT) 15 ML CUP MT SCH ×2 (07:25→20:00)
[2017-03-25 08:00] VITALS: BP 121/71; PULSE 109; RESP 17; TEMP 99.9; O2SAT 97
[2017-03-25] MEDS: POTASSIUM CHLORIDE 20 MEQ CONTROLLED RELEASE TAB PO SCH ×2 (08:47→08:49)
[2017-03-25] MEDS: SERTRALINE HCL 50 MG TAB PO SCH (08:47)
[2017-03-25] MEDS: LACTOBACILLUS ACIDOPHILUS TAB PO SCH ×3 (08:47→16:43)
[2017-03-25] MEDS: traMADol HCL 50 MG TAB PO PRN ×2 (08:47→20:58)
[2017-03-25] MEDS: FAMOTIDINE 20 MG TAB PO SCH ×2 (08:47→20:57)
[2017-03-25] MEDS: DOCUSATE SODIUM 100 MG CAP PO SCH ×2 (08:48→20:56)
[2017-03-25] MEDS: SODIUM CHLORIDE 0.9% FLUSH 10 ML FLUSH IV FLUSH SCH ×2 (08:48→20:56)
[2017-03-25] MEDS: ONDANSETRON HCL 4 MG/2 ML VIAL IV PUSH PRN ×3 (10:14→23:53)
[2017-03-25 12:00] VITALS: BP 112/84; PULSE 96; RESP 17; TEMP 98.7; O2SAT 100
--- NOTE | 2017-03-25 13:28 | HHI.IDPN ---
Subjective Subjective Remarks co " feeling nervous" No fever T max 100.4 over 24 hrs + semi-formed stool 2 BMs/d no abd pian Antibiotics cefepime vancomycin flagyl Lines Line sites with no e.o infection. Past Medical History reviewed Allergies: Coded Allergies: No Known Allergies (Unverified , 02/28/17) Objective . Vital Signs Date Time Temp Pulse Resp B/P (MAP) Pulse Ox O2 Delivery O2 Flow Rate FiO2 03/25/17 12:00 98.7 96 17 112/84 (93) 100 03/25/17 08:00 99.9 109 17 121/71 (88) 97 03/24/17 23:45 97.5 70 17 108/67 (81) 97 03/24/17 20:28 98.7 85 18 109/71 (84) 95 03/24/17 16:00 98.0 89 17 121/65 (83) 99 . Laboratory Tests Test 03/25/17 05:52 White Blood Count 9.3 TH/MM3 Red Blood Count 3.05 MIL/MM3 Hemoglobin 9.9 GM/DL Hematocrit 29.2 % Mean Corpuscular Volume 95.7 FL Mean Corpuscular Hemoglobin 32.6 PG Mean Corpuscular Hemoglobin Concent 34.0 % Red Cell Distribution Width 14.3 % Platelet Count 333 TH/MM3 Mean Platelet Volume 8.3 FL Neutrophils (%) (Auto) 57.8 % Lymphocytes (%) (Auto) 25.9 % Monocytes (%) (Auto) 8.0 % Eosinophils (%) (Auto) 7.7 % Basophils (%) (Auto) 0.6 % Neutrophils # (Auto) 5.4 TH/MM3 Lymphocytes # (Auto) 2.4 TH/MM3 Monocytes # (Auto) 0.7 TH/MM3 Eosinophils # (Auto) 0.7 TH/MM3 Basophils # (Auto) 0.1 TH/MM3 CBC Comment DIFF FINAL Differential Comment Laboratory Tests Test 03/24/17 11:53 03/25/17 05:52 Creatinine 0.86 MG/DL 0.93 MG/DL Estimat Glomerular Filtration Rate 70 ML/MIN 64 ML/MIN Thyroxine (T4) 8.0 MCG/DL Free Triiodothyronine (T3) pg/dL 2.50 PG/ML Thyroid Stimulating Hormone 3rd Gen 1.100 uIU/ML Random Cortisol 4.8 MCG/DL Blood Urea Nitrogen 10 MG/DL Random Glucose 96 MG/DL Total Protein 7.2 GM/DL Albumin 2.9 GM/DL Calcium Level 9.7 MG/DL Alkaline Phosphatase 86 U/L Aspartate Amino Transf (AST/SGOT) 22 U/L Alanine Aminotransferase (ALT/SGPT) 22 U/L Total Bilirubin 0.3 MG/DL Sodium Level 137 MEQ/L Potassium Level 4.1 MEQ/L Chloride Level 105 MEQ/L Carbon Dioxide Level 25.9 MEQ/L Anion Gap 6 MEQ/L Imaging Last Impressions Chest X-Ray 03/22/17 0600 Signed Impressions: Service Date/Time: Wednesday, March 22, 2017 07:35 - CONCLUSION: No acute disease. Russell Almanza MD Abdomen/Pelvis CT 03/05/17 0000 Signed Impressions: Service Date/Time: Sunday, March 05, 2017 19:03 - CONCLUSION: 1. Diffuse prominent anasarca seen through the body wall. 2. There is nonspecific edema throughout the mesenteric fat within the abdomen and pelvis. 3. There is a trace of fluid around the liver and spleen. 4. Prominent bilateral interstitial infiltrates in both lung bases along with small bilateral effusions. Art Rojas MD Abdomen X-Ray 03/04/17 0000 Signed Impressions: Service Date/Time: Saturday, March 04, 2017 12:19 - CONCLUSION: 1. Suction type NGT in the stomach. 2. Stable nonspecific paucity of bowel gas. Rarely, this can be seen with fluid filled bowel loops. Randy Patricio MD Renal Ultrasound 03/03/17 0000 Signed Impressions: Service Date/Time: Friday, March 03, 2017 16:03 - CONCLUSION: Normal examination. 1. Gustavo Yusuf MD Physical Exam CONSTITUTIONAL/GENERAL: NAD TUBES/LINES/DRAINS: SKIN: No jaundice, rashes, or lesions. Resolved anasarca EYES: Pupils equal and round and reactive. No scleral icterus. ENT: moist mucosae CARDIOVASCULAR: Regular tachycardia without , gallops, or rubs. 2/6 systolic ejection murmur No JVD. Peripheral pulses symmetric. RESPIRATORY/CHEST: Symmetric, unlabored respirations. Clear to auscultation. GASTROINTESTINAL: Abdomen tight not tender and not distended. No hepato- splenomegaly, or palpable masses. No guarding. Bowel sounds present. GENITOURINARY: Without palpable bladder distension. MUSCULOSKELETAL: Extremities without clubbing, cyanosis, no edema . No mottling or clubbing. NEUROLOGICAL: fully awake and alert, non focal PSYCHIATRIC: anxious Assessment & Plan Remarks Sepsis (neutropenia, fever, lactic acidosis) -Proteus bacteremia (GI from translocation across inflammed GI mucosa vs ) : resolved - clinical resolution of sepsis Proteus UTI / Pyelo with high grade bacteremia C.diff colitis- resolving ? formed stools Acute VDRF, resolved ETOHism, resolved withdrawl FUO - ? source, - UA not sugg of UTI, also pt has no disuria Funguria of probably no clin significance - 2 D echo negative resolution of fever procalcitonine is in low risk strata Recs: fu blood clx untill final dc cefepime, vancomycin flagyl for now consider non infectious causes for fever chk c.diff if stool is unformed/liquid Ruth Clayton MD Mar 25, 2017 13:28
[2017-03-25 15:58] VITALS: BP 103/52; PULSE 82; RESP 18; TEMP 98.4; O2SAT 98
--- NOTE | 2017-03-25 17:36 | HHI.PR ---
Subjective Remarks Patient again developed a fever last night No pain no short of breath no cough Discussed extensively with ID Objective Vitals Vital Signs Date Time Temp Pulse Resp B/P (MAP) Pulse Ox O2 Delivery O2 Flow Rate FiO2 03/25/17 15:58 98.4 82 18 103/52 (69) 98 03/25/17 12:00 98.7 96 17 112/84 (93) 100 03/25/17 08:00 99.9 109 17 121/71 (88) 97 03/24/17 23:45 97.5 70 17 108/67 (81) 97 03/24/17 20:28 98.7 85 18 109/71 (84) 95 I/O 03/24/17 03/24/17 03/24/17 03/25/17 03/25/17 03/25/17 07:00 15:00 23:00 07:00 15:00 23:00 Intake Total 942.5 ml 100 ml 100 ml 1142.5 ml Balance 942.5 ml 100 ml 100 ml 1142.5 ml Intake Oral 680 ml 780 ml IV Total 262.5 ml 100 ml 100 ml 362.5 ml # Voids 4 4 Result Diagram: 03/25/17 0552 03/25/17 0552 Objective Remarks GENERAL: This is a well-nourished, well-developed patient, in no apparent distress. SKIN: No rashes, warm and dry HEAD: Atraumatic. Normocephalic. EYES: Pupils equal round and reactive. Extraocular motions intact. No scleral icterus. ENT: Nose without bleeding, or drainage, Airway patent. NECK: Trachea midline. Supple CARDIOVASCULAR: Regular rate and rhythm without murmurs, gallops, or rubs. RESPIRATORY: Fair air entry bilaterally. No wheezes, rales, or rhonchi. GASTROINTESTINAL: Abdomen soft, non-tender, nondistended. Positive bowel sounds MUSCULOSKELETAL: Extremities without clubbing, cyanosis, or edema. Pedal pulses appreciated NEUROLOGICAL: Awake and alert. Moves all extremity. Normal speech.no focal neurological deficit A/P Problem List: (1) Adjustment disorder with anxiety ICD Code: F43.22 - Adjustment disorder with anxiety (2) Alcohol abuse with alcohol-induced mood disorder ICD Code: F10.14 - Alcohol abuse with alcohol-induced mood disorder Status: Acute (3) Elevated LFTs ICD Code: R79.89 - Other specified abnormal findings of blood chemistry Status: Acute (4) Pneumonia ICD Code: J18.9 - Pneumonia, unspecified organism Status: Acute (5) Alcohol intoxication ICD Code: F10.929 - Alcohol use, unspecified with intoxication, unspecified Status: Acute Assessment and Plan 46-year-old female admitted secondary to respiratory failure, severe sepsis, and pneumonia. No fever overnight. BuSpar is not working to control anxiety. Xanax started. Zofran for nausea. Sepsis with Proteus UTI and bacteremia Fever of Unknown Origin Occurred again ID following Screen thyroid and cortisol levels DHARMESH pending Monitor for resolution UTI Bactrim Peripheral edema Continue Lasix as needed Pneumonia Continue antibiotic per ID Follow clinically C. difficile colitis Continue by mouth vancomycin Follow clinically Alcoholism Continue thiamine Continue folic acid Continue multivitamin Monitor for withdrawal symptoms Anxiety and depression Continue Ativan as needed BuSpar Started Global weakness Status post prolonged intubation state PT and OT Rhinorrhea Antihistamine started DVT prophylaxis Heparin SCDs Problem Qualifiers (1) Pneumonia: Qualified Codes: J18.1 - Lobar pneumonia, unspecified organism Blanca Lewis MD Mar 25, 2017 17:36
[2017-03-25 20:00] VITALS: BP 134/80; PULSE 109; RESP 20; TEMP 100.6; O2SAT 98
[2017-03-25] MEDS: LORATADINE 10 MG TAB PO SCH (20:57)
[2017-03-25] MEDS ORDERED: VANCOMYCIN IV SCH (21:00)
[2017-03-25] MEDS ORDERED: SODIUM CHLOR 0.9% IV SCH (21:00)
[2017-03-26] VITALS: BP 122/67; PULSE 105; RESP 20; TEMP 100.2; O2SAT 96
[2017-03-26] MEDS: IBUPROFEN 400 MG TAB PO PRN ×2 (02:40→23:06)
[2017-03-26] MEDS: CHLORHEXIDINE GLUCONATE 2 % 1 PACK (2 CLOTHS) TOP SCH (04:00)
[2017-03-26 04:29] VITALS: TEMP 98.5
[2017-03-26] MEDS: HEPARIN SODIUM - SQ 10,000 UNITS/ML VIAL SQ SCH ×3 (05:42→21:52)
[2017-03-26] MEDS: POTASSIUM CHLORIDE 20 MEQ CONTROLLED RELEASE TAB PO SCH ×2 (07:20→08:26)
[2017-03-26 08:00] VITALS: BP 122/75; PULSE 84; RESP 18; TEMP 97.1; O2SAT 96
[2017-03-26] MEDS: CHLORHEXIDINE 0.12% (ORAL KIT) 15 ML CUP MT SCH ×2 (08:00→20:00)
[2017-03-26] MEDS: ONDANSETRON HCL 4 MG/2 ML VIAL IV PUSH PRN ×3 (08:25→21:52)
[2017-03-26] MEDS: LACTOBACILLUS ACIDOPHILUS TAB PO SCH ×3 (08:25→18:00)
[2017-03-26] MEDS: FAMOTIDINE 20 MG TAB PO SCH ×2 (08:25→21:51)
[2017-03-26] MEDS: SERTRALINE HCL 50 MG TAB PO SCH (08:25)
[2017-03-26] MEDS: SODIUM CHLORIDE 0.9% FLUSH 10 ML FLUSH IV FLUSH SCH ×2 (08:26→21:53)
[2017-03-26] MEDS: traMADol HCL 50 MG TAB PO PRN ×2 (08:48→21:51)
[2017-03-26] MEDS: ALPRAZolam 0.25 MG TAB PO PRN ×3 (08:48→21:52)
[2017-03-26] MEDS: DOCUSATE SODIUM 100 MG CAP PO SCH ×2 (08:51→21:00)
[2017-03-26 12:00] VITALS: BP 116/78; PULSE 86; RESP 16; TEMP 97.9; O2SAT 98
--- NOTE | 2017-03-26 14:06 | HHI.IDPN ---
Subjective Subjective Remarks co fever up top 100.9 last mnigh she also keep having back pain when she moves aorund, turns pt denies pain in BLE, no shooting pains stool is forming Antibiotics none Lines Line sites with no e.o infection. Past Medical History reviewed Allergies: Coded Allergies: No Known Allergies (Unverified , 02/28/17) Objective . Vital Signs Date Time Temp Pulse Resp B/P (MAP) Pulse Ox O2 Delivery O2 Flow Rate FiO2 03/26/17 12:00 97.9 86 16 116/78 (91) 98 03/26/17 08:00 97.1 84 18 122/75 (91) 96 03/26/17 04:29 98.5 03/26/17 00:00 100.2 105 20 122/67 (85) 96 03/25/17 20:00 100.6 109 20 134/80 (98) 98 03/25/17 15:58 98.4 82 18 103/52 (69) 98 . Laboratory Tests Test 03/25/17 05:52 White Blood Count 9.3 TH/MM3 Red Blood Count 3.05 MIL/MM3 Hemoglobin 9.9 GM/DL Hematocrit 29.2 % Mean Corpuscular Volume 95.7 FL Mean Corpuscular Hemoglobin 32.6 PG Mean Corpuscular Hemoglobin Concent 34.0 % Red Cell Distribution Width 14.3 % Platelet Count 333 TH/MM3 Mean Platelet Volume 8.3 FL Neutrophils (%) (Auto) 57.8 % Lymphocytes (%) (Auto) 25.9 % Monocytes (%) (Auto) 8.0 % Eosinophils (%) (Auto) 7.7 % Basophils (%) (Auto) 0.6 % Neutrophils # (Auto) 5.4 TH/MM3 Lymphocytes # (Auto) 2.4 TH/MM3 Monocytes # (Auto) 0.7 TH/MM3 Eosinophils # (Auto) 0.7 TH/MM3 Basophils # (Auto) 0.1 TH/MM3 CBC Comment DIFF FINAL Differential Comment Laboratory Tests Test 03/25/17 05:52 Blood Urea Nitrogen 10 MG/DL Creatinine 0.93 MG/DL Random Glucose 96 MG/DL Total Protein 7.2 GM/DL Albumin 2.9 GM/DL Calcium Level 9.7 MG/DL Alkaline Phosphatase 86 U/L Aspartate Amino Transf (AST/SGOT) 22 U/L Alanine Aminotransferase (ALT/SGPT) 22 U/L Total Bilirubin 0.3 MG/DL Sodium Level 137 MEQ/L Potassium Level 4.1 MEQ/L Chloride Level 105 MEQ/L Carbon Dioxide Level 25.9 MEQ/L Anion Gap 6 MEQ/L Estimat Glomerular Filtration Rate 64 ML/MIN Imaging Last Impressions Chest X-Ray 03/22/17 0600 Signed Impressions: Service Date/Time: Wednesday, March 22, 2017 07:35 - CONCLUSION: No acute disease. Russell Almanza MD Abdomen/Pelvis CT 03/05/17 0000 Signed Impressions: Service Date/Time: Sunday, March 05, 2017 19:03 - CONCLUSION: 1. Diffuse prominent anasarca seen through the body wall. 2. There is nonspecific edema throughout the mesenteric fat within the abdomen and pelvis. 3. There is a trace of fluid around the liver and spleen. 4. Prominent bilateral interstitial infiltrates in both lung bases along with small bilateral effusions. Art Rojas MD Abdomen X-Ray 03/04/17 0000 Signed Impressions: Service Date/Time: Saturday, March 04, 2017 12:19 - CONCLUSION: 1. Suction type NGT in the stomach. 2. Stable nonspecific paucity of bowel gas. Rarely, this can be seen with fluid filled bowel loops. Randy Patricio MD Renal Ultrasound 03/03/17 0000 Signed Impressions: Service Date/Time: Friday, March 03, 2017 16:03 - CONCLUSION: Normal examination. 1. Gustavo Yusuf MD Physical Exam CONSTITUTIONAL/GENERAL: NAD TUBES/LINES/DRAINS: SKIN: No jaundice, rashes, or lesions. Resolved anasarca EYES: Pupils equal and round and reactive. No scleral icterus. ENT: moist mucosae CARDIOVASCULAR: Regular tachycardia without , gallops, or rubs. 2/6 systolic ejection murmur No JVD. Peripheral pulses symmetric. RESPIRATORY/CHEST: Symmetric, unlabored respirations. Clear to auscultation. GASTROINTESTINAL: Abdomen tight not tender and not distended. No hepato- splenomegaly, or palpable masses. No guarding. Bowel sounds present. GENITOURINARY: Without palpable bladder distension. MUSCULOSKELETAL: Extremities without clubbing, cyanosis, no edema . No mottling or clubbing. No calf tenderness BACK: not tender to palpation over spine NEUROLOGICAL: fully awake and alert, non focal PSYCHIATRIC: calm cooperativbe Assessment & Plan Remarks Sepsis (neutropenia, fever, lactic acidosis): clincailly resolved -Proteus bacteremia (GI from translocation across inflammed GI mucosa vs ) : resolved - clinical resolution of sepsis Proteus UTI / Pyelo with high grade bacteremia C.diff colitis- resolved; stools a re formed now Acute VDRF, resolved ETOHism, resolved withdrawl FUO - ? source, cont to have - UA not sugg of UTI, also pt has no disuria Funguria of probably no clin significance - 2 D echo negative resolution of fever procalcitonine is in low risk strata Non specific back pain Recs: chk blood clx with fever dc cefepime, vancomycin flagyl for now consider non infectious causes for fever will get L spine MRI if cont to have unexzplained fever and back pain myrtle RN Ruth Martinez Dr, MD Mar 26, 2017 14:06
[2017-03-26 16:00] VITALS: BP 123/80; PULSE 90; RESP 16; TEMP 97.3; O2SAT 100
[2017-03-26 20:00] VITALS: BP 126/67; PULSE 86; RESP 18; TEMP 99.3; O2SAT 99
[2017-03-26] MEDS: LORATADINE 10 MG TAB PO SCH (21:51)
--- NOTE | 2017-03-26 23:16 | HHI.PR ---
Subjective Remarks Again fever of 100.6 and 100.2 overnight along with tachycardia No other symptoms or complain by the patient Discussed with ID, if this happened again overnight will consider CT of the lumbar spine Objective Vitals Vital Signs Date Time Temp Pulse Resp B/P (MAP) Pulse Ox O2 Delivery O2 Flow Rate FiO2 03/26/17 20:00 99.3 86 18 126/67 (86) 99 03/26/17 16:00 97.3 90 16 123/80 (94) 100 03/26/17 12:00 97.9 86 16 116/78 (91) 98 03/26/17 08:00 97.1 84 18 122/75 (91) 96 03/26/17 04:29 98.5 03/26/17 00:00 100.2 105 20 122/67 (85) 96 I/O 03/26/17 03/26/17 03/26/17 03/27/17 03/27/17 03/27/17 07:00 15:00 23:00 07:00 15:00 23:00 Intake Total 840 ml Balance 840 ml Intake Oral 840 ml # Voids 0 5 # Bowel Movements 1 Result Diagram: 03/25/17 0552 03/25/17 0552 Objective Remarks GENERAL: This is a well-nourished, well-developed patient, in no apparent distress. SKIN: No rashes, warm and dry HEAD: Atraumatic. Normocephalic. EYES: Pupils equal round and reactive. Extraocular motions intact. No scleral icterus. ENT: Nose without bleeding, or drainage, Airway patent. NECK: Trachea midline. Supple CARDIOVASCULAR: Regular rate and rhythm without murmurs, gallops, or rubs. RESPIRATORY: Fair air entry bilaterally. No wheezes, rales, or rhonchi. GASTROINTESTINAL: Abdomen soft, non-tender, nondistended. Positive bowel sounds MUSCULOSKELETAL: Extremities without clubbing, cyanosis, or edema. Pedal pulses appreciated NEUROLOGICAL: Awake and alert. Moves all extremity. Normal speech.no focal neurological deficit A/P Problem List: (1) Adjustment disorder with anxiety ICD Code: F43.22 - Adjustment disorder with anxiety (2) Alcohol abuse with alcohol-induced mood disorder ICD Code: F10.14 - Alcohol abuse with alcohol-induced mood disorder Status: Acute (3) Elevated LFTs ICD Code: R79.89 - Other specified abnormal findings of blood chemistry Status: Acute (4) Pneumonia ICD Code: J18.9 - Pneumonia, unspecified organism Status: Acute (5) Alcohol intoxication ICD Code: F10.929 - Alcohol use, unspecified with intoxication, unspecified Status: Acute Assessment and Plan 46-year-old female admitted secondary to respiratory failure, severe sepsis, and pneumonia. No fever overnight. BuSpar is not working to control anxiety. Xanax started. Zofran for nausea. 03/26: Again fever 100.600.2 overnight, discussed with ID, will monitor again tonight and if patient continues to double up fever will check CT of the lumbar spine Sepsis with Proteus UTI and bacteremia Persistent Fever of Unknown Origin Occurred again ID following Screen thyroid and cortisol levels DHARMESH pending Monitor for resolution UTI Bactrim Peripheral edema Continue Lasix as needed Pneumonia Continue antibiotic per ID Follow clinically C. difficile colitis Continue by mouth vancomycin Follow clinically Alcoholism Continue thiamine Continue folic acid Continue multivitamin Monitor for withdrawal symptoms Anxiety and depression Continue Ativan as needed BuSpar Started Global weakness Status post prolonged intubation state PT and OT Rhinorrhea Antihistamine started DVT prophylaxis Heparin SCDs Problem Qualifiers (1) Pneumonia: Qualified Codes: J18.1 - Lobar pneumonia, unspecified organism Blanca Lewis MD Mar 26, 2017 23:16
[2017-03-27 00:32] VITALS: BP 139/86; PULSE 116; RESP 18; TEMP 99.4; O2SAT 96
[2017-03-27] MEDS: CHLORHEXIDINE GLUCONATE 2 % 1 PACK (2 CLOTHS) TOP SCH ×2 (04:00→23:30)
[2017-03-27] MEDS: HEPARIN SODIUM - SQ 10,000 UNITS/ML VIAL SQ SCH ×3 (06:00→22:00)
[2017-03-27] MEDS: ALPRAZolam 0.25 MG TAB PO PRN ×3 (06:12→18:05)
[2017-03-27] MEDS: traMADol HCL 50 MG TAB PO PRN ×3 (06:13→18:05)
[2017-03-27] MEDS: CHLORHEXIDINE 0.12% (ORAL KIT) 15 ML CUP MT SCH ×2 (07:35→19:28)
[2017-03-27 08:00] VITALS: BP 123/74; PULSE 96; RESP 18; TEMP 95.9; O2SAT 99
[2017-03-27] MEDS: POTASSIUM CHLORIDE 20 MEQ CONTROLLED RELEASE TAB PO SCH ×2 (08:53→08:56)
[2017-03-27] MEDS: LACTOBACILLUS ACIDOPHILUS TAB PO SCH ×3 (08:55→18:05)
[2017-03-27] MEDS: ONDANSETRON HCL 4 MG/2 ML VIAL IV PUSH PRN ×2 (08:56→18:08)
[2017-03-27] MEDS: FAMOTIDINE 20 MG TAB PO SCH ×2 (08:56→23:29)
[2017-03-27] MEDS: SERTRALINE HCL 50 MG TAB PO SCH (08:56)
[2017-03-27] MEDS: DOCUSATE SODIUM 100 MG CAP PO SCH ×2 (08:57→21:00)
[2017-03-27] MEDS: SODIUM CHLORIDE 0.9% FLUSH 10 ML FLUSH IV FLUSH SCH ×2 (09:00→23:31)
[2017-03-27 09:18] LABS: CREATININE 0.97 MG/DL (0.50-1.00)
[2017-03-27 12:00] VITALS: BP 116/59; PULSE 94; RESP 18; TEMP 98.9; O2SAT 97
--- NOTE | 2017-03-27 14:11 | HHI.IDPN ---
Subjective Subjective Remarks cont to have fever c/o head achae and persistent back pain 1 set of blood clx obtained and is negative Antibiotics none Lines Line sites with no e.o infection. Past Medical History reviewed Allergies: Coded Allergies: No Known Allergies (Unverified , 02/28/17) Objective . Vital Signs Date Time Temp Pulse Resp B/P (MAP) Pulse Ox O2 Delivery O2 Flow Rate FiO2 03/27/17 12:00 98.9 94 18 116/59 (78) 97 03/27/17 08:00 95.9 96 18 123/74 (90) 99 03/27/17 00:32 99.4 116 18 139/86 (103) 96 03/26/17 20:00 99.3 86 18 126/67 (86) 99 03/26/17 16:00 97.3 90 16 123/80 (94) 100 . Laboratory Tests Test 03/26/17 19:09 03/27/17 08:25 Thyroid Stimulating Hormone 3rd Gen 1.220 uIU/ML Creatinine 0.97 MG/DL Estimat Glomerular Filtration Rate 61 ML/MIN Microbiology Date/Time Source Procedure Growth Status 03/26/17 23:04 Blood Peripheral Aerobic Blood Culture - Preliminary NO GROWTH IN 1 DAY Resulted 03/26/17 23:04 Blood Peripheral Anaerobic Blood Culture - Preliminary NO GROWTH IN 1 DAY Resulted Imaging Las Last Impressions Chest X-Ray 03/22/17 0600 Signed Impressions: Service Date/Time: Wednesday, March 22, 2017 07:35 - CONCLUSION: No acute disease. Russell Almanza MD Abdomen/Pelvis CT 03/05/17 0000 Signed Impressions: Service Date/Time: Sunday, March 05, 2017 19:03 - CONCLUSION: 1. Diffuse prominent anasarca seen through the body wall. 2. There is nonspecific edema throughout the mesenteric fat within the abdomen and pelvis. 3. There is a trace of fluid around the liver and spleen. 4. Prominent bilateral interstitial infiltrates in both lung bases along with small bilateral effusions. Art Rojas MD Abdomen X-Ray 03/04/17 0000 Signed Impressions: Service Date/Time: Saturday, March 04, 2017 12:19 - CONCLUSION: 1. Suction type NGT in the stomach. 2. Stable nonspecific paucity of bowel gas. Rarely, this can be seen with fluid filled bowel loops. Randy Patricio MD Renal Ultrasound 03/03/17 0000 Signed Impressions: Service Date/Time: Friday, March 03, 2017 16:03 - CONCLUSION: Normal examination. 1. Gustavo Yusuf MD Physical Exam CONSTITUTIONAL/GENERAL: NAD TUBES/LINES/DRAINS: SKIN: No jaundice, rashes, or lesions. Resolved anasarca EYES: Pupils equal and round and reactive. No scleral icterus. ENT: moist mucosae CARDIOVASCULAR: Regular tachycardia without , gallops, or rubs. 2/6 systolic ejection murmur No JVD. Peripheral pulses symmetric. RESPIRATORY/CHEST: Symmetric, unlabored respirations. Clear to auscultation. GASTROINTESTINAL: Abdomen tight not tender and not distended. No hepato- splenomegaly, or palpable masses. No guarding. Bowel sounds present. GENITOURINARY: Without palpable bladder distension. MUSCULOSKELETAL: Extremities without clubbing, cyanosis, no edema . No mottling or clubbing. No calf tenderness BACK: mildly tender to palpation i Lumbar area NEUROLOGICAL: fully awake and alert, non focal No menigeal smx PSYCHIATRIC: calm cooperativbe Assessment & Plan Remarks Sepsis (neutropenia, fever, lactic acidosis): clincailly resolved -Proteus bacteremia (GI from translocation across inflammed GI mucosa vs ) : resolved - clinical resolution of sepsis Proteus UTI / Pyelo with high grade bacteremia C.diff colitis- resolved; stools a re formed now Acute VDRF, resolved ETOHism, resolved withdrawl FUO - ? source, cont to have low grade temps - UA not sugg of UTI, also pt has no disuria Funguria of probably no clin significance - 2 D echo negative procalcitonine is in low risk strata Non specific back pain - persistent Headache - p[ersistent Recs: fu blood clx will obtaine L spine MRI if cont to have unexzplained fever and back pain will obtaine brain MRI if cont to have unexzplained fever and back pain Ruth Clayton MD Mar 27, 2017 14:11
[2017-03-27 16:00] VITALS: BP 138/86; PULSE 99; RESP 18; TEMP 97.1; O2SAT 97
[2017-03-27] MEDS ORDERED: GADODIAMIDE PF 287 MG/ML 5 ML VIAL (for RAD MRI) IVCONTRAST ONE (16:31)
--- NOTE | 2017-03-27 17:16 | RADRPT ---
EXAM DATE/TIME: 03/27/2017 16:01 [facility] COMPARISON: No previous studies available for comparison. INDICATIONS : Cephalgia. Fever. CONTRAST: 14 cc Omniscan (gadodiamide) IV MEDICAL HISTORY : None. SURGICAL HISTORY : Umbilical hernia repair. Hysterectomy. Breast implants. ENCOUNTER: Subsequent ACUITY: 1 month PAIN SCORE: 4/10 LOCATION: head. TECHNIQUE: Multiplanar, multisequence MRI of the brain was performed both prior to and following the administrat ion of paramagnetic contrast. FINDINGS: There are 2 small lacunar infarcts present one in the right posterior temporal region the second in t he basalganglia left side. Ventricular size is appropriate. There are no extra-axial fluid collections appreciated. There is n o parenchymal hemorrhage. There is no restricted diffusion. Midline structures are intact. Following intravenous administration of gadolinium there is no abnormal contrast enhancement. Posterior fossa is unremarkable. CONCLUSION: Negative MRI of the brain without and with contrast for acute process. Nam Gonzalez MD FACR on March 27, 2017 at 17:11 Board Certified Radiologist. This report was verified electronically.
--- NOTE | 2017-03-27 17:34 | RADRPT ---
EXAM DATE/TIME: 03/27/2017 16:01 [facility] COMPARISON: No previous studies available for comparison. INDICATIONS : Pain. Fever. CONTRAST: 14 cc Omniscan (gadodiamide) IV MEDICAL HISTORY : None. SURGICAL HISTORY : Umbilical hernia repair. Hysterectomy. Breast implants. ENCOUNTER: Subsequent ACUITY: 1 month PAIN SCORE: 4/10 LOCATION: back. TECHNIQUE: Multiplanar multisequence MRI of the lumbar spine was performed with and without contrast. FINDINGS: The most caudal appearing lumbar vertebra is numbered as L5. VERTEBRAE: Homogeneous signal. Normal alignment. CONUS: Normal level and configuration. POST CONTRAST: No abnormal areas of contrast enhancement are seen. T12-L1: The thecal sac has a normal diameter. No evidence of disc bulge or protrusion. The neural foramina are patent bilaterally. L1-L2: The thecal sac has a normal diameter. No evidence of disc bulge or protrusion. The neural foramina are patent bilaterally. L2-L3: The thecal sac has a normal diameter. No evidence of disc bulge or protrusion. The neural foramina are patent bilaterally. L3-L4: The thecal sac has a normal diameter. No evidence of disc bulge or protrusion. The neural foramina are patent bilaterally. L4-L5: The thecal sac has a normal diameter. No evidence of disc bulge or protrusion. The neural foramina are patent bilaterally. L5-S1: The thecal sac has a normal diameter. No evidence of disc bulge or protrusion. The neural foramina are patent bilaterally. CONCLUSION: Negative MRI of the lumbar spine. I do not see evidence for an inflammatory process.. Nam Gonzalez MD FACR on March 27, 2017 at 17:31 Board Certified Radiologist. This report was verified electronically.
--- NOTE | 2017-03-27 18:59 | HHI.PR ---
Subjective Remarks Continue to have low grade fever c/o headache and discomfort over the right lower mandible, however denies pain Had low grade temp this am T max 100.3 Objective Vitals Vital Signs Date Time Temp Pulse Resp B/P (MAP) Pulse Ox O2 Delivery O2 Flow Rate FiO2 03/27/17 16:00 97.1 99 18 138/86 (103) 97 03/27/17 12:00 98.9 94 18 116/59 (78) 97 03/27/17 08:00 95.9 96 18 123/74 (90) 99 03/27/17 00:32 99.4 116 18 139/86 (103) 96 03/26/17 20:00 99.3 86 18 126/67 (86) 99 I/O 03/26/17 03/26/17 03/26/17 03/27/17 03/27/17 03/27/17 07:00 15:00 23:00 07:00 15:00 23:00 Intake Total 840 ml 1680 ml Balance 840 ml 1680 ml Intake Oral 840 ml 1680 ml # Voids 0 5 2 7 # Bowel Movements 1 2 Result Diagram: 03/25/17 0552 03/27/17 0825 Imaging Last Impressions Chest X-Ray 03/22/17 0600 Signed Impressions: Service Date/Time: Wednesday, March 22, 2017 07:35 - CONCLUSION: No acute disease. Russell Almanza MD Abdomen/Pelvis CT 03/05/17 0000 Signed Impressions: Service Date/Time: Sunday, March 05, 2017 19:03 - CONCLUSION: 1. Diffuse prominent anasarca seen through the body wall. 2. There is nonspecific edema throughout the mesenteric fat within the abdomen and pelvis. 3. There is a trace of fluid around the liver and spleen. 4. Prominent bilateral interstitial infiltrates in both lung bases along with small bilateral effusions. Art Rojas MD Abdomen X-Ray 03/04/17 0000 Signed Impressions: Service Date/Time: Saturday, March 04, 2017 12:19 - CONCLUSION: 1. Suction type NGT in the stomach. 2. Stable nonspecific paucity of bowel gas. Rarely, this can be seen with fluid filled bowel loops. Randy Patricio MD Renal Ultrasound 03/03/17 0000 Signed Impressions: Service Date/Time: Friday, March 03, 2017 16:03 - CONCLUSION: Normal examination. 1. Gustavo Yusuf MD Objective Remarks AAOx3 nad clear lungs BL S1S2 RRR no edema in lower extremities Medications and IVs Current Medications Medications (Trade) Dose Ordered Sig/Sona Route Start Time Stop Time Status Last Admin (NS Flush) 2 ml UNSCH PRN IV FLUSH 02/28/17 02:30 (NS Flush) 2 ml BID IV FLUSH 02/28/17 09:00 03/27/17 09:00 (Duoneb Neb) 1 ampule Q2HR NEB PRN NEB 02/28/17 03:00 03/07/17 19:55 (Heparin Inj) 5,000 units Q8HR SQ 02/28/17 06:00 03/27/17 12:19 Miscellaneous Information 1 Q361D XX 02/28/17 02:30 (Chlorhexidine 2% Cloth) Taper DAILY@04 TOP 02/28/17 04:00 02/24/18 03:59 03/04/17 04:13 (Chlorhexidine 2% Cloth) 3 pack UNSCH PRN TOP 02/28/17 02:30 (Peridex 0.12% Liq) 15 ml BID@08,20 MT 02/28/17 20:00 03/22/17 08:00 (Claritin) 10 mg HS PO 03/13/17 21:00 03/26/17 21:51 (Proamatine) 10 mg Q6H PRN PO 03/13/17 19:00 (Narcan Inj) 0.4 mg UNSCH PRN IV PUSH 03/15/17 14:30 (Motrin) 400 mg Q8H PRN PO 03/15/17 14:45 03/26/17 23:06 (Pepcid) 20 mg BID PO 03/15/17 21:00 03/27/17 08:56 (KCl) 20 meq DAILY PO 03/16/17 09:00 03/27/17 08:56 (Ultram) 50 mg Q12H PRN PO 03/16/17 10:00 03/27/17 18:05 (KCl) 20 meq DAILY PO 03/17/17 09:00 03/19/17 08:32 (Colace) 100 mg BID PO 03/16/17 21:00 03/24/17 08:09 (Tylenol) 650 mg Q4H PRN PO 03/17/17 18:15 03/22/17 03:44 (Zoloft) 50 mg DAILY PO 03/20/17 09:00 03/27/17 08:56 (Lasix) 20 mg DAILY PRN PO 03/19/17 11:15 03/19/17 21:15 (Lactinex) 1 tab TID PO 03/20/17 13:00 03/27/17 18:05 (Zofran Inj) 4 mg Q6H PRN IV PUSH 03/23/17 17:30 03/27/17 18:08 (Xanax) 0.25 mg Q6HR PRN PO 03/24/17 09:15 03/27/17 18:05 A/P Problem List: (1) Adjustment disorder with anxiety ICD Code: F43.22 - Adjustment disorder with anxiety (2) Alcohol abuse with alcohol-induced mood disorder ICD Code: F10.14 - Alcohol abuse with alcohol-induced mood disorder Status: Acute (3) Elevated LFTs ICD Code: R79.89 - Other specified abnormal findings of blood chemistry Status: Acute (4) Pneumonia ICD Code: J18.9 - Pneumonia, unspecified organism Status: Acute (5) Alcohol intoxication ICD Code: F10.929 - Alcohol use, unspecified with intoxication, unspecified Status: Acute Assessment and Plan Sepsis with Proteus UTI and bacteremia Persistent Fever of Unknown Origin Occurred again ID following Monitor for resolution 03/27 MRI of brain and lumbar spine ordered by ID -- will follow Consider LP since Fever + headache UTI Bactrim Peripheral edema Continue Lasix as needed Pneumonia Continue antibiotic per ID Follow clinically C. difficile colitis Continue by mouth vancomycin Follow clinically Alcoholism Continue thiamine Continue folic acid Continue multivitamin Monitor for withdrawal symptoms Anxiety and depression Continue Ativan as needed BuSpar Started Global weakness Status post prolonged intubation state PT and OT Rhinorrhea Antihistamine started stable DVT prophylaxis Heparin SCDs Problem Qualifiers (1) Pneumonia: Qualified Codes: J18.1 - Lobar pneumonia, unspecified organism Richard Mcrae MD Mar 27, 2017 18:59
[2017-03-27] MEDS ORDERED: PHARMACY ORDERED LAB ONE (20:45)
[2017-03-27 20:56] VITALS: BP 113/73; PULSE 103; RESP 16; TEMP 98.8; O2SAT 99
[2017-03-27] MEDS: LORATADINE 10 MG TAB PO SCH (23:29)
[2017-03-28] VITALS: BP 131/75; PULSE 90; RESP 20; TEMP 97.9; O2SAT 98
[2017-03-28] MEDS: ALPRAZolam 0.25 MG TAB PO PRN ×4 (00:02→18:17)
[2017-03-28] MEDS: ONDANSETRON HCL 4 MG/2 ML VIAL IV PUSH PRN ×4 (00:02→18:19)
[2017-03-28] MEDS: HEPARIN SODIUM - SQ 10,000 UNITS/ML VIAL SQ SCH ×3 (05:59→20:24)
[2017-03-28] MEDS: traMADol HCL 50 MG TAB PO PRN ×2 (05:59→18:14)
[2017-03-28 08:00] VITALS: BP 129/71; PULSE 106; RESP 18; TEMP 100.6; O2SAT 96
[2017-03-28] MEDS: CHLORHEXIDINE 0.12% (ORAL KIT) 15 ML CUP MT SCH ×2 (08:00→20:00)
[2017-03-28] MEDS: POTASSIUM CHLORIDE 20 MEQ CONTROLLED RELEASE TAB PO SCH ×2 (09:25→09:28)
[2017-03-28] MEDS: DOCUSATE SODIUM 100 MG CAP PO SCH ×2 (09:25→20:24)
[2017-03-28] MEDS: SODIUM CHLORIDE 0.9% FLUSH 10 ML FLUSH IV FLUSH SCH ×2 (09:27→20:27)
[2017-03-28] MEDS: SERTRALINE HCL 50 MG TAB PO SCH (09:28)
[2017-03-28] MEDS: FAMOTIDINE 20 MG TAB PO SCH ×2 (09:28→20:24)
[2017-03-28] MEDS: LACTOBACILLUS ACIDOPHILUS TAB PO SCH ×3 (09:28→18:00)
[2017-03-28] MEDS: IBUPROFEN 400 MG TAB PO PRN ×2 (09:36→23:09)
[2017-03-28 09:41] LABS: AUTOMATED NEUTROPHIL # 7.6 TH/MM3 (1.8-7.7); BASOPHIL # 0.1 TH/MM3 (0-0.2); BASOPHIL % 0.7 % (0.0-2.0); EOSINOPHIL # 0.4 TH/MM3 (0-0.4); EOSINOPHIL % 3.6 % (0.0-4.0); HEMATOCRIT 27.7 % (35.0-46.0); HEMOGLOBIN 9.4 GM/DL (11.6-15.3); LYMPH % 25.2 % (9.0-44.0); MEAN CELL VOLUME 94.6 FL (80.0-100.0); MEAN CORPUSCULAR HEMOGLOBIN 32.1 PG (27.0-34.0); MEAN CORPUSCULAR HGB CONC 33.9 % (32.0-36.0); MONO % 7.9 % (0.0-8.0); NEUT % 62.6 % (16.0-70.0); PLATELET COUNT 338 TH/MM3 (150-450); RED BLOOD COUNT 2.92 MIL/MM3 (4.00-5.30); RED CELL DISTRIBUTION WIDTH 14.4 % (11.6-17.2); WHITE BLOOD COUNT 12.1 TH/MM3 (4.0-11.0)
--- NOTE | 2017-03-28 10:45 | RADRPT ---
EXAM DATE/TIME: 03/28/2017 10:39 [facility] COMPARISON: CHEST SINGLE AP, March 22, 2017, 7:35. INDICATIONS : Fever. MEDICAL HISTORY : pneumonia SURGICAL HISTORY : breast implants ENCOUNTER: Initial ACUITY: 1 day PAIN SCORE: 0/10 LOCATION: Bilateral chest FINDINGS: PA and lateral views of the chest demonstrate the lungs to be symmetrically aerated without evidence of mass, infiltrate or effusion. The cardiomediastinal contours are unremarkable. Osseous structure s are intact. CONCLUSION: No acute disease. No significant change has occurred. Art Rojas MD on March 28, 2017 at 10:43 Board Certified Radiologist. This report was verified electronically.
[2017-03-28 11:18] LABS: ALBUMIN 2.9 GM/DL (3.4-5.0); AST (GOT) 27 U/L (15-37); BICARBONATE 23.9 MEQ/L (21.0-32.0); BLOOD UREA NITROGEN 11 MG/DL (7-18); CALCIUM 9.1 MG/DL (8.5-10.1); CHLORIDE 100 MEQ/L (98-107); CREATININE 0.98 MG/DL (0.50-1.00); GLOMERULAR FILTRATION RATE 61 ML/MIN (>89); GLUCOSE,RANDOM 90 MG/DL (74-106); SODIUM (NA) 135 MEQ/L (136-145)
[2017-03-28 11:21] LABS: ALKALINE PHOSPHATASE 98 U/L (45-117); ALT (GPT) 21 U/L (10-53); TOTAL BILIRUBIN ADULT 0.5 MG/DL (0.2-1.0); TOTAL PROTEIN 7.5 GM/DL (6.4-8.2)
[2017-03-28 12:00] VITALS: BP 144/72; PULSE 99; RESP 18; TEMP 98.1; O2SAT 96
[2017-03-28 16:00] VITALS: BP 108/61; PULSE 91; RESP 18; TEMP 98; O2SAT 97
--- NOTE | 2017-03-28 16:37 | HHI.IDPN ---
Subjective Subjective Remarks cont to have fevers co discomfot aw with R lowe molar c/o head achae and persistent back pain 1 set of blood clx obtained and is negative MRI back, brain wo acute pathology Antibiotics none Lines Line sites with no e.o infection. Past Medical History reviewed Allergies: Coded Allergies: No Known Allergies (Unverified , 02/28/17) Objective . Vital Signs Date Time Temp Pulse Resp B/P (MAP) Pulse Ox O2 Delivery O2 Flow Rate FiO2 03/28/17 16:00 98.0 91 18 108/61 (77) 97 03/28/17 12:00 98.1 99 18 144/72 (96) 96 03/28/17 08:00 100.6 106 18 129/71 (90) 96 03/28/17 00:00 97.9 90 20 131/75 (93) 98 03/27/17 20:56 98.8 103 16 113/73 (86) 99 . Laboratory Tests Test 03/28/17 08:54 White Blood Count 12.1 TH/MM3 Red Blood Count 2.92 MIL/MM3 Hemoglobin 9.4 GM/DL Hematocrit 27.7 % Mean Corpuscular Volume 94.6 FL Mean Corpuscular Hemoglobin 32.1 PG Mean Corpuscular Hemoglobin Concent 33.9 % Red Cell Distribution Width 14.4 % Platelet Count 338 TH/MM3 Mean Platelet Volume 8.0 FL Neutrophils (%) (Auto) 62.6 % Lymphocytes (%) (Auto) 25.2 % Monocytes (%) (Auto) 7.9 % Eosinophils (%) (Auto) 3.6 % Basophils (%) (Auto) 0.7 % Neutrophils # (Auto) 7.6 TH/MM3 Lymphocytes # (Auto) 3.0 TH/MM3 Monocytes # (Auto) 1.0 TH/MM3 Eosinophils # (Auto) 0.4 TH/MM3 Basophils # (Auto) 0.1 TH/MM3 CBC Comment DIFF FINAL Differential Comment Laboratory Tests Test 03/26/17 19:09 03/27/17 08:25 03/28/17 08:54 Thyroid Stimulating Hormone 3rd Gen 1.220 uIU/ML Creatinine 0.97 MG/DL 0.98 MG/DL Estimat Glomerular Filtration Rate 61 ML/MIN 61 ML/MIN Blood Urea Nitrogen 11 MG/DL Random Glucose 90 MG/DL Total Protein 7.5 GM/DL Albumin 2.9 GM/DL Calcium Level 9.1 MG/DL Alkaline Phosphatase 98 U/L Aspartate Amino Transf (AST/SGOT) 27 U/L Alanine Aminotransferase (ALT/SGPT) 21 U/L Total Bilirubin 0.5 MG/DL Sodium Level 135 MEQ/L Potassium Level 4.0 MEQ/L Chloride Level 100 MEQ/L Carbon Dioxide Level 23.9 MEQ/L Anion Gap 11 MEQ/L Microbiology Date/Time Source Procedure Growth Status 03/26/17 23:04 Blood Peripheral Aerobic Blood Culture - Preliminary NO GROWTH IN 2 DAYS Resulted 03/26/17 23:04 Blood Peripheral Anaerobic Blood Culture - Preliminary NO GROWTH IN 2 DAYS Resulted Imaging Last Impressions Chest X-Ray 03/28/17 0000 Signed Impressions: Service Date/Time: March 10:39 - CONCLUSION: No acute disease. No significant change has occurred. Art Rojas MD Lumbar Spine MRI 03/27/17 0000 Signed Impressions: Service Date/Time: Monday, March 27, 2017 16:01 - CONCLUSION: Negative MRI of the lumbar spine. I do not see evidence for an inflammatory process.. Nam Gonzalez MD FACR Brain MRI 03/27/17 0000 Signed Impressions: Service Date/Time: Monday, March 27, 2017 16:01 - CONCLUSION: Negative MRI of the brain without and with contrast for acute process. Nam Gonzalez MD FACR Abdomen/Pelvis CT 03/05/17 0000 Signed Impressions: Service Date/Time: Sunday, March 05, 2017 19:03 - CONCLUSION: 1. Diffuse prominent anasarca seen through the body wall. 2. There is nonspecific edema throughout the mesenteric fat within the abdomen and pelvis. 3. There is a trace of fluid around the liver and spleen. 4. Prominent bilateral interstitial infiltrates in both lung bases along with small bilateral effusions. Art Rojas MD Abdomen X-Ray 03/04/17 0000 Signed Impressions: Service Date/Time: Saturday, March 04, 2017 12:19 - CONCLUSION: 1. Suction type NGT in the stomach. 2. Stable nonspecific paucity of bowel gas. Rarely, this can be seen with fluid filled bowel loops. Randy Patricio MD Renal Ultrasound 03/03/17 0000 Signed Impressions: Service Date/Time: Friday, March 03, 2017 16:03 - CONCLUSION: Normal examination. 1. Gustavo Yusuf MD Physical Exam CONSTITUTIONAL/GENERAL: NAD TUBES/LINES/DRAINS: SKIN: No jaundice, rashes, or lesions. Resolved anasarca EYES: Pupils equal and round and reactive. No scleral icterus. ENT: moist mucosae Nearly completely necrosed R lower 3rd molar No swelling some tenderness present CARDIOVASCULAR: Regular tachycardia without , gallops, or rubs. 2/6 systolic ejection murmur No JVD. Peripheral pulses symmetric. RESPIRATORY/CHEST: Symmetric, unlabored respirations. Clear to auscultation. GASTROINTESTINAL: Abdomen tight not tender and not distended. No hepato- splenomegaly, or palpable masses. No guarding. Bowel sounds present. GENITOURINARY: Without palpable bladder distension. MUSCULOSKELETAL: Extremities without clubbing, cyanosis, no edema . No mottling or clubbing. No calf tenderness NEUROLOGICAL: fully awake and alert, non focal No menigeal smx PSYCHIATRIC: calm cooperativbe Assessment & Plan Remarks Sepsis (neutropenia, fever, lactic acidosis): clincailly resolved -Proteus bacteremia (GI from translocation across inflammed GI mucosa vs ) : resolved - clinical resolution of sepsis Proteus UTI / Pyelo with high grade bacteremia C.diff colitis- resolved; stools a re formed now Acute VDRF, resolved ETOHism, resolved withdrawl FUO - ? source, cont to have low grade temps - UA not sugg of UTI, also pt has no disuria Funguria of probably no clin significance - 2 D echo negative back, brain MRIs neg Apical abcsess 2/2 cariotic tooth? procalcitonine is in low risk strata Non specific back pain - persistent; no acute pathology Headache - p[ersistent ; no acute pathology Recs: fu blood clx untill finale UA x rays will try Augmentin Ruth Clayton MD Mar 28, 2017 16:37
--- NOTE | 2017-03-28 17:03 | HHI.PR ---
Subjective Remarks headache is still present but better than previous days there is some discomfort on lower right mandible but no pain denies dysuria WBC trending up fever this am - tmax 100.3 Objective Vitals Vital Signs Date Time Temp Pulse Resp B/P (MAP) Pulse Ox O2 Delivery O2 Flow Rate FiO2 03/28/17 16:00 98.0 91 18 108/61 (77) 97 03/28/17 12:00 98.1 99 18 144/72 (96) 96 03/28/17 08:00 100.6 106 18 129/71 (90) 96 03/28/17 00:00 97.9 90 20 131/75 (93) 98 03/27/17 20:56 98.8 103 16 113/73 (86) 99 I/O 03/27/17 03/27/17 03/27/17 03/28/17 03/28/17 03/28/17 07:00 15:00 23:00 07:00 15:00 23:00 Intake Total 1680 ml 320 ml Balance 1680 ml 320 ml Intake Oral 1680 ml 320 ml # Voids 2 7 3 # Bowel Movements 2 0 Result Diagram: 03/28/17 0854 03/28/17 0854 Imaging Last Impressions Chest X-Ray 03/28/17 0000 Signed Impressions: Service Date/Time: March 10:39 - CONCLUSION: No acute disease. No significant change has occurred. Art Rojas MD Lumbar Spine MRI 03/27/17 0000 Signed Impressions: Service Date/Time: Monday, March 27, 2017 16:01 - CONCLUSION: Negative MRI of the lumbar spine. I do not see evidence for an inflammatory process.. Nam Gonzalez MD FACR Brain MRI 03/27/17 0000 Signed Impressions: Service Date/Time: Monday, March 27, 2017 16:01 - CONCLUSION: Negative MRI of the brain without and with contrast for acute process. Nam Gonzalez MD FACR Abdomen/Pelvis CT 03/05/17 0000 Signed Impressions: Service Date/Time: Sunday, March 05, 2017 19:03 - CONCLUSION: 1. Diffuse prominent anasarca seen through the body wall. 2. There is nonspecific edema throughout the mesenteric fat within the abdomen and pelvis. 3. There is a trace of fluid around the liver and spleen. 4. Prominent bilateral interstitial infiltrates in both lung bases along with small bilateral effusions. Art Rojas MD Abdomen X-Ray 03/04/17 0000 Signed Impressions: Service Date/Time: Saturday, March 04, 2017 12:19 - CONCLUSION: 1. Suction type NGT in the stomach. 2. Stable nonspecific paucity of bowel gas. Rarely, this can be seen with fluid filled bowel loops. Randy Patricio MD Renal Ultrasound 03/03/17 0000 Signed Impressions: Service Date/Time: Friday, March 03, 2017 16:03 - CONCLUSION: Normal examination. 1. Gustavo Yusuf MD Objective Remarks AAOx3 nad clear lungs BL S1S2 RRR no edema in lower extremities molar tooth on right lower jaw with caries, no clear abcsess, mild erythema surrounding tooth. no edema in lower extremities Medications and IVs Current Medications Medications (Trade) Dose Ordered Sig/Sona Route Start Time Stop Time Status Last Admin (NS Flush) 2 ml UNSCH PRN IV FLUSH 02/28/17 02:30 (NS Flush) 2 ml BID IV FLUSH 02/28/17 09:00 03/28/17 09:27 (Duoneb Neb) 1 ampule Q2HR NEB PRN NEB 02/28/17 03:00 03/07/17 19:55 (Heparin Inj) 5,000 units Q8HR SQ 02/28/17 06:00 03/27/17 12:19 Miscellaneous Information 1 Q361D XX 02/28/17 02:30 (Chlorhexidine 2% Cloth) Taper DAILY@04 TOP 02/28/17 04:00 02/24/18 03:59 03/04/17 04:13 (Chlorhexidine 2% Cloth) 3 pack UNSCH PRN TOP 02/28/17 02:30 (Peridex 0.12% Liq) 15 ml BID@08,20 MT 02/28/17 20:00 03/22/17 08:00 (Claritin) 10 mg HS PO 03/13/17 21:00 03/27/17 23:29 (Proamatine) 10 mg Q6H PRN PO 03/13/17 19:00 (Narcan Inj) 0.4 mg UNSCH PRN IV PUSH 03/15/17 14:30 (Motrin) 400 mg Q8H PRN PO 03/15/17 14:45 03/28/17 09:36 (Pepcid) 20 mg BID PO 03/15/17 21:00 03/28/17 09:28 (KCl) 20 meq DAILY PO 03/16/17 09:00 03/28/17 09:28 (Ultram) 50 mg Q12H PRN PO 03/16/17 10:00 03/28/17 05:59 (KCl) 20 meq DAILY PO 03/17/17 09:00 03/19/17 08:32 (Colace) 100 mg BID PO 03/16/17 21:00 03/24/17 08:09 (Tylenol) 650 mg Q4H PRN PO 03/17/17 18:15 03/22/17 03:44 (Zoloft) 50 mg DAILY PO 03/20/17 09:00 03/28/17 09:28 (Lasix) 20 mg DAILY PRN PO 03/19/17 11:15 03/19/17 21:15 (Lactinex) 1 tab TID PO 03/20/17 13:00 03/28/17 12:15 (Zofran Inj) 4 mg Q6H PRN IV PUSH 03/23/17 17:30 03/28/17 12:15 (Xanax) 0.25 mg Q6HR PRN PO 03/24/17 09:15 03/28/17 12:15 Urinary Catheter: No Vascular Central Line Catheter: No A/P Problem List: (1) Sepsis ICD Code: A41.9 - Sepsis, unspecified organism Status: Resolved Plan: Patient presented with neutropenia, fever, lactic acidosis, clinically resolved. Patient diagnosed with Proteus bacteremia secondary to practice UTI 4/ pyelonephritis. Treated with IV antibiotics and now resolved. (2) UTI (urinary tract infection) ICD Code: N39.0 - Urinary tract infection, site not specified Status: Resolved Plan: Patient with Proteus UTI/pyelonephritis with high-grade bacteremia. Status post treatment with IV vancomycin and IV cefepime. ID consulted and following patient. Repeat UA ordered on 08/25, however not done. (3) Acute kidney injury ICD Code: N17.9 - Acute kidney failure, unspecified Status: Resolved Plan: Likely prerenal azotemia from sepsis. Now resolved after IV fluid administration. Continue to monitor BUN/creatinine, strict I's and O's, avoid nephrotoxins. (4) C. difficile colitis ICD Code: A04.72 - Enterocolitis due to Clostridium difficile, not specified as recurrent Plan: resolved. Stools now are formed. (5) Depression ICD Code: F32.9 - Major depressive disorder, single episode, unspecified Status: Resolved Plan: Seems to be stable. Continue Zoloft. (6) Anxiety ICD Code: F41.9 - Anxiety disorder, unspecified Status: Chronic Plan: Continue Xanax as needed for anxiety. (7) Alcohol abuse ICD Code: F10.10 - Alcohol abuse, uncomplicated Plan: Advised alcohol cessation. Advised alcohol cessation. (8) Generalized weakness ICD Code: R53.1 - Weakness Plan: Continue PT/OT. Patient cleared to hold go home with outpatient PT. (9) Rhinorrhea ICD Code: J34.89 - Other specified disorders of nose and nasal sinuses Plan: Patient started on our 10. Seems to be stable. (10) Fever ICD Code: R50.9 - Fever, unspecified Plan: At this point source is unclear. Chest x-ray repeated today shows no acute disease. UA obtained on 03/20 negative. Echo cardiac exam negative. Lumbar and brain MRIs negative. Obtain UA and if no urinary tract infections and will consider a CT of maxillary bones to rule out apical abscesses secondary to poor dentition and tooth with caries. Doubt meningitis. Patient with no clinical signs, no neck rigidity, photophobia. Headache seems to be improving. Assessment and Plan DVT prophylaxis: Continue heparin subcutaneous, SCDs. GI prophylaxis: On PPI. Discharge Planning Discussed condition with patient and Dr. Clayton. Discharge pending ID clearance and cessation of fevers x 24 hours. Problem Qualifiers (1) UTI (urinary tract infection): Qualified Codes: N10 - Acute pyelonephritis (2) Fever: Qualified Codes: R50.9 - Fever, unspecified Richard Mcrae MD Mar 28, 2017 17:03
[2017-03-28 17:52] LABS: BILIRUBIN, URINE NEG (NEG); BLOOD, URINE NEG (NEG); GLUCOSE,URINE NEG (NEG); KETONE, URINE NEG (NEG); NITRITE,URINE NEG (NEG); URINE COLOR LIGHT-YELLOW (YELLW/STRAW); URINE LEUKOCYTE ESTERASE TRACE (NEG)
[2017-03-28 20:00] VITALS: BP 122/70; PULSE 98; RESP 18; TEMP 97.6; O2SAT 99
[2017-03-28] MEDS: LORATADINE 10 MG TAB PO SCH (20:24)
[2017-03-29] VITALS: BP 110/67; PULSE 97; RESP 18; TEMP 99; O2SAT 98
[2017-03-29] MEDS: ONDANSETRON HCL 4 MG/2 ML VIAL IV PUSH PRN ×3 (00:10→12:22)
[2017-03-29] MEDS: ALPRAZolam 0.25 MG TAB PO PRN ×3 (00:10→12:22)
[2017-03-29] MEDS: CHLORHEXIDINE GLUCONATE 2 % 1 PACK (2 CLOTHS) TOP SCH (04:00)
[2017-03-29 05:33] LABS: BASOPHIL # 0.1 TH/MM3 (0-0.2); BASOPHIL % 0.6 % (0.0-2.0); EOSINOPHIL # 0.4 TH/MM3 (0-0.4); HEMATOCRIT 27.9 % (35.0-46.0); HEMOGLOBIN 9.8 GM/DL (11.6-15.3); LYMPH % 30.5 % (9.0-44.0); LYMPHOCYTE # 3.1 TH/MM3 (1.0-4.8); MEAN CELL VOLUME 94.6 FL (80.0-100.0); MEAN CORPUSCULAR HEMOGLOBIN 33.4 PG (27.0-34.0); MEAN CORPUSCULAR HGB CONC 35.3 % (32.0-36.0); MEAN PLATELET VOLUME 8.1 FL (7.0-11.0); MONO % 6.6 % (0.0-8.0); MONOCYTE # 0.7 TH/MM3 (0-0.9); NEUT % 58.3 % (16.0-70.0); PLATELET COUNT 324 TH/MM3 (150-450); RED BLOOD COUNT 2.95 MIL/MM3 (4.00-5.30); RED CELL DISTRIBUTION WIDTH 14.2 % (11.6-17.2); WHITE BLOOD COUNT 10.3 TH/MM3 (4.0-11.0)
[2017-03-29 05:51] LABS: CREATININE 1.08 MG/DL (0.50-1.00)
[2017-03-29] MEDS: HEPARIN SODIUM - SQ 10,000 UNITS/ML VIAL SQ SCH ×2 (06:00→14:00)
[2017-03-29] MEDS: traMADol HCL 50 MG TAB PO PRN (06:07)
[2017-03-29 08:00] VITALS: BP 113/65; PULSE 78; RESP 16; TEMP 97.3; O2SAT 97
[2017-03-29] MEDS: CHLORHEXIDINE 0.12% (ORAL KIT) 15 ML CUP MT SCH (08:00)
[2017-03-29] MEDS: DOCUSATE SODIUM 100 MG CAP PO SCH (09:00)
[2017-03-29] MEDS: LACTOBACILLUS ACIDOPHILUS TAB PO SCH ×2 (09:42→12:21)
[2017-03-29] MEDS: SERTRALINE HCL 50 MG TAB PO SCH (09:42)
[2017-03-29] MEDS: SODIUM CHLORIDE 0.9% FLUSH 10 ML FLUSH IV FLUSH SCH (09:42)
[2017-03-29] MEDS: POTASSIUM CHLORIDE 20 MEQ CONTROLLED RELEASE TAB PO SCH ×2 (09:44→09:51)
[2017-03-29] MEDS: FAMOTIDINE 20 MG TAB PO SCH (09:52)
[2017-03-29] MEDS: IBUPROFEN 400 MG TAB PO PRN (10:41)
[2017-03-29 10:45] VITALS: BP 115/69; PULSE 75; RESP 18; O2SAT 99
[2017-03-29] MEDS ORDERED: IOHEXOL 350 MG/ML 10 ML VIAL (for RAD DIAG) IVCONTRAST ONE (11:20)
[2017-03-29 12:00] VITALS: BP 122/92; PULSE 101; RESP 16; TEMP 98.7; O2SAT 97
--- NOTE | 2017-03-29 12:04 | RADRPT ---
EXAM DATE/TIME: 03/29/2017 11:08 [facility] COMPARISON: No previous studies available for comparison. INDICATIONS : Fever. Possible dental abscess. IV CONTRAST: 70 cc Omnipaque 350 (iohexol) IV RADIATION DOSE: 36.44 CTDIvol (mGy) MEDICAL HISTORY : Seizures. Cirrhosis. SURGICAL HISTORY : None. ENCOUNTER: Initial ACUITY: 1 day PAIN SCALE: 5/10 LOCATION: Bilateral jaw TECHNIQUE: Volumetric scanning of the facial bones was performed. Using automated exposure control and adjustme nt of the mA and/or kV according to patient size, radiation dose was kept as low as reasonably achiev able to obtain optimal diagnostic quality images. DICOM format image data is available electronicall y for review and comparison. FINDINGS: ORBITS: The orbital and infraorbital osseous structures are intact. The retroconal structures have a normal configuration. No radiopaque foreign bodies are seen. NASAL BONE: The nasal bone and maxillary spine are intact ZYGOMATIC ARCHES: Symmetric without evidence of fracture. SINUSES: The maxillary, ethmoid and frontal sinuses are intact. No air-fluid levels seen. NASAL CAVITY: The nasal septum is intact and midline. The lacrimal ducts are intact. SOFT TISSUES: No radiopaque foreign bodies seen. No soft-tissue swelling is seen. INTRACRANIAL: No intracranial air seen. CRIBIFORM PLATE: Grossly intact. CONCLUSION: Negative for dental status or sinus disease. Nam Gonzalez MD FACR on March 29, 2017 at 12:01 Board Certified Radiologist. This report was verified electronically.
--- NOTE | 2017-03-29 13:10 | HHI.PR ---
Addendum to Inpatient Note Additional Information afebrile x 24 her All w/u negative WBC down A: resolvedlowgrade fever advanced caries of lower R molar Rec's:dc pt home with f/u with community clinic and dentist No abx 2/2 recent C.diff unless obvious pic of odontognic infection Ruth Clayton MD Mar 29, 2017 13:10
--- NOTE | 2017-03-29 13:54 | HHI.DS ---
Discharge Summary Admission Date Feb 28, 2017 at 01:59 Discharge Date: Mar 29, 2017 Admitting Diagnosis Proteus UTI, bacteremia, septic shock, hypoxemic respiratory failure, ADILSON, hypokalemia (1) Sepsis ICD Code: A41.9 - Sepsis, unspecified organism Status: Resolved (2) UTI (urinary tract infection) ICD Code: N39.0 - Urinary tract infection, site not specified Status: Resolved (3) Acute kidney injury ICD Code: N17.9 - Acute kidney failure, unspecified Status: Resolved (4) C. difficile colitis ICD Code: A04.72 - Enterocolitis due to Clostridium difficile, not specified as recurrent (5) Depression ICD Code: F32.9 - Major depressive disorder, single episode, unspecified Status: Resolved (6) Anxiety ICD Code: F41.9 - Anxiety disorder, unspecified Status: Chronic (7) Alcohol abuse ICD Code: F10.10 - Alcohol abuse, uncomplicated (8) Generalized weakness ICD Code: R53.1 - Weakness (9) Rhinorrhea ICD Code: J34.89 - Other specified disorders of nose and nasal sinuses (10) Fever ICD Code: R50.9 - Fever, unspecified Brief History - From Admission 44-year-old female with history of alcohol use disorder liver cirrhosis, presents following a syncopal or near syncopal event at home. The patient reports that she's been ill for a couple days with vomiting and diarrhea. She has been febrile. She reportedly had an alteration in her level of consciousness at home tonight prompting her boyfriend called the rescue squad. EMS states that her heart rate was 180 on their arrival. She was normotensive. She also had a fever of 103. They treated her in route with IV fluids and Zofran. Patient reports some cough and some shortness of breath. She denies any other upper respiratory symptoms. She denies any urinary tract symptoms. Despite IV fluid resuscitation patient became hypotensive in the center line was placed by ED attending for Levophed administration. CBC/BMP: 03/29/17 0448 03/29/17 0448 Significant Findings Laboratory Tests Test 03/26/17 19:09 03/27/17 08:25 03/28/17 08:54 03/28/17 17:35 Estimat Glomerular Filtration Rate 61 ML/MIN (>89) 61 ML/MIN (>89) White Blood Count 12.1 TH/MM3 (4.0-11.0) Red Blood Count 2.92 MIL/MM3 (4.00-5.30) Hemoglobin 9.4 GM/DL (11.6-15.3) Hematocrit 27.7 % (35.0-46.0) Monocytes # (Auto) 1.0 TH/MM3 (0-0.9) Albumin 2.9 GM/DL (3.4-5.0) Sodium Level 135 MEQ/L (136-145) Urine Leukocyte Esterase TRACE (NEG) Test 03/29/17 04:48 Red Blood Count 2.95 MIL/MM3 (4.00-5.30) Hemoglobin 9.8 GM/DL (11.6-15.3) Hematocrit 27.9 % (35.0-46.0) Creatinine 1.08 MG/DL (0.50-1.00) Estimat Glomerular Filtration Rate 54 ML/MIN (>89) PE at Discharge AAOx3 nad clear lungs BL S1S2 RRR no edema in lower extremities molar tooth on right lower jaw with caries, no clear abcsess, mild erythema surrounding tooth. no edema in lower extremities Transfer Summary Septic shock and hypoxemic respiratory failure requiring intubation and mechanical ventilation. Extubated 03/12. ID following. Pt Condition on Discharge: Stable Discharge Disposition: Discharge Home Discharge Instructions DIET: Follow Instructions for: Heart Healthy Diet Speech Therapy-Diet Recommends: Pureed Activities you can perform: Regular-No Restrictions Richard Mcrae MD Mar 29, 2017 13:54
== END 2017-03-29 15:47 | disposition home or self-care (01) | DRG 870 ==
LOC: NEPE 00:33 → NEDA 01:59 → N03B 03:55 → N07A 03-13 17:04
PROVIDERS: ADMIT Hospitalist; ATTEND Hospitalist
PROC: 05H533Z Insertion of Infusion Device into Right Subclavian Vein, Percutaneous Approach (ICD-10-PCS; principal; 2017-02-28)
PROC: 5A1955Z Respiratory Ventilation, Greater than 96 Consecutive Hours (ICD-10-PCS; 2017-02-28)
PROC: 0BH17EZ Insertion of Endotracheal Airway into Trachea, Via Natural or Artificial Opening (ICD-10-PCS; 2017-02-28)
DX: A41.59 Other Gram-negative sepsis (principal); J96.91 Respiratory failure, unspecified with hypoxia; R65.21 Severe sepsis with septic shock; J69.0 Pneumonitis due to inhalation of food and vomit; N17.9 Acute kidney failure, unspecified; D69.6 Thrombocytopenia, unspecified; E87.2 Acidosis; K56.7 Ileus, unspecified; N13.6 Pyonephrosis; Z99.11 Dependence on respirator [ventilator] status; A04.72 Enterocolitis due to Clostridium difficile, not specified as recurrent; F10.239 Alcohol dependence with withdrawal, unspecified; I50.9 Heart failure, unspecified; D70.3 Neutropenia due to infection; K74.60 Unspecified cirrhosis of liver; E87.6 Hypokalemia; F32.9 Major depressive disorder, single episode, unspecified; B96.4 Proteus (mirabilis) (morganii) as the cause of diseases classified elsewhere; M54.9 Dorsalgia, unspecified; R21 Rash and other nonspecific skin eruption; K02.9 Dental caries, unspecified; Z98.82 Breast implant status; F43.22 Adjustment disorder with anxiety
CPT/HCPCS: 31500; 36556; 36600; 36620; 70487; 70553; 71010; 71020; 72158; 74000; 74176; 76775; 80048; 80053; 80202; 81001; 82040; 82533; 82565; 82805; 83605; 83690; 83735; 83880; 84100; 84132; 84145; 84155; 84436; 84443; 84481; 84702; 85007; 85025; 85027; 86038; 86703; 87040; 87070; 87077; 87086; 87106; 87186; 87205; 87449; 87493; 87506; 87641; 87804; 93005; 93308; 94002; 94003; 94640; 94664; 96361; 96374; A9579; J0456; J0610; J0692; J0696; J1120; J1644; J1720; J1940; J2060; J2250; J2260; J2270; J2405; J2543; J2997; J3010; J3370; J3411; J3475; J3480; J7030; J7040; J7050; J7060; P9045; P9047; Q9963; Q9967

== ENCOUNTER 2017-11-10 13:00 | Inpatient (IN) | payer SELFPAY ==
[~2017-11-10] VITALS: Ht 167.6 cm; Wt 69.9 kg
[~2017-11-10 13:00] MED LIST: CHLO5CAP4 PO; CLAR10TA7 PO; FURO1TAB62 PO; TRAM50 PO
[2017-11-10 13:12] VITALS: BP 150/88; PULSE 102; RESP 14; O2SAT 88
[2017-11-10 13:15] VITALS: O2SAT 94
--- NOTE | 2017-11-10 13:58 | RADRPT ---
EXAM DATE: 11/10/2017 1:54 PM EDT AGE/SEX: 47 years / Female INDICATIONS: Shortness of breath. CLINICAL DATA: This is the patient's initial encounter. Patient reports that signs and symptoms have been present for 1 day and indicates a pain score of Nonresponsive. MEDICAL/SURGICAL HISTORY: Non-responsive. Non-responsive. COMPARISON: [facility] [place], CHEST SINGLE AP, 03/22/2017. . FINDINGS: Underinflated portable AP view of the chest demonstrates a normal-sized cardiac silhouette. There is mild atelectasis at the lung bases. No effusion, consolidation, or pneumothorax is identified. Bones and soft tissues demonstrate no acute finding. CONCLUSION: Under inflation with atelectasis at the lung bases. Otherwise, no acute finding is identified. Electronically signed by: Jake Galvan MD 11/10/2017 1:57 PM EDT
[2017-11-10 14:05] LABS: AUTOMATED NEUTROPHIL # 2.8 TH/MM3 (1.8-7.7); BASOPHIL # 0.1 TH/MM3 (0-0.2); EOSINOPHIL # 0.1 TH/MM3 (0-0.4); EOSINOPHIL % 1.3 % (0.0-4.0); HEMATOCRIT 47.7 % (35.0-46.0); HEMOGLOBIN 16.2 GM/DL (11.6-15.3); LYMPH % 30.8 % (9.0-44.0); LYMPHOCYTE # 1.5 TH/MM3 (1.0-4.8); MEAN CELL VOLUME 100.7 FL (80.0-100.0); MEAN CORPUSCULAR HEMOGLOBIN 34.2 PG (27.0-34.0); MONO % 10.7 % (0.0-8.0); MONOCYTE # 0.5 TH/MM3 (0-0.9); NEUT % 56.2 % (16.0-70.0); PLATELET COUNT 170 TH/MM3 (150-450); RED BLOOD COUNT 4.74 MIL/MM3 (4.00-5.30); RED CELL DISTRIBUTION WIDTH 18.2 % (11.6-17.2); WHITE BLOOD COUNT 4.9 TH/MM3 (4.0-11.0)
[2017-11-10 14:19] LABS: ALT (GPT) 544 U/L (10-53); AST (GOT) 945 U/L (15-37); BICARBONATE 20.5 MEQ/L (21.0-32.0); BLOOD UREA NITROGEN 11 MG/DL (7-18); CALCIUM 8.7 MG/DL (8.5-10.1); CHLORIDE 101 MEQ/L (98-107); CREATININE 0.69 MG/DL (0.50-1.00); GLOMERULAR FILTRATION RATE 90 ML/MIN (>89); GLUCOSE,RANDOM 77 MG/DL (74-106); SODIUM (NA) 141 MEQ/L (136-145)
[2017-11-10 14:22] LABS: ALKALINE PHOSPHATASE 211 U/L (45-117); TOTAL BILIRUBIN ADULT 1.1 MG/DL (0.2-1.0); TOTAL PROTEIN 7.9 GM/DL (6.4-8.2)
[2017-11-10] MEDS ORDERED: LORazepam 2 MG/ML VIAL IV PUSH PRN (16:15)
[2017-11-10] MEDS ORDERED: cloNIDine HCL 0.1 MG TAB PO PRN (16:15)
[2017-11-10] MEDS ORDERED: FLUMAZENIL 0.5 MG/5 ML VIAL IV PUSH PRN (16:15)
[2017-11-10] MEDS ORDERED: SODIUM CHLORIDE 0.9% FLUSH 10 ML FLUSH IV FLUSH PRN (16:15)
[2017-11-10 16:31] VITALS: BP 133/90; PULSE 92; RESP 16; O2SAT 98
--- NOTE | 2017-11-10 17:07 | PD ---
HPI Chief Complaint: Alcohol/Drug Intoxication Time Seen by Provider: 13:15 Travel History International Travel<30 days: No Contact w/Intl Traveler<30days: No Traveled to known affect area: No History of Present Illness HPI This is a 47-year-old female who presents to the emergent having had EMS called to her hotel because she was agitated, combative and altered. Patient admitted to drinking alcohol today. She is not able to express any other history. PFSH Past Medical History Medical History: Unable to Obtain Arthritis: No Asthma: No Atrial Fibrillation: No Autoimmune Disease: No Blood Disorders: No Bipolar Disorder: No Anxiety: No Depression: No Heart Rhythm Problems: No Cancer: No Cardiomyopathy: No Cardiovascular Problems: No Cerebral Palsy: No High Cholesterol: No Chemotherapy: No Chest Pain: No Congestive Heart Failure: No Cirrhosis: Yes COPD: No Cerebrovascular Accident: No Coronary Artery Disease: No Cystic Fibrosis: No Dementia: No Developmental Delay: No Diabetes: No Dialysis: No Diminished Hearing: No Diverticulitis: No Deep Vein Thrombosis: No Endocrine: No Fibromyalgia: No Gastrointestinal Disorders: No Genetic Disorder: No GERD: No Glaucoma: No Gout: No Genitourinary: No Headaches: Yes Hepatitis: No Hiatal Hernia: No Heparin Induced Thrombocytopen: No Herniated Disk: No Hypertension: No Immune Disorder: No Inguinal Hernia: No Implanted Vascular Access Dvce: No Insomnia: No Kidney Stones: No Musculoskeletal: No Neurologic: Yes Parkinson's Disease: No Psychiatric: No Reproductive: No Respiratory: No Integumentary: No Immunizations Current: No Migraines: No Myocardial Infarction: No Pancreatitis: No Pneumonia: No Radiation Therapy: No Renal Failure: No Schizophrenia: No Seizures: Yes (as a teenager) Shingles: No Sickle Cell Disease: No Sleep Apnea: No Thyroid Disease: No Triglycerides - High: No ?: Unknown Past Surgical History Surgical History: Unable to Obtain Abdominal Surgery: Yes (INGUINAL HERNIA-1998) Cardiac Surgery: No Ear Surgery: No Endocrine Surgery: No Eye Surgery: No Genitourinary Surgery: No Gynecologic Surgery: Yes (hysterectomy) Insulin Pump: No Oral Surgery: No Pacemaker: No Thoracic Surgery: No Family History Family Hypercholesterolemia: No Social History Alcohol Use: Yes (DAILY LIQUOR LAST DRINK 2 DAYS AGO) Tobacco Use: Yes Substance Use: No Allergies-Medications (Allergen,Severity, Reaction): Coded Allergies: No Known Allergies (Unverified Allergy, Unknown, 6/17/18) Reported Meds & Prescriptions Reported Meds & Active Scripts Active Ultram (Tramadol HCl) 50 Mg Tab 50 Mg PO Q8H PRN Claritin (Loratadine) 10 Mg Tablet 10 Mg PO HS Lasix (Furosemide) 20 Mg Tab 20 Mg PO DAILY Chlordiazepoxide HCl 5 Mg Capsule 5 Mg PO Q8H Review of Systems ROS Limitations: Intoxication Physical Exam Narrative GENERAL: Somnolent SKIN: Focused skin assessment warm and dry. HEAD: Atraumatic. Normocephalic. EYES: Pupils are dilated, equal and reactive no injection or drainage. ENT: Moist mucous membranes NECK: Trachea midline. CARDIOVASCULAR: Regular rate and rhythm. No murmur appreciated. RESPIRATORY: Clear to auscultation. Breath sounds equal bilaterally. GASTROINTESTINAL: Abdomen soft, non-tender, nondistended. MUSCULOSKELETAL: No obvious deformities. NEUROLOGICAL: Intoxicated, moaning but not answering questions appropriately. Responds to pain. No obvious cranial nerve deficits. Moving all extremities. PSYCHIATRIC: Poor insight and judgment. Data Data Last Documented VS Vital Signs Date Time Temp Pulse Resp B/P (MAP) Pulse Ox O2 Delivery O2 Flow Rate FiO2 11/10/17 13:15 94 Nasal Cannula 2.00 11/10/17 13:12 102 14 150/88 (108) Orders Orders Complete Blood Count With Diff (11/10/17 13:19) Comprehensive Metabolic Panel (11/10/17 13:19) ^ Insert Iv (11/10/17 13:19) Urinalysis - C+S If Indicated (11/10/17 13:19) Drug Screen, Random Urine (11/10/17 13:19) Alcohol (Ethanol) (11/10/17 13:19) Chest, Single Ap (11/10/17 ) Electrocardiogram (11/10/17 ) Arterial Blood Gas (Abg) (11/10/17 ) Admit Order (Ed Use Only) (11/10/17 16:02) Labs Laboratory Tests Test 11/10/17 13:30 11/10/17 15:28 White Blood Count 4.9 TH/MM3 Red Blood Count 4.74 MIL/MM3 Hemoglobin 16.2 GM/DL Hematocrit 47.7 % Mean Corpuscular Volume 100.7 FL Mean Corpuscular Hemoglobin 34.2 PG Mean Corpuscular Hemoglobin Concent 34.0 % Red Cell Distribution Width 18.2 % Platelet Count 170 TH/MM3 Mean Platelet Volume 9.0 FL Neutrophils (%) (Auto) 56.2 % Lymphocytes (%) (Auto) 30.8 % Monocytes (%) (Auto) 10.7 % Eosinophils (%) (Auto) 1.3 % Basophils (%) (Auto) 1.0 % Neutrophils # (Auto) 2.8 TH/MM3 Lymphocytes # (Auto) 1.5 TH/MM3 Monocytes # (Auto) 0.5 TH/MM3 Eosinophils # (Auto) 0.1 TH/MM3 Basophils # (Auto) 0.1 TH/MM3 CBC Comment DIFF FINAL Differential Comment Blood Urea Nitrogen 11 MG/DL Creatinine 0.69 MG/DL Random Glucose 77 MG/DL Total Protein 7.9 GM/DL Albumin 4.0 GM/DL Calcium Level 8.7 MG/DL Alkaline Phosphatase 211 U/L Aspartate Amino Transf (AST/SGOT) 945 U/L Alanine Aminotransferase (ALT/SGPT) 544 U/L Total Bilirubin 1.1 MG/DL Sodium Level 141 MEQ/L Potassium Level 3.1 MEQ/L Chloride Level 101 MEQ/L Carbon Dioxide Level 20.5 MEQ/L Anion Gap 20 MEQ/L Estimat Glomerular Filtration Rate 90 ML/MIN Ethyl Alcohol Level 583 MG/DL Blood Gas Puncture Site LT RADIAL Blood Gas Patient Temperature 98.6 Blood Gas HCO3 21 mmol/L Blood Gas Base Excess -4.4 mmol/L Blood Gas Oxygen Saturation 92 % Arterial Blood pH 7.33 Arterial Blood Partial Pressure CO2 40 mmHg Arterial Blood Partial Pressure O2 85 mmHG Arterial Blood Oxygen Content 21.8 Vol % Arterial Blood Carboxyhemoglobin 1.7 % Arterial Blood Methemoglobin 0.6 % Blood Gas Hemoglobin 16.8 G/DL Oxygen Delivery Device RA [facility] Medical Decision Making Medical Screen Exam Complete: Yes Emergency Medical Condition: Yes Interpretation(s) Tachycardia, hypertensive, hypoxic Macrocytosis Mild hypokalemia LFTs are elevated Alcohol 583 Last 24 hours Impressions Chest X-Ray 11/10/17 0000 Signed Impressions: CONCLUSION: Under inflation with atelectasis at the lung bases. Otherwise, no acute finding is identified. Differential Diagnosis Aspiration pneumonia, alcohol intoxication, benzodiazepine intoxication, electrolyte abnormality Narrative Course This is a 47-year-old female who presents to the emergency department altered and agitated. She was found to be intoxicated with an alcohol level of 583. She is mildly hypoxic on arrival with an oxygen saturation of 88% on room air. ABG is reassuring. I suspect she may have aspirated. Chest x-ray currently is reassuring. I think she requires observation in the setting of severe alcohol intoxication and hypoxia. Physician Communication Physician Communication Discussed with Dr. Craven Diagnosis Primary Impression: Alcohol intoxication Qualified Codes: F10.920 - Alcohol use, unspecified with intoxication, uncomplicated Admitting Information Admitting Physician Requests: Observation Yoselin Boswell MD Nov 10, 2017 17:07
[2017-11-10] MEDS: D5-1/2 NS + KCL 20 MEQ INJ 1,000 ML IV SCH (17:38)
[2017-11-10] MEDS: HEPARIN SODIUM - SQ 10,000 UNITS/ML VIAL SQ SCH (17:39)
--- NOTE | 2017-11-10 18:26 | HHI.HP ---
HPI Service [facility] Hospitalists Primary Care Physician No Primary Care Physician Admission Diagnosis acute alcohol intoxication, hypoxia Diagnoses: Chief Complaint: Dyspnea Nausea and vomiting Diarrhea Travel History International Travel<30 Days: No Contact w/Intl Traveler <30 Da: No Traveled to Known Affected Are: No History of Present Illness This is a 47-year-old female with past medical history significant for liver cirrhosis, alcohol abuse, hx of proteus mirabilis bacteremia and hx of c diff infection treated at this facility in 2017 who presents to [facility] ED having had EMS called to her hotel because she was altered, combative and agitated secondary to alcohol intoxication. Patient is calm and cooperative at this time. She is not a very good historian. She states she drinks about a pint of alcohol a day. She denies any illicit drug use. She denies any suicidal intent. She complains of being short of breath. She denies any fever or chills. She denies any chest pain. She reports nausea and nonbilious, nonbloody vomiting 2. She endorses mild upper abdominal/ epigastric pain. She reports 2 episodes of loose stools yesterday but none today. She denies any dark/black/tarry stools. She denies any dysuria. Patient is homeless and states she has no place to go. In the ED, patient was found to be hypoxic with pulse ox of 88% on room air. ABG on RA revealed acidosis with pH 7.33, HCO3 21, PO2 of 85 and PCO2 40. She is currently satting 98% on 2 L. White count was within normal limits. Chemistry panel significant for hypokalemia with potassium level 3.1, bicarb 20.5, anion gap 20 , total bilirubin 1.1, AST of 945, ALT 544 and alk phos 211. Her ethyl alcohol level was 583. Chest x-ray shows underinflation with atelectasis of the lung bases otherwise no acute findings noted. Review of Systems Except as stated in HPI: all other systems reviewed are Neg Past Family Social History Past Medical History Alcohol abuse Liver cirrhosis Depression/anxiety Hx of c diff infection Hx of proteus mirabilis bacteremia Past Surgical History Hysterectomy Reported Medications Ultram (Tramadol HCl) 50 Mg Tab 50 Mg PO Q8H PRN Claritin (Loratadine) 10 Mg Tablet 10 Mg PO HS Lasix (Furosemide) 20 Mg Tab 20 Mg PO DAILY Chlordiazepoxide HCl 5 Mg Capsule 5 Mg PO Q8H Allergies: Coded Allergies: No Known Allergies (Unverified Allergy, Unknown, 11/10/17) Active Ordered Medications Current Medications Medications (Trade) Dose Ordered Sig/Sona Route Start Time Stop Time Status Last Admin (NS Flush) 2 ml UNSCH PRN IV FLUSH 11/10/17 16:15 (NS Flush) 2 ml BID IV FLUSH 11/10/17 21:00 Potassium Chloride/Dextrose/ Sod Cl 1,000 ml @ 100 mls/hr Q10H IV 11/10/17 17:00 11/10/17 17:38 (Folate) 1 mg DAILY PO 11/11/17 09:00 11/16/17 08:59 (Vitamin B1) 100 mg DAILY PO 11/11/17 09:00 (Theragran M Tab) 1 tab DAILY PO 11/11/17 09:00 11/16/17 08:59 (Protonix) 40 mg DAILY PO 11/11/17 09:00 (Catapres) 0.1 mg Q6H PRN PO 11/10/17 16:15 (Romazicon Inj) 0.2 mg Q1M PRN IV PUSH 11/10/17 16:15 (Ativan) 1 mg Q4H PRN PO 11/10/17 16:15 (Ativan Inj) 1 mg Q4H PRN IV PUSH 11/10/17 16:15 (Ativan) 2 mg Q2H PRN PO 11/10/17 16:15 (Ativan Inj) 2 mg Q2H PRN IV PUSH 11/10/17 16:15 (Ativan Inj) 2 mg Q1H PRN IV PUSH 11/10/17 16:15 (Ativan Inj) 2 mg Q15M PRN IV PUSH 11/10/17 16:15 (Heparin Inj) 5,000 units Q12H SQ 11/10/17 17:00 11/10/17 17:39 Family History Patient is adopted and does not know her biological family history Social History Patient admits to tobacco use. She admits to alcohol use and states she drinks a pint of alcohol daily. She denies any illicit drug use. Patient is currently homeless. She does not have any family or friends in the area. Physical Exam Vital Signs Vital Signs Date Time Temp Pulse Resp B/P (MAP) Pulse Ox O2 Delivery O2 Flow Rate FiO2 11/10/17 16:31 92 16 133/90 (104) 98 Nasal Cannula 2.00 11/10/17 13:15 94 Nasal Cannula 2.00 11/10/17 13:12 102 14 150/88 (108) 88 Physical Exam GENERAL: This is a well-nourished, well-developed female patient, in no apparent distress. Awake and alert. SKIN: No rashes, ecchymoses or lesions. Warm and dry. HEAD: Atraumatic. Normocephalic. No temporal or scalp tenderness. EYES: Pupils equal round and reactive. Extraocular motions intact. No scleral icterus. No injection or drainage. ENT: Nose without bleeding or purulent drainage. Throat without erythema, tonsillar hypertrophy or exudate. Uvula midline. Airway patent. NECK: Trachea midline. No lymphadenopathy. Supple, nontender, no meningeal signs. CARDIOVASCULAR: Tachycardic without murmurs, gallops, or rubs. RESPIRATORY: Clear to auscultation. Breath sounds equal bilaterally. No wheezes , rales, or rhonchi. GASTROINTESTINAL: Abdomen soft, non-tender, nondistended. No hepato-splenomegaly , or palpable masses. No guarding. MUSCULOSKELETAL: Extremities without clubbing, cyanosis, or edema. No joint tenderness, effusion, or edema noted. No calf tenderness. NEUROLOGICAL: Awake and alert. Cranial nerves II through XII grossly intact. Motor and sensory grossly within normal limits. No focal neurologic findings appreciated. Normal speech. Laboratory Laboratory Tests Test 11/10/17 13:30 11/10/17 15:28 White Blood Count 4.9 Red Blood Count 4.74 Hemoglobin 16.2 Hematocrit 47.7 Mean Corpuscular Volume 100.7 Mean Corpuscular Hemoglobin 34.2 Mean Corpuscular Hemoglobin Concent 34.0 Red Cell Distribution Width 18.2 Platelet Count 170 Mean Platelet Volume 9.0 Neutrophils (%) (Auto) 56.2 Lymphocytes (%) (Auto) 30.8 Monocytes (%) (Auto) 10.7 Eosinophils (%) (Auto) 1.3 Basophils (%) (Auto) 1.0 Neutrophils # (Auto) 2.8 Lymphocytes # (Auto) 1.5 Monocytes # (Auto) 0.5 Eosinophils # (Auto) 0.1 Basophils # (Auto) 0.1 CBC Comment DIFF FINAL Differential Comment Blood Urea Nitrogen 11 Creatinine 0.69 Random Glucose 77 Total Protein 7.9 Albumin 4.0 Calcium Level 8.7 Alkaline Phosphatase 211 Aspartate Amino Transf (AST/SGOT) 945 Alanine Aminotransferase (ALT/SGPT) 544 Total Bilirubin 1.1 Sodium Level 141 Potassium Level 3.1 Chloride Level 101 Carbon Dioxide Level 20.5 Anion Gap 20 Estimat Glomerular Filtration Rate 90 Ethyl Alcohol Level 583 Blood Gas Puncture Site LT RADIAL Blood Gas Patient Temperature 98.6 Blood Gas HCO3 21 Blood Gas Base Excess -4.4 Blood Gas Oxygen Saturation 92 Arterial Blood pH 7.33 Arterial Blood Partial Pressure CO2 40 Arterial Blood Partial Pressure O2 85 Arterial Blood Oxygen Content 21.8 Arterial Blood Carboxyhemoglobin 1.7 Arterial Blood Methemoglobin 0.6 Blood Gas Hemoglobin 16.8 Oxygen Delivery Device RA Result Diagram: 11/10/17 1330 11/10/17 1330 Imaging Last Impressions Chest X-Ray 11/10/17 0000 Signed Impressions: CONCLUSION: Under inflation with atelectasis at the lung bases. Otherwise, no acute finding is identified. Caprini VTE Risk Assessment Caprini VTE Risk Assessment: No/Low Risk (score <= 1) Caprini Risk Assessment Model Point Value = 1 Point Value = 2 Point Value = 3 Point Value = 5 Age 41-60 Minor surgery BMI > 25 kg/m2 Swollen legs Varicose veins or History of unexplained or recurrent spontaneous Oral contraceptives or hormone replacement Sepsis (< 1 month) Serious lung disease, including pneumonia (< 1 month) Abnormal pulmonary function Acute myocardial infarction Congestive heart failure (< 1 month) History of inflammatory bowel disease Medical patient at bed rest Age 61-74 Arthroscopic surgery Major open surgery (> 45 min) Laparoscopic surgery (> 45 min) Malignancy Confined to bed (> 72 hours) Immobilizing plaster cast Central venous access Age >= 75 History of VTE Family history of VTE Factor V Leiden Prothrombin [id number] Lupus anticoagulant Anticardiolipin antibodies Elevated serum homocysteine Heparin-induced thrombocytopenia Other congenital or acquired thrombophilia Stroke (< 1 month) Elective arthroplasty Hip, pelvis, or leg fracture Acute spinal cord injury (< 1 month) Prophylaxis Regimen Total Risk Factor Score Risk Level Prophylaxis Regimen 0-1 Low Early ambulation 2 Moderate Order ONE of the following: *Sequential Compression Device (SCD) *Heparin 5000 units SQ BID 3-4 Higher Order ONE of the following medications: *Heparin 5000 units SQ TID *Enoxaparin/Lovenox 40 mg SQ daily (WT < 150 kg, CrCl > 30 mL/min) *Enoxaparin/Lovenox 30 mg SQ daily (WT < 150 kg, CrCl > 10-29 mL/min) *Enoxaparin/Lovenox 30 mg SQ BID (WT < 150 kg, CrCl > 30 mL/min) AND/OR *Sequential Compression Device (SCD) 5 or more Highest Order ONE of the following medications: *Heparin 5000 units SQ TID (Preferred with Epidurals) *Enoxaparin/Lovenox 40 mg SQ daily (WT < 150 kg, CrCl > 30 mL/min) *Enoxaparin/Lovenox 30 mg SQ daily (WT < 150 kg, CrCl > 10-29 mL/min) *Enoxaparin/Lovenox 30 mg SQ BID (WT < 150 kg, CrCl > 30 mL/min) AND *Sequential Compression Device (SCD) Assessment and Plan Assessment and Plan 47-year-old female with past medical history significant for liver cirrhosis, alcohol abuse, hx of proteus mirabilis bacteremia and hx of c diff infection treated at this facility in 2017 who presents to [facility] ED having had EMS called to her hotel because she was altered, combative and agitated secondary to alcohol intoxication. Acute toxic encephalopathy secondary to alcohol intoxication Metabolic acidosis Alcohol abuse Ethyl alcohol 583 at ED presentation -Discussed importance of complete alcohol cessation -CIWA protocol -Monitor for signs of withdrawal -obtain urine tox screen -check UA -neuro checks -monitor on cardiac telemetry -fall and seizure precautions -thiamine/folic acid/MVI daily -consult CM ETOH abuse dc planning, patient is homeless Acute hypoxic respiratory failure secondary to alcohol intoxication ABG reviewed, HCO3 21, ph 7.33, pO2 85, pCO2 40 CXR shows underinflation with atelectasis at the lung bases, no acute findings Ongoing tobaccoism Concern for aspiration PNA but patient is afebrile, no leukocytosis, does not appear septic -Continue on supplemental oxygen to maintain O2 sats greater than 92% -Discussed smoking cessation, nicotine patch ordered -Continue to monitor respiratory status and vital signs -IS at bedside, encourage hourly use while awake Liver cirrhosis Transaminitis, secondary to ongoing alcohol abuse and liver cirrhosis AST 945, ALT 544, Alk phos 211\ -obtain PT/INR -Avoid hepatotoxic agents -protonix 40mg daily -Trend LFTs Hypokalemia, secondary to alcohol abuse, poor po intake K 3.1 -IV repletion ordered -obtain mag level -repeat BMP in am to monitor response C/o diarrhea x 2 yesterday, none today hx of cdiff infection in 2017 -monitor for now and if diarrhea returns will order C. difficile studies DVT prophylaxis -Heparin sq Discussed Condition With patient, Dr. Johnny Hackett,Genevieve SINGLETON Nov 10, 2017 18:26
[2017-11-10] MEDS: NICOTINE 7 MG/24 HR PATCH T-DERMAL SCH (18:30)
[2017-11-10 18:51] LABS: MAGNESIUM 2.1 MG/DL (1.5-2.5)
[2017-11-10 19:09] LABS: BACTERIA, URINE FEW /hpf; BILIRUBIN, URINE NEG (NEG); BLOOD, URINE SMALL (NEG); GLUCOSE,URINE NEG (NEG); KETONE, URINE 20 mg/dL (NEG); MUCUS URINE FEW /lpf (OCC); NITRITE,URINE POS (NEG); SQUAMOUS EPITHELIAL CELL URINE 4 /hpf (0-5); URINE COLOR YELLOW (YELLW/STRAW); URINE LEUKOCYTE ESTERASE TRACE (NEG)
[2017-11-10 19:37] VITALS: BP 126/80; PULSE 109; RESP 16; TEMP 97.4; O2SAT 95
[2017-11-10] MEDS: SODIUM CHLORIDE 0.9% FLUSH 10 ML FLUSH IV FLUSH SCH (19:48)
[2017-11-10 21:20] VITALS: PULSE 112
[2017-11-10] MEDS: ONDANSETRON ODT 4 MG TAB PO PRN (21:26)
[2017-11-10 22:22] VITALS: BP 113/74; PULSE 117; RESP 17; TEMP 98.3; O2SAT 94
[2017-11-10] MEDS ORDERED: LORazepam 2 MG/ML VIAL IV PUSH ONE (23:30)
[2017-11-11] VITALS (11 sets, daily range): BP systolic 137–166; BP diastolic 81–98; PULSE 76–128; RESP 15–18; TEMP 97.8–99.3; O2SAT 97–99
[2017-11-11] MEDS: LORazepam 2 MG/ML VIAL IV PUSH PRN ×6 (03:07→23:34)
[2017-11-11] MEDS: D5-1/2 NS + KCL 20 MEQ INJ 1,000 ML IV SCH ×3 (03:07→23:32)
[2017-11-11] MEDS: HEPARIN SODIUM - SQ 10,000 UNITS/ML VIAL SQ SCH ×2 (05:51→15:58)
[2017-11-11] MEDS: MULTIVITAMINS/MINERALS THERAPEUTIC TAB PO SCH (08:05)
[2017-11-11] MEDS: PANTOPRAZOLE SOD 40 MG DELAYED RELEASE TAB PO SCH (08:05)
[2017-11-11] MEDS: FOLIC ACID 1 MG TAB PO SCH (08:06)
[2017-11-11] MEDS: SODIUM CHLORIDE 0.9% FLUSH 10 ML FLUSH IV FLUSH SCH ×2 (08:06→20:03)
[2017-11-11] MEDS: NICOTINE 7 MG/24 HR PATCH T-DERMAL SCH (08:06)
[2017-11-11] MEDS: THIAMINE HCL 100 MG TAB PO SCH (08:06)
[2017-11-11] MEDS: REMOVE OLD PATCH T-DERMAL SCH (09:00)
[2017-11-11 09:20] LABS: INTERNATIONAL NORMALIZED RATIO 1.1 RATIO
[2017-11-11 09:32] LABS: ALBUMIN 3.7 GM/DL (3.4-5.0); AST (GOT) 465 U/L (15-37); BICARBONATE 25.9 MEQ/L (21.0-32.0); BLOOD UREA NITROGEN 9 MG/DL (7-18); CALCIUM 9.3 MG/DL (8.5-10.1); CHLORIDE 98 MEQ/L (98-107); GLOMERULAR FILTRATION RATE 76 ML/MIN (>89); GLUCOSE,RANDOM 164 MG/DL (74-106); SODIUM (NA) 136 MEQ/L (136-145)
[2017-11-11 09:34] LABS: CHOLESTEROL 295 MG/DL (120-200); TRIGLYCERIDES 128 MG/DL (42-150)
[2017-11-11 09:37] LABS: ALKALINE PHOSPHATASE 181 U/L (45-117); ALT (GPT) 376 U/L (10-53); CHOLESTEROL/ HDL RATIO 3.15 RATIO; HDL CHOLESTEROL 93.6 MG/DL (40.0-60.0); LDL CHOLESTEROL 176 MG/DL (0-99); TOTAL BILIRUBIN ADULT 1.2 MG/DL (0.2-1.0); TOTAL PROTEIN 7.1 GM/DL (6.4-8.2)
[2017-11-11] MEDS: IBUPROFEN 600 MG TAB PO PRN ×2 (15:57→23:33)
--- NOTE | 2017-11-11 22:55 | EKG ---
Date Performed: 11/11/2017 Time Performed: 09:19:34 PTAGE: 47 years EKG: SINUS TACHYCARDIA NONSPECIFIC ST & T-WAVE ABNORMALITY ABNORMAL RHYTHM ECG PREVIOUS TRACING : 11/10/2017 23.08 DOCTOR: Flori Montenegro Interpretating Date/Time 11/11/2017 22:51:43
--- NOTE | 2017-11-11 23:02 | EKG ---
Date Performed: 11/10/2017 Time Performed: 23:08:37 PTAGE: 47 years EKG: SINUS TACHYCARDIA POSSIBLE LEFT ATRIAL ENLARGEMENT POSSIBLE INFERIOR MYOCARDIAL INFARCTION MODERATE T-WAVE ABNORMALITY, CONSIDER ANTERIOR ISCHEMIA ABNORMAL ECG NO PREVIOUS TRACING DOCTOR: Flori Montenegro Interpretating Date/Time 11/11/2017 22:55:26
--- NOTE | 2017-11-11 23:13 | EKG ---
Date Performed: 11/10/2017 Time Performed: 14:06:10 PTAGE: 47 years EKG: SINUS TACHYCARDIA LOW QRS VOLTAGE IN PRECORDIAL LEADS POSSIBLE ANTERIOR MYOCARDIAL INFARCTI ON ABNORMAL ECG INTERPRETATION BASED ON A DEFAULT AGE OF 38 YEARS NO PREVIOUS TRACING DOCTOR: Flori Montenegro Interpretating Date/Time 11/11/2017 23:01:40
[2017-11-12] VITALS (7 sets, daily range): BP systolic 141–159; BP diastolic 95–107; PULSE 102–139; RESP 16–20; TEMP 98–98.7; O2SAT 96–98
[2017-11-12] MEDS: HEPARIN SODIUM - SQ 10,000 UNITS/ML VIAL SQ SCH ×2 (04:18→17:00)
[2017-11-12] MEDS: LORazepam 2 MG/ML VIAL IV PUSH PRN ×4 (04:18→18:16)
[2017-11-12] MEDS: ONDANSETRON ODT 4 MG TAB PO PRN (04:20)
[2017-11-12] MEDS: LORazepam 1 MG TAB PO PRN ×2 (08:50→14:47)
[2017-11-12] MEDS: THIAMINE HCL 100 MG TAB PO SCH (08:51)
[2017-11-12] MEDS: FOLIC ACID 1 MG TAB PO SCH (08:51)
[2017-11-12] MEDS: PANTOPRAZOLE SOD 40 MG DELAYED RELEASE TAB PO SCH (08:51)
[2017-11-12] MEDS: IBUPROFEN 600 MG TAB PO PRN (08:51)
[2017-11-12] MEDS: MULTIVITAMINS/MINERALS THERAPEUTIC TAB PO SCH (08:51)
[2017-11-12] MEDS: NICOTINE 7 MG/24 HR PATCH T-DERMAL SCH (08:52)
[2017-11-12] MEDS: SODIUM CHLORIDE 0.9% FLUSH 10 ML FLUSH IV FLUSH SCH ×2 (08:52→21:00)
[2017-11-12] MEDS: REMOVE OLD PATCH T-DERMAL SCH (08:52)
[2017-11-12] MEDS: D5-1/2 NS + KCL 20 MEQ INJ 1,000 ML IV SCH ×2 (09:00→19:00)
[2017-11-12 12:06] LABS: ALBUMIN 3.8 GM/DL (3.4-5.0); ALT (GPT) 401 U/L (10-53); AST (GOT) 568 U/L (15-37); BICARBONATE 26.9 MEQ/L (21.0-32.0); BLOOD UREA NITROGEN 5 MG/DL (7-18); CALCIUM 9.5 MG/DL (8.5-10.1); CHLORIDE 100 MEQ/L (98-107); CREATININE 0.76 MG/DL (0.50-1.00); GLOMERULAR FILTRATION RATE 81 ML/MIN (>89); GLUCOSE,RANDOM 190 MG/DL (74-106); SODIUM (NA) 139 MEQ/L (136-145)
[2017-11-12 12:11] LABS: ALKALINE PHOSPHATASE 188 U/L (45-117); TOTAL BILIRUBIN ADULT 3.8 MG/DL (0.2-1.0); TOTAL PROTEIN 7.1 GM/DL (6.4-8.2)
[2017-11-12] MEDS: LORazepam 2 MG TAB PO PRN (12:43)
[2017-11-12] MEDS ORDERED: SODIUM CHLOR 0.9% 1000 ML INJ 1,000 ML IV ONE (12:45)
--- NOTE | 2017-11-12 12:51 | HHI.PR ---
Subjective Remarks RN denies any deterioration since last night. Says CIWA is 10 at this time. Pt herself says she feels better overall. is concerned about being homeless. denies any chest pain. Objective Vital Signs Date Time Temp Pulse Resp B/P (MAP) Pulse Ox O2 Delivery O2 Flow Rate FiO2 11/12/17 12:00 98.0 128 18 159/107 (124) 98 11/12/17 08:06 107 11/12/17 07:21 98.2 112 18 146/98 (114) 97 11/12/17 04:01 98.5 102 17 154/99 (117) 98 11/11/17 23:11 98.7 126 18 158/93 (114) 98 11/11/17 19:31 99.2 123 17 154/95 (114) 97 11/11/17 18:29 99.1 128 16 166/90 (115) 99 11/11/17 15:00 119 11/11/17 13:36 98.2 121 15 155/93 (113) 97 I/O 11/11/17 11/11/17 11/11/17 11/12/17 11/12/17 11/12/17 07:00 15:00 23:00 07:00 15:00 23:00 Intake Total 2950 ml Balance 2950 ml Intake Oral 1950 ml IV Total 1000 ml # Voids 2 3 # Bowel Movements 1 Result Diagram: 11/10/17 1330 11/12/17 1100 Objective Remarks CTA x 2, unlabored breathing slightly nervous affect hrt rrr, no murmurs A/P Assessment and Plan encephalopathy - resolved, 2/2 met acidosis 2/2 ETOH acidosis, now resolved clinically resp distress + hypoxia - resolved ETOH withdrawal - continue CIWA, unsafe to give librium with worsening LFTs transaminitis - worsening, ordering hep viral panel, trend CMP in AM - IVFs UTI -culture awaiting speciation Nathan Grier MD Nov 12, 2017 12:50
--- NOTE | 2017-11-12 16:58 | EKG ---
Date Performed: 11/11/2017 Time Performed: 14:41:50 PTAGE: 47 years EKG: SINUS TACHYCARDIA MINIMAL ST DEPRESSION ABNORMAL RHYTHM ECG PREVIOUS TRACING : 11/11/2017 09.19 Since the previous tracing, no significant change noted DOCTOR: Maurice Fair Interpretating Date/Time 11/12/2017 16:55:59
[2017-11-12] MEDS ORDERED: HALOPERIDOL LACTATE 5 MG/ML AMP IM PRN (19:30)
[2017-11-13 00:01] VITALS: BP 148/106; PULSE 130; RESP 18; TEMP 98; O2SAT 99
[2017-11-13] MEDS: LORazepam 2 MG/ML VIAL IV PUSH PRN ×2 (00:07→02:00)
[2017-11-13] MEDS: HEPARIN SODIUM - SQ 10,000 UNITS/ML VIAL SQ SCH ×2 (05:00→17:00)
[2017-11-13] MEDS: D5-1/2 NS + KCL 20 MEQ INJ 1,000 ML IV SCH ×2 (05:00→15:00)
[2017-11-13 05:25] LABS: ALBUMIN 3.4 GM/DL (3.4-5.0); AST (GOT) 354 U/L (15-37); BICARBONATE 26.1 MEQ/L (21.0-32.0); BLOOD UREA NITROGEN 5 MG/DL (7-18); CALCIUM 9.2 MG/DL (8.5-10.1); CHLORIDE 101 MEQ/L (98-107); CREATININE 0.64 MG/DL (0.50-1.00); GLOMERULAR FILTRATION RATE 99 ML/MIN (>89); GLUCOSE,RANDOM 91 MG/DL (74-106); SODIUM (NA) 138 MEQ/L (136-145)
[2017-11-13 05:28] LABS: ALKALINE PHOSPHATASE 173 U/L (45-117); ALT (GPT) 312 U/L (10-53); TOTAL PROTEIN 6.6 GM/DL (6.4-8.2)
[2017-11-13 07:06] VITALS: BP 140/92; PULSE 116; RESP 16; TEMP 98.6; O2SAT 98
[2017-11-13 08:05] VITALS: PULSE 89
[2017-11-13] MEDS: LORazepam 1 MG TAB PO PRN (08:05)
--- NOTE | 2017-11-13 09:09 | HHI.PR ---
Subjective Remarks RN reports pt's CIWA scores were hitting 20 despite frequent iv Ativan every 1- 2 hrs; needed a dose of Haldol last night. Pt found drinking her mouthwash in bathroom. Patient says that she was trying to lighten her nerves by drinking the mouthwash, but then she also says that she was just simply swallowing it because of her toothache. Objective Vital Signs Date Time Temp Pulse Resp B/P (MAP) Pulse Ox O2 Delivery O2 Flow Rate FiO2 11/13/17 07:06 98.6 116 16 140/92 (108) 98 11/13/17 00:01 98.0 130 18 148/106 (120) 99 11/12/17 19:56 119 16 141/95 (110) 96 11/12/17 17:15 98.7 139 20 141/96 (111) 98 11/12/17 15:00 132 11/12/17 12:00 98.0 128 18 159/107 (124) 98 I/O 11/12/17 11/12/17 11/12/17 11/13/17 11/13/17 11/13/17 07:00 15:00 23:00 07:00 15:00 23:00 Intake Total 1000 ml Balance 1000 ml IV Total 1000 ml Result Diagram: 11/10/17 1330 11/13/17 0400 Objective Remarks CTA x 2, unlabored breathing slightly nervous affect hrt rrr, no murmurs Mildly tender right mandible with no obvious abscess noted within oral cavity, poor dentition noted nonetheless tearful, depressed affect A/P Assessment and Plan encephalopathy - recurring, likely 2/2 ETOH withdrawal. - intermittent, continue CIWA, start scheduled oral ativan mouthwash ingestion - unknown amount, d/w poison control, supportive care at this point; mouthwash has been transiently confiscated from patient, consulting psychiatry given pt endorsing depression and anxiety transaminitis -CMP in a.m. - hep panel pending, mild improvement, likely 2/2 ETOH, continue IV fluids UTI -growing ESBL e. coli, consulting Nathan Aponte MD Nov 13, 2017 09:09
[2017-11-13] MEDS: NICOTINE 7 MG/24 HR PATCH T-DERMAL SCH (09:50)
[2017-11-13] MEDS: SODIUM CHLORIDE 0.9% FLUSH 10 ML FLUSH IV FLUSH SCH ×2 (09:50→21:49)
[2017-11-13] MEDS: REMOVE OLD PATCH T-DERMAL SCH (09:51)
[2017-11-13] MEDS: LORazepam 1 MG TAB PO SCH ×3 (09:51→21:47)
[2017-11-13] MEDS: FOLIC ACID 1 MG TAB PO SCH (09:51)
[2017-11-13] MEDS: PANTOPRAZOLE SOD 40 MG DELAYED RELEASE TAB PO SCH (09:51)
[2017-11-13] MEDS: THIAMINE HCL 100 MG TAB PO SCH (09:51)
[2017-11-13] MEDS: MULTIVITAMINS/MINERALS THERAPEUTIC TAB PO SCH (09:51)
[2017-11-13] MEDS ORDERED: PHARMACY INFORMATION XX PRN ×2 (12:30)
[2017-11-13] MEDS ORDERED: ASP: Documented ESBL, MDR A baumannii or P. aeruginosa PRN (12:30)
--- NOTE | 2017-11-13 13:15 | MB ---
cc: Usama De Anda MD DATE: 11/13/2017 REQUESTING PHYSICIAN: Nathan Grier MD REASON FOR CONSULTATION: ESBL UTI. HISTORY OF PRESENT ILLNESS: This is a 47-year-old white female who presented to emergency department on 11/10/2017 because of alcohol intoxication. The was called to her hotel because she was agitated and combative and had alteration in mental status. She reportedly was unable to give any meaningful history when she was evaluated. Heart rate was 102 on presentation. She was noted to have tachycardia and also hypertension and was hypoxic. Alcohol level was 583. During the course of evaluation, urinalysis was sent and it came back showing 6 white cells. Urine culture was taken and came back with greater than 100,000 colonies of E. coli, ESBL positive. The patient is currently awake. She notes having some pain in the lower abdomen region and also the lower back. She denies dysuria. She states that she feels slightly cold, but denies blaine chills. She is afebrile and white blood cell count is 4.9. The patient is noted to have suicidal ideation. She states to me that she is anxious. PAST MEDICAL HISTORY: History of septic shock due to Proteus mirabilis originating from urine infection 02/2017. Depression, alcoholism, liver cirrhosis, anxiety disorder. C. difficile colitis in 02/2017. ALLERGIES: NO KNOWN DRUG ALLERGIES. MEDICATIONS: Ativan p.r.n., Haldol p.r.n., folic acid, thiamine, Theragran, Protonix, nicotine patch. SOCIAL HISTORY: Positive alcohol use. Positive tobacco use, 1 pack a day. Denies IV drug use. FAMILY HISTORY: Noncontributory. REVIEW OF SYSTEMS: Pertinents mentioned above in history of present illness. PHYSICAL EXAMINATION: GENERAL: This is a well-developed female who is in no acute distress. She is awake and alert and oriented. VITAL SIGNS: Temperature 98.7, BP 122/92, respirations 16, heart rate 120. HEENT: Extraocular movements grossly intact. Pupils reactive to light. No icterus. Oropharynx: Moist mucosa. No thrush. No visible lesions. NECK: Supple without adenopathy. LUNGS: Clear breath sounds, bilateral. HEART: Regular, S1 and S2. No murmurs. ABDOMEN: Bowel sounds present, soft, mild tenderness at the lower abdomen. No rebound. RECTAL: Not performed. EXTREMITIES: No clubbing. No cyanosis or edema. SKIN: No rash. NEUROLOGIC: No gross focal finding. PSYCHIATRIC: The patient is calm and cooperative. LABORATORY DATA: WBC 4.9, platelet count 170, 56% neutrophils, 30% lymphocytes, hemoglobin 16.2. Creatinine 0.64, BUN 5, AST 354, ALT 312, alkaline phosphatase 173. IMPRESSION: Urinary tract infection due to extended-spectrum beta-lactamase Escherichia coli. RECOMMENDATIONS: 1. Begin intravenous ertapenem. 2. Repeat the urine culture on 11/16 and if it is negative, the ertapenem can be discontinued. 3. Please call once the results of the repeat urine culture is available. MD GIACOMO Mcdowell/SUDHEER , 12:43 PM , 01:14 PM
[2017-11-13] MEDS: ERTAPENEM INJ 1,000 MG in SODIUM CHLORIDE 0.9% INJ 100 ML IV SCH (14:26)
[2017-11-13] MEDS: IBUPROFEN 600 MG TAB PO PRN ×2 (14:29→21:47)
[2017-11-13 15:48] VITALS: BP 128/92; PULSE 110; RESP 20; TEMP 98.9; O2SAT 96
[2017-11-13 19:25] VITALS: BP 142/96; PULSE 101; RESP 16; TEMP 98.8; O2SAT 98
[2017-11-13 23:29] VITALS: BP 148/94; PULSE 97; RESP 16; TEMP 99; O2SAT 99
[2017-11-14] VITALS (9 sets, daily range): BP systolic 132–150; BP diastolic 85–103; PULSE 81–113; RESP 16; TEMP 98.2–98.6; O2SAT 95–99
[2017-11-14] MEDS: HEPARIN SODIUM - SQ 10,000 UNITS/ML VIAL SQ SCH ×2 (04:20→17:19)
[2017-11-14] MEDS: LORazepam 1 MG TAB PO SCH ×4 (04:21→20:23)
[2017-11-14 05:31] LABS: ALBUMIN 3.4 GM/DL (3.4-5.0); ALT (GPT) 297 U/L (10-53); AST (GOT) 340 U/L (15-37); BICARBONATE 26.1 MEQ/L (21.0-32.0); BLOOD UREA NITROGEN 12 MG/DL (7-18); CALCIUM 9.6 MG/DL (8.5-10.1); CHLORIDE 103 MEQ/L (98-107); CREATININE 0.79 MG/DL (0.50-1.00); GLOMERULAR FILTRATION RATE 77 ML/MIN (>89); GLUCOSE,RANDOM 136 MG/DL (74-106); SODIUM (NA) 138 MEQ/L (136-145)
[2017-11-14 05:34] LABS: ALKALINE PHOSPHATASE 190 U/L (45-117); TOTAL BILIRUBIN ADULT 1.8 MG/DL (0.2-1.0); TOTAL PROTEIN 6.9 GM/DL (6.4-8.2)
[2017-11-14] MEDS: MULTIVITAMINS/MINERALS THERAPEUTIC TAB PO SCH (08:55)
[2017-11-14] MEDS: THIAMINE HCL 100 MG TAB PO SCH (08:55)
[2017-11-14] MEDS: PANTOPRAZOLE SOD 40 MG DELAYED RELEASE TAB PO SCH (08:55)
[2017-11-14] MEDS: FOLIC ACID 1 MG TAB PO SCH (08:55)
[2017-11-14] MEDS: NICOTINE 7 MG/24 HR PATCH T-DERMAL SCH (08:57)
[2017-11-14] MEDS: REMOVE OLD PATCH T-DERMAL SCH (08:59)
[2017-11-14] MEDS: SODIUM CHLORIDE 0.9% FLUSH 10 ML FLUSH IV FLUSH SCH ×2 (09:01→20:25)
--- NOTE | 2017-11-14 10:16 | HHI.PR ---
Subjective Remarks RN reports pt's CIWA scores now finally around 6, whereas patient is noted to be frequently asking for Ativan also.. Pt says she has a hard time sleeping and asking if she can take 2 mg of Ativan at night. Patient denies hallucinating any further. Objective Vital Signs Date Time Temp Pulse Resp B/P (MAP) Pulse Ox O2 Delivery O2 Flow Rate FiO2 11/14/17 08:00 98.4 86 16 137/87 (104) 99 11/14/17 03:09 98.6 101 16 149/90 (109) 99 11/13/17 23:29 99.0 97 16 148/94 (112) 99 11/13/17 19:25 98.8 101 16 142/96 (111) 98 11/13/17 15:48 98.9 110 20 128/92 (104) 96 I/O 11/13/17 11/13/17 11/13/17 11/14/17 11/14/17 11/14/17 06:59 14:59 22:59 06:59 14:59 22:59 Intake Total 1000 ml Balance 1000 ml IV Total 1000 ml # Voids 2 Result Diagram: 11/10/17 1330 11/14/17 0441 Objective Remarks CTA x 2, unlabored breathing Improved, her affect today hrt rrr, no murmurs A/P Assessment and Plan encephalopathy -Nearly resolved, secondary to alcohol withdrawal ETOH w/d - scheduled ativan w/ CIWA protocol ESBL. Ecoli -appreciate ID recs, on invanz, repeat UC planned for 11/16 Dep/anxiety - psychiatry consulted transaminitis -improving - hep panel pending, continue IV fluids mouthwash ingestion - supportive care, mouthwash confiscated at this time in Nathan Randolph MD Nov 14, 2017 10:16
[2017-11-14] MEDS: ERTAPENEM INJ 1,000 MG in SODIUM CHLORIDE 0.9% INJ 100 ML IV SCH (13:30)
--- NOTE | 2017-11-14 13:42 | PD.PSY.CON ---
Provisional Diagnosis Admission Date Nov 14, 2017 at 09:11 [place] I. Alcohol-induced mood disorder, alcohol use disorder, history of anxiety and depression [place] II. Deferred [place] III. 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 Patient is homeless and states she has no place to go. In the ED, patient was found to be hypoxic with pulse ox of 88% on room air. ABG on RA revealed acidosis with pH 7.33, HCO3 21, PO2 of 85 and PCO2 40. She is currently satting 98% on 2 L. White count was within normal limits. Chemistry panel significant for hypokalemia with potassium level 3.1, bicarb 20.5, anion gap 20, total bilirubin 1.1, AST of 945, ALT 544 and alk phos 211. Her ethyl alcohol level was 583. Chest x-ray shows underinflation with atelectasis of the lung bases otherwise no acute findings note. Consulted to psychiatry to address a potential overdose. The patient has been noted to be drinking the mouthwashes in the ER. On psychiatric evaluation today the patient is calm, cooperative, pleasant. She reports that she has been drinking "a lot of alcohol lately" to deal with her multiple social stressors. She says that at times she started drinking at night wishing not not wake up in the morning. She reports that she has been struggling with homelessness, economical problems, interpersonal relationships especially with her boyfriend. She denies suicidal and homicidal ideation, she denies visual and auditory hallucinations. She reports that she needs to stop drinking alcohol, she is committed to be transferred to detox/rehab. She says that she wants to get better and sober. She is oriented 3, no attention deficit, no fluctuation of consciousness. She denies the use of illegal drugs. No symptoms of withdrawal at this moment. Review of Systems Constitutional: DENIES: Diaphoretic episodes, Fatigue, Fever, Weight gain, Weight loss, Chills, Dizziness, Change in appetite, Night Sweats Endocrine: DENIES: Abnorml menstrual pattern, Heat/cold intolerance, Polydipsia , Polyuria, Polyphagia Eyes: DENIES: Blurred vision, Diplopia, Eye inflammation, Eye pain, Vision loss , Photosensitivity, Double Vision Ears, nose, mouth, throat: DENIES: Tinnitus, Hearing loss, Vertigo, Nasal discharge, Oral lesions, Throat pain, Hoarseness, Ear Pain, Running Nose, Epistaxis, Sinus Pain, Toothache, Odynophagia Respiratory: DENIES: Apneas, Cough, Snoring, Wheezing, Hemoptysis, Sputum production, Shortness of breath Cardiovascular: DENIES: Chest pain, Palpitations, Syncope, Dyspnea on Exertion , PND, Lower Extremity Edema, Orthopnea, Claudication Gastrointestinal: DENIES: Abdominal pain, Black stools, Bloody stools, Constipation, Diarrhea, Nausea, Vomiting, Difficulty Swallowing, Anorexia Genitourinary: DENIES: Abnormal vaginal bleeding, Dysmenorrhea, Dyspareunia, Sexual dysfunction, Urinary frequency, Urinary incontinence, Urgency, Hematuria , Dysuria, Nocturia, Vaginal discharge Musculoskeletal: DENIES: Joint pain, Muscle aches, Stiffness, Joint Swelling, Back pain, Neck pain Integumentary: DENIES: Abnormal pigmentation, Pruritus, Rash, Nail changes, Breast masses, Breast skin changes, Nipple discharge Hematologic/lymphatic: DENIES: Bruising, Lymphadenopathy Immunologic/allergic: DENIES: Eczema, Urticaria Neurologic: DENIES: Abnormal gait, Headache, Localized weakness, Paresthesias, Seizures, Speech Problems, Tremor, Poor Balance Psychiatric: COMPLAINS OF: Depression, DENIES: Anxiety, Confusion, Mood changes , Hallucinations, Agitation, Suicidal Ideation, Homicidal Ideation, Delusions Past Family Social History Coded Allergies: No Known Allergies (Unverified Allergy, Unknown, 11/10/17) Active Scripts Tramadol (Ultram) 50 Mg Tab, 50 MG PO Q8H Y for PAIN, #14 TAB 0 Refills Prov:Adrianna Morales MD 03/16/17 Loratadine (Claritin) 10 Mg Tablet, 10 MG PO HS for antihistaminic, #30 MG Prov:Adrianna Morales MD 03/15/17 Furosemide (Lasix) 20 Mg Tab, 20 MG PO DAILY for edema , #30 TAB 0 Refills Prov:Adrianna Morales MD 03/15/17 Chlordiazepoxide HCl (Chlordiazepoxide HCl) 5 Mg Capsule, 5 MG PO Q8H for withdrawals , #15 MG Prov:Adrianna Morales MD 03/15/17 Current Medications Medications (Trade) Dose Ordered Sig/Sona Route Start Time Stop Time Status Last Admin (NS Flush) 2 ml UNSCH PRN IV FLUSH 11/10/17 16:15 (NS Flush) 2 ml BID IV FLUSH 11/10/17 21:00 11/14/17 09:01 (Folate) 1 mg DAILY PO 11/11/17 09:00 11/16/17 08:59 11/14/17 08:55 (Vitamin B1) 100 mg DAILY PO 11/11/17 09:00 11/14/17 08:55 (Theragran M Tab) 1 tab DAILY PO 11/11/17 09:00 11/16/17 08:59 11/14/17 08:55 (Protonix) 40 mg DAILY PO 11/11/17 09:00 11/14/17 08:55 (Catapres) 0.1 mg Q6H PRN PO 11/10/17 16:15 (Romazicon Inj) 0.2 mg Q1M PRN IV PUSH 11/10/17 16:15 (Ativan) 1 mg Q4H PRN PO 11/10/17 16:15 11/13/17 08:05 (Ativan Inj) 1 mg Q4H PRN IV PUSH 11/10/17 16:15 11/11/17 08:06 (Ativan) 2 mg Q2H PRN PO 11/10/17 16:15 11/12/17 12:43 (Ativan Inj) 2 mg Q2H PRN IV PUSH 11/10/17 16:15 11/13/17 00:07 (Ativan Inj) 2 mg Q1H PRN IV PUSH 11/10/17 16:15 11/13/17 02:00 (Ativan Inj) 2 mg Q15M PRN IV PUSH 11/10/17 16:15 (Heparin Inj) 5,000 units Q12H SQ 11/10/17 17:00 11/12/17 04:18 (Habitrol 7 Mg Patch.24 Hr) 1 patch DAILY T-DERMAL 11/10/17 18:30 11/14/17 08:57 Miscellaneous Information 1 DAILY T-DERMAL 11/11/17 09:00 11/14/17 08:59 (Zofran Odt) 4 mg Q6H PRN PO 11/10/17 21:30 11/12/17 04:20 (Motrin) 600 mg Q6H PRN PO 11/11/17 12:00 11/13/17 21:47 (Haldol Inj) 2 mg Q15M PRN IM 11/12/17 19:30 11/12/17 19:28 (Ativan) 1 mg Q6H PO 11/13/17 09:00 11/14/17 08:56 Ertapenem 1000 mg/ Sodium Chloride 100 ml @ 200 mls/hr Q24H IV 11/13/17 13:00 11/14/17 13:30 (Ativan) 2 mg HS PRN PO 11/14/17 10:45 Family Psych History No family psychiatric history Social History The patient was born and raised in [place], she lives with her boyfriend in [place], 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 2) Verbal communication Physical Exam No tremors, no EPS, no withdrawal symptoms at the moment Vital Signs Vital Signs Date Time Temp Pulse Resp B/P (MAP) Pulse Ox O2 Delivery O2 Flow Rate FiO2 11/14/17 12:30 98.2 81 16 135/85 (102) 98 11/10/17 16:31 Nasal Cannula 2.00 I/O 11/14/17 11/14/17 11/15/17 08:00 16:00 00:00 Intake Total 1000 ml Balance 1000 ml Lab Results Test 11/14/17 04:41 Blood Urea Nitrogen 12 MG/DL Creatinine 0.79 MG/DL Random Glucose 136 MG/DL Total Protein 6.9 GM/DL Albumin 3.4 GM/DL Calcium Level 9.6 MG/DL Alkaline Phosphatase 190 U/L Aspartate Amino Transf (AST/SGOT) 340 U/L Alanine Aminotransferase (ALT/SGPT) 297 U/L Total Bilirubin 1.8 MG/DL Sodium Level 138 MEQ/L Potassium Level 3.9 MEQ/L Chloride Level 103 MEQ/L Carbon Dioxide Level 26.1 MEQ/L Anion Gap 9 MEQ/L Estimat Glomerular Filtration Rate 77 ML/MIN Date/Time Source Procedure Growth Status 11/13/17 13:46 Blood Peripheral Aerobic Blood Culture - Preliminary NO GROWTH IN 1 DAY Resulted 11/13/17 13:46 Blood Peripheral Anaerobic Blood Culture - Preliminary NO GROWTH IN 1 DAY Resulted 11/10/17 18:18 Urine Clean Catch Urine Culture - Final Escherichia Coli Esbl Positive Complete Mental Status Examination Appearance: Appropriate Consciousness: Alert Orientation: x4 Motor Activity: Normal gait Speech: Unremarkable Language: Adequate Fund of Knowledge: Adequate Attention and Concentration: Adequate Memory: Unremarkable Mood: Appropriate Affect: Appropriate Thought Process & Associations: Intact Thought Content: Appropriate Hallucination Type: None Delusion Type: None Suicidal Ideation: No Suicidal Plan: No Suicidal Intention: No Homicidal Ideation: No Homicidal Plan: No Homicidal Intention: No Insight: Adequate Judgment: Adequate Assessment & Plan Problem List: (1) Alcohol abuse with alcohol-induced mood disorder ICD Codes: F10.14 - Alcohol abuse with alcohol-induced mood disorder Status: Acute Assessment & Plan: On my psychiatric evaluation today the patient presents calm , cooperative, pleasant, logical, coherent and relevant. The patient reports symptoms of depression consisting on daily sadness, wish to be , mood swings, increased sense of rejection and abandonment, helpless, but she denies suicidal and homicidal ideation, she denies visual and auditory hallucinations. Among her acute stressors the patient report economical problems, persistent alcohol abuse, evidence with her significant other. The patient is insightful about her alcohol addiction, she seems to be contemplating engaging in treatment , she is in agreement to be transferred to detox/rehab. At this moment the patient does not present any symptoms of withdrawal, but she does have history of severe withdrawal in the past. The patient does not meet criteria for involuntary psychiatric admission. Will start CIWA protocol. No additional psychotropics indicated. Brief supportive psychotherapy, motivation provided. Consult appreciated. Assessment & Plan Estimated LOS: Buddy Rivera MD Nov 14, 2017 13:42
[2017-11-14] MEDS: IBUPROFEN 600 MG TAB PO PRN (20:24)
[2017-11-14] MEDS: LORazepam 2 MG TAB PO PRN (22:17)
[2017-11-15] VITALS (10 sets, daily range): BP systolic 120–155; BP diastolic 62–94; PULSE 68–102; RESP 16–20; TEMP 98.2–98.9; O2SAT 96–100
[2017-11-15] MEDS: LORazepam 1 MG TAB PO SCH ×3 (03:06→21:30)
[2017-11-15] MEDS: HEPARIN SODIUM - SQ 10,000 UNITS/ML VIAL SQ SCH ×2 (04:44→17:08)
--- NOTE | 2017-11-15 08:07 | HHI.PR ---
Subjective Remarks Nursing denies any deterioration since last night. Reports that this CIWA score is still less than 8, not requiring IV Ativan. Patient reports she is still anxious and nauseated but when you ask her how she feels since admission, she says better. She reports has had insufficient bowel movement since admission. Objective Vital Signs Date Time Temp Pulse Resp B/P (MAP) Pulse Ox O2 Delivery O2 Flow Rate FiO2 11/15/17 06:55 87 11/15/17 05:14 98.5 90 20 142/74 (96) 11/15/17 01:40 98.9 102 18 155/86 (109) 100 11/14/17 23:00 88 11/14/17 21:24 18 11/14/17 21:04 98.4 107 16 139/92 (108) 98 11/14/17 17:00 98.2 111 16 132/92 (105) 95 11/14/17 16:20 113 11/14/17 12:49 90 11/14/17 12:30 98.2 81 16 135/85 (102) 98 11/14/17 09:02 86 I/O 11/14/17 11/14/17 11/14/17 11/15/17 11/15/17 11/15/17 07:00 15:00 23:00 07:00 15:00 23:00 Intake Total 1100 ml 320 ml Balance 1100 ml 320 ml Intake Oral 320 ml IV Total 1100 ml Result Diagram: 11/14/17 0441 Objective Remarks CTA x 2, unlabored breathing calm affect today AOx3 A/P Assessment and Plan ETOH w/d - scheduled ativan w/ CIWA protocol - de-escalating from q 6 to q8 scheduled oral ativan, avoiding librium given hepatic insufficiency for now, may need need either an Ativan taper or a Librium taper upon discharge pending liver function, LFTs in AM for trending purposes ESBL. Ecoli -appreciate ID recs, on invanz, repeat UC planned for 11/16 (clarified with infectious disease and discussion, no use in obtaining UA, only urine culture) Dep/anxiety - psychiatry consulted, appreciate recommendations, no further meds added on at this time transaminitis -improving - hep panel neg, stopping IVF mouthwash ingestion - supportive care, mouthwash confiscated at this time in locker constipation - miralax and dulcolax SCDs Nathan Grier MD Nov 15, 2017 08:07
[2017-11-15] MEDS: FOLIC ACID 1 MG TAB PO SCH (08:22)
[2017-11-15] MEDS: THIAMINE HCL 100 MG TAB PO SCH (08:23)
[2017-11-15] MEDS: SODIUM CHLORIDE 0.9% FLUSH 10 ML FLUSH IV FLUSH SCH ×2 (08:23→21:30)
[2017-11-15] MEDS: MULTIVITAMINS/MINERALS THERAPEUTIC TAB PO SCH (08:23)
[2017-11-15] MEDS: PANTOPRAZOLE SOD 40 MG DELAYED RELEASE TAB PO SCH (08:23)
[2017-11-15] MEDS: REMOVE OLD PATCH T-DERMAL SCH (08:24)
[2017-11-15] MEDS: NICOTINE 7 MG/24 HR PATCH T-DERMAL SCH (08:24)
[2017-11-15] MEDS ORDERED: POLYETHYLENE GLYCOL 17 GM PKG PO SCH (09:00)
[2017-11-15] MEDS ORDERED: BISACODYL 10 MG SUPP RECTAL SCH (09:00)
[2017-11-15] MEDS: ERTAPENEM INJ 1,000 MG in SODIUM CHLORIDE 0.9% INJ 100 ML IV SCH (13:25)
[2017-11-15] MEDS: LORazepam 1 MG TAB PO PRN (17:21)
[2017-11-15] MEDS: LORazepam 2 MG TAB PO PRN (23:09)
[2017-11-16] VITALS (7 sets, daily range): BP systolic 109–141; BP diastolic 69–92; PULSE 84–95; RESP 16–20; TEMP 98.1–100; O2SAT 96–100
[2017-11-16] MEDS: HEPARIN SODIUM - SQ 10,000 UNITS/ML VIAL SQ SCH ×2 (05:50→05:54)
[2017-11-16] MEDS: LORazepam 1 MG TAB PO SCH ×3 (05:54→21:48)
--- NOTE | 2017-11-16 07:41 | HHI.PR ---
Subjective Remarks Pt seen and examined for f/u of EtOH abuse/intoxication, transaminitis, depression/anxiety, and ESBL E. coli UTI. Tmax 100 overnight. No acute events or decompensation. Denies chest pain, nausea, or vomiting. States appetite is decreased. Endorses some pain in her abdomen from medication injections. Denies dysuria or flank pain. Pt reports she is feeling tired, depressed, and anxious. Reports she wasn't completely honest during psych eval because she was embarrassed. Endorses feeling suicidal and is open for psychiatric inpatient treatment and/or rehab for alcohol abuse. She reports she drinks EtOH to cope; she wants to quit. She used to be on Zoloft for about 10 years and has been off of it for about a year but states it wasn't helping as much. She has little financially and is dealing with homelessness presently though she does still have a job. She reports poor social support; she used to live with her brother who told her not to return because of her alcoholism. She was living with a boyfriend for a little bit but they broke up. Objective Vital Signs Date Time Temp Pulse Resp B/P (MAP) Pulse Ox O2 Delivery O2 Flow Rate FiO2 11/16/17 03:21 100.0 91 16 141/87 (105) 96 11/15/17 23:27 98.9 99 16 154/87 (109) 98 11/15/17 23:00 95 11/15/17 19:27 98.2 94 16 149/94 (112) 98 11/15/17 16:16 81 11/15/17 16:06 98.2 68 20 120/62 (81) 11/15/17 12:36 76 11/15/17 12:17 98.2 77 20 120/73 (89) 96 I/O 11/15/17 11/15/17 11/15/17 11/16/17 11/16/17 11/16/17 07:00 15:00 23:00 07:00 15:00 23:00 Intake Total 100 ml 320 ml Balance 100 ml 320 ml Intake Oral 320 ml IV Total 100 ml # Bowel Movements 1 Result Diagram: 11/14/17 0441 Objective Remarks GENERAL: WN, WD female resting in bed in NAD. SKIN: Warm and dry. HEENT: AT/NC. Pupils equal and round. MMM. HEART: RRR no m/r/g. LUNGS: CTAB without wheezes or crackles. ABDOMEN: Ecchymoses over lower abdomen. +BS, soft, mild RUQ tenderness. No guarding or rebound. BACK: No CVA TTP. EXTREMITIES: No LE edema. 2+ pedal pulses. NEURO: Awake and alert. Nonfocal. PSYCH: Depressed mood. Appropriate insight and judgement. A/P Assessment and Plan 47 YOWF with history of EtOH abuse, cirrhosis, and depression admitted on 11/10 for acute alcohol intoxication and hypoxia. During the course of evaluation, she was found to have a UTI with urine culture growing ESBL E. coli. 1. ESBL E. coli - ID following - On Ertapanem - Repeat urine culture today and if negative can d/c IV abx 2. EtOH abuse hepatitis, cirrhosis - CIWA protocol - On scheduled Ativan Q8H - LFTs trending down, hepatitis profile negative - Check CMP tomorrow - Counseled on absolute EtOH cessation, patient wants to quit - Case management to assist with OP resources 3. Depression/anxiety - Reconsult psych as patient reporting suicidality - Continue Ativan Q8H 4. Mouthwash ingestion - Supportive care - Mouthwash confiscated DVT prophylaxis: SCDs, hold heparin given bruising furthermore patient low risk and ambulating Discharge Planning Hopefully in next 1-2 days if repeat urine culture negative as ID wanting to keep patient on IV antibiotics until resulted Kenisha Diaz MD Nov 16, 2017 07:41
[2017-11-16 08:40] LABS: ALBUMIN 3.3 GM/DL (3.4-5.0); DIRECT BILIRUBIN ADULT 0.6 MG/DL (0.0-0.2)
[2017-11-16 08:43] LABS: INDIRECT BILIRUBIN 0.5 MG/DL (0.0-0.8); TOTAL BILIRUBIN ADULT 1.1 MG/DL (0.2-1.0); TOTAL PROTEIN 7.2 GM/DL (6.4-8.2)
[2017-11-16] MEDS ORDERED: POLYETHYLENE GLYCOL 17 GM PKG PO PRN (08:45)
[2017-11-16] MEDS ORDERED: BISACODYL 10 MG SUPP RECTAL PRN (08:45)
[2017-11-16] MEDS: THIAMINE HCL 100 MG TAB PO SCH (08:47)
[2017-11-16] MEDS: MULTIVITAMINS/MINERALS THERAPEUTIC TAB PO SCH (08:47)
[2017-11-16] MEDS: PANTOPRAZOLE SOD 40 MG DELAYED RELEASE TAB PO SCH (08:47)
[2017-11-16] MEDS: SODIUM CHLORIDE 0.9% FLUSH 10 ML FLUSH IV FLUSH SCH ×2 (08:48→19:47)
[2017-11-16] MEDS: NICOTINE 7 MG/24 HR PATCH T-DERMAL SCH (08:48)
[2017-11-16] MEDS: REMOVE OLD PATCH T-DERMAL SCH (08:48)
[2017-11-16] MEDS: ERTAPENEM INJ 1,000 MG in SODIUM CHLORIDE 0.9% INJ 100 ML IV SCH (13:34)
[2017-11-16] MEDS: LORazepam 2 MG TAB PO PRN (17:35)
[2017-11-16] MEDS: IBUPROFEN 600 MG TAB PO PRN (17:36)
[2017-11-16] MEDS: LORazepam 1 MG TAB PO PRN (19:47)
[2017-11-17] VITALS: BP 135/87; PULSE 104; RESP 18; TEMP 97.9; O2SAT 99
[2017-11-17] MEDS: LORazepam 2 MG TAB PO PRN ×2 (00:57→23:53)
[2017-11-17] MEDS: LORazepam 1 MG TAB PO SCH ×3 (05:28→21:41)
[2017-11-17 06:41] LABS: AUTOMATED NEUTROPHIL # 3.7 TH/MM3 (1.8-7.7); BASOPHIL % 0.5 % (0.0-2.0); EOSINOPHIL # 0.1 TH/MM3 (0-0.4); EOSINOPHIL % 2.1 % (0.0-4.0); HEMATOCRIT 37.2 % (35.0-46.0); HEMOGLOBIN 12.7 GM/DL (11.6-15.3); LYMPH % 19.4 % (9.0-44.0); LYMPHOCYTE # 1.1 TH/MM3 (1.0-4.8); MEAN CELL VOLUME 101.7 FL (80.0-100.0); MEAN CORPUSCULAR HEMOGLOBIN 34.8 PG (27.0-34.0); MEAN CORPUSCULAR HGB CONC 34.2 % (32.0-36.0); MEAN PLATELET VOLUME 10.7 FL (7.0-11.0); MONO % 13.6 % (0.0-8.0); MONOCYTE # 0.8 TH/MM3 (0-0.9); NEUT % 64.4 % (16.0-70.0); PLATELET COUNT 180 TH/MM3 (150-450); RED BLOOD COUNT 3.66 MIL/MM3 (4.00-5.30); RED CELL DISTRIBUTION WIDTH 17.5 % (11.6-17.2); WHITE BLOOD COUNT 5.8 TH/MM3 (4.0-11.0)
[2017-11-17 07:10] LABS: ALBUMIN 3.2 GM/DL (3.4-5.0); ALT (GPT) 225 U/L (10-53); AST (GOT) 213 U/L (15-37); BICARBONATE 25.2 MEQ/L (21.0-32.0); BLOOD UREA NITROGEN 10 MG/DL (7-18); CALCIUM 9.1 MG/DL (8.5-10.1); CHLORIDE 102 MEQ/L (98-107); CREATININE 0.69 MG/DL (0.50-1.00); GLOMERULAR FILTRATION RATE 90 ML/MIN (>89); GLUCOSE,RANDOM 111 MG/DL (74-106); SODIUM (NA) 137 MEQ/L (136-145)
[2017-11-17 07:13] LABS: ALKALINE PHOSPHATASE 193 U/L (45-117); TOTAL PROTEIN 6.8 GM/DL (6.4-8.2)
[2017-11-17 08:00] VITALS: BP 125/69; PULSE 82; RESP 21; TEMP 98.6; O2SAT 97
[2017-11-17] MEDS: REMOVE OLD PATCH T-DERMAL SCH (09:00)
[2017-11-17] MEDS: PANTOPRAZOLE SOD 40 MG DELAYED RELEASE TAB PO SCH (09:56)
[2017-11-17] MEDS: NICOTINE 7 MG/24 HR PATCH T-DERMAL SCH (09:56)
[2017-11-17] MEDS: THIAMINE HCL 100 MG TAB PO SCH (09:56)
[2017-11-17] MEDS: SODIUM CHLORIDE 0.9% FLUSH 10 ML FLUSH IV FLUSH SCH ×2 (09:57→20:03)
[2017-11-17] MEDS: IBUPROFEN 600 MG TAB PO PRN (10:02)
--- NOTE | 2017-11-17 10:06 | HHI.PYPN ---
Subjective Remarks Patient is a 47 y/o woman who carries a diagnosis of alcohol use disorder, currently homeless, employed, previously living with boyfriend, admitted due to agitation in the context of alcohol intoxication and previously seen by psychiatry consult on 11/14/17. Patient currently being managed for alcohol withdrawal by medical service and we consulted with psychiatry for reevaluation of suicidality. Patient was found lying hospital bed noted to be calm, cooperative. Discussion nursing staff reported the patient has had no behavioral disturbances, interacting adequately, not noted to be tearful but focused on requesting benzodiazepines; not endorsing suicidal ideations. Patient states that she has been feeling worried about being homeless upon discharge from the hospital, is currently feeling "sad" but is motivated with engagement in rehabilitation program alcohol use. Patient reports having been in detox in 2000 and a detox and 2016 at [facility]. Patient denies any rehabilitation programs or engagement in a sober living facilities in the past. Patient also reports having been on sertraline 100 mg in 2016 which she reports felt helped her at that time and managed by her primary care doctor. Patient reports no previous contact with outpatient psychiatrist or therapist. Patient states that she is interested in rehabilitation program are sober living would like assistance in 2 exploring these options but aware of the possibility of staying in shelters in the interim while waiting to engage in these programs depending on availability she currently has no insurance. Patient this time denies any suicidal homicidal ideations, denies any perceptual disturbances or delusions. She mentions not having any suicidal ideations today but is not sure if she will feel this way when she's homeless. Review of Systems Except as stated in HPI: all other systems reviewed are Neg Mental Status Examination Appearance: Appropriate Consciousness: Alert Orientation: x4 Motor Activity: Normal gait Speech: Unremarkable Language: Adequate Fund of Knowledge: Adequate Attention and Concentration: Adequate Memory: Unremarkable Mood: Sad Affect: Sad Thought Process & Associations: Intact Thought Content: Appropriate Hallucination Type: None Delusion Type: None Suicidal Ideation: No Suicidal Plan: No Suicidal Intention: No Homicidal Ideation: No Homicidal Plan: No Homicidal Intention: No Insight: Adequate Judgment: Adequate Results Labs Test 11/17/17 06:12 White Blood Count 5.8 TH/MM3 Red Blood Count 3.66 MIL/MM3 Hemoglobin 12.7 GM/DL Hematocrit 37.2 % Mean Corpuscular Volume 101.7 FL Mean Corpuscular Hemoglobin 34.8 PG Mean Corpuscular Hemoglobin Concent 34.2 % Red Cell Distribution Width 17.5 % Platelet Count 180 TH/MM3 Mean Platelet Volume 10.7 FL Neutrophils (%) (Auto) 64.4 % Lymphocytes (%) (Auto) 19.4 % Monocytes (%) (Auto) 13.6 % Eosinophils (%) (Auto) 2.1 % Basophils (%) (Auto) 0.5 % Neutrophils # (Auto) 3.7 TH/MM3 Lymphocytes # (Auto) 1.1 TH/MM3 Monocytes # (Auto) 0.8 TH/MM3 Eosinophils # (Auto) 0.1 TH/MM3 Basophils # (Auto) 0.0 TH/MM3 CBC Comment DIFF FINAL Differential Comment Blood Urea Nitrogen 10 MG/DL Creatinine 0.69 MG/DL Random Glucose 111 MG/DL Total Protein 6.8 GM/DL Albumin 3.2 GM/DL Calcium Level 9.1 MG/DL Alkaline Phosphatase 193 U/L Aspartate Amino Transf (AST/SGOT) 213 U/L Alanine Aminotransferase (ALT/SGPT) 225 U/L Total Bilirubin 1.0 MG/DL Sodium Level 137 MEQ/L Potassium Level 3.9 MEQ/L Chloride Level 102 MEQ/L Carbon Dioxide Level 25.2 MEQ/L Anion Gap 10 MEQ/L Estimat Glomerular Filtration Rate 90 ML/MIN Date/Time Source Procedure Growth Status 11/13/17 13:46 Blood Peripheral Aerobic Blood Culture - Preliminary NO GROWTH IN 3 DAYS Resulted 11/13/17 13:46 Blood Peripheral Anaerobic Blood Culture - Preliminary NO GROWTH IN 3 DAYS Resulted 11/16/17 09:45 Urine Catheterized Urine Urine Culture Pending Received Vitals/IOs Vital Signs Date Time Temp Pulse Resp B/P (MAP) Pulse Ox O2 Delivery O2 Flow Rate FiO2 11/17/17 00:00 97.9 104 18 135/87 (103) 99 Assessment & Plan Problem List: (1) Alcohol abuse with alcohol-induced mood disorder ICD Codes: F10.14 - Alcohol abuse with alcohol-induced mood disorder Status: Acute Assessment & Plan Patient is a 47-year-old woman who carries a diagnosis of alcohol use disorder, currently managed by medical service for withdrawal and psychiatry reconsult due to patient having endorsed possibility of having suicide ideations. Patient at this time denies any suicide ideations today stating that she may feel this way if she is homeless. Patient has no history of previous suicide attempts, or inpatient psychiatric hospitalization, although patient currently with significant stressor of being homeless, patient noted to be goal directed and future oriented and that she is willing to engage in rehabilitation program are sober living upon discharge. The patient's current symptoms likely due to alcohol-induced mood disorder, patient has a history of depression in the past and had been treated on antidepressants previously which at this time would benefit from restarting along with anxiolytic. Recommend starting sertraline 50 mg p.o. daily for depression, and gabapentin 300 mg p.o. 3 times daily for anxiety. Recommend correlation with case management to provide patient with information regarding sober living facilities, rehabilitation program and possible shelters as patient may require referral to. Patient also requesting assistance with requiring medications upon discharge. Recommend that patient elected to [facility] outpatient mental health services for follow-up and for possibility of rehabilitation program for substance use if other options were not obtainable. Patient this time does not meet criteria for inpatient psychiatric hospitalization. Consult appreciated. Justification for Cont. Inpt. At risk of further decompensation at lower level of care. Leo Rey MD Nov 17, 2017 10:06
[2017-11-17 12:00] VITALS: BP 132/71; PULSE 97; RESP 17; TEMP 98.3; O2SAT 97
[2017-11-17] MEDS: SERTRALINE HCL 50 MG TAB PO SCH (12:09)
[2017-11-17] MEDS: GABAPENTIN 300 MG CAP PO SCH ×2 (12:10→17:54)
[2017-11-17] MEDS: ERTAPENEM INJ 1,000 MG in SODIUM CHLORIDE 0.9% INJ 100 ML IV SCH (13:21)
[2017-11-17] MEDS ORDERED: CHLO10CA5 PO (13:29)
[2017-11-17] MEDS ORDERED: THIA100 PO (13:29)
[2017-11-17] MEDS ORDERED: NEUR300C PO (13:30)
[2017-11-17] MEDS ORDERED: ZOLO50TA PO (13:30)
--- NOTE | 2017-11-17 13:34 | HHI.PR ---
Subjective Remarks Patient says she was feeling nauseous earlier, no vomiting. Denies abdominal pain. Denies any chest pain or shortness of breath. Objective Vital Signs Date Time Temp Pulse Resp B/P (MAP) Pulse Ox O2 Delivery O2 Flow Rate FiO2 11/17/17 08:00 98.6 82 21 125/69 (87) 97 11/17/17 00:00 97.9 104 18 135/87 (103) 99 11/16/17 20:00 98.5 92 20 136/92 (107) 100 11/16/17 20:00 84 11/16/17 19:47 20 11/16/17 15:00 98.1 95 17 133/86 (102) 100 I/O 11/16/17 11/16/17 11/16/17 11/17/17 11/17/17 11/17/17 07:00 15:00 23:00 07:00 15:00 23:00 Intake Total 100 ml 275 ml Balance 100 ml 275 ml Intake Oral 275 ml IV Total 100 ml # Voids 2 Result Diagram: 11/17/17 0612 11/17/17 0612 Objective Remarks GENERAL: Patient sitting up in bed. Appears comfortable. SKIN: Warm and dry. HEAD: Normocephalic. EYES: No scleral icterus. No injection or drainage. NECK: Supple, trachea midline. No JVD. CARDIOVASCULAR: Regular rate and rhythm without murmurs, gallops, or rubs. RESPIRATORY: Breath sounds equal bilaterally. No accessory muscle use. GASTROINTESTINAL: Abdomen soft, non-tender, nondistended. MUSCULOSKELETAL: No cyanosis, or edema. BACK: Nontender without obvious deformity. No CVA tenderness. A/P Assessment and Plan 47 YOWF with history of EtOH abuse, cirrhosis, and depression admitted on 11/10 for acute alcohol intoxication and hypoxia. During the course of evaluation, she was found to have a UTI with urine culture growing ESBL E. coli. // ESBL E. coli - ID following - On Ertapanem -Repeat urine culture from 11/16. No growth in 24 hours. //EtOH abuse hepatitis, cirrhosis - [facility] protocol - On scheduled Ativan Q8H - LFTs trending down, hepatitis profile negative - Check CMP tomorrow - Counseled on absolute EtOH cessation, patient wants to quit - Case management to assist with OP resources // Depression/anxiety - Reconsult psych as patient reporting suicidality - Continue Ativan Q8H // Mouthwash ingestion - Supportive care - Mouthwash confiscated DVT prophylaxis: SCDs, hold heparin given bruising furthermore patient low risk and ambulating Discharge Planning Urine culture negative. Discharge home. Case management assistance appreciated. Marco Demarco MD Nov 17, 2017 13:34
--- NOTE | 2017-11-17 13:36 | HHI.DS ---
Discharge Summary Admission Date Nov 14, 2017 at 09:11 Discharge Date: Nov 18, 2017 Admitting Diagnosis acute alcohol intoxication, hypoxia (1) Alcohol intoxication ICD Code: F10.929 - Alcohol use, unspecified with intoxication, unspecified Status: Acute (2) Alcohol abuse with alcohol-induced mood disorder ICD Code: F10.14 - Alcohol abuse with alcohol-induced mood disorder Status: Acute Procedures No invasive procedures. Brief History - From Admission This is a 47-year-old female with past medical history significant for liver cirrhosis, alcohol abuse, hx of proteus mirabilis bacteremia and hx of c diff infection treated at this facility in 2017 who presents to [facility] ED having had EMS called to her hotel because she was altered, combative and agitated secondary to alcohol intoxication. Patient is calm and cooperative at this time. She is not a very good historian. She states she drinks about a pint of alcohol a day. She denies any illicit drug use. She denies any suicidal intent. She complains of being short of breath. She denies any fever or chills. She denies any chest pain. She reports nausea and nonbilious, nonbloody vomiting 2. She endorses mild upper abdominal/ epigastric pain. She reports 2 episodes of loose stools yesterday but none today. She denies any dark/black/tarry stools. She denies any dysuria. Patient is homeless and states she has no place to go. In the ED, patient was found to be hypoxic with pulse ox of 88% on room air. ABG on RA revealed acidosis with pH 7.33, HCO3 21, PO2 of 85 and PCO2 40. She is currently satting 98% on 2 L. White count was within normal limits. Chemistry panel significant for hypokalemia with potassium level 3.1, bicarb 20.5, anion gap 20 , total bilirubin 1.1, AST of 945, ALT 544 and alk phos 211. Her ethyl alcohol level was 583. Chest x-ray shows underinflation with atelectasis of the lung bases otherwise no acute findings noted. CBC/BMP: 11/17/17 0612 11/17/17 0612 Significant Findings Laboratory Tests Test 11/16/17 07:21 11/17/17 06:12 Total Bilirubin 1.1 MG/DL (0.2-1.0) Direct Bilirubin 0.6 MG/DL (0.0-0.2) Aspartate Amino Transf (AST/SGOT) 277 U/L (15-37) 213 U/L (15-37) Alanine Aminotransferase (ALT/SGPT) 267 U/L (10-53) 225 U/L (10-53) Alkaline Phosphatase 210 U/L (45-117) 193 U/L (45-117) Albumin 3.3 GM/DL (3.4-5.0) 3.2 GM/DL (3.4-5.0) Red Blood Count 3.66 MIL/MM3 (4.00-5.30) Mean Corpuscular Volume 101.7 FL (80.0-100.0) Mean Corpuscular Hemoglobin 34.8 PG (27.0-34.0) Red Cell Distribution Width 17.5 % (11.6-17.2) Monocytes (%) (Auto) 13.6 % (0.0-8.0) Random Glucose 111 MG/DL (74-106) Imaging Last Impressions Chest X-Ray 11/10/17 0000 Signed Impressions: CONCLUSION: Under inflation with atelectasis at the lung bases. Otherwise, no acute finding is identified. Hospital Course Patient admitted with alcohol intoxication with alcohol level 583. Also found to have ESBL E. coli UTI for which patient was treated with ertapenem 3 days. Repeat culture is negative for 24 hours. Patient was seen by psychiatry and found to be not suicidal. Psychiatry is started patient on antidepressant and gabapentin. Alcohol withdrawal was managed with benzodiazepines. Patient will be discharged home with Librium taper. Alcohol detox resources to be provided. For problem based summary from most recent progress note, please see below. 47 YOWF with history of EtOH abuse, cirrhosis, and depression admitted on 11/10 for acute alcohol intoxication and hypoxia. During the course of evaluation, she was found to have a UTI with urine culture growing ESBL E. coli. // ESBL E. coli - ID following - On Ertapanem -Repeat urine culture from 11/16. No growth in 24 hours. //EtOH abuse hepatitis, cirrhosis - [facility] protocol - On scheduled Ativan Q8H - LFTs trending down, hepatitis profile negative - Check CMP tomorrow - Counseled on absolute EtOH cessation, patient wants to quit - Case management to assist with OP resources // Depression/anxiety - Reconsult psych as patient reporting suicidality - Continue Ativan Q8H // Mouthwash ingestion - Supportive care - Mouthwash confiscated DVT prophylaxis: SCDs, hold heparin given bruising furthermore patient low risk and ambulating Discharge Planning Hopefully in next 1-2 days if repeat urine culture negative as ID wanting to keep patient on IV antibiotics until resulted Pt Condition on Discharge: Good Discharge Disposition: Discharge Home Discharge Time: > 30 minutes Discharge Instructions DIET: Follow Instructions for: As Tolerated, No Restrictions Activities you can perform: Regular-No Restrictions Follow up Referrals: PCP Follow-up - 1 Week with [facility] Adult - 1 Week New Medications: Chlordiazepoxide HCl (Chlordiazepoxide HCl) 10 Mg Capsule 1 CAP PO DIRECTED for Alcohol Detox, #18 CAP Take THREE Times daily for 3 Days, then TWICE daily for 3 days, then ONCE a day for 3 Days. Gabapentin (Neurontin) 300 Mg Cap 300 MG PO TID for Anxiety for 7 Days, CAP please up with primary care for refill within 1 week Sertraline (Zoloft) 50 Mg Tab 50 MG PO DAILY for Anxiety for 30 Days, #30 TAB Thiamine HCl (Gnp Vitamin B-1) 100 Mg Tab 100 MG PO DAILY for vitamin for 30 Days, #30 TAB Continued Medications: Loratadine (Claritin) 10 Mg Tablet 10 MG PO HS for antihistaminic, #30 MG Tramadol (Ultram) 50 Mg Tab 50 MG PO Q8H PRN for PAIN, #14 TAB 0 Refills Discontinued Medications: Chlordiazepoxide HCl (Chlordiazepoxide HCl) 5 Mg Capsule 5 MG PO Q8H for withdrawals , #15 MG Furosemide (Lasix) 20 Mg Tab 20 MG PO DAILY for edema , #30 TAB 0 Refills Marco Demarco MD Nov 17, 2017 13:36
[2017-11-17 16:00] VITALS: BP 139/87; PULSE 81; RESP 17; TEMP 98.1; O2SAT 97
[2017-11-17 20:00] VITALS: BP 154/93; PULSE 100; PULSE 91; RESP 18; TEMP 97.7; O2SAT 98
[2017-11-18] VITALS: BP 154/91; PULSE 82; RESP 18; TEMP 99.2; O2SAT 97
[2017-11-18 00:05] VITALS: PULSE 82
[2017-11-18 04:00] VITALS: BP 137/74; PULSE 84; RESP 18; TEMP 99.2; O2SAT 95
[2017-11-18] MEDS: LORazepam 1 MG TAB PO SCH ×2 (06:00→12:32)
[2017-11-18 07:48] VITALS: PULSE 132
[2017-11-18 08:00] VITALS: BP 128/88; PULSE 105; RESP 18; TEMP 97.1; O2SAT 98
[2017-11-18] MEDS: PANTOPRAZOLE SOD 40 MG DELAYED RELEASE TAB PO SCH (08:51)
[2017-11-18] MEDS: NICOTINE 7 MG/24 HR PATCH T-DERMAL SCH (08:51)
[2017-11-18] MEDS: SERTRALINE HCL 50 MG TAB PO SCH (08:51)
[2017-11-18] MEDS: SODIUM CHLORIDE 0.9% FLUSH 10 ML FLUSH IV FLUSH SCH (08:51)
[2017-11-18] MEDS: THIAMINE HCL 100 MG TAB PO SCH (08:51)
[2017-11-18] MEDS: GABAPENTIN 300 MG CAP PO SCH ×2 (08:51→12:29)
[2017-11-18] MEDS: REMOVE OLD PATCH T-DERMAL SCH (08:54)
--- NOTE | 2017-11-18 09:40 | HHI.PR ---
Subjective Remarks Patient says she is feeling right. Feels comfortable going home. Denies any chest pain or shortness of breath. Objective Vital Signs Date Time Temp Pulse Resp B/P (MAP) Pulse Ox O2 Delivery O2 Flow Rate FiO2 11/18/17 08:00 97.1 105 18 128/88 (101) 98 11/18/17 04:00 99.2 84 18 137/74 (95) 95 11/18/17 00:05 82 11/18/17 00:00 99.2 82 18 154/91 (112) 97 11/17/17 20:00 100 11/17/17 20:00 97.7 91 18 154/93 (113) 98 11/17/17 16:00 98.1 81 17 139/87 (104) 97 11/17/17 12:00 98.3 97 17 132/71 (91) 97 I/O 11/17/17 11/17/17 11/17/17 11/18/17 11/18/17 11/18/17 07:00 15:00 23:00 07:00 15:00 23:00 Intake Total 575 ml 480 ml Balance 575 ml 480 ml Intake Oral 575 ml 480 ml # Voids 6 3 # Bowel Movements 1 1 Result Diagram: 11/17/17 0612 11/17/17 0612 Objective Remarks GENERAL: Patient sitting up in bed. Appears comfortable. HEAD: Normocephalic. EYES: No scleral icterus. No injection or drainage. RESPIRATORY: No accessory muscle use. A/P Assessment and Plan 47 YOWF with history of EtOH abuse, cirrhosis, and depression admitted on 11/10 for acute alcohol intoxication and hypoxia. During the course of evaluation, she was found to have a UTI with urine culture growing ESBL E. coli. // ESBL E. coli - ID following - On Ertapanem -Repeat urine culture from 11/16. No growth in 24 hours. Very low growth of yeast, clinically insignificant. //EtOH abuse hepatitis, cirrhosis - [facility] protocol - On scheduled Ativan Q8H - LFTs trending down, hepatitis profile negative - Check CMP tomorrow - Counseled on absolute EtOH cessation, patient wants to quit - Case management to assist with OP resources // Depression/anxiety - Reconsult psych as patient reporting suicidality - Continue Ativan Q8H // Mouthwash ingestion - Supportive care - Mouthwash confiscated DVT prophylaxis: SCDs, hold heparin given bruising furthermore patient low risk and ambulating Discharge Planning Urine culture negative. Discharge home. Case management assistance appreciated. Discussed with case management. Patient to be provided with resources, transportation Marco Demarco MD Nov 18, 2017 09:40
[2017-11-18 12:00] VITALS: BP 134/82; PULSE 128; RESP 19; TEMP 98.4; O2SAT 96
[2017-11-18] MEDS: ERTAPENEM INJ 1,000 MG in SODIUM CHLORIDE 0.9% INJ 100 ML IV SCH (12:35)
== END 2017-11-18 13:36 | disposition home or self-care (01) | DRG 896 ==
LOC: NEPD 13:00 → NEDA 16:03 → NEPFCDU 18:09 → OBSVTOIN 11-14 09:11 → N07A 11-16 14:34
PROVIDERS: ADMIT Internal Medicine; ATTEND Internal Medicine
DX: F10.230 Alcohol dependence with withdrawal, uncomplicated (principal); J96.01 Acute respiratory failure with hypoxia; G92 Toxic encephalopathy; E87.2 Acidosis; J98.11 Atelectasis; N39.0 Urinary tract infection, site not specified; R45.851 Suicidal ideations; F10.220 Alcohol dependence with intoxication, uncomplicated; Y90.8 Blood alcohol level of 240 mg/100 ml or more; F17.200 Nicotine dependence, unspecified, uncomplicated; E87.6 Hypokalemia; F32.9 Major depressive disorder, single episode, unspecified; F41.9 Anxiety disorder, unspecified; I10 Essential (primary) hypertension; R00.0 Tachycardia, unspecified; B96.20 Unspecified Escherichia coli [E. coli] as the cause of diseases classified elsewhere; Z16.12 Extended spectrum beta lactamase (ESBL) resistance; F10.24 Alcohol dependence with alcohol-induced mood disorder; K70.30 Alcoholic cirrhosis of liver without ascites; K59.00 Constipation, unspecified; K70.10 Alcoholic hepatitis without ascites; Z59.0 Homelessness
CPT/HCPCS: 36600; 71045; 80053; 80061; 80074; 80076; 80307; 81001; 82550; 82805; 82948; 83690; 83735; 85025; 85610; 87040; 87077; 87086; 87106; 87186; 93005; 94150; 96361; 96365; 96366; 96372; 96375; G0378; J1335; J1630; J1644; J2060; J3480; J7030